=== PATIENT | male | born 1945 | race Caucasian/White ===

== ENCOUNTER → 2017-04-03 | Outpatient (CLI) | payer MEDICARE, BC ==
--- NOTE | 2017-04-03 08:49 | US ---
EXAMINATION TYPE: US duplex aorta DATE OF EXAM: 04/03/2017 COMPARISON: NONE CLINICAL HISTORY: 71-year-old male Z13.9 Encounter for screening unspecified. TECHNIQUE: Multiple sonographic images of the abdominal aorta are obtained. FINDINGS: SONOGRAPHY NOTES: Technical limitations due to large amount of overlying bowel content. Incidental finding: Complex cystic structure noted mid abdomen = 9.0 x 8.9 x 5.6cm EXAM MEASUREMENTS: Abdominal Aorta: Proximal: 2.5 x 2.9cm Mid: 2.7 x 2.6cm Distal: 1.8 x 1.9cm Bifurcation: RT: 1.1 x 1.1cm LT: 1.1 x 1.1cm IMPRESSION: 1. 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 2. Ectatic mid abdominal aorta (2.6 cm). 3. Apparent complex cystic structure measuring 9.0 cm in the mid abdomen. Etiology unclear based on t hese images. Contrast-enhanced CT can further evaluate.
== END | disposition home or self-care (01) ==
LOC: RADUSWWP 07:58
PROVIDERS: ATTEND Family Medicine
DX: I77.811 Abdominal aortic ectasia (principal)
CPT/HCPCS: 93979

== ENCOUNTER → 2017-04-18 | Outpatient (CLI) | payer MEDICARE, BC ==
[2017-04-18 07:55] LABS: Blood Urea Nitrogen 17 mg/dL (9-20)
--- NOTE | 2017-04-18 10:10 | CT ---
EXAMINATION TYPE: CT abdomen w con DATE OF EXAM: 04/18/2017 COMPARISON: NONE HISTORY: Intraabdominal swelling, mass and lump CT DLP: 1277.10 mGycm Automated exposure control for dose reduction was used. TECHNIQUE: Helical acquisition of images was performed from the lung bases through the top of iliac crest to include entire abdomen. CONTRAST: Performed with Oral Contrast and with IV Contrast, patient injected with 100 ml mL of Omnipaque 300. FINDINGS: LUNG BASES: Dependent atelectatic changes or groundglass opacities are present, no pleural or pericar dial effusion LIVER/GB: Liver shows some heterogeneous attenuation, gallbladder is normal PANCREAS: Punctate calcification present in the head of the pancreas. Multiple cystic foci associated with the body and tail of the pancreas with internal septations, lesion measures approximately 10 to 11 cm in greatest dimension by 9.4 cm x 7 cm. SPLEEN: Low dense focus towards the inferior aspect of the spleen measures approximately 13 mm and is indeterminate, focus towards the dome of the diaphragm posteriorly measures 10 to 11 mm and is also poorly defined. Some minimal fluid present along the inferior aspect of the spleen ADRENALS: No significant abnormality is seen. KIDNEYS: No significant abnormality is seen. BOWEL: No significant abnormality is seen. LYMPH NODES: No significant abnormality is appreciated. OSSEOUS STRUCTURES: No significant abnormality is seen. FREE AIR: No Free Air visible ASCITES: None visible. RETROPERITONEAL ADENOPATHY: No Retroperitoneal Adenopathy visible. OTHER: Bones remarkable for degenerative disc changes in the lumbar spine. Mild anterior wedging at L 1. 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 SCHULTZ.
== END | disposition home or self-care (01) ==
LOC: RADCTMAIN 07:03
PROVIDERS: ATTEND Family Medicine
DX: D13.6 Benign neoplasm of pancreas (principal)
CPT/HCPCS: 82565; 84520; 74160; 36415; Q9967

== ENCOUNTER → 2017-05-13 | Outpatient (CLI) | payer MEDICARE, BC ==
--- NOTE | 2017-05-14 09:19 | MR ---
EXAMINATION TYPE: MR MRCP DATE OF EXAM: 05/13/2017 COMPARISON: 04/03/2017 and 04/18/2017 HISTORY: Cystic pancreatic neoplasm seen on CT abdomen dated 04/18/2017. Standard multiplanar, multisequence MRI departmental protocol. Multiplanar, multisequence images of the abdomen were acquired per the MRCP protocol. [id number] images were utilized. FINDINGS: The common bile duct is nondilated measuring 6 mm proximally and distally. There is smooth tapering of the common bile duct distally without focal stricturing or proximal dilatation. The gallb ladder is unremarkable without evidence of cholelithiasis on this examination. Within the pancreatic head there is a rounded 1.2 x 1.0 x 1.0 cm T2 hyperintense and T1 hypointense c ystic mass. There is no direct communication visualized with the nondilated pancreatic duct. Within t he uncinate process just inferior to this there is a similar appearing 7 mm cystic mass. Overall the main pancreatic duct is nondilated measuring 3 mm at the pancreatic head and 2 mm within the pancreat ic. Beginning at the distal end of the pancreatic body and involving the pancreatic tail there is a l arge multiloculated macrocystic pancreatic mass measuring up to 9.4 x 7.8 x 10.8 cm in craniocaudal b y transverse by anterior posterior dimension. This places mass effect upon the inferior aspect of the stomach. Within this lesion there is suspicion for a solid component that is T2 hypointense and T1 h ypointense such as on T2 nonfat sat axial image 24 measuring 1.7 x 1.3 cm. Additionally there are magaly e thicker septa such as on image 23 posteriorly measuring 2 mm and many thin septa that are 1 mm and barely imperceptible. Additional thick septa measuring 3 mm is seen on image 25 anterior medially. No surrounding inflammatory changes seen. The liver is homogeneous. There is very mild signal dropout on out of phase imaging in comparison to these imaging of the hepatic parenchyma indicating mild hepatic steatosis. Adrenal glands are unremar kable. A T2 hyperintense and T1 hypointense 6 mm splenic lesion has no enhancement and may represent a benign primary cyst, secondary cysts, or lymphangioma. Tiny subcentimeter T2 hyperintense cortical and renal sinus lesions are seen bilaterally favored to represent cysts but are too small to accurate ly characterize. Mild perinephric fat stranding is seen bilaterally. No hydronephrosis. Abdominal aor ta is of normal caliber. Bowel is nondilated. No gross evidence of adenopathy within the abdomen. Mil d degenerative changes are seen of the visualized thoracolumbar spine as well as a probable vertebral body hemangioma. IMPRESSION: 1. 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 Location of this neoplasm and macro cystic components favor mucinous cystic neoplasm (cystadenoma or cystadenocarcinoma), however these a re typically unilocular and therefore this is not entirely diagnostic for mucinous cystic neoplasm. O ther considerations are for multiloculated pseudocyst in the history of pancreatitis or trauma, cysti c degeneration of a neuroendocrine tumor for which correlation with serum laboratory values could be performed, or much less likely cystic degeneration of an adenocarcinoma (correlate with serum CA-19-9 ). MR abdomen with and without intravenous contrast is recommended to evaluate for solid component an d septal enhancement, which favors malignant entities. 2. Smaller pancreatic head and uncinate process cystic lesions that could represent small pseudocysts or side branch IPMNs although no distinct communication with the pancreatic duct is seen. 3. Mild hepatic steatosis. 4. No evidence of adenopathy within the abdomen.
== END | disposition home or self-care (01) ==
LOC: RADMRIMAIN 19:31
PROVIDERS: ATTEND Internal Medicine Hematology & Oncology
DX: D49.0 Neoplasm of unspecified behavior of digestive system (principal); K76.0 Fatty (change of) liver, not elsewhere classified; D75.89 Other specified diseases of blood and blood-forming organs
CPT/HCPCS: 74181

== ENCOUNTER 2017-08-14 08:37 | Inpatient (IN) | payer MEDICARE, BC ==
[2017-08-14] MEDS ORDERED: SODIUM CHLORIDE 0.9% 1,000 ML IV ONE (08:51)
--- NOTE | 2017-08-14 08:53 | ED ---
Altered Mental Status HPI - General Chief Complaint: Altered Mental Status Stated Complaint: altered mental status Source: patient Mode of arrival: EMS Limitations: altered mental status - History of Present Illness Initial Comments: Patient presents after a syncopal episode this morning. He states that he passed out. Patient denies any fever, chills, chest pain. He had recent abdominal surgery for pancreatic cancer. He denies any blood in the stool or black or tarry stool. He has no belly pains this time. He has no headache. He has no change in vision or hearing. He has no neck pain or stiffness. He denies any focal weakness. He has been tolerating orotate. - Related Data Home Medications Medication Instructions Recorded Confirmed Aspirin EC [Ecotrin Low Dose] 81 mg PO DAILY 08/14/17 08/14/17 Diltiazem Cd [Cardizem Cd] 180 mg PO DAILY 08/14/17 08/14/17 Pravastatin Sodium [Pravachol] 20 mg PO HS 08/14/17 08/14/17 Allergies Allergy/AdvReac Type Severity Reaction Status Date / Time niacin Allergy Unknown Verified 08/14/17 09:05 Review of Systems ROS Statement: Those systems with pertinent positive or pertinent negative responses have been documented in the HPI. ROS Other: All systems not noted in ROS Statement are negative. Past Medical History Past Medical History: Hypertension Additional Past Medical History / Comment(s): pancreatic CA History of Any Multi-Drug Resistant Organisms: None Reported Past Surgical History: Prostate Surgery Additional Past Surgical History / Comment(s): abdominal surgery Past Psychological History: No Psychological Hx Reported Smoking Status: Former smoker Past Alcohol Use History: None Reported Past Drug Use History: None Reported General Exam Limitations: altered mental status General appearance: alert, in no apparent distress Head exam: Present: atraumatic, normocephalic, normal inspection Eye exam: Present: normal appearance, PERRL, EOMI. Absent: scleral icterus, conjunctival injection, periorbital swelling ENT exam: Present: normal exam, mucous membranes moist Neck exam: Present: normal inspection. Absent: tenderness, meningismus, lymphadenopathy Respiratory exam: Present: normal lung sounds bilaterally. Absent: respiratory distress, wheezes, rales, rhonchi, stridor Cardiovascular Exam: Present: regular rate, normal rhythm, normal heart sounds. Absent: systolic murmur, diastolic murmur, rubs, gallop, clicks GI/Abdominal exam: Present: soft, normal bowel sounds, other (There is a well- healing scar, with a drain in place). Absent: distended, tenderness, guarding, rebound, rigid Extremities exam: Present: normal inspection, full ROM, normal capillary refill. Absent: tenderness, pedal edema, joint swelling, calf tenderness Back exam: Present: normal inspection Neurological exam: Present: alert, oriented X3, CN II-XII intact Psychiatric exam: Present: normal affect, normal mood Skin exam: Present: warm, dry, intact, normal color. Absent: rash Course Vital Signs 08/14/17 08/14/17 08:38 10:53 Temperature 100.0 F H 97.8 F Pulse Rate 82 77 Respiratory 18 17 Rate Blood Pressure 153/78 145/89 O2 Sat by Pulse 98 96 Oximetry Medical Decision Making - Medical Decision Making Patient presents after sick a be. He has a high white count. I'm concerned for an infectious processes. I have started antibiotics. Patient will be admitted to the hospital. - Lab Data Result diagrams: 08/14/17 09:10 08/14/17 09:10 Lab Results 08/14/17 08/14/17 08/14/17 Range/Units 09:08 09:10 09:10 WBC 20.2 H (3.8-10.6) k/uL RBC 4.20 L (4.30-5.90) m/uL Hgb 11.7 L (13.0-17.5) gm/dL Hct 35.0 L (39.0-53.0) % MCV 83.4 (80.0-100.0) fL MCH 27.8 (25.0-35.0) pg MCHC 33.3 (31.0-37.0) g/dL RDW 14.2 (11.5-15.5) % Plt Count 352 (150-450) k/uL Neutrophils % 86 % Lymphocytes % 4 % Monocytes % 9 % Eosinophils % 1 % Basophils % 0 % Neutrophils # 17.3 H (1.3-7.7) k/uL Lymphocytes # 0.7 L (1.0-4.8) k/uL Monocytes # 1.8 H (0-1.0) k/uL Eosinophils # 0.2 (0-0.7) k/uL Basophils # 0.0 (0-0.2) k/uL PT (9.0-12.0) sec INR (<1.2) APTT (22.0-30.0) sec Sodium (137-145) mmol/L Potassium (3.5-5.1) mmol/L Chloride (98-107) mmol/L Carbon Dioxide (22-30) mmol/L Anion Gap mmol/L BUN (9-20) mg/dL Creatinine (0.66-1.25) mg/dL Est GFR (CKD-EPI)AfAm (>60 ml/min/1.73 sqM) Est GFR (CKD-EPI)NonAf (>60 ml/min/1.73 sqM) Glucose (74-99) mg/dL POC Glucose (mg/dL) 132 H (75-99) mg/dL POC Glu Front End Driver ID Aileen Castrejon Calcium (8.4-10.2) mg/dL Total Bilirubin (0.2-1.3) mg/dL AST (17-59) U/L ALT (21-72) U/L Alkaline Phosphatase (38-126) U/L Ammonia 11 (<30) umol/L Troponin I (0.000-0.034) ng/mL Total Protein (6.3-8.2) g/dL Albumin (3.5-5.0) g/dL 08/14/17 08/14/17 08/14/17 Range/Units 09:10 09:10 09:10 WBC (3.8-10.6) k/uL RBC (4.30-5.90) m/uL Hgb (13.0-17.5) gm/dL Hct (39.0-53.0) % MCV (80.0-100.0) fL MCH (25.0-35.0) pg MCHC (31.0-37.0) g/dL RDW (11.5-15.5) % Plt Count (150-450) k/uL Neutrophils % % Lymphocytes % % Monocytes % % Eosinophils % % Basophils % % Neutrophils # (1.3-7.7) k/uL Lymphocytes # (1.0-4.8) k/uL Monocytes # (0-1.0) k/uL Eosinophils # (0-0.7) k/uL Basophils # (0-0.2) k/uL PT 11.2 (9.0-12.0) sec INR 1.2 H (<1.2) APTT 23.9 (22.0-30.0) sec Sodium 136 L (137-145) mmol/L Potassium 5.5 H (3.5-5.1) mmol/L Chloride 101 (98-107) mmol/L Carbon Dioxide 22 (22-30) mmol/L Anion Gap 13 mmol/L BUN 13 (9-20) mg/dL Creatinine 0.72 (0.66-1.25) mg/dL Est GFR (CKD-EPI)AfAm >90 (>60 ml/min/1.73 sqM) Est GFR (CKD-EPI)NonAf >90 (>60 ml/min/1.73 sqM) Glucose 120 H (74-99) mg/dL POC Glucose (mg/dL) (75-99) mg/dL POC Glu Front End Driver ID Calcium 8.9 (8.4-10.2) mg/dL Total Bilirubin 1.5 H (0.2-1.3) mg/dL AST 34 (17-59) U/L ALT 27 (21-72) U/L Alkaline Phosphatase 59 (38-126) U/L Ammonia (<30) umol/L Troponin I <0.012 (0.000-0.034) ng/mL Total Protein 6.0 L (6.3-8.2) g/dL Albumin 3.6 (3.5-5.0) g/dL 08/14/17 08:53 Twelve-lead EKG shows ventricular rate 81 bpm, normal [place] interval and QRS complexes, no ST elevation or depression, interpreted by me as normal sinus rhythm. Disposition Clinical Impression: Syncope, Bacteremia Disposition: ADMITTED IP TO THIS HOSP Condition: Fair Is patient prescribed a controlled substance at d/c from ED?: No Referrals: Rodolfo Rivera MD [Primary Care Provider] - 1-2 days
[2017-08-14] MEDS ORDERED: ACETAMINOPHEN IV (For NPO) 1,000 MG in EMPTY BAG 1 BAG IVPB STA (08:54)
[2017-08-14 09:15] LABS: Glucose,Whole Blood 132 mg/dL (75-99)
[2017-08-14 09:28] LABS: Basophils % (A) 0 %; Eosinophils # (A) 0.2 k/uL (0-0.7); Eosinophils % (A) 1 %; HGB 11.7 gm/dL (13.0-17.5); Lymphocytes # (A) 0.7 k/uL (1.0-4.8); Lymphocytes % (A) 4 %; MCH 27.8 pg (25.0-35.0); MCHC 33.3 g/dL (31.0-37.0); MCV 83.4 fL (80.0-100.0); Mean Platelet Volume 8.3; Monocytes # (A) 1.8 k/uL (0-1.0); Monocytes % (A) 9 %; Neutrophils # (A) 17.3 k/uL (1.3-7.7); Neutrophils % (A) 86 %; Platelet Count 352 k/uL (150-450); RDW 14.2 % (11.5-15.5); WBC 20.2 k/uL (3.8-10.6)
[2017-08-14 09:33] LABS: INR 1.2 (<1.2); Partial Thromboplastin Time 23.9 sec (22.0-30.0); Prothrombin Time 11.2 sec (9.0-12.0)
[2017-08-14 09:37] LABS: Anion Gap 13 mmol/L; Calcium 8.9 mg/dL (8.4-10.2); Carbon Dioxide 22 mmol/L (22-30); Chloride 101 mmol/L (98-107); Glucose 120 mg/dL (74-99); Sodium 136 mmol/L (137-145); Total Bilirubin 1.5 mg/dL (0.2-1.3)
--- NOTE | 2017-08-14 09:44 | CT ---
EXAMINATION TYPE: CT brain wo con DATE OF EXAM: 08/14/2017 COMPARISON: NONE INDICATION: Syncopal episode, AMS DLP: 1121 mGycm, Automated exposure control for dose reduction was used. CONTRAST: None CT of the brain is performed utilizing 3 mm thick sections through the posterior fossa and 3 mm thick sections through the remaining calvarium. Study is performed within 24 hours of arrival to the hosp ital. No abnormal hyperdensity is present to suggest an acute intracranial hemorrhage. No mass lesion is evident. No acute infarcts are evident. Periventricular white matter hypodensity is present likely on the basi s of chronic white matter ischemic changes. Subcortical hypodensity is present in the posterior-later al white matter. Some watershed ischemia may be present.No mass effect is evident suggesting this is likely old. Ventricles and sulci are slightly prominent for the patient age. Paranasal sinuses and mastoid air cells within the [id number] are clear. IMPRESSIONS: 1. Age-related atrophy is some periventricular white matter ischemic changes. 2. Subcortical white matter changes in the parietal-occipital regions bilaterally slightly greater on the right may be chronic as well.
[2017-08-14 09:47] LABS: ALT 27 U/L (21-72); AST 34 U/L (17-59); Alkaline Phosphatase 59 U/L (38-126); Blood Urea Nitrogen 13 mg/dL (9-20); Potassium 5.5 mmol/L (3.5-5.1)
[2017-08-14 09:48] LABS: Albumin 3.6 g/dL (3.5-5.0)
--- NOTE | 2017-08-14 09:54 | XR ---
EXAMINATION TYPE: XR chest 2V DATE OF EXAM: 08/14/2017 COMPARISON: 07/04/2009 INDICATION: Altered mental status TECHNIQUE: Frontal and lateral views of the chest are obtained. FINDINGS: The heart size is normal. The pulmonary vasculature is normal. The lungs are clear. IMPRESSION: 1. No acute pulmonary process.
[2017-08-14] MEDS ORDERED: SODIUM CHLORIDE 0.9% 1,000 ML IV STA (10:09)
[2017-08-14] MEDS ORDERED: VANCOMYCIN 1,500 MG in SODIUM CHLORIDE 0.9% 250 ML IVPB STA (11:11)
[2017-08-14] MEDS ORDERED: PIPERACILLIN-TAZOBACTAM 3.375 GM in DEXTROSE/WATER 1 50ML.BAG IVPB STA (11:11)
[2017-08-14] MEDS ORDERED: ACETAMINOPHEN TAB 325 MG TAB PO PRN (11:24)
[2017-08-14] MEDS ORDERED: NALOXONE 0.4 MG/ML 1 ML VIAL IV PRN (11:24)
[2017-08-14] MEDS ORDERED: ONDANSETRON 4 MG/2 ML VIAL IVP PRN (11:24)
[2017-08-14 12:53] LABS: Appearance,BF Cloudy; Nucleated Cells, Body Fluid 2510 /uL; RBC, Body Fluid 250 /uL
[2017-08-14 12:58] LABS: Mononuclear WBC,Body Fluid 3 %; Polynuclear WBC,Body Fluid 97 %; Total Cells Counted,Body Fluid 100
[2017-08-14] MEDS ORDERED: VANCOMYCIN 1,500 MG in SODIUM CHLORIDE 0.9% 250 ML IVPB ONE (16:00)
[2017-08-14] MEDS ORDERED: SODIUM POLYSTYRENE SULFONATE 15 GM/60 ML BOTTLE PO STA (16:37)
[2017-08-14] MEDS ORDERED: PIPERACILLIN-TAZOBACTAM 3.375 GM in DEXTROSE/WATER 1 50ML.BAG IVPB SCH (16:45)
[2017-08-14] MEDS: LACTATED RINGERS 1,000 ML IV SCH (17:38)
[2017-08-14] MEDS: ENOXAPARIN 40 MG/0.4 ML SYRINGE SQ SCH (17:39)
[2017-08-14] MEDS: LIPASE 5,000/PROTEASE 17,000/AMYLASE 27,0000 PO SCH ×3 (17:40→23:06)
[2017-08-14 17:58] VITALS: BMI 27.1
--- NOTE | 2017-08-14 18:01 | HP ---
HISTORY AND PHYSICAL DATE OF ADMISSION: 08/14/2017 PRESENTING COMPLAINT: Episode of confusion. HISTORY OF PRESENTING COMPLAINT: This is a very pleasant 72-year-old patient who follows with Dr. Rivera. The patient about a month ago underwent surgery for pancreatic cancer. Partial pancreatectomy and splenomegaly was carried out. The patient has a drain in the abdomen. The patient has a neighbor that he will call their phone to tell him he is okay. This morning he got up and he thinks he remembers calling them an the next thing is that he was found, he was down on the sofa and all he remembers was EMS coming there. The patient has been eating okay. Denies any fever or chills. The patient was found to have a low- grade fever of 100 in the ER and an elevated white count. Normally, patient's drain is slightly pink, is more turbid. The patient denies any abdominal pain, nausea, vomiting. Because of concern for infection, the patient was started on vancomycin in the ER and also I had ordered abdominal drain fluid to be sent off for Gram stain and culture. The patient also was started on Creon supplements for his pancreas and normally has 1 bowel movement today. Denies any chest pain, palpitations. REVIEW OF SYSTEMS: CONSTITUTIONAL: None. HEENT: None. RESPIRATORY: None. CARDIOVASCULAR: None. GASTROINTESTINAL: As above. GENITOURINARY: None. MUSCULOSKELETAL: None. DERMATOLOGICAL: None. HEMATOLOGIC: None. LYMPHATIC: None. PSYCHIATRY: None. NEUROLOGICAL: No tongue biting. No incontinence. PAST MEDICAL HISTORY: Hyperlipidemia, hypertension, prostate cancer surgery, some tremors. PAST SURGICAL HISTORY: Prostate surgery, bilateral cataracts. Part of the pancreas and part of spleen was removed. Hemorrhoidectomy. 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 The patient has smoked about 1/3 pack a day. Rare use of alcohol and the patient smoked for close to 50 years. FAMILY HISTORY: Stroke and hypertension. HOME MEDICATIONS: 1. Pravachol 20 mg at bedtime. 2. Cardizem CD 180 mg p.o. daily. 3. Aspirin 81 mg p.o. daily. ALLERGIES: NIACIN. EXAMINATION: Temperature 100, pulse 62, respirations 18, blood pressure 153/78, pulse ox 98% on room air. GENERAL APPEARANCE: Average built, sitting up, comfortable. EYES: Pupils equal. Conjunctivae normal. HEENT: External appearance of nose and ears normal. Oral cavity normal. NECK: JVD not raised. Mass not palpable. RESPIRATORY: Effort normal. Lungs are clear. CARDIOVASCULAR: First and second sounds normal. No edema. ABDOMEN: Soft, nontender. JANAE drain in place with a turbid-looking output. Liver and spleen not palpable. LYMPHATIC: No lymph node palpable in neck or axillae. PSYCHIATRY: Alert and oriented x3. Mood and affect were normal. NEUROLOGICAL: Pupils equal. Cranial nerve grossly intact. Power and sensation grossly intact. INVESTIGATIONS: White count 20.2, hemoglobin 11.7. Potassium 5.5. BUN and creatinine are normal. Total bilirubin is 1.5. ASSESSMENT: 1. This is a patient who presents with a short lapse of memory episode with low-grade fever, elevated white count. The patient could have been delirious. Infection needs to be ruled out of the surgical site, given that the fluid is a bit more turbid. The patient has a white count and low-grade fever. 2. Rule out metastatic disease, given the presentation. 3. Hyperkalemia. 4. Normocytic anemia, possibly blood loss from surgery. 5. Gastroesophageal reflux disease. 6. Essential hypertension. PLAN: At this point, patient is started on vancomycin and Zosyn. Abdominal fluid will be sent off for Gram stain and culture. Infectious Disease to be consulted. Patient given IV fluids. Will do an MRI of the brain with and without contrast to look for any metastatic disease. Care was discussed with the patient. Questions were answered. Consultation report to ID and Oncology is being done. MMODL / IJN: [id number] /
[2017-08-14 18:28] LABS: Appearance,Urine Clear (Clear); Bilirubin,Urine Negative (Negative); Blood,Urine Negative (Negative); Color,Urine Yellow; Glucose,Urine (UA) Negative (Negative); Ketones,Urine Trace (Negative); Leukocyte Esterase,Urine Negative (Negative); Nitrite,Urine Negative (Negative); PH, Urine 6.5 (5.0-8.0); Protein,Urine Trace (Negative); Urobilinogen,Urine <2.0 mg/dL (<2.0)
[2017-08-14 18:46] LABS: Amphetamine Screen,Urine Not Detected (NotDetected); Barbiturate Screen,Urine Not Detected (NotDetected); Benzodiazepines Screen,Urine Not Detected (NotDetected); Cocaine Screen,Urine Not Detected (NotDetected); Methadone Screen, Urine Not Detected (NotDetected); Opiate Screen,Urine Not Detected (NotDetected); Oxycodone Screen, Urine Not Detected (NotDetected); Phencyclidine Screen,Urine Not Detected (NotDetected); Tricyclic Antidepressant,Urine Not Detected (NotDetected); Urn Cannabinoid Scrn Not Detected (NotDetected)
[2017-08-14] MEDS: FAMOTIDINE 20 MG TAB PO SCH (19:57)
[2017-08-14] MEDS: PRAVASTATIN SODIUM 20 MG TAB PO SCH (19:57)
[2017-08-14] MEDS: MEROPENEM 1 GM in SODIUM CHLORIDE 0.9% 100 ML IVPB SCH (23:06)
--- NOTE | 2017-08-14 23:06 | P.CONS ---
History of Present Illness - Reason for Consult Consult date: 08/14/17 - Chief Complaint Infusion - History of Present Illness Pleasant 9-year-old male who in May of this year was having difficulties in the abdomen. An MRI was performed evidence of the extensive pancreatic mass. The patient was evaluated at [facility] and underwent the surgical resection of the pancreatic mass, his stomach, as well as splenectomy. The patient has had a drain in place and was doing relatively well. However the patient became confused and apparently EMS was called and was brought to Hospital with evidence of fever and confusion. With concern for sepsis related to his recent extensive surgery and infectious diseases consultation was requested. It is noted that the drainage from his JANAE drain has become a bit more purulent when he was a thin bloody material in the past. 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 This evening the patient is feeling better after his hydration and antibiotic therapy. He remembers me from bringing his sister to the office for the care of her infections. Review of Systems Patient recalls having chills and rigors yesterday prior to the onset of confusion HEENT:Denies headache or acute visual change. Denies sinus or mouth discomforts. Denies neck stiffness or pain. Denies significant oral cavity pain. Denies difficulty on swallowing. Lungs: Denies significant shortness of breath, cough, sputum production, or hemoptysis. Cardiovascular: Denies significant shortness of breath, chest pain, chest wall pain, orthopnea, dyspnea on exertion, syncope Gastrointestinal: Denies much abdominal pain, Denies nausea, vomiting, diarrhea , constipation, hematemesis, melena, hematochezia. No no significant change of bowel habit noticed. Musculoskeletal: denies significant myalgias or arthralgias. No new joint swelling. Denies new back pain. Skin: Denies new rash or lesions. No new ulcers or wounds are related.. Neuro: Denies headache or visual change. Denies any new onset weakness or difficulty with ambulation. Denies falls or seizures. Psychiatric: Relates she's been doing quite well despite his cancer diagnosis is not having depression Endocrine: Does have fatigue and has had significant weight loss despite trying to eat well Past Medical History Past Medical History: Cancer, Hyperlipidemia, Hypertension Additional Past Medical History / Comment(s): past prostate can (sx only), pancreatic CA so far sx only but stated is sceduled for tx, sinus problems, tremors History of Any Multi-Drug Resistant Organisms: None Reported Past Surgical History: Prostate Surgery Additional Past Surgical History / Comment(s): abdominal surgery"pt poor historian as to in total what was done but stated part of stomach and pancreas was removed", prostatectomy 2009, sigrid cataracts, colonoscopy 1999, hemorrhoidectomy Past Anesthesia/Blood Transfusion Reactions: Motion Sickness Additional Past Anesthesia/Blood Transfusion Reaction / Comm: clausterphobia. to pt's knowledge never recieved any blood Past Psychological History: No Psychological Hx Reported Additional Psychological History / Comment(s): pt is indepndant. drives, lives alone in 2 story home but stays mostly on main level. no pets. no home care services, no medical equipment. 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 No international travel sisters are primary contact. No children. Stop smoking at the time of his cancer diagnosis with no severe and alcohol use related Smoking Status: Former smoker Past Alcohol Use History: Rare Additional Past Alcohol Use History / Comment(s): started smoking at age 23(1969 ) and quit july 2017. a pack would last 3 days. rare use of alcohol. Past Drug Use History: None Reported - Past Family History Mother Family Medical History: CVA/TIA, Hypertension Father Family Medical History: Congestive Heart Failure (CHF), Coronary Artery Disease (CAD), Myocardial Infarction ([place]) Medications and Allergies Home Medications and Allergies Comment(s): Current Medications Acetaminophen (Tylenol Tab) 650 mg PO Q6HR PRN PRN Reason: Mild Pain or Fever > 100.5 Lipase/Protease/Amylase (Zenpep Dr 5,000 Units Capsule) 2 each PO 5XD [facility] Last Admin: 08/14/17 19:54 Dose: 2 each Aspirin (Aspirin) 81 mg PO DAILY [facility] Diltiazem HCl (Cardizem Cd) 180 mg PO DAILY [facility] Enoxaparin Sodium (Lovenox) 40 mg SQ DAILY [facility] Last Admin: 08/14/17 17:39 Dose: 40 mg Famotidine (Pepcid) 20 mg PO BID [facility] Last Admin: 08/14/17 19:57 Dose: 20 mg Lactated Ringer's (Lactated Ringers) 1,000 mls @ 125 mls/hr IV .Q8H [facility] Last Admin: 08/14/17 17:38 Dose: 125 mls/hr Vancomycin HCl 1,500 mg/ (Sodium Chloride) 250 mls @ 125 mls/hr IVPB Q12H [facility] Meropenem 1 gm/ Sodium (Chloride) 100 mls @ 100 mls/hr IVPB Q8HR [facility] Naloxone HCl (Narcan) 0.2 mg IV Q2M PRN PRN Reason: Opioid Reversal Ondansetron HCl (Zofran) 4 mg IVP Q8HR PRN PRN Reason: Nausea And Vomiting Pravastatin Sodium (Pravachol) 20 mg PO [facility] Last Admin: 08/14/17 19:57 Dose: 20 mg Home Medications Medication Instructions Recorded Confirmed Type Aspirin EC [Ecotrin Low Dose] 81 mg PO DAILY 08/14/17 08/14/17 History Diltiazem Cd [Cardizem Cd] 180 mg PO DAILY 08/14/17 08/14/17 History Lipase/Protease/Amylase [Creon Dr 2 cap PO 5XD 08/14/17 08/14/17 History 36,000 Units Capsule] Pravastatin Sodium [Pravachol] 20 mg PO HS 08/14/17 08/14/17 History Allergies Allergy/AdvReac Type Severity Reaction Status Date / Time niacin Allergy Unknown Verified 08/14/17 09:05 Physical Exam Vitals: Vital Signs Temp Pulse Pulse Resp BP BP Pulse Ox 08/14/17 21:32 98.7 F 95 16 130/73 92 L 08/14/17 15:24 97.8 F 80 20 169/83 98 08/14/17 14:45 99.2 F 80 16 141/87 97 08/14/17 10:53 97.8 F 77 17 145/89 96 08/14/17 08:38 100.0 F H 82 18 153/78 98 Intake and Output 08/14/17 08/14/17 08/14/17 06:59 14:59 22:59 Output Total 30 Balance -30 Output: Drainage 30 Left Abdomen 30 Other: # Voids 1 Weight 88.45 kg Pleasant 72-year-old male who is modestly comfortable and much less confused than upon presentation HEENT: Anicteric conjunctiva are pink and moist nasal mucosa grossly intact without significant lesions, there is no thrush. Neck: The neck is supple without significant lymphadenopathy or thyromegaly. Lungs: Good bilateral air entry without significant crackles or wheezing. There is no significant bronchial sounds. There is no egophony or dullness. Heart: Regular rate and rhythm with an audible S1-S2, no S3 no S4. There is no significant murmur click or rub, PMI was nondisplaced. Abdomen: Positive bowel sounds soft the surgical wound is well-healed without drainage. The abdomen has very little tenderness. No palpable hepatomegaly spleen is surgically absent Extremities: The upper extremities have excellent pulses they are symmetric, no significant petechiae or telangiectasia. No splinter hemorrhages were noted. The lower extremities are free from significant edema. The peripheral pulses were 2+ and symmetric. Neuro: Awake alert oriented to person place and time. There are no acute new gross focal sensory motor deficits. Results CBC & Chem 7: 08/14/17 09:10 08/14/17 09:10 Labs: Abnormal Lab Results - Last 24 Hours (Table) 08/14/17 08/14/17 08/14/17 Range/Units 09:08 09:10 09:10 WBC 20.2 H (3.8-10.6) k/uL RBC 4.20 L (4.30-5.90) m/uL Hgb 11.7 L (13.0-17.5) gm/dL Hct 35.0 L (39.0-53.0) % Neutrophils # 17.3 H (1.3-7.7) k/uL Lymphocytes # 0.7 L (1.0-4.8) k/uL Monocytes # 1.8 H (0-1.0) k/uL INR (<1.2) Sodium 136 L (137-145) mmol/L Potassium 5.5 H (3.5-5.1) mmol/L Glucose 120 H (74-99) mg/dL POC Glucose (mg/dL) 132 H (75-99) mg/dL Total Bilirubin 1.5 H (0.2-1.3) mg/dL Total Protein 6.0 L (6.3-8.2) g/dL Urine Protein (Negative) Urine Ketones (Negative) 08/14/17 08/14/17 Range/Units 09:10 18:15 WBC (3.8-10.6) k/uL RBC (4.30-5.90) m/uL Hgb (13.0-17.5) gm/dL Hct (39.0-53.0) % Neutrophils # (1.3-7.7) k/uL Lymphocytes # (1.0-4.8) k/uL Monocytes # (0-1.0) k/uL INR 1.2 H (<1.2) Sodium (137-145) mmol/L Potassium (3.5-5.1) mmol/L Glucose (74-99) mg/dL POC Glucose (mg/dL) (75-99) mg/dL Total Bilirubin (0.2-1.3) mg/dL Total Protein (6.3-8.2) g/dL Urine Protein Trace H (Negative) Urine Ketones Trace H (Negative) Microbiology - Last 24 Hours (Table) 08/14/17 11:30 Gram Stain - Preliminary [facility] Body Fluid Culture - Preliminary Laboratory Results WBC 20.2 k/uL (3.8-10.6) H 08/14/17 09:10 RBC 4.20 m/uL (4.30-5.90) L 08/14/17 09:10 Hgb 11.7 gm/dL (13.0-17.5) L 08/14/17 09:10 Hct 35.0 % (39.0-53.0) L 08/14/17 09:10 MCV 83.4 fL (80.0-100.0) 08/14/17 09:10 MCH 27.8 pg (25.0-35.0) 08/14/17 09:10 MCHC 33.3 g/dL (31.0-37.0) 08/14/17 09:10 RDW 14.2 % (11.5-15.5) 08/14/17 09:10 Plt Count 352 k/uL (150-450) 08/14/17 09:10 Neutrophils % 86 % 08/14/17 09:10 Lymphocytes % 4 % 08/14/17 09:10 Monocytes % 9 % 08/14/17 09:10 Eosinophils % 1 % 08/14/17 09:10 Basophils % 0 % 08/14/17 09:10 Neutrophils # 17.3 k/uL (1.3-7.7) H 08/14/17 09:10 Lymphocytes # 0.7 k/uL (1.0-4.8) L 08/14/17 09:10 Monocytes # 1.8 k/uL (0-1.0) H 08/14/17 09:10 Eosinophils # 0.2 k/uL (0-0.7) 08/14/17 09:10 Basophils # 0.0 k/uL (0-0.2) 08/14/17 09:10 PT 11.2 sec (9.0-12.0) 08/14/17 09:10 INR 1.2 (<1.2) H 08/14/17 09:10 APTT 23.9 sec (22.0-30.0) 08/14/17 09:10 Sodium 136 mmol/L (137-145) L 08/14/17 09:10 Potassium 5.5 mmol/L (3.5-5.1) H 08/14/17 09:10 Chloride 101 mmol/L (98-107) 08/14/17 09:10 Carbon Dioxide 22 mmol/L (22-30) 08/14/17 09:10 Anion Gap 13 mmol/L 08/14/17 09:10 BUN 13 mg/dL (9-20) 08/14/17 09:10 Creatinine 0.72 mg/dL (0.66-1.25) 08/14/17 09:10 Est GFR (CKD-EPI)AfAm >90 (>60 ml/min/1.73 sqM) 08/14/17 09:10 Est GFR (CKD-EPI)NonAf >90 (>60 ml/min/1.73 sqM) 08/14/17 09:10 Glucose 120 mg/dL (74-99) H 08/14/17 09:10 POC Glucose (mg/dL) 132 mg/dL (75-99) H 08/14/17 09:08 POC [employer] Serviceperson ID Aileen Castrejon 08/14/17 09:08 Calcium 8.9 mg/dL (8.4-10.2) 08/14/17 09:10 Total Bilirubin 1.5 mg/dL (0.2-1.3) H 08/14/17 09:10 AST 34 U/L (17-59) 08/14/17 09:10 ALT 27 U/L (21-72) 08/14/17 09:10 Alkaline Phosphatase 59 U/L (38-126) 08/14/17 09:10 Ammonia 11 umol/L (<30) 08/14/17 09:10 Troponin I <0.012 ng/mL (0.000-0.034) 08/14/17 21:04 Total Protein 6.0 g/dL (6.3-8.2) L 08/14/17 09:10 Albumin 3.6 g/dL (3.5-5.0) 08/14/17 09:10 Urine Color Yellow 08/14/17 18:15 Urine Appearance Clear (Clear) 08/14/17 18:15 Urine pH 6.5 (5.0-8.0) 08/14/17 18:15 Ur Specific [place] 1.010 (1.001-1.035) 08/14/17 18:15 Urine Protein Trace (Negative) H 08/14/17 18:15 Urine Glucose (UA) Negative (Negative) 08/14/17 18:15 Urine Ketones Trace (Negative) H 08/14/17 18:15 Urine Blood Negative (Negative) 08/14/17 18:15 Urine Nitrite Negative (Negative) 08/14/17 18:15 Urine Bilirubin Negative (Negative) 08/14/17 18:15 Urine Urobilinogen <2.0 mg/dL (<2.0) 08/14/17 18:15 Ur Leukocyte Esterase Negative (Negative) 08/14/17 18:15 Fluid Source Abdominal 08/14/17 11:30 Fluid Appearance Cloudy 08/14/17 11:30 Fluid RBC 250 /uL 08/14/17 11:30 Fluid Nucleated Cells 2510 /uL 08/14/17 11:30 Fluid Polynuclear WBCs 97 % 08/14/17 11:30 Fluid Mononuclear WBCs 3 % 08/14/17 11:30 Fluid Comment 08/14/17 11:30 Urine Opiates Screen Not Detected (NotDetected) 08/14/17 18:15 Ur Oxycodone Screen Not Detected (NotDetected) 08/14/17 18:15 Urine Methadone Screen Not Detected (NotDetected) 08/14/17 18:15 Ur Propoxyphene Screen Not Detected (NotDetected) 08/14/17 18:15 Ur Barbiturates Screen Not Detected (NotDetected) 08/14/17 18:15 U Tricyclic Antidepress Not Detected (NotDetected) 08/14/17 18:15 Ur Phencyclidine Scrn Not Detected (NotDetected) 08/14/17 18:15 Ur Amphetamines Screen Not Detected (NotDetected) 08/14/17 18:15 U Methamphetamines Scrn Not Detected (NotDetected) 08/14/17 18:15 U Benzodiazepines Scrn Not Detected (NotDetected) 08/14/17 18:15 Urine Cocaine Screen Not Detected (NotDetected) 08/14/17 18:15 U Marijuana (THC) Screen Not Detected (NotDetected) 08/14/17 18:15 Microbiology 08/14/17 11:30 Talon Gram Stain - Preliminary 08/14/17 11:30 [facility] - Preliminary Assessment and Plan (1) Sepsis Narrative/Plan: 72-year-old male presents to the emergency center with significant confusion that was preceded by onset of fever with chills and rigors. He was brought to the emergency center on evidence of underlying sepsis and was admitted. There is concern that the recent surgical intervention is the source of the current sepsis specifically at the pancreatic bed. Because of this antibiotic therapy with meropenem as well as vancomycin been utilized pending culture data. Culture from the JANAE drain has been requested might be helpful blood cultures are going to be most prudent. Given the mental status changes and MRI of the brain and then requested as part of the screening for his pancreatic cancer He has had significant weight loss related to his illness and hopefully with the addition of pancreatic enzyme supplement therapy he will have better nutritional absorption and will stop his weight loss. Fortunately he is not having much pain. There is significant leukocytosis, but not significant thrombocytosis, it is unknown what his new equilibrium is regarding his blood counts after the splenectomy. Fortunately there is no renal failure, bilirubin is minimally elevated with no evidence of any transaminase elevation Workup will determine which antibiotic therapy is required at discharge. Fortunately with hydration and antibiotics is ready showing some improvement. Current Visit: Yes Status: Acute Code(s): A41.9 - SEPSIS, UNSPECIFIED ORGANISM SNOMED Code(s): 05396421 (2) Pancreatic cancer Current Visit: Yes Status: Acute Code(s): C25.9 - MALIGNANT NEOPLASM OF PANCREAS, UNSPECIFIED SNOMED Code(s): 765383715 (3) Fever Current Visit: Yes Status: Acute Code(s): R50.9 - FEVER, UNSPECIFIED SNOMED Code(s): 695008526 (4) Leukocytosis Current Visit: Yes Status: Acute Code(s): D72.829 - ELEVATED WHITE BLOOD CELL COUNT, UNSPECIFIED SNOMED Code(s): 264666983
[2017-08-15] MEDS: LACTATED RINGERS 1,000 ML IV SCH ×3 (03:32→17:58)
[2017-08-15] MEDS: LIPASE 5,000/PROTEASE 17,000/AMYLASE 27,0000 PO SCH ×5 (04:54→23:31)
[2017-08-15] MEDS: VANCOMYCIN 1,500 MG in SODIUM CHLORIDE 0.9% 250 ML IVPB SCH ×2 (04:54→19:07)
[2017-08-15] MEDS: MEROPENEM 1 GM in SODIUM CHLORIDE 0.9% 100 ML IVPB SCH ×3 (08:18→23:29)
[2017-08-15] MEDS: FAMOTIDINE 20 MG TAB PO SCH ×2 (08:24→20:33)
[2017-08-15] MEDS: ENOXAPARIN 40 MG/0.4 ML SYRINGE SQ SCH (08:24)
[2017-08-15] MEDS: DILTIAZEM CD 180 MG CAP.ER.24H PO SCH (08:25)
[2017-08-15] MEDS: ASPIRIN 81 MG PO SCH (08:25)
[2017-08-15 08:59] LABS: Basophils # (A) 0.1 k/uL (0-0.2); Basophils % (A) 0 %; Eosinophils # (A) 0.4 k/uL (0-0.7); Eosinophils % (A) 2 %; HCT 31.8 % (39.0-53.0); HGB 10.6 gm/dL (13.0-17.5); Lymphocytes # (A) 0.9 k/uL (1.0-4.8); Lymphocytes % (A) 5 %; MCH 28.1 pg (25.0-35.0); MCHC 33.3 g/dL (31.0-37.0); MCV 84.3 fL (80.0-100.0); Mean Platelet Volume 8.3; Monocytes # (A) 1.7 k/uL (0-1.0); Monocytes % (A) 9 %; Neutrophils # (A) 16.1 k/uL (1.3-7.7); Neutrophils % (A) 83 %; Platelet Count 295 k/uL (150-450); RBC 3.78 m/uL (4.30-5.90); RDW 14.6 % (11.5-15.5); WBC 19.4 k/uL (3.8-10.6)
[2017-08-15 09:26] LABS: Anion Gap 13 mmol/L; Blood Urea Nitrogen 10 mg/dL (9-20); Calcium 8.7 mg/dL (8.4-10.2); Carbon Dioxide 23 mmol/L (22-30); Chloride 101 mmol/L (98-107); Glucose 118 mg/dL (74-99); Potassium 3.9 mmol/L (3.5-5.1); Sodium 137 mmol/L (137-145)
[2017-08-15] MEDS: PRAVASTATIN SODIUM 20 MG TAB PO SCH (20:33)
--- NOTE | 2017-08-15 20:33 | P.CONS ---
History of Present Illness - Reason for Consult Consult date: 08/15/17 Pancreatic Carcinoma Requesting physician: Victor Manuel Andujar - Chief Complaint Syncopal episode, post surgical infection - History of Present Illness Rodney was originally refered by Dr Rivera after CT Scan of abdomen/Pelvis ( ordered after U/s of abdomen revealed a Pancreatic abnormality), revealed multiple cystic focci in body/tail of Pancreas noted, the lesion measured 11X9.4 cm. The patient was totally asymptomatic, U/S was ordered for follow up on AAA. He denies anorexia or weight loss, remains fully active. He smokes 8 cigarettes daily, denies ETOH use. He is retired. The patient's sister with Pancreatic cancer. 05/21/17: MRCP revealed Cystic lesion previously identified on CT Scan , no definate malignancy > ? Cystadenoma (10X7X9 cm). 07/31/17: Was seen by Dr Rajan ([facility]) > Taken to OR on 07/16/17 at [facility] > attempted resection, but was unresectable due to invasion of stomach & L kidney , Bx revealed Low grade Adenocarcinoma. LN Negative, had Splenectomy 2nd to operative bleeding during attempted dissection. He recovered well. Plan was to have JANAE drain removed 08/20. He then was to follow-up with us for discussion related to adjuvant therapy with chemo/radiation. On 08/14/17 - He presented to the emergency after having a syncopal episode that same morning. He states that he passed out. Patient denies any fever, chills, chest pain. He denies ever experiencing similiar episodes, denies any SOB, fevers, chills, night sweats. He denies headaches or history of seizures. He was seen in office day prior with no complaints. Review of Systems A 14 point review of systems assessed and completed and all negative except HPI Past Medical History Past Medical History: Cancer, Hyperlipidemia, Hypertension Additional Past Medical History / Comment(s): past prostate can (sx only), pancreatic CA so far sx only but stated is sceduled for tx, sinus problems, tremors History of Any Multi-Drug Resistant Organisms: None Reported Past Surgical History: Prostate Surgery Additional Past Surgical History / Comment(s): abdominal surgery"pt poor historian as to in total what was done but stated part of stomach and pancreas was removed", prostatectomy 2009, sigrid cataracts, colonoscopy 1999, hemorrhoidectomy Past Anesthesia/Blood Transfusion Reactions: Motion Sickness Additional Past Anesthesia/Blood Transfusion Reaction / Comm: clausterphobia. to pt's knowledge never recieved any blood Past Psychological History: No Psychological Hx Reported Additional Psychological History / Comment(s): pt is indepndant. drives, lives alone in 2 story home but stays mostly on main level. no pets. no home care services, no medical equipment. 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 No international travel sisters are primary contact. No children. Stop smoking at the time of his cancer diagnosis with no severe and alcohol use related Smoking Status: Former smoker Past Alcohol Use History: Rare Additional Past Alcohol Use History / Comment(s): started smoking at age 23(1968 ) and quit july 2017. a pack would last 3 days. rare use of alcohol. Past Drug Use History: None Reported - Past Family History Mother Family Medical History: CVA/TIA, Hypertension Father Family Medical History: Congestive Heart Failure (CHF), Coronary Artery Disease (CAD), Myocardial Infarction ([place]) Medications and Allergies Home Medications Medication Instructions Recorded Confirmed Type Aspirin EC [Ecotrin Low Dose] 81 mg PO DAILY 08/14/17 08/14/17 History Diltiazem Cd [Cardizem Cd] 180 mg PO DAILY 08/14/17 08/14/17 History Lipase/Protease/Amylase [Creon Dr 2 cap PO 5XD 08/14/17 08/14/17 History 36,000 Units Capsule] Pravastatin Sodium [Pravachol] 20 mg PO HS 08/14/17 08/14/17 History Allergies Allergy/AdvReac Type Severity Reaction Status Date / Time niacin Allergy Unknown Verified 08/14/17 09:05 Physical Exam Vitals: Vital Signs Temp Pulse Resp BP Pulse Ox 08/15/17 15:06 98.6 F 87 16 134/72 95 08/15/17 08:00 16 08/15/17 05:27 98.4 F 96 16 142/83 93 L 08/14/17 21:32 98.7 F 95 16 130/73 92 L Intake and Output 08/15/17 08/15/17 08/15/17 06:59 14:59 22:59 Intake Total 100 Balance 100 Intake: Intake, IV Titration 100 Amount Meropenem 1 gm In Sodium 100 Chloride 0.9% 100 ml @ 100 mls/hr IVPB Q8HR [facility] Rx#:[id number] Other: # Voids 1 Weight 88.45 kg - Constitutional General appearance: average body habitus, cooperative, no acute distress - EENT Eyes: EOMI, PERRLA, dentition normal ENT: NA/AT, normal oropharynx - Neck Supple, Trachea Midline Neck: normal ROM - Respiratory Respiratory: bilateral: CTA (No increased respiratory effort ) - Cardiovascular Rhythm: regular Heart sounds: normal: S1, S2 - Gastrointestinal Evidence of output scant in JANAE tube, insertion of JANAE with purulent drainage and mild erythema surrounding, evidence of scabbed healing large leo shaped incision lateral across entire abdomen. General gastrointestinal: normal bowel sounds, soft, tenderness - Integumentary Integumentary: pale - Neurologic No focal Defects Neurologic: CNII-XII intact - Musculoskeletal Musculoskeletal: generalized weakness, strength equal bilaterally - Psychiatric Psychiatric: A&O x's 3, appropriate affect, intact judgment & insight Results CBC & Chem 7: 08/15/17 07:59 08/15/17 07:59 Labs: Abnormal Lab Results - Last 24 Hours (Table) 08/15/17 08/15/17 Range/Units 07:59 07:59 WBC 19.4 H (3.8-10.6) k/uL RBC 3.78 L (4.30-5.90) m/uL Hgb 10.6 L (13.0-17.5) gm/dL Hct 31.8 L (39.0-53.0) % Neutrophils # 16.1 H (1.3-7.7) k/uL Lymphocytes # 0.9 L (1.0-4.8) k/uL Monocytes # 1.7 H (0-1.0) k/uL Glucose 118 H (74-99) mg/dL Microbiology - Last 24 Hours (Table) 08/14/17 09:10 Blood Culture - Preliminary Blood No Growth after 24 hours 08/14/17 11:30 Gram Stain - Preliminary [facility] Body Fluid Culture - Preliminary Gram Positive Bacilli Isolated Assessment and Plan Plan: Assessment and Recommendations: 1. Low [place] Pancreatic Cancer - Status Post surgical intervention with splenectomy - Plan to follow-up with Dr. Thayer after stabilized and discharged - Plan for concurrent xeloda and radiation followed by gemzar and abraxane chemotherapy 2. Syncopal episode - Possibly related to decreased nutritients, weight loss, sepsis - Resolved 3. Gram Positive Bacteria JANAE Drain Culture - Low Grade Fever on Admission - Infectious Disease Following - IV abx 4. Leukocytosis - Infection, Recent surgery, recent splenectomy (Although absence of thrombocytosis) - Neutrophil comprised - Lymphocytes mildly decreased Physician Attestation: I have completed the full history and physical of this patient and agree with above dictation by Annette Manzanares NP. Dictated as a scribe.
[2017-08-16] MEDS: VANCOMYCIN 1,500 MG in SODIUM CHLORIDE 0.9% 250 ML IVPB SCH ×3 (05:14→21:27)
[2017-08-16] MEDS: LACTATED RINGERS 1,000 ML IV SCH ×3 (05:15→18:08)
[2017-08-16] MEDS: LIPASE 5,000/PROTEASE 17,000/AMYLASE 27,0000 PO SCH (05:17)
--- NOTE | 2017-08-16 06:48 | PN ---
PROGRESS NOTE DATE OF SERVICE: 08/15/17. PRESENTING COMPLAINT: Abdominal infection. INTERVAL HISTORY: Patient is status post abdominal surgery. Presents with infection of the operative site bed. Patient has a JANAE drain. Tolerating his diet. No fever, no chills. REVIEW OF SYSTEMS: Done for constitutional, cardiovascular, GI, pulmonary; relevant findings as above. CURRENT MEDICATIONS: Reviewed that include IV meropenem and IV vancomycin. PHYSICAL EXAMINATION: On examination, afebrile. Pulse 57, respirations 16, blood pressure 130/72, pulse ox 95% room air. GENERAL APPEARANCE: Lying in bed, comfortable, awake. EYES: Pupils equal. Conjunctivae normal. HEENT: External appearance of nose and ears normal. Oral cavity normal. NECK: JVD not raised. Mass not palpable. RESPIRATORY: Effort normal. Lungs are clear. CARDIOVASCULAR: First and second sounds normal. No edema. ABDOMEN: Soft, nontender. JANAE drain in place with a bit slightly turbid looking output. PSYCHIATRY: Alert and oriented x3. Mood and affect normal. INVESTIGATIONS: White count 19.4, hemoglobin 10.6, potassium 3.9. All the fluid cultures growing gram positive bacilli. ASSESSMENT: 1. Hyperkalemia, improved. 2. Normocytic anemia, probably from blood loss surgery recently. 3. Gastroesophageal reflux disease. 4. Essential hypertension. 5. Intraabdominal operative site infection growing gram-positive bacilli. PLAN: Continue current medication and treatment including antibiotics. Care was discussed with the patient. Repeat labs in the morning. Per Oncology notes it looks like patient had attempted resection, but because of invasion of the stomach and the left kidney, this was not done. Low-grade adenocarcinoma is there. The patient did have a splenectomy and patient plans to have adjuvant chemo and radiation treatment. MMODL / IJN: [id number] /
[2017-08-16 07:22] LABS: Basophils % (A) 0 %; Eosinophils # (A) 0.9 k/uL (0-0.7); Eosinophils % (A) 6 %; HCT 29.8 % (39.0-53.0); HGB 9.7 gm/dL (13.0-17.5); Lymphocytes # (A) 1.1 k/uL (1.0-4.8); Lymphocytes % (A) 7 %; MCH 27.4 pg (25.0-35.0); MCHC 32.7 g/dL (31.0-37.0); MCV 83.7 fL (80.0-100.0); Mean Platelet Volume 8.1; Monocytes # (A) 1.4 k/uL (0-1.0); Monocytes % (A) 9 %; Neutrophils # (A) 11.5 k/uL (1.3-7.7); Neutrophils % (A) 76 %; Platelet Count 300 k/uL (150-450); RBC 3.56 m/uL (4.30-5.90); WBC 15.1 k/uL (3.8-10.6)
[2017-08-16 08:17] LABS: Anion Gap 10 mmol/L; Blood Urea Nitrogen 11 mg/dL (9-20); Calcium 8.6 mg/dL (8.4-10.2); Carbon Dioxide 25 mmol/L (22-30); Chloride 101 mmol/L (98-107); Glucose 100 mg/dL (74-99); Potassium 3.8 mmol/L (3.5-5.1); Sodium 136 mmol/L (137-145)
[2017-08-16] MEDS: MEROPENEM 1 GM in SODIUM CHLORIDE 0.9% 100 ML IVPB SCH ×2 (09:24→18:07)
[2017-08-16] MEDS: FAMOTIDINE 20 MG TAB PO SCH ×2 (09:25→21:27)
[2017-08-16] MEDS: ENOXAPARIN 40 MG/0.4 ML SYRINGE SQ SCH (09:25)
[2017-08-16] MEDS: DILTIAZEM CD 180 MG CAP.ER.24H PO SCH (09:25)
[2017-08-16] MEDS: ASPIRIN 81 MG PO SCH (09:25)
[2017-08-16] MEDS: IOPAMIDOL-300 CONTRAST 30 ML VIAL (ORAL USE) PO PRN ×2 (11:57→12:48)
--- NOTE | 2017-08-16 14:22 | CT ---
EXAMINATION TYPE: CT abdomen pelvis w con DATE OF EXAM: 08/16/2017 COMPARISON: Prior CT abdomen 04/18/2017 HISTORY: Abdominal pain and fever CT DLP: 1703 mGycm Automated exposure control for dose reduction was used. TECHNIQUE: Helical acquisition of images from the lung bases through the pelvis have been completed. CONTRAST: Performed with Oral Contrast and with IV Contrast, patient injected with 100 mL of Isovue 300. FINDINGS: LUNG BASES: Some linear bands are present in the lung bases likely representing atelectasis or scarri ng, no pleural or pericardial effusion AORTA: No significant abnormality is appreciated. LIVER/GB: No significant abnormality is appreciated. PANCREAS: Pancreatic head shows a punctate calcification measuring approximately 4 to 5 mm in greates t dimension, inflammatory changes are present in the peripancreatic region, there is a drain present along the anterior aspect of the pancreatic tail, mesenteric fat inflammatory change. Tail the pancre as shows a cystic focus measuring 17 mm which may represent a pseudocyst. Grayscale shows diffuse josé luis ma change, thickening and loss of normal architecture. SPLEEN: Postsplenectomy change. Some local inflammatory changes are present. ADRENALS: No significant abnormality is seen. KIDNEYS: No significant abnormality is seen. REPRODUCTIVE ORGANS: Postop changes are noted in the pelvis, patient is post prostatectomy. BOWEL: Inflammatory changes present about the transverse colon shows some thickening of the area suni in is in courses to the skin surface.. FREE AIR: No Free Air visible. ASCITES: None visible. PELVIC ADENOPATHY: Postop changes are noted status post inguinal node sampling bilaterally.. RETROPERITONEAL ADENOPATHY: No Retroperitoneal Adenopathy visible. URINARY BLADDER: Wall thickening could be due to chronic outlet obstruction, correlate to exclude cy stitis. OSSEOUS STRUCTURES: No significant abnormality is seen. IMPRESSION: FINDINGS COMPATIBLE WITH PANCREATITIS, POSSIBLE PSEUDOCYST FORMATION, FOLLOW-UP IS SUGGESTED. CALCIFI CATION WITHIN THE HEAD OF PANCREAS THOUGHT LIKELY TO BE PARENCHYMAL RATHER THAN DUCTAL.
[2017-08-16] MEDS: PRAVASTATIN SODIUM 20 MG TAB PO SCH (21:27)
--- NOTE | 2017-08-16 21:43 | PN ---
PROGRESS NOTE DATE OF SERVICE: 08/16/2017 PRESENTING COMPLAINT: Leukocytosis. INTERVAL HISTORY: Patient is status post abdominal surgery 4 weeks ago, felt to have infection of the operative site bed. JANAE drain remains in place. I spoke to patient's surgeon, Dr. Rajan, telephone number and office number . I spoke on the former number, gave an update of what is going on. He did want a CT scan to get done, though he agreed that based on clinical picture the current plan was good. Patient continues to have no nausea or vomiting. Tolerating his diet. No abdominal pain. Still some discoloration of the output. REVIEW OF SYSTEMS: Done for constitutional, cardiovascular, GI, pulmonary; relevant findings as above. CURRENT MEDICATIONS: Current medications include IV meropenem and vancomycin. PHYSICAL EXAMINATION: Temperature 98.1, pulse 77, respiration 16, blood pressure 144/81, pulse ox 94% on room air. GENERAL APPEARANCE: Sitting up, comfortable. EYES: Pupils equal. Conjunctivae normal. HEENT: External appearance of nose and ears normal. Oral cavity normal. NECK: JVD not raised. Mass not palpable. RESPIRATORY: Effort normal. Lungs are clear. CARDIOVASCULAR: First and second sounds normal. No edema. ABDOMEN: Soft, non-tender. JANAE drain in place with fluid looking slightly turbid. PSYCHIATRY: Alert and oriented x3. Mood and affect normal. INVESTIGATIONS: White count 15.1, hemoglobin 9.7, potassium 3.8. ASSESSMENT: 1. Intraabdominal operative site infection growing Gram-positive bacilli. 2. Essential hypertension. 3. Gastroesophageal reflux disease. 4. Normocytic anemia, probably from blood loss in surgery recently and could be secondary to malignancy. 5. Hyperkalemia, improved. 6. 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 PLAN: Clinically the patient is doing fine. White count is slowly coming down. Care was discussed with the patient. MMODL / IJN: [id number] /
[2017-08-17] MEDS: MEROPENEM 1 GM in SODIUM CHLORIDE 0.9% 100 ML IVPB SCH ×3 (00:43→19:16)
[2017-08-17] MEDS: VANCOMYCIN 1,500 MG in SODIUM CHLORIDE 0.9% 250 ML IVPB SCH ×3 (05:38→22:35)
[2017-08-17] MEDS: LACTATED RINGERS 1,000 ML IV SCH ×3 (05:42→22:33)
[2017-08-17 07:44] LABS: Basophils % (A) 0 %; Eosinophils # (A) 0.8 k/uL (0-0.7); Eosinophils % (A) 7 %; HGB 9.8 gm/dL (13.0-17.5); Lymphocytes # (A) 1.2 k/uL (1.0-4.8); Lymphocytes % (A) 10 %; MCH 27.5 pg (25.0-35.0); MCHC 32.6 g/dL (31.0-37.0); MCV 84.4 fL (80.0-100.0); Mean Platelet Volume 7.9; Monocytes # (A) 1.2 k/uL (0-1.0); Monocytes % (A) 10 %; Neutrophils # (A) 8.1 k/uL (1.3-7.7); Neutrophils % (A) 70 %; Platelet Count 317 k/uL (150-450); RBC 3.56 m/uL (4.30-5.90); RDW 14.2 % (11.5-15.5); WBC 11.7 k/uL (3.8-10.6)
[2017-08-17 07:59] LABS: Anion Gap 11 mmol/L; Blood Urea Nitrogen 10 mg/dL (9-20); Calcium 8.7 mg/dL (8.4-10.2); Carbon Dioxide 26 mmol/L (22-30); Chloride 100 mmol/L (98-107); Glucose 97 mg/dL (74-99); Sodium 137 mmol/L (137-145)
[2017-08-17] MEDS: ENOXAPARIN 40 MG/0.4 ML SYRINGE SQ SCH (08:44)
[2017-08-17] MEDS: FAMOTIDINE 20 MG TAB PO SCH ×2 (08:44→21:03)
[2017-08-17] MEDS: DILTIAZEM CD 180 MG CAP.ER.24H PO SCH (08:44)
[2017-08-17] MEDS: ASPIRIN 81 MG PO SCH (10:15)
[2017-08-17] MEDS ORDERED: VANCOMYCIN TROUGH DUE 1 EACH MISC MISCELLANE ONE (13:00)
[2017-08-17] MEDS: AMYLASE PO SCH ×3 (15:03→19:19)
[2017-08-17] MEDS: LIPASE PO SCH ×3 (15:03→19:19)
[2017-08-17] MEDS: PROTEASE PO SCH ×3 (15:03→19:19)
--- NOTE | 2017-08-17 18:29 | PN ---
PROGRESS NOTE DATE OF SERVICE: 08/17/17. PRESENTING COMPLAINT: Abdominal infection. INTERVAL HISTORY: Patient is status post abdominal surgery 4 weeks ago with operative site infection. The patient is tolerating a diet. Had 2 bowel movements up and about. Drain is still putting out slightly cloudy output. No abdominal pain. REVIEW OF SYSTEMS: Done for constitutional, cardiovascular, GI, pulmonary; relevant findings as above. CURRENT MEDICATIONS: Reviewed that include meropenem and vancomycin. PHYSICAL EXAMINATION: Temperature 98.1, pulse 56, respiratory 18, blood pressure 135/78, pulse ox 95% on room air. GENERAL APPEARANCE: Comfortable. EYES: Pupils equal. Conjunctivae normal. HEENT: External appearance of nose and ears normal. Oral cavity normal. NECK: JVD not raised. Mass not palpable. RESPIRATORY: Effort normal. Lungs are clear. CARDIOVASCULAR: First and second sounds, no edema. ABDOMEN: Soft, nontender. JANAE drain in place with fluids looking slightly turbid. PSYCHIATRY: Alert and oriented x3. Mood and affect normal. INVESTIGATIONS: White count 11.7. ASSESSMENT: 1. Intraabdominal operative site infection growing gram-positive bacilli and Staph aureus. 2. Essential hypertension. 3. Gastroesophageal reflux disease. 4. Normocytic anemia probably from blood loss and surgery recently and could be secondary to malignancy. 5. Hyperkalemia, improved. 6. Pancreatic low-grade adenocarcinoma, status post splenectomy. PLAN: The patient clinically continues to improve. White count continues to improve. Await culture results. Patient is ambulatory. MMODL / IJN: [id number] /
--- NOTE | 2017-08-17 18:37 | P.PN ---
Subjective Progress Note Date: 08/17/17 Pleasant 72-year-old male who in May of this year was having difficulties in the abdomen. An MRI was performed evidence of the extensive pancreatic mass. The patient was evaluated at [facility] and underwent the surgical resection of the pancreatic mass, his stomach, as well as splenectomy. The patient has had a drain in place and was doing relatively well. However the patient became confused and apparently EMS was called and was brought to Hospital with evidence of fever and confusion. With concern for sepsis related to his recent extensive surgery and infectious diseases consultation was requested. It is noted that the drainage from his JANAE drain has become a bit more purulent when he was a thin bloody material in the past. 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 This evening the patient is feeling better after his hydration and antibiotic therapy. He remembers me from bringing his sister to the office for the care of her infections. extremities 2018 reveals patient is feeling better. His pain and fever have improved. Confusion and weakness has also improved. He's been able to eat since be having little difficulty as long as the pancreatic enzyme supplements are being given with his meals. He is denying further fevers or chills. Cultures are in process to further help direct therapy. Objective - Vital Signs Vital signs: Vital Signs Temp 98.1 F 08/17/17 14:26 Pulse 66 08/17/17 15:43 Resp 18 08/17/17 15:43 BP 135/78 08/17/17 14:26 Pulse Ox 95 08/17/17 14:26 Intake & Output 08/16/17 08/17/17 08/17/17 18:59 06:59 18:59 Intake Total 850 2850 100 Output Total 25 65 Balance 825 2850 35 Intake: Intake, IV Titration 850 1900 100 Amount Lactated Ringers 1,000 ml 500 1200 @ 125 mls/hr IV .Q8H DIANELYS Rx#:[id number] Meropenem 1 gm In Sodium 100 200 100 Chloride 0.9% 100 ml @ 100 mls/hr IVPB Q8HR DIANELYS Rx#:[id number] Vancomycin 1,500 mg In 250 Sodium Chloride 0.9% 250 ml @ 125 mls/hr IVPB Q12H DIAN[facility] Rx#:[id number] Vancomycin 1,500 mg In 500 Sodium Chloride 0.9% 250 ml @ 125 mls/hr IVPB Q8H DIANELYS Rx#:[id number] Oral 950 Output: Drainage 25 65 Left Abdomen 25 65 Other: # Voids 2 2 # Bowel Movements 1 - Exam Pleasant 72-year-old male who is modestly comfortable and much less confused than upon presentation HEENT: Anicteric conjunctiva are pink and moist nasal mucosa grossly intact without significant lesions, there is no thrush. Neck: The neck is supple without significant lymphadenopathy or thyromegaly. Lungs: Good bilateral air entry without significant crackles or wheezing. There is no significant bronchial sounds. There is no egophony or dullness. Heart: Regular rate and rhythm with an audible S1-S2, no S3 no S4. There is no significant murmur click or rub, PMI was nondisplaced. Abdomen: Positive bowel sounds soft the surgical wound is well-healed without drainage. The abdomen has very little tenderness. No palpable hepatomegaly spleen is surgically absent the JANAE drain has a much thinner and more clear material today than the prior purulent material Extremities: The upper extremities have excellent pulses they are symmetric, no significant petechiae or telangiectasia. No splinter hemorrhages were noted. The lower extremities are free from significant edema. The peripheral pulses were 2+ and symmetric. Neuro: Awake alert oriented to person place and time. There are no acute new gross focal sensory motor deficits. - Labs CBC & Chem 7: 18 06:56 18 06:56 Labs: Abnormal Lab Results - Last 24 Hours (Table) 08/17/1718 Range/Units 06:56 06:56 WBC 11.7 H (3.8-10.6) k/uL RBC 3.56 L (4.30-5.90) m/uL Hgb 9.8 L (13.0-17.5) gm/dL Hct 30.0 L (39.0-53.0) % Neutrophils # 8.1 H (1.3-7.7) k/uL Monocytes # 1.2 H (0-1.0) k/uL Eosinophils # 0.8 H (0-0.7) k/uL Creatinine 0.63 L (0.66-1.25) mg/dL Microbiology - Last 24 Hours (Table) 08/14/17 09:10 Blood Culture - Preliminary Blood No Growth after 72 hours 08/14/17 11:30 [facility] - [facility] - [facility] Gram Positive Bacilli Isolated Presumptive Staph aureus Laboratory Results WBC 11.7 k/uL (3.8-10.6) H 08/17/17 06:56 RBC 3.56 m/uL (4.30-5.90) L 08/17/17 06:56 Hgb 9.8 gm/dL (13.0-17.5) L 08/17/17 06:56 Hct 30.0 % (39.0-53.0) L 08/17/17 06:56 MCV 84.4 fL (80.0-100.0) 08/17/17 06:56 MCH 27.5 pg (25.0-35.0) 08/17/17 06:56 MCHC 32.6 g/dL (31.0-37.0) 08/17/17 06:56 RDW 14.2 % (11.5-15.5) 08/17/17 06:56 Plt Count 317 k/uL (150-450) 08/17/17 06:56 Neutrophils % 70 % 08/17/17 06:56 Lymphocytes % 10 % 08/17/17 06:56 Monocytes % 10 % 08/17/17 06:56 Eosinophils % 7 % 08/17/17 06:56 Basophils % 0 % 08/17/17 06:56 Neutrophils # 8.1 k/uL (1.3-7.7) H 08/17/17 06:56 Lymphocytes # 1.2 k/uL (1.0-4.8) 08/17/17 06:56 Monocytes # 1.2 k/uL (0-1.0) H 08/17/17 06:56 Eosinophils # 0.8 k/uL (0-0.7) H 08/17/17 06:56 Basophils # 0.0 k/uL (0-0.2) 08/17/17 06:56 PT 11.2 sec (9.0-12.0) 08/14/17 09:10 INR 1.2 (<1.2) H 08/14/17 09:10 APTT 23.9 sec (22.0-30.0) 08/14/17 09:10 Sodium 137 mmol/L (137-145) 08/17/17 06:56 Potassium 4.0 mmol/L (3.5-5.1) 08/17/17 06:56 Chloride 100 mmol/L (98-107) 08/17/17 06:56 Carbon Dioxide 26 mmol/L (22-30) 08/17/17 06:56 Anion Gap 11 mmol/L 08/17/17 06:56 BUN 10 mg/dL (9-20) 08/17/17 06:56 Creatinine 0.63 mg/dL (0.66-1.25) L 08/17/17 06:56 Est GFR (CKD-EPI)AfAm >90 (>60 ml/min/1.73 sqM) 08/17/17 06:56 Est GFR (CKD-EPI)NonAf >90 (>60 ml/min/1.73 sqM) 08/17/17 06:56 Glucose 97 mg/dL (74-99) 08/17/17 06:56 POC Glucose (mg/dL) 132 mg/dL (75-99) H 08/14/17 09:08 POC Glu Flat Screen Worker ID Aileen Castrejon 08/14/17 09:08 Calcium 8.7 mg/dL (8.4-10.2) 08/17/17 06:56 Total Bilirubin 1.5 mg/dL (0.2-1.3) H 08/14/17 09:10 AST 34 U/L (17-59) 08/14/17 09:10 ALT 27 U/L (21-72) 08/14/17 09:10 Alkaline Phosphatase 59 U/L (38-126) 08/14/17 09:10 Ammonia 11 umol/L (<30) 08/14/17 09:10 Troponin I <0.012 ng/mL (0.000-0.034) 08/14/17 21:04 Total Protein 6.0 g/dL (6.3-8.2) L 08/14/17 09:10 Albumin 3.6 g/dL (3.5-5.0) 08/14/17 09:10 Urine Color Yellow 08/14/17 18:15 Urine Appearance Clear (Clear) 08/14/17 18:15 Urine pH 6.5 (5.0-8.0) 08/14/17 18:15 Ur Specific [place] 1.010 (1.001-1.035) 08/14/17 18:15 Urine Protein Trace (Negative) H 08/14/17 18:15 Urine Glucose (UA) Negative (Negative) 08/14/17 18:15 Urine Ketones Trace (Negative) H 08/14/17 18:15 Urine Blood Negative (Negative) 08/14/17 18:15 Urine Nitrite Negative (Negative) 08/14/17 18:15 Urine Bilirubin Negative (Negative) 08/14/17 18:15 Urine Urobilinogen <2.0 mg/dL (<2.0) 08/14/17 18:15 Ur Leukocyte Esterase Negative (Negative) 08/14/17 18:15 Fluid Source Abdominal 08/14/17 11:30 Fluid Appearance Cloudy 08/14/17 11:30 Fluid RBC 250 /uL 08/14/17 11:30 Fluid Nucleated Cells 2510 /uL 08/14/17 11:30 Fluid Polynuclear WBCs 97 % 08/14/17 11:30 Fluid Mononuclear WBCs 3 % 08/14/17 11:30 Fluid Comment 08/14/17 11:30 Vancomycin Trough 14.4 ug/mL 08/17/17 13:04 Urine Opiates Screen Not Detected (NotDetected) 08/14/17 18:15 Ur Oxycodone Screen Not Detected (NotDetected) 08/14/17 18:15 Urine Methadone Screen Not Detected (NotDetected) 08/14/17 18:15 Ur Propoxyphene Screen Not Detected (NotDetected) 08/14/17 18:15 Ur Barbiturates Screen Not Detected (NotDetected) 08/14/17 18:15 U Tricyclic Antidepress Not Detected (NotDetected) 08/14/17 18:15 Ur Phencyclidine Scrn Not Detected (NotDetected) 08/14/17 18:15 Ur Amphetamines Screen Not Detected (NotDetected) 08/14/17 18:15 U Methamphetamines Scrn Not Detected (NotDetected) 08/14/17 18:15 U Benzodiazepines Scrn Not Detected (NotDetected) 08/14/17 18:15 Urine Cocaine Screen Not Detected (NotDetected) 08/14/17 18:15 U Marijuana (THC) Screen Not Detected (NotDetected) 08/14/17 18:15 Microbiology 08/14/17 09:10 Blood Blood Culture - Preliminary No Growth after 72 hours 08/14/17 11:30 [facility] Gram Stain - Preliminary 08/14/17 11:30 [place] Body Fluid Culture - Preliminary Gram Positive Bacilli Isolated Presumptive Staph aureus Assessment and Plan (1) Sepsis Narrative/Plan: 72-year-old male presents to the emergency center with significant confusion that was preceded by onset of fever with chills and rigors. He was brought to the emergency center on evidence of underlying sepsis and was admitted. There is concern that the recent surgical intervention is the source of the current sepsis specifically at the pancreatic bed. Because of this antibiotic therapy with meropenem as well as vancomycin been utilized pending culture data. Culture from the JANAE drain has been requested might be helpful blood cultures are going to be most prudent. Given the mental status changes and MRI of the brain and then requested as part of the screening for his pancreatic cancer He has had significant weight loss related to his illness and hopefully with the addition of pancreatic enzyme supplement therapy he will have better nutritional absorption and will stop his weight loss. Fortunately he is not having much pain. There is significant leukocytosis, but not significant thrombocytosis, it is unknown what his new equilibrium is regarding his blood counts after the splenectomy. Fortunately there is no renal failure, bilirubin is minimally elevated with no evidence of any transaminase elevation Workup will determine which antibiotic therapy is required at discharge. Fortunately with hydration and antibiotics is ready showing some improvement. 08/17/2017 finds the patient to have further improvement. His fever and leukocytosis are improving. He is feeling considerably better overall. Tolerating his diet well. Imaging studies of his pancreas to show evidence of the potential for the pseudocyst is being treated with meropenem and vancomycin at this time pending culture results. Hopefully we'll be able to transition to an oral course of antibiotic therapy the time of his discharge since he showing such marked improvement. And of course need to follow-up with his surgeon in the near future. Current Visit: Yes Status: Acute Code(s): A41.9 - SEPSIS, UNSPECIFIED ORGANISM SNOMED Code(s): 37440820 (2) Pancreatic cancer Current Visit: Yes Status: Acute Code(s): C25.9 - MALIGNANT NEOPLASM OF PANCREAS, UNSPECIFIED SNOMED Code(s): 155332251 (3) Fever Current Visit: Yes Status: Acute Code(s): R50.9 - FEVER, UNSPECIFIED SNOMED Code(s): 099039957 (4) Leukocytosis Current Visit: Yes Status: Acute Code(s): D72.829 - ELEVATED WHITE BLOOD CELL COUNT, UNSPECIFIED SNOMED Code(s): 745244212
[2017-08-17] MEDS: PRAVASTATIN SODIUM 20 MG TAB PO SCH (21:03)
[2017-08-18] MEDS: AMYLASE PO SCH ×3 (01:39→12:36)
[2017-08-18] MEDS: LIPASE PO SCH ×3 (01:39→12:36)
[2017-08-18] MEDS: PROTEASE PO SCH ×3 (01:39→12:36)
[2017-08-18] MEDS: LACTATED RINGERS 1,000 ML IV SCH ×2 (01:40→10:04)
[2017-08-18] MEDS: MEROPENEM 1 GM in SODIUM CHLORIDE 0.9% 100 ML IVPB SCH ×2 (01:40→08:18)
[2017-08-18] MEDS: VANCOMYCIN 1,500 MG in SODIUM CHLORIDE 0.9% 250 ML IVPB SCH (05:48)
[2017-08-18 07:12] LABS: Basophils # (A) 0.1 k/uL (0-0.2); Basophils % (A) 1 %; Eosinophils # (A) 0.7 k/uL (0-0.7); Eosinophils % (A) 7 %; HCT 29.6 % (39.0-53.0); HGB 9.9 gm/dL (13.0-17.5); Lymphocytes # (A) 1.2 k/uL (1.0-4.8); Lymphocytes % (A) 12 %; MCH 27.8 pg (25.0-35.0); MCHC 33.5 g/dL (31.0-37.0); MCV 82.9 fL (80.0-100.0); Mean Platelet Volume 8.4; Monocytes # (A) 1.2 k/uL (0-1.0); Monocytes % (A) 11 %; Neutrophils # (A) 6.8 k/uL (1.3-7.7); Neutrophils % (A) 67 %; Platelet Count 318 k/uL (150-450); RBC 3.57 m/uL (4.30-5.90); WBC 10.2 k/uL (3.8-10.6)
[2017-08-18 07:23] LABS: Anion Gap 10 mmol/L; Blood Urea Nitrogen 11 mg/dL (9-20); Calcium 8.9 mg/dL (8.4-10.2); Carbon Dioxide 25 mmol/L (22-30); Chloride 101 mmol/L (98-107); Glucose 93 mg/dL (74-99); Potassium 4.2 mmol/L (3.5-5.1); Sodium 136 mmol/L (137-145)
[2017-08-18] MEDS: FAMOTIDINE 20 MG TAB PO SCH (08:17)
[2017-08-18] MEDS: DILTIAZEM CD 180 MG CAP.ER.24H PO SCH (08:17)
[2017-08-18] MEDS: ENOXAPARIN 40 MG/0.4 ML SYRINGE SQ SCH (08:18)
[2017-08-18] MEDS: ASPIRIN 81 MG PO SCH (08:18)
[2017-08-18 15:38] VITALS: BP 141/80; PULSE 64; RESP 18; TEMP 97.8
--- NOTE | 2017-08-19 12:37 | DS ---
DISCHARGE SUMMARY DATE OF ADMISSION: 08/14/2017 DATE OF DISCHARGE: 08/18/2017 FINAL DIAGNOSES: 1. Acute intraabdominal operative site infection with site growing gram-positive bacilli and Staph aureus. Final cultures were not available. 2. Essential hypertension. 3. Gastroesophageal reflux disease. 4. Normocytic anemia probably from blood loss and surgery recently could be secondary to malignancy. 5. Hyperkalemia, improved. 6. Pancreatic low-grade adenocarcinoma, status post splenectomy. HOSPITAL COURSE: This is a very pleasant 72-year-old gentleman of Dr. Rivera who underwent surgery in the pancreatic bed for pancreatic cancer. Splenomegaly was done and it is unsure how much more was done in the pancreatic bed. The patient went home with the drain was doing well. The patient presented with some acute confusion, found to have elevated white count and patient drain was more turbid. Cultures came back positive. The patient was put on IV antibiotics including vancomycin and meropenem. The patient doing well. By the time of discharge, he was afebrile and white count did come down from 20,000 down to 10.2. ON EXAMINATION: No abdominal tenderness. Psych A and O x3. Patient up and about in the hallway. Noted that patient's fluid in the drain has also cleared up. The patient due to follow up with his surgeon, Dr. Rajan who ordered a CT scan that was done. Findings were nonspecific. The patient had clinically improved. Today, patient is doing rather well. Care was discussed with the patient. He will follow up with his surgeon tomorrow. Discharge planning more than 35 minutes. DISCHARGE MEDICATIONS: 1. Aspirin 81 mg a day. 2. Cardizem CD 180 mg daily. 3. Creon 36,000 two capsules 5 times a day. 4. Pravachol 20 mg at bedtime. 5. Bactrim DS 1 tablet q.12, twenty tablets. Follow up with Dr. Rajan tomorrow that is on 08/19/2017. Follow up with Dr. Rivera in 3 days and patient is to follow up with his oncologist as scheduled. MMODL / IJN: [id number] /
== END 2017-08-18 16:08 | disposition home or self-care (01) | DRG 862 ==
LOC: EC 08:37 → 5MS5E 11:24
PROVIDERS: ADMIT Hospitalist; ATTEND Hospitalist
DX: T81.4XXA Infection following a procedure, initial encounter (principal); A41.50 Gram-negative sepsis, unspecified; A41.01 Sepsis due to Methicillin susceptible Staphylococcus aureus; C25.1 Malignant neoplasm of body of pancreas; C25.2 Malignant neoplasm of tail of pancreas; D50.0 Iron deficiency anemia secondary to blood loss (chronic); D63.0 Anemia in neoplastic disease; E78.5 Hyperlipidemia, unspecified; E87.5 Hyperkalemia; F17.210 Nicotine dependence, cigarettes, uncomplicated; I10 Essential (primary) hypertension; I71.4 Abdominal aortic aneurysm, without rupture; K21.9 Gastro-esophageal reflux disease without esophagitis; Z79.82 Long term (current) use of aspirin; Z79.899 Other long term (current) drug therapy; Z80.0 Family history of malignant neoplasm of digestive organs; Z82.3 Family history of stroke; Z82.49 Family history of ischemic heart disease and other diseases of the circulatory system; Z85.46 Personal history of malignant neoplasm of prostate; Z90.81 Acquired absence of spleen; Z90.411 Acquired partial absence of pancreas; F40.240 Claustrophobia; Z98.42 Cataract extraction status, left eye; Z98.41 Cataract extraction status, right eye; R63.4 Abnormal weight loss; Z68.27 Body mass index [BMI] 27.0-27.9, adult; Z60.2 Problems related to living alone
CPT/HCPCS: 36415; 70450; 71046; 74177; 80048; 80053; 80202; 80306; 81003; 82140; 84484; 85025; 85610; 85730; 87040; 87070; 87077; 87186; 87205; 89050; 93005; 94760; 96361; 96365; 96366; 96367; 99285

== ENCOUNTER 2017-09-05 07:01 | Emergency (ER) | payer MEDICARE, BC ==
[2017-09-05] MEDS ORDERED: ORPHENADRINE 30 MG/ML 2 ML VIAL IM STA (08:18)
[2017-09-05] MEDS ORDERED: HYDROcodone/APAP 5-325MG 1 EACH TAB PO STA (08:18)
[2017-09-05] MEDS ORDERED: KETOROLAC 60 MG/2 ML VIAL IM STA (08:18)
--- NOTE | 2017-09-05 09:09 | XR ---
Lumbar spine HISTORY: Back pain 3 views of the lumbar spine, comparison CT abdomen 08/16/2017, 04/18/2017 There is loss of disc height greatest at L3-4 with associated vacuum phenomenon. Anterior wedge compr ession deformity present at the superior endplate of L1 loss of height of approximately 25%. No defin ite retropulsion. Sclerosis present in the posterior elements of the lower lumbar spine. Vascular selina cifications are noted. Lumbar vertebral bodies are preserved alignment. IMPRESSION: Compression deformity L1 is chronic, degenerative disc disease and facet arthropathy.
--- NOTE | 2017-09-05 09:11 | XR ---
Thoracic spine HISTORY: Back pain 2 views of the thoracic spine on 4 images Thoracic vertebral bodies show preserved height and alignment. There is multilevel spondylosis. Bone mineralization slightly reduced. Disc spaces mildly reduced at the mid thoracic level. No evident par aspinal mass. IMPRESSION: Degenerative disc disease. Suspect osteopenia.
--- NOTE | 2017-09-05 09:16 | ED ---
Back Pain HPI <Danny Guzman - Last Filed: 09/05/17 10:40> - General Source: patient, RN notes reviewed, old records reviewed Limitations: no limitations, language barrier <Dina Jiménez - Last Filed: 09/05/17 11:06> - General Chief Complaint: Back Pain/Injury Stated Complaint: Back Spasms Time Seen by Provider: 09/05/17 08:07 - History of Present Illness Initial Comments: Patient is a 72-year-old male presents emergency Department after doing heavy yard work yesterday morning. He reports he is doing a lot of bending over. He states that today he started to have severe right-sided mid back pain. Following muscle spasms. Worse with movement. Denies any saddle anesthesias or numbness or tingling down the legs. He reports that he has not taken any Motrin Tylenol for pain. He did arrive via EMS. Patient has a history of pancreatic cancer and is undergoing chemoradiation treatment in the next week.. He reports that he had a Whipple procedure approximately one month ago and has been doing well otherwise. (Dina Jiménez) - Related Data Home Medications Medication Instructions Recorded Confirmed Aspirin EC [Ecotrin Low Dose] 81 mg PO DAILY 08/14/17 09/05/17 Diltiazem Cd [Cardizem CD] 180 mg PO DAILY 08/14/17 09/05/17 Lipase/Protease/Amylase [Creon Dr 2 cap PO 5XD 08/14/17 09/05/17 36,000 Units Capsule] Previous Rx's Medication Instructions Recorded Cyclobenzaprine [Flexeril] 10 mg PO TID #12 tab 09/05/17 Dexamethasone 0.75 mg PO DAILY #12 tab 09/05/17 HYDROcodone/APAP 5-325MG [Henderson 1 tab PO Q6HR PRN #12 tab 09/05/17 5-325] Allergies Allergy/AdvReac Type Severity Reaction Status Date / Time niacin Allergy Unknown Verified 09/05/17 09:14 Review of Systems ROS Other: All systems not noted in ROS Statement are negative. <Danny Guzman - Last Filed: 09/05/17 10:40> ROS Other: All systems not noted in ROS Statement are negative. <Dina Jiménez - Last Filed: 09/05/17 11:06> ROS Statement: Those systems with pertinent positive or pertinent negative responses have been documented in the HPI. Past Medical History Past Medical History: Cancer, Hyperlipidemia, Hypertension Additional Past Medical History / Comment(s): past prostate can (sx only), pancreatic CA so far sx only but stated is sceduled for tx, sinus problems, tremors History of Any Multi-Drug Resistant Organisms: None Reported Past Surgical History: Prostate Surgery Additional Past Surgical History / Comment(s): abdominal surgery"pt poor historian as to in total what was done but stated part of stomach and pancreas was removed", prostatectomy 2009, sigrid cataracts, colonoscopy 1999, hemorrhoidectomy Past Anesthesia/Blood Transfusion Reactions: Motion Sickness Additional Past Anesthesia/Blood Transfusion Reaction / Comment(s): clausterphobia. to pt's knowledge never recieved any blood Past Psychological History: No Psychological Hx Reported Smoking Status: Former smoker Past Alcohol Use History: Rare Past Drug Use History: None Reported - Past Family History Mother Family Medical History: CVA/TIA, Hypertension Father Family Medical History: Congestive Heart Failure (CHF), Coronary Artery Disease (CAD), Myocardial Infarction (IA) <Dina Jiménez - Last Filed: 09/05/17 11:06> General Exam <Danny Guzman - Last Filed: 09/05/17 10:40> Limitations: no limitations, language barrier General appearance: alert, in no apparent distress Head exam: Present: atraumatic, normocephalic, normal inspection Eye exam: Present: normal appearance, PERRL, EOMI. Absent: scleral icterus, conjunctival injection, periorbital swelling ENT exam: Present: normal exam, mucous membranes moist Neck exam: Present: normal inspection. Absent: tenderness, meningismus, lymphadenopathy Respiratory exam: Present: normal lung sounds bilaterally. Absent: respiratory distress, wheezes, rales, rhonchi, stridor Cardiovascular Exam: Present: regular rate GI/Abdominal exam: Present: soft, normal bowel sounds. Absent: distended, tenderness, guarding, rebound, rigid Extremities exam: Present: normal inspection, full ROM, normal capillary refill. Absent: tenderness, pedal edema, joint swelling, calf tenderness Back exam: Present: normal inspection, muscle spasm (Patient has some tenderness all Patient over the right lumbar paraspinal muscles. Spasm is noted.) Neurological exam: Present: alert, oriented X3, CN II-XII intact Psychiatric exam: Present: normal affect, normal mood Skin exam: Present: warm, dry, intact, normal color. Absent: rash <Dina Jiménez - Last Filed: 09/05/17 11:06> - General Exam Comments Initial Comments: 72-year-old male. Alert and oriented. No acute distress. (Dina Jiménez) Course <Danny Guzman - Last Filed: 09/05/17 10:40> <Dina Jiménez - Last Filed: 09/05/17 11:06> Vital Signs 09/05/17 07:03 Temperature 97.8 F Pulse Rate 66 Respiratory 16 Rate Blood Pressure 191/89 O2 Sat by Pulse 95 Oximetry - Reevaluation(s) Reevaluation #1: 09/05/17 10:40 PA supervision: I did personally do a [id number] evaluation the patient and do agree with the assessment including the history and physical exam and plan. Imaging showed no acute findings. (Danny Guzman) Medical Decision Making <Danny Guzman - Last Filed: 09/05/17 10:40> - Radiology Data Radiology results: report reviewed <Dina Jiménez - Last Filed: 09/05/17 11:06> - Medical Decision Making 9-year-old male presents emergency room the Patient with a right-sided back spasm. This occurred after using a lot of heavy lifting and yard work yesterday. No falls. No saddle anesthesias. Normal range of motion and neurovascularly intact in bilateral lower extremities. Is a history of pancreatic cancer, and recently underwent Whipple procedure. Patient does have some tenderness on Patient with a right paraspinal muscles. She was given IM Toradol and Norflex. He reports minimal improvement at this time however he states that he is feeling somewhat better than prior to arrival. I did discuss the x-ray findings with chronic GI disease disease. No evidence of pathologic fractures. He does have L1 compression deformity with this is been chronic and improved from his injury 2009. Gregorio patiently discharged with prescription for pain medication muscle relaxers and steroids. I discussed appropriate follow-up with his primary care physician as well as seeing his oncologist as scheduled on Saturday. Patient resume plan will comply. Return parameters were discussed. (Dina Jiménez) - Radiology Data Compression deformity at L1 is chronic degenerative disc disease and facet arthropathy. Evidence of degenerative disease in the thoracic spine. Suspecting osteopenia. (Dina Jiménez) Disposition <Danny Guzman - Last Filed: 09/05/17 10:40> Is patient prescribed a controlled substance at d/c from ED?: Yes When asked, does pt state using other controlled substances?: No If prescribed controlled substance>3 days was MAPS reviewed?: Prescribed <3 Days If opioid is for acute pain is fill amount 7 days or less?: Yes If Rx opioid, was Start Talking consent form obtained?: Yes Time of Disposition: 10:01 <Dina Jiménez - Last Filed: 09/05/17 11:06> Clinical Impression: DDD (degenerative disc disease), Spasm of muscle, back Disposition: HOME SELF-CARE Condition: Good Instructions: Acute Low Back Pain (ED) Additional Instructions: Patient advised to follow-up with primary care physician. Return to the emergency department if any alarming signs or symptoms occur. Prescriptions: Cyclobenzaprine [Flexeril] 10 mg PO TID #12 tab Dexamethasone 0.75 mg PO DAILY #12 tab HYDROcodone/APAP 5-325MG [Henderson 5-325] 1 tab PO Q6HR PRN #12 tab PRN Reason: Pain Referrals: Rodolfo Rivera MD [Primary Care Provider] - 1-2 days
[2017-09-05] MEDS ORDERED: ACET/COD 300 MG/30 MG STARTER PACK 6 TAB BTL PO STA (10:04)
[2017-09-05] MEDS ORDERED: CYCLOBENZAPRINE 10MG STARTER 3 TAB BTL PO STA (10:04)
[2017-09-05 11:08] VITALS: BP 177/98; PULSE 67; RESP 18; TEMP 98.2
== END 2017-09-05 11:08 | disposition home or self-care (01) ==
LOC: EC 07:01
DX: M51.36 Other intervertebral disc degeneration, lumbar region (principal); M62.830 Muscle spasm of back; E78.5 Hyperlipidemia, unspecified; I10 Essential (primary) hypertension; Z85.46 Personal history of malignant neoplasm of prostate; Z87.891 Personal history of nicotine dependence; Z79.82 Long term (current) use of aspirin; Z79.899 Other long term (current) drug therapy; Z88.8 Allergy status to other drugs, medicaments and biological substances
CPT/HCPCS: 72070; 72100; 99284; 96372 ×2; J2360; J1885

== ENCOUNTER → 2017-11-18 | Outpatient (CLI) | payer MEDICARE, BC ==
[2017-11-18 17:33] LABS: Blood Urea Nitrogen 21 mg/dL (9-20)
--- NOTE | 2017-11-19 00:08 | CT ---
EXAMINATION TYPE: CT abdomen pelvis w con DATE OF EXAM: 11/18/2017 COMPARISON: 08/16/2017 HISTORY: 72-year-old male follow up pancreatic cancer TECHNIQUE: Contiguous axial scanning of the abdomen and pelvis following administration of 100 ml Iso luis antonio 370 IV contrast. Delayed images through the kidneys and coronal/sagittal reconstructions perform ed. CT DLP: 1529.7 mGycm Automated exposure control for dose reduction was used. FINDINGS: Heart normal size without pericardial effusion. Patchy groundglass in the posterior lower lungs could represent generalized areas of atelectasis. No pleural effusion. Hypervascular 1.6 cm lesion peripheral right liver lobe, axial image 52 not well seen on the delayed images. This seems to have been subtly present on the sixth 2017 exam on axial image 25. Possible vascular shunting or flash filling hemangioma. This should be reassessed at follow-up. Portal venous system is patent. No biliary ductal dilatation. Adrenal glands, kidneys appear within normal limits. Subtotal splenic resection with small residual s plenic tissue remaining in the left upper quadrant. Adjacent surgical material. Much of the pancreas is atrophic. Significantly, there has been recurrence of the patient's complex c ystic mass involving the pancreatic tail. This currently measures 7.4 x 6.[address] of 04/04 show this to measure approximately 10.7 x 6.9 cm. Thick enhancing soft tissue components are p resent within. Surgical scar along the epigastric region with residual mesenteric fat stranding secondary to represe nt continued low-grade inflammation or scar tissue. No mesenteric or retroperitoneal lymphadenopathy. No dilated small bowel, free fluid, or free air. Normal appendix. Mild to moderate stool burden. No pericolonic inflammatory change. Bladder urine distended. Multiple surgical clips in the pelvis status post prostatectomy. Prominent b ut not enlarged inguinal lymph nodes measuring up to 1.6 cm. No abnormal fluid collection in the pelv is or pelvic lymphadenopathy seen. Bones: Multilevel degenerative changes throughout the lumbar spine. IMPRESSION: 1. POSTSURGICAL CHANGES WITH SUBTOTAL SPLENECTOMY AND RESECTION OF THE PATIENT'S COMPLEX CYSTIC PANCR EATIC TAIL MASS. HOWEVER, THERE HAS BEEN INTERVAL RECURRENCE ALONG THE PANCREATIC TAIL WITH THE CYSTI C MASS CURRENTLY MEASURING 7.4 X 6.0 CM VERSUS 10.7 X 6.9 CM ON THE PATIENT'S INITIAL 04/18/2017 CT. 2. RESIDUAL MILD FAT STRANDING THROUGHOUT THE FAT WITHIN THE UPPER ABDOMEN COULD REPRESENT RESIDUAL M ILD INFLAMMATION OR SCAR TISSUE FORMATION. 3. 1.6 CM HYPERVASCULAR LESION PERIPHERAL RIGHT LIVER LOBE SEEMS TO HAVE BEEN SUBTLY PRESENT ON THE P ATIENT'S PRIOR EXAMS. HYPERVASCULAR METASTASES FROM A CYSTIC PANCREATIC NEOPLASM WOULD BE UNUSUAL. TH IS MAY REPRESENT A BENIGN ENTITY. ATTENTION ON FOLLOW-UP.
== END ==
LOC: RADCTMAIN 16:26
PROVIDERS: ATTEND Internal Medicine Hematology & Oncology
DX: C25.1 Malignant neoplasm of body of pancreas (principal); K76.9 Liver disease, unspecified
CPT/HCPCS: 82565; 84520; 74177; 36415; Q9967

== ENCOUNTER → 2018-05-14 | Outpatient (CLI) | payer MEDICARE, BC ==
[2018-05-14 16:39] LABS: Blood Urea Nitrogen 23 mg/dL (9-20)
--- NOTE | 2018-05-15 04:07 | CT ---
EXAMINATION TYPE: CT ChestAbdPelvis w con DATE OF EXAM: 05/14/2018 COMPARISON: 11/18/2017 and 08/16/2017 HISTORY: 72-year-old male f/u mets, pancreatic ca TECHNIQUE: Contiguous axial scanning of the chest, abdomen, and pelvis performed with IV Contrast, pa tient injected with 100 mL of Isovue 300. Delayed images through the kidneys were obtained. Coronal/s agittal reconstructions performed. CT DLP: 1877.1 mGycm Automated exposure control for dose reduction was used. FINDINGS: CHEST: Heart normal size without pericardial effusion. Ectatic ascending aorta 3.8 cm. Conventional arch vessel branching anatomy. Mildly aneurysmal descend ing thoracic aorta measuring up to 3.1 cm. Trace bilateral gynecomastia. No thoracic lymphadenopathy. Borderline enlarged caliber to the main ri ght and left pulmonary arteries and 2.5 cm area Some mild subpleural dependent atelectasis. No consolidation or pleural effusion. ABDOMEN: A subtle 1.6 cm enhancing lesion suggested peripheral right liver lobe, axial image 61, unchanged fro m 11/18/2017. Portal venous system is patent. No biliary ductal dilatation seen. Tiny hiatal hernia. There is some circumferential wall thickening of the gastric antrum, axial image 59 which improves on delayed kidney images suggesting peristaltic contraction. Gallbladder, adrenal glands, and kidneys appear within normal limits. Some residual splenic tissue is redemonstrated in the subphrenic region with some adjacent surgical m aterial. Hypovascular/cystic lesion of the pancreatic tail currently measures 5.3 x 4.0 cm versus 7.4 x 6.0 cm on 11/18/2017, decreased in size now. Cystic lesion with associated punctate calcification in the pancreatic head is stable at 1.4 cm. Gene ralized atrophy of the pancreas is demonstrated. Postsurgical changes along the anterior epigastrium. No mesenteric or retroperitoneal lymphadenopathy seen. Mild fat stranding is present along the second portion of the duodenum with mild wall thickening. No dilated small bowel, free fluid, or free air. Moderate stool burden. Normal appendix. No pericolonic inflammatory change. Pelvis: Bladder is urine distended. Prostate gland appears surgically absent with surgical clips in the pelvi s. Some prominent but nonenlarged inguinal lymph nodes are unchanged from 08/16/2017. Small fatty left indirect inguinal hernia. No abnormal fluid collection in the pelvis all new lymphad enopathy. Bones: Degenerative disc disease and facet arthropathy mid to lower lumbar spine. Degenerative changes left SI joint. No osseous destructive process. Chronic mild anterior wedging of L1 vertebral body. IMPRESSION: 1. REDEMONSTRATED HYPOVASCULAR/CYSTIC MASS OF THE PANCREATIC TAIL. THIS IS DECREASED IN SIZE NOW SADI URING 5.3 X 4.0 CM VERSUS 7.4 X 6.0 CM ON 11/18/2017. 2. THE SUBTLE ENHANCING 1.6 CM LESION IN THE PERIPHERAL RIGHT LIVER LOBE IS NOT APPARENT COMPAR ED TO THE 11/18/2017 STUDY AND REMAINS STABLE IN SIZE. NO EVIDENT METASTATIC DISEASE. 3. PRIOR SUBTOTAL SPLENECTOMY AND SURGICAL SCAR ALONG THE ANTERIOR EPIGASTRIUM FROM PRIOR PANCREATIC TAIL RESECTION. 4. SOME CIRCUMFERENTIAL WALL THICKENING OF THE DISTAL STOMACH AND PROXIMAL DUODENUM WITH SOME ADJACEN T MILD FAT STRANDING. CORRELATE FOR POSSIBLE DISTAL GASTRITIS/DUODENITIS.
== END | disposition home or self-care (01) ==
LOC: RADCTMAIN 15:51
PROVIDERS: ATTEND Internal Medicine Hematology & Oncology
DX: C25.1 Malignant neoplasm of body of pancreas (principal); K31.89 Other diseases of stomach and duodenum; Z90.81 Acquired absence of spleen; Z88.8 Allergy status to other drugs, medicaments and biological substances
CPT/HCPCS: 82565; 84520; 71260; 74177; 36415; Q9967

== ENCOUNTER → 2018-08-25 | Outpatient (CLI) | payer MEDICARE, BC ==
--- NOTE | 2018-08-25 10:57 | CT ---
EXAMINATION TYPE: CT ChestAbdPelvis w con DATE OF EXAM: 08/25/2018 COMPARISON: 05/14/2018 and 11/18/2017 HISTORY: 73-year-old male Pancreatic CA. Last chemotherapy 05/07/2018. TECHNIQUE: Contiguous axial scanning of the chest, abdomen, and pelvis performed with IV Contrast, pa tient injected with 100 mL of Isovue 300. Delayed images through the kidneys were obtained. Coronal/s agittal reconstructions performed. CT DLP: 1675.9 mGycm Automated exposure control for dose reduction was used. FINDINGS: CHEST: Are normal size without pericardial effusion. Aorta is aneurysmal at 4.0 cm with conventional branching anatomy. Mild aneurysm of descending thorac ic aorta as well as a 3.6 cm. No thoracic lymphadenopathy. Trace bilateral gynecomastia. Strandy and hazy areas of atelectasis dependent region of the lung bases. There may be minimal centri lobular emphysema in the upper lungs. No consolidation or pleural effusion. ABDOMEN: Tiny hiatal hernia. Stable 1.6 cm hypervascular focus peripheral right liver lobe, axial image 57. Portal venous system a ppears patent. No biliary ductal dilatation seen. Gallbladder, adrenal glands, kidneys appear within normal limits. Residual splenule in the left subphrenic region with adjacent staple line. Additional surgical scar a long the epigastric region. Prior partial pancreatectomy involving the pancreatic tail region. Hypovascular and partially cystic mass of the pancreatic resection margin/tail is redemonstrated now measuring 5.2 x 3.1 cm versus 5.3 x 4.0 cm on 05/14/2018 and 7.4 x 6.0 cm on 11/18/2017. The cystic locule measures 1.8 cm and is unchang ed. A chronic pseudocyst is a possibility and is included in the measurement of the pancreatic mass. Punctate calcification in the pancreatic head region is unchanged. No dilated small bowel, free fluid, or free air. No mesenteric or retroperitoneal lymphadenopathy. Sc attered moderate stool with oral contrast regressed to the distal third transverse colon. No pericolo lilian inflammatory change seen. Redundant sigmoid colon. Moderate atherosclerotic calcifications infrarenal abdominal aorta and iliac arteries. Pelvis: Bladder urine distended. Patulous left humeral canal. Surgical clips along the bilateral external yevgeniy ac chains. No abnormal fluid collection in the pelvis. No pelvic lymphadenopathy. Patient status post prostatectomy. Bones: Mild degenerative changes at the hips. Degenerative changes at the left SI joint. Degenerative disc d isease mid to lower lumbar spine. Complete spondylosis lower thoracic spine. Mild anterior wedging of L1 is chronic. IMPRESSION: 1. STATUS POST SPLENECTOMY AND DISTAL PANCREATIC TAIL RESECTION. THE PATIENT'S KNOWN RECURRENCE ALONG THE PANCREATECTOMY MARGIN CONTINUES TO DECREASE IN SIZE CURRENTLY MEASURING 5.2 X 3.1 CM (VERSUS 5.3 X 4.0 CM AND 7.4 X 6.0 CM ON 05/14/2018 AND 11/18/2017, RESPECTIVELY). THERE IS A STABLE 1.8 CM CYSTIC LOCULE WHICH IS INCLUDED IN THE MEASUREMENT BUT MAY REPRESENT A SMALL PSEUDOCYST. 2. STABLE 1.6 CM HYPERVASCULAR FOCUS PERIPHERAL RIGHT LOWER LOBE PROBABLY REPRESENTS A FLASH FILLING HEMANGIOMA OR AREA OF VASCULAR SHUNTING.
== END | disposition home or self-care (01) ==
LOC: RADCTMAIN 07:17
PROVIDERS: ATTEND Internal Medicine Hematology & Oncology
DX: C25.1 Malignant neoplasm of body of pancreas (principal); Z90.81 Acquired absence of spleen; Z90.411 Acquired partial absence of pancreas; Z88.8 Allergy status to other drugs, medicaments and biological substances
CPT/HCPCS: 82565; 84520; 71260; 74177; 36415; Q9967

== ENCOUNTER → 2018-11-26 | Outpatient (CLI) | payer MEDICARE, BC ==
--- NOTE | 2018-11-26 11:25 | CT ---
EXAMINATION TYPE: CT abdomen pelvis w con DATE OF EXAM: 11/26/2018 COMPARISON: August 25, 2018 and older CTs HISTORY: Prostate CA CT DLP: 1367.70 mGycm, Automated Exposure Control for Dose Reduction was Utilized. CONTRAST: CT scan of the abdomen and pelvis is performed with oral and with IV Contrast, patient injected with 100 mL of Isovue 300. FINDINGS: LUNG BASES: No significant abnormality is appreciated. LIVER/GB: Not as well seen hyperdense lesion right hepatic lobe on current study. No new masses are e vident. PANCREAS: Distal pancreatic body and tail show low dense lesion with ductal dilatation that is lobula carlos alberto measuring roughly 2.9 x 1.7 cm axial image 16 showing continued improvement in size from prior st udies. There is improving surrounding fluid and fat stranding. No new lesions or ductal dilatation in the proximal pancreas. Mild generalized atrophy redemonstrated. Stable focal calcification in the in ferior pancreatic head axial image 29. SPLEEN: Surgical sutures with tiny remnant spleen axial image 7 is unchanged from November 18, 2017 CT. ADRENALS: No significant abnormality is seen. KIDNEYS: No significant abnormality is seen. BOWEL: Oral contrast reaches level terminal ileum. No suspicious small or large bowel dilatation. Sli ghtly redundant sigmoid colon. Normal-appearing appendix medially from cecum. PROSTATE/SEMINAL VESICLES: Lateral Structural clips from total prostatectomy redemonstrated. LYMPH NODES: No greater than 1cm abdominal or pelvic lymph nodes are appreciated. OSSEOUS STRUCTURES: No significant abnormality is seen. OTHER: Small fat-containing left inguinal hernia redemonstrated. Moderate calcified plaque of the aor ta extends into branch vessels IMPRESSION: Continued decrease in size of recurrent distal pancreatic lobulated low dense mass versus prior studies causing distal ductal dilatation. No suspicious new mass or adenopathy.
== END | disposition home or self-care (01) ==
LOC: RADCTMAIN 07:49
PROVIDERS: ATTEND Internal Medicine Hematology & Oncology
DX: C25.1 Malignant neoplasm of body of pancreas (principal); Z88.8 Allergy status to other drugs, medicaments and biological substances
CPT/HCPCS: 82565; 84520; 74177; 36415; Q9967 ×2

== ENCOUNTER 2019-03-13 12:05 | Inpatient (IN) | payer MEDICARE, BC ==
[2019-03-13 12:20] LABS: Glucose,Whole Blood 122 mg/dL (75-99)
[2019-03-13] MEDS ORDERED: SODIUM CHLORIDE 0.9% 1,000 ML IV STA (12:41)
--- NOTE | 2019-03-13 12:46 | ED ---
General Adult HPI - General Chief complaint: Syncope Stated complaint: Syncope Time Seen by Provider: 03/13/19 12:18 Source: patient, EMS, RN notes reviewed Mode of arrival: EMS Limitations: no limitations - History of Present Illness Initial comments: Patient is a pleasant 73-year-old male presenting to the emergency department following syncopal episode. Patient woke up this morning and was walking to the living room to eat his legs. Patient then passed out. Patient is unclear how long she passed out for but believes it was several minutes up to a half an hour. Patient denies any significant injury. No headache or confusion. No weakness. No chest pain or dyspnea. No abdominal or back pain. Patient does have a history of similar episode around a year ago or more, however is unclear why. Patient is symptom-free at this time. - Related Data Home Medications Medication Instructions Recorded Confirmed Aspirin EC [Ecotrin Low Dose] 81 mg PO DAILY 08/14/17 03/13/19 Diltiazem Cd [Cardizem CD] 180 mg PO DAILY 08/14/17 03/13/19 Lipase/Protease/Amylase [Vladimir Dr 2 cap PO 5XD 08/14/17 03/13/19 36,000 Units Capsule] Allergies Allergy/AdvReac Type Severity Reaction Status Date / Time niacin Allergy Unknown Verified 09/05/17 09:14 Review of Systems ROS Statement: Those systems with pertinent positive or pertinent negative responses have been documented in the HPI. ROS Other: All systems not noted in ROS Statement are negative. Constitutional: Denies: fever Eyes: Denies: eye pain ENT: Denies: ear pain Respiratory: Denies: cough Cardiovascular: Denies: chest pain Endocrine: Denies: fatigue Gastrointestinal: Denies: abdominal pain, nausea, vomiting Genitourinary: Denies: dysuria Musculoskeletal: Denies: back pain Skin: Denies: rash Neurological: Denies: headache, weakness, confusion Past Medical History Past Medical History: Cancer, Hyperlipidemia, Hypertension Additional Past Medical History / Comment(s): past prostate can (sx only),panc reatic CA so far sx only but stated is sceduled for tx, sinus problems, tremors History of Any Multi-Drug Resistant Organisms: None Reported Past Surgical History: Prostate Surgery Additional Past Surgical History / Comment(s): abdominal surgery"pt poor historian as to in total what was done but stated part of stomach and pancreas was removed", prostatectomy 2009, sigrid cataracts, colonoscopy 1999, hemorrhoidectomy Past Anesthesia/Blood Transfusion Reactions: Motion Sickness Additional Past Anesthesia/Blood Transfusion Reaction / Comment(s): clausterphobia. to pt's knowledge never recieved any blood Past Psychological History: No Psychological Hx Reported Smoking Status: Former smoker Past Alcohol Use History: Rare Past Drug Use History: None Reported - Past Family History Mother Family Medical History: CVA/TIA, Hypertension Father Family Medical History: Congestive Heart Failure (CHF), Coronary Artery Disease (CAD), Myocardial Infarction ([place]) General Exam Limitations: no limitations General appearance: alert, in no apparent distress Head exam: Present: atraumatic, normocephalic Eye exam: Present: normal appearance, PERRL, EOMI. Absent: nystagmus ENT exam: Present: normal oropharynx Neck exam: Present: normal inspection. Absent: tenderness Respiratory exam: Present: normal lung sounds bilaterally Cardiovascular Exam: Present: regular rate, normal rhythm Expanded Peripheral pulses: 2+: Radial (R), Radial (L), Dorsalis Pedis (R), Dorsalis Pedis (L) GI/Abdominal exam: Present: soft. Absent: distended, tenderness, pulsatile mass Extremities exam: Present: normal inspection. Absent: pedal edema, calf tenderness Back exam: Present: normal inspection. Absent: tenderness Neurological exam: Present: alert, oriented X3, CN II-XII intact. Absent: motor sensory deficit Expanded Neurological exam: Present: protecting the airway Speech: Present: fluid speech Cranial nerves: EOM's Intact: Normal Motor strength exam: RUE: 5, LUE: 5, RLE: 5, LLE: 5 Eye Response: (4) open spontaneously Motor Response: (6) obeys commands Verbal Response: (5) oriented Psychiatric exam: Present: normal affect, normal mood Skin exam: Present: normal color Course Vital Signs 03/13/19 03/13/19 03/13/19 12:18 13:21 14:00 Temperature 97.9 F Pulse Rate 83 73 73 Respiratory 16 20 20 Rate Blood Pressure 196/124 174/104 162/100 O2 Sat by Pulse 97 95 95 Oximetry EKG Findings - EKG Comments: EKG Findings:: Normal sinus rhythm 74. AK 148. QRS 96. QT 412. QTC 47. Left axis. Normal QRS. No acute ST change. Medical Decision Making - Medical Decision Making Patient reevaluated and resting comfortably in bed. Patient updated on results and plan. Case discussed in detail with Dr. Andujar, who will admit covering for Dr. Rivera. - Lab Data Result diagrams: 03/13/19 12:19 03/13/19 12:19 Lab Results 03/13/19 03/13/19 03/13/19 Range/Units 12:17 12:19 12:19 WBC 12.6 H (3.8-10.6) k/uL RBC 4.92 (4.30-5.90) m/uL Hgb 14.2 (13.0-17.5) gm/dL Hct 43.0 (39.0-53.0) % MCV 87.5 (80.0-100.0) fL MCH 28.9 (25.0-35.0) pg MCHC 33.1 (31.0-37.0) g/dL RDW 13.9 (11.5-15.5) % Plt Count 289 (150-450) k/uL Neutrophils % 84 % Lymphocytes % 7 % Monocytes % 6 % Eosinophils % 0 % Basophils % 1 % Neutrophils # 10.6 H (1.3-7.7) k/uL Lymphocytes # 0.8 L (1.0-4.8) k/uL Monocytes # 0.7 (0-1.0) k/uL Eosinophils # 0.1 (0-0.7) k/uL Basophils # 0.1 (0-0.2) k/uL PT (9.0-12.0) sec INR (<1.2) APTT (22.0-30.0) sec Sodium 138 (137-145) mmol/L Potassium 5.1 (3.5-5.1) mmol/L Chloride 102 (98-107) mmol/L Carbon Dioxide 25 (22-30) mmol/L Anion Gap 11 mmol/L BUN 25 H (9-20) mg/dL Creatinine 1.20 (0.66-1.25) mg/dL Est GFR (CKD-EPI)AfAm 70 (>60 ml/min/1.73 sqM) Est GFR (CKD-EPI)NonAf 61 (>60 ml/min/1.73 sqM) Glucose 113 H (74-99) mg/dL POC Glucose (mg/dL) 122 H (75-99) mg/dL POC Glu Monotyper ID Sherin Valdez Calcium 10.0 (8.4-10.2) mg/dL Magnesium 2.0 (1.6-2.3) mg/dL Total Bilirubin 0.6 (0.2-1.3) mg/dL AST 27 (17-59) U/L ALT 22 (4-49) U/L Alkaline Phosphatase 93 (38-126) U/L Creatine Kinase 103 (55-170) U/L Troponin I (0.000-0.034) ng/mL Total Protein 7.1 (6.3-8.2) g/dL Albumin 4.5 (3.5-5.0) g/dL Urine Color Urine Appearance (Clear) Urine pH (5.0-8.0) Ur Specific [place] (1.001-1.035) Urine Protein (Negative) Urine Glucose (UA) (Negative) Urine Ketones (Negative) Urine Blood (Negative) Urine Nitrite (Negative) Urine Bilirubin (Negative) Urine Urobilinogen (<2.0) mg/dL Ur Leukocyte Esterase (Negative) Urine RBC (0-5) /hpf Urine WBC (0-5) /hpf Hyaline Casts (0-2) /lpf Urine Mucus (None) /hpf 03/13/19 03/13/19 03/13/19 Range/Units 12:19 12:19 13:50 WBC (3.8-10.6) k/uL RBC (4.30-5.90) m/uL Hgb (13.0-17.5) gm/dL Hct (39.0-53.0) % MCV (80.0-100.0) fL MCH (25.0-35.0) pg MCHC (31.0-37.0) g/dL RDW (11.5-15.5) % Plt Count (150-450) k/uL Neutrophils % % Lymphocytes % % Monocytes % % Eosinophils % % Basophils % % Neutrophils # (1.3-7.7) k/uL Lymphocytes # (1.0-4.8) k/uL Monocytes # (0-1.0) k/uL Eosinophils # (0-0.7) k/uL Basophils # (0-0.2) k/uL PT 10.0 (9.0-12.0) sec INR 0.9 (<1.2) APTT 23.3 (22.0-30.0) sec Sodium (137-145) mmol/L Potassium (3.5-5.1) mmol/L Chloride (98-107) mmol/L Carbon Dioxide (22-30) mmol/L Anion Gap mmol/L BUN (9-20) mg/dL Creatinine (0.66-1.25) mg/dL Est GFR (CKD-EPI)AfAm (>60 ml/min/1.73 sqM) Est GFR (CKD-EPI)NonAf (>60 ml/min/1.73 sqM) Glucose (74-99) mg/dL POC Glucose (mg/dL) (75-99) mg/dL POC Glu Monotyper ID Calcium (8.4-10.2) mg/dL Magnesium (1.6-2.3) mg/dL Total Bilirubin (0.2-1.3) mg/dL AST (17-59) U/L ALT (4-49) U/L Alkaline Phosphatase (38-126) U/L Creatine Kinase (55-170) U/L Troponin I <0.012 (0.000-0.034) ng/mL Total Protein (6.3-8.2) g/dL Albumin (3.5-5.0) g/dL Urine Color Yellow Urine Appearance Clear (Clear) Urine pH 6.5 (5.0-8.0) Ur Specific [place] 1.026 (1.001-1.035) Urine Protein 1+ H (Negative) Urine Glucose (UA) Negative (Negative) Urine Ketones Negative (Negative) Urine Blood Negative (Negative) Urine Nitrite Negative (Negative) Urine Bilirubin Negative (Negative) Urine Urobilinogen 2.0 (<2.0) mg/dL Ur Leukocyte Esterase Negative (Negative) Urine RBC 1 (0-5) /hpf Urine WBC <1 (0-5) /hpf Hyaline Casts 1 (0-2) /lpf Urine Mucus Rare H (None) /hpf 03/13/19 Range/Units 14:16 WBC (3.8-10.6) k/uL RBC (4.30-5.90) m/uL Hgb (13.0-17.5) gm/dL Hct (39.0-53.0) % MCV (80.0-100.0) fL MCH (25.0-35.0) pg MCHC (31.0-37.0) g/dL RDW (11.5-15.5) % Plt Count (150-450) k/uL Neutrophils % % Lymphocytes % % Monocytes % % Eosinophils % % Basophils % % Neutrophils # (1.3-7.7) k/uL Lymphocytes # (1.0-4.8) k/uL Monocytes # (0-1.0) k/uL Eosinophils # (0-0.7) k/uL Basophils # (0-0.2) k/uL PT (9.0-12.0) sec INR (<1.2) APTT (22.0-30.0) sec Sodium (137-145) mmol/L Potassium (3.5-5.1) mmol/L Chloride (98-107) mmol/L Carbon Dioxide (22-30) mmol/L Anion Gap mmol/L BUN (9-20) mg/dL Creatinine (0.66-1.25) mg/dL Est GFR (CKD-EPI)AfAm (>60 ml/min/1.73 sqM) Est GFR (CKD-EPI)NonAf (>60 ml/min/1.73 sqM) Glucose (74-99) mg/dL POC Glucose (mg/dL) 110 H (75-99) mg/dL POC Glu Monotyper ID Anamaria Sorenson Calcium (8.4-10.2) mg/dL Magnesium (1.6-2.3) mg/dL Total Bilirubin (0.2-1.3) mg/dL AST (17-59) U/L ALT (4-49) U/L Alkaline Phosphatase (38-126) U/L Creatine Kinase (55-170) U/L Troponin I (0.000-0.034) ng/mL Total Protein (6.3-8.2) g/dL Albumin (3.5-5.0) g/dL Urine Color Urine Appearance (Clear) Urine pH (5.0-8.0) Ur Specific [place] (1.001-1.035) Urine Protein (Negative) Urine Glucose (UA) (Negative) Urine Ketones (Negative) Urine Blood (Negative) Urine Nitrite (Negative) Urine Bilirubin (Negative) Urine Urobilinogen (<2.0) mg/dL Ur Leukocyte Esterase (Negative) Urine RBC (0-5) /hpf Urine WBC (0-5) /hpf Hyaline Casts (0-2) /lpf Urine Mucus (None) /hpf - Radiology Data Radiology results: report reviewed (Computed tomography scan of the brain shows no evidence of metastasis. Nonvisualization of the distal left internal carotid artery, consider obstruction. No suspicion for metastatic disease. Age-related changes.), image reviewed (Chest x-ray shows no acute process.) Disposition Clinical Impression: Syncope Disposition: ADMITTED IP TO THIS HOSP Is patient prescribed a controlled substance at d/c from ED?: No Referrals: Rodolfo Rivera MD [Primary Care Provider] - 1-2 days Decision Time: 15:45
[2019-03-13] MEDS ORDERED: ENALAPRILAT 1.25 MG/ML 1 ML VIAL IVP STA ×2 (12:48→16:29)
[2019-03-13 13:11] LABS: Basophils # (A) 0.1 k/uL (0-0.2); Basophils % (A) 1 %; Eosinophils # (A) 0.1 k/uL (0-0.7); Eosinophils % (A) 0 %; HGB 14.2 gm/dL (13.0-17.5); Lymphocytes # (A) 0.8 k/uL (1.0-4.8); Lymphocytes % (A) 7 %; MCH 28.9 pg (25.0-35.0); MCHC 33.1 g/dL (31.0-37.0); MCV 87.5 fL (80.0-100.0); Monocytes # (A) 0.7 k/uL (0-1.0); Monocytes % (A) 6 %; Neutrophils # (A) 10.6 k/uL (1.3-7.7); Neutrophils % (A) 84 %; Platelet Count 289 k/uL (150-450); RBC 4.92 m/uL (4.30-5.90); RDW 13.9 % (11.5-15.5); WBC 12.6 k/uL (3.8-10.6)
[2019-03-13 13:15] LABS: INR 0.9 (<1.2); Partial Thromboplastin Time 23.3 sec (22.0-30.0)
[2019-03-13 13:19] LABS: Albumin 4.5 g/dL (3.5-5.0); Potassium 5.1 mmol/L (3.5-5.1); Total Bilirubin 0.6 mg/dL (0.2-1.3); Total Protein 7.1 g/dL (6.3-8.2)
--- NOTE | 2019-03-13 13:36 | XR ---
EXAMINATION TYPE: XR chest 2V DATE OF EXAM: 03/13/2019 COMPARISON: 08/14/2017 TECHNIQUE: PA and lateral views submitted. HISTORY: Syncope FINDINGS: The lungs are clear and there is no pneumothorax, pleural effusion, or focal pneumonia. Hypertrophi c and degenerative change of the spine. Heart is mildly prominent. No overt failure. IMPRESSION: 1. No acute process.
[2019-03-13 14:15] LABS: Appearance,Urine Clear (Clear); Bilirubin,Urine Negative (Negative); Blood,Urine Negative (Negative); Color,Urine Yellow; Glucose,Urine (UA) Negative (Negative); Hyaline Casts,Urine 1 /lpf (0-2); Ketones,Urine Negative (Negative); Leukocyte Esterase,Urine Negative (Negative); Mucus,Urine Rare /hpf; Nitrite,Urine Negative (Negative); PH, Urine 6.5 (5.0-8.0); Protein,Urine 1+ (Negative); RBC,Urine 1 /hpf (0-5); Specific Gravity,Urine 1.026 (1.001-1.035); WBC,Urine <1 /hpf (0-5)
[2019-03-13 14:18] LABS: Glucose,Whole Blood 110 mg/dL (75-99)
--- NOTE | 2019-03-13 15:09 | CT ---
EXAMINATION TYPE: CT brain wo/w con DATE OF EXAM: 03/13/2019 COMPARISON: 08/14/2017 INDICATION: Dizziness and syncopeal episode DLP: 2182.4 mGycm, Automated exposure control for dose reduction was used. CONTRAST: 100 mL Isovue-300 CT of the brain is performed utilizing 3 mm thick sections through the posterior fossa and 3 mm thick sections through the remaining calvarium. Study is performed within 24 hours of arrival to the hosp ital. No abnormal hyperdensity is present to suggest an acute intracranial hemorrhage. No mass lesion is evident. No acute infarcts are evident. Periventricular white matter hypodensity is present, likely on the bas is of chronic white matter ischemic changes. Ventricles and sulci are appropriate for the patient age. No abnormal enhancement is evident. The left A1 segment may a be aplastic. Distal left internal carot id artery is not identified The anterior communicating artery is patent. Paranasal sinuses and mastoid air cells within the [id number] are clear. IMPRESSIONS: 1. Periventricular white matter ischemic type changes with age-related atrophy. 2. Nonvisualization of the distal left internal carotid artery. Consider obstruction. 3. No suspicious abnormality to suggest metastatic disease based on this contrast CT exam. If closer evaluation is required, MRI could be performed.
[2019-03-13] MEDS ORDERED: NALOXONE 0.4 MG/ML 1 ML VIAL IV PRN (15:50)
--- NOTE | 2019-03-13 16:52 | US ---
EXAMINATION TYPE: US carotid duplex BILAT DATE OF EXAM: 03/13/2019 COMPARISON: NONE CLINICAL HISTORY: stenosis. Patient passed out EXAM MEASUREMENTS: RIGHT: Peak Systolic Velocity (PSV) cm/sec ----- Right CCA: 63.8 ----- Right ICA: 93.0 ----- Right ECA: 91.9 ICA/CCA ratio: 1.5 RIGHT: End Diastole cm/sec ----- Right CCA: 16.8 ----- Right ICA: 30.0 ----- Right ECA: 14.4 LEFT: Peak Systolic Velocity (PSV) cm/sec ----- Left CCA: 67.0 ----- Left ICA: 69.2 ----- Left ECA: 69.2 ICA/CCA ratio: 1.0 LEFT: End Diastole cm/sec ----- Left CCA: 14.2 ----- Left ICA: 26.3 ----- Left ECA: 14.2 VERTEBRALS (direction of flow): Right Vertebral: Antegrade Left Vertebral: Antegrade Rhythm: Normal Mild amount of plaque visualized in bilateral bulbs. No elevated velocities, no significant stenosis IMPRESSION: Bilateral plaque formation in the internal carotid arteries and estimated less than 25% stenosis. There is antegrade flow in the vertebral arteries. Criteria for Assigning % of Stenosis / Diameter reduction (Estimation based on the indirect measurements of the internal carotid artery velocities (ICA PSV). 1. Normal (no stenosis)=ICA PSV < 125 cm/s: ratio < 2.0: ICA EDV<40 cm/s. 2. Less than 50% stenosis=ICA PSV < 125 cm/s: ratio < 2.0: ICA EDV<40 cm/s. 3. 50 to 69% stenosis=ICA PSV of 125 to 230 cm/s: ration 2.0 ? 4.0: ICA EDV 40-100 cm/s. 4. Greater than 70% stenosis to near occlusion= ICA PSV > 230 cm/s: ratio > 4.0: ICA EDV > 100 cm/s. 5. Near occlusion= ICA PSV velocities may be low or undetectable: variable ratio and ICA EDV. 6. Total occlusion=unable to detect flow.
--- NOTE | 2019-03-13 17:48 | P.CONS ---
History of Present Illness - Reason for Consult Consult date: 03/13/19 syncopal episode, h/o pancreatic ca - History of Present Illness Mr. Kingsley is a 73-year-old white male well known to our service. He was originally refered by Dr Rivera after CT Scan of abdomen/Pelvis (ordered after U/s of abdomen revealed a Pancreatic abnormality), revealed multiple cystic focci in body/tail of Pancreas noted, the lesion measured 11X9.4 cm. The patient was totally asymptomatic, U/S was ordered for follow up on AAA. He denies anorexia or weight loss, remains fully active. He smokes 8 cigarettes daily, denies ETOH use. He is retired. The patient's sister with Pancreatic cancer. 05/21/17: MRCP revealed Cystic lesion previously identified on CT Scan , no definate malignancy > ? Cystadenoma (10X7X9 cm). 07/31/17: Was seen by Dr Rajan ([facility]) > Taken to OR on 07/16/17 at [facility] > attempted resection, but was unresectable due to invasion of stomach & L kidney, Bx revealed Low grade Adenocarcinoma. LN Negative, had Splenectomy 2nd to operative bleeding during attempted dissection. He recovered well. Plan was to have JANAE drain removed 08/20. He then was to follow-up with us for discussion related to adjuvant therapy with chemo/radiation. On 08/14/17 - He presented to the emergency after having a syncopal episode that same morning. Workup was overall negative and clinically this was felt to be neurocardiogenic. The patient in follow with Dr. Thayer in the office and started adjuvant chemotherapy with gemcitabine. He completed that in 05/20. He was then placed on observation. He does have a residual masslike area at the site of the original tumor, with gradual reduction on serial CT scans, felt to represent posttreatment changes. Most recent computed tomography scan in 11/20 showed further decrease in size of this area. Patient is continuing on observation with repeat scans scheduled for later this month. The patient was again admitted this time with a syncopal episode. He states that he was having breakfast, and also took his blood pressure pill. He then passed out and thinks that he may have been unconscious for possibly up to 30 minutes. He did not sustain any significant trauma. He cannot remember if he stood up and then passed out or passed out while sitting down. He denied any headaches, visual complaints, nausea vomiting, diaphoresis, or chest pain. consult was placed for further evaluation and recommendations CT brain noncontrast did not show any evidence of metastatic disease. The Dopplers showed mild plaque formation with no significant stenosis Review of Systems Constitutional: Denies chills, Denies fever Eyes: denies blurred vision, denies pain Ears: deny: decreased hearing, ear discharge, earache, tinnitus Ears, nose, mouth and throat: Denies headache, Denies sore throat Cardiovascular: Reports as per HPI, Reports syncope Respiratory: Denies cough Gastrointestinal: Reports as per HPI, Reports constipation (Intermittent. On pancreatic enzyme supplements) Genitourinary: Reports as per HPI Musculoskeletal: Denies myalgias Integumentary: Denies pruritus, Denies rash Neurological: Reports syncope Psychiatric: Denies anxiety, Denies depression Endocrine: Denies fatigue, Denies weight change Hematologic/Lymphatic: Reports as per HPI Past Medical History Past Medical History: Cancer, Hyperlipidemia, Hypertension Additional Past Medical History / Comment(s): past prostate can (sx only),pancreatic CA so far sx only but stated is sceduled for tx, sinus problems, tremors History of Any Multi-Drug Resistant Organisms: None Reported Past Surgical History: Prostate Surgery Additional Past Surgical History / Comment(s): abdominal surgery"pt poor historian as to in total what was done but stated part of stomach and pancreas was removed", prostatectomy 2009, sigrid cataracts, colonoscopy 1999, hemorrhoidectomy, wipple Past Anesthesia/Blood Transfusion Reactions: Motion Sickness Additional Past Anesthesia/Blood Transfusion Reaction / Comm: clausterphobia. to pt's knowledge never recieved any blood Past Psychological History: No Psychological Hx Reported Additional Psychological History / Comment(s): pt is indepndant. drives, lives alone in 2 story home but stays mostly on main level. no pets. no home care services, no medical equipment. 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 No international travel sisters are primary contact. No children. Stop smoking at the time of his cancer diagnosis with no severe and alcohol use related Smoking Status: Former smoker Past Alcohol Use History: Rare Additional Past Alcohol Use History / Comment(s): started smoking at age 23(1968) and quit july 2017. a pack would last 3 days. rare use of alcohol. Past Drug Use History: None Reported - Past Family History Mother Family Medical History: CVA/TIA, Hypertension Father Family Medical History: Congestive Heart Failure (CHF), Coronary Artery Disease (CAD), Myocardial Infarction ([place]) Medications and Allergies Home Medications Medication Instructions Recorded Confirmed Type Aspirin EC [Ecotrin Low Dose] 81 mg PO DAILY 08/14/17 03/13/19 History Diltiazem Cd [Cardizem CD] 180 mg PO DAILY 08/14/17 03/13/19 History Lipase/Protease/Amylase [Creon Dr 2 cap PO 5XD 08/14/17 03/13/19 History 36,000 Units Capsule] Allergies Allergy/AdvReac Type Severity Reaction Status Date / Time niacin Allergy Unknown Verified 09/05/17 09:14 Physical Exam Vitals: Vital Signs Temp Pulse Pulse Resp BP BP Pulse Ox 03/13/19 16:45 98.5 F 74 16 215/108 99 03/13/19 16:34 20 03/13/19 16:00 78 20 187/112 95 03/13/19 15:00 73 20 159/85 95 03/13/19 14:00 73 20 162/100 95 03/13/19 13:21 73 20 174/104 95 03/13/19 12:18 97.9 F 83 16 196/124 97 Intake and Output 03/13/19 03/13/19 03/13/19 06:59 14:59 22:59 Other: Weight 93.894 kg 93.894 kg - Constitutional General appearance: no acute distress - EENT Eyes: EOMI, PERRLA ENT: hearing grossly normal, normal oropharynx - Neck Neck: no lymphadenopathy Thyroid: bilateral: normal size - Respiratory Respiratory: bilateral: CTA - Cardiovascular Rhythm: regular Heart sounds: normal: S1, S2 - Gastrointestinal General gastrointestinal: normal bowel sounds, soft - Integumentary Integumentary: normal - Neurologic Neurologic: CNII-XII intact - Musculoskeletal Musculoskeletal: strength equal bilaterally - Psychiatric Psychiatric: A&O x's 3, appropriate affect Results Results: Carotid Doppler report reviewed CBC & Chem 7: 03/13/19 12:19 03/13/19 12:19 Labs: Abnormal Lab Results - Last 24 Hours (Table) 03/13/19 03/13/19 03/13/19 Range/Units 12:17 12:19 12:19 WBC 12.6 H (3.8-10.6) k/uL Neutrophils # 10.6 H (1.3-7.7) k/uL Lymphocytes # 0.8 L (1.0-4.8) k/uL BUN 25 H (9-20) mg/dL Glucose 113 H (74-99) mg/dL POC Glucose (mg/dL) 122 H (75-99) mg/dL Urine Protein (Negative) Urine Mucus (None) /hpf 03/13/19 03/13/19 Range/Units 13:50 14:16 WBC (3.8-10.6) k/uL Neutrophils # (1.3-7.7) k/uL Lymphocytes # (1.0-4.8) k/uL BUN (9-20) mg/dL Glucose (74-99) mg/dL POC Glucose (mg/dL) 110 H (75-99) mg/dL Urine Protein 1+ H (Negative) Urine Mucus Rare H (None) /hpf CT scan - abdomen: report reviewed CT scan - chest: report reviewed CT Scan - head: report reviewed CT scan - pelvis: report reviewed Assessment and Plan (1) Syncope Narrative/Plan: The patient was asymptomatic by the time he reached the emergency room. He has had no recurrence of symptoms and feels well overall. He has had an admission for similar complaint in 2018. Computed tomography scan, noncontrast, was negative for any evidence of malignancy. The clinical presentation is also very unlikely to represent malignancy. Cardiogenic etiology is more likely. At this time we will defer to the admitting service and other consultants for further workup. The patient has any progressive symptoms, then MRI will be considered. Current Visit: Yes Status: Acute Code(s): R55 - SYNCOPE AND COLLAPSE SNOMED Code(s): 327258370 (2) Pancreatic cancer Narrative/Plan: Diagnostic and therapeutic circumstances as described. The patient is currently on observation posttreatment, with no evidence of recurrence. He does have a masslike area in the pancreas, which has shown gradual diminution on serial scans and at this time is felt to represent posttreatment changes. Continue observation with repeat scans later this month Continue pancreatic enzyme supplements Current Visit: No Status: Acute Code(s): C25.9 - MALIGNANT NEOPLASM OF PANCREAS, UNSPECIFIED SNOMED Code(s): 785636521 Plan: Defer to the admitting service and other consultants for management of his other medical problems
[2019-03-13] MEDS: 0.9% NACL WITH KCL 20 MEQ/L 1,000 ML IV SCH (21:21)
[2019-03-13] MEDS: LIPASE PO SCH (21:22)
[2019-03-13] MEDS: AMYLASE PO SCH (21:22)
[2019-03-13] MEDS: PROTEASE PO SCH (21:22)
[2019-03-13] MEDS: METOPROLOL TARTRATE 50 MG TAB PO SCH (22:41)
[2019-03-14] MEDS: AMYLASE PO SCH ×5 (01:11→23:45)
[2019-03-14] MEDS: PROTEASE PO SCH ×5 (01:11→23:45)
[2019-03-14] MEDS: LIPASE PO SCH ×5 (01:11→23:45)
[2019-03-14] MEDS ORDERED: DILTIAZEM CD 180 MG CAP.ER.24H PO SCH (09:00)
[2019-03-14] MEDS: METOPROLOL TARTRATE 50 MG TAB PO SCH ×2 (09:49→20:08)
[2019-03-14] MEDS: ASPIRIN 81 MG PO SCH (09:49)
--- NOTE | 2019-03-14 12:30 | P.CRDCN ---
History of Present Illness Consult date: 03/14/19 Reason for Consult (text): Syncope Consult reason: sycope Chief complaint: Syncope History of present illness: HISTORY OF PRESENT ILLNESS AND PLAN: This is a 73-year-old male with history of smoking, AAA without rupture, hypertension and recent diagnosis of pancreatic cancer/adenocarcinoma. Patient presents to emergency room on 03/13/2019 for a syncopal episode at home. Pt was walking into his living room to eat his eggs and passed out. Patient does not remember the episode but believes he was unconscious for several minutes. Patient then called his neighbors who check on him daily and they called EMS. Patient here with no current complaints of chest pain, chest pressure, shortness of breath or palpitations. Patient states his last chemo treatment was in the May [address] Ramires. Remains SR on monitors. Current BP elevated 172/86, heart rate 82. Afebrile. 97% on room air. Patient has never followed with cardiology in the past. Labs, WNL. UA, WNL. No ETOH. NO DM. Pt states he takes Cardizem for, "blood pressure control." Pt states this is the second time he has had a syncopal episode approximately 1 year ago. SIGNIFICANT PAST MEDICAL HISTORY: Syncope x2, smoking currently 6 cigarettes daily, AAA without rupture, hypertension and recent diagnosis of pancreatic cancer/adenocarcinoma. PAST SURGICAL HISTORY: See list. EKG = SR, 74 Troponins negative x 3 SIGNIFICANT LABORATORY VALUES: BUN 25, CR 1.2. Chest x-ray = WNL CT of head 03/13/18 = white matter changes. No metastasis. Nonvisualized left internal carotid artery possibly occluded. Most recent carotid ultrasound 03/13/18 = Less than 25% stenosis to ICA bilaterally. Antegrade vertebral flow bilaterally. REVIEW OF SYSTEMS: CONSTITUTIONAL: Denies fever. Denies chills. EYES: Denies blurred vision. Denies blurred vision or vision changes. Denies eye pain. EARS, NOSE, MOUTH & THROAT: Denies headache. Denies sore throat. Denies ear pain Denies hemoptysis. CARDIOVASCULAR: Denies chest pain. Denies shortness of breath. Denies orthopnea. Denies PND. Denies palpitations. Complains of syncope. RESPIRATORY: Denies cough. Denies shortness of breath. GASTROINTESTINAL: Denies abdominal pain or distention. Denies diarrhea. Denies constipation. Denies nausea. Denies vomiting. MUSCULOSKELETAL: Denies myalgias. INTEGUMENTARY: Denies pruitis. Denies rash. ENDOCRINE: Denies fatigue. Denies weight change. Denies polydipsia. Denies polyurina Denies heat/cold intolerance. GENITOURINARY: Denies burning, hematuria or urgency with micturation. HEMATOLOGIC: Denies history of anemia. Denies bleeding. NEUROLOGIC: Denies numbness. Denies tingling. Denies weakness. Complains of syncope. PSYCHIATRIC: Denies anxiety. Denies depression. PHYSICAL EXAM: VITAL SIGNS: 172/86, heart rate 82. Afebrile. 97% on room air. GENERAL: Well developed, in no acute distress. HEENT: Head is atraumatic, normocephalic. Pupils are equal, round. Extra ocular movements intact. Mucous membranes moist. Neck supple. No JVD. No carotid bruit. No thyromegaly. LUNGS: Clear to auscultation. No wheezes, rales or rhonchi. No chest wall tenderness on palpation or with deep breathing. HEART: Regular rate and rhythm, no rubs or gallops. S1 and S2 heard. No murmur. ABDOMEN: Abdominal exam, WNL. Bowel sounds x4 quads. Soft, non-tender, without masses, organomegaly, or abdominal aorta enlargement. EXTREMITIES/VASCULAR: Extremities have easily palpable radial, femoral, dorsalis pedis and posterior tibial pulses. No cyanosis, calf tenderness. No BLE edema. NEUROLOGIC: Patient is awake, alert and oriented x3. No focal neurologic abnormalities. FINAL IMPRESSION: 1. Syncope of unknown cause 2. Hypertension 3. AAA without rupture 4. Pancreatic CA/adenocarcinoma 5. Smoking history PLAN: STOP Cardizem. START amlodipine 5 milligrams twice daily, first dose now. Stat d-dimer. Echocardiogram ordered. Continue telemetry. Continue same all other medical/medication regime. Will continue to follow pt through this admission. Advise fall precautions. Neuro consult advised. Heart healthy diet. Nurse Practitioner note has been reviewed by the Physician. Signing provider agrees with the documented findings, assessment and plan of care. Past Medical History Past Medical History: Cancer, Hyperlipidemia, Hypertension Additional Past Medical History / Comment(s): past prostate can (sx only),pancreatic CA so far sx only but stated is sceduled for tx, sinus problems, tremors History of Any Multi-Drug Resistant Organisms: None Reported Past Surgical History: Prostate Surgery Additional Past Surgical History / Comment(s): abdominal surgery"pt poor historian as to in total what was done but stated part of stomach and pancreas was removed", prostatectomy 2009, sigrid cataracts, colonoscopy 1999, hemorrhoidectomy, wipple Past Anesthesia/Blood Transfusion Reactions: Motion Sickness Additional Past Anesthesia/Blood Transfusion Reaction / Comment(s): clausterphobia. to pt's knowledge never recieved any blood Past Psychological History: No Psychological Hx Reported Additional Psychological History / Comment(s): pt is indepndant. drives, lives alone in 2 story home but stays mostly on main level. no pets. no home care services, no medical equipment. served in the [employer]. 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 No international travel sisters are primary contact. No children. Stop smoking at the time of his cancer diagnosis with no severe and alcohol use related Smoking Status: Former smoker Past Alcohol Use History: Rare Additional Past Alcohol Use History / Comment(s): started smoking at age 23(1969) and quit july 2017. a pack would last 3 days. rare use of alcohol. Past Drug Use History: None Reported - Past Family History Mother Family Medical History: CVA/TIA, Hypertension Father Family Medical History: Congestive Heart Failure (CHF), Coronary Artery Disease (CAD), Myocardial Infarction ([place]) Medications and Allergies Home Medications Medication Instructions Recorded Confirmed Type Aspirin EC [Ecotrin Low Dose] 81 mg PO DAILY 08/14/17 03/13/19 History Diltiazem Cd [Cardizem CD] 180 mg PO DAILY 08/14/17 03/13/19 History Lipase/Protease/Amylase [Ariel[place] Dr 2 cap PO 5XD 08/14/17 03/13/19 History 36,000 Units Capsule] Allergies Allergy/AdvReac Type Severity Reaction Status Date / Time niacin Allergy Unknown Verified 09/05/17 09:14 Physical Exam Vitals: Vital Signs Temp Pulse Pulse Resp BP BP Pulse Ox 03/14/19 03:45 72 18 03/14/19 00:00 72 18 172/84 03/13/19 19:56 98 F 82 18 176/86 97 03/13/19 19:01 171/79 03/13/19 17:43 98.4 F 74 16 215/108 99 03/13/19 16:45 98.5 F 74 16 215/108 99 03/13/19 16:34 20 03/13/19 16:00 78 20 187/112 95 03/13/19 15:00 73 20 159/85 95 03/13/19 14:00 73 20 162/100 95 03/13/19 13:21 73 20 174/104 95 03/13/19 12:18 97.9 F 83 16 196/124 97 Intake and Output 03/13/19 03/14/19 03/14/19 22:59 06:59 14:59 Intake Total 800 240 Balance 800 240 Intake: Intake, IV Titration 800 Amount Sodium Chloride 0.9% 1, 800 000 ml @ 100 mls/hr IV . Q10H STA Rx#:[id number] Oral 240 Other: # Voids 1 1 Weight 93.894 kg 93 kg Results 03/13/19 12:19 03/13/19 12:19 Cardiac Enzymes 03/13/19 03/13/19 03/13/19 Range/Units 12:19 12:19 18:44 AST 27 (17-59) U/L Troponin I <0.012 <0.012 (0.000-0.034) ng/mL 03/14/19 Range/Units 00:49 AST (17-59) U/L Troponin I <0.012 (0.000-0.034) ng/mL Coagulation 03/13/19 Range/Units 12:19 PT 10.0 (9.0-12.0) sec APTT 23.3 (22.0-30.0) sec CBC 03/13/19 Range/Units 12:19 WBC 12.6 H (3.8-10.6) k/uL RBC 4.92 (4.30-5.90) m/uL Hgb 14.2 (13.0-17.5) gm/dL Hct 43.0 (39.0-53.0) % Plt Count 289 (150-450) k/uL Comprehensive Metabolic Panel 03/13/19 Range/Units 12:19 Sodium 138 (137-145) mmol/L Potassium 5.1 (3.5-5.1) mmol/L Chloride 102 (98-107) mmol/L Carbon Dioxide 25 (22-30) mmol/L BUN 25 H (9-20) mg/dL Creatinine 1.20 (0.66-1.25) mg/dL Glucose 113 H (74-99) mg/dL Calcium 10.0 (8.4-10.2) mg/dL AST 27 (17-59) U/L ALT 22 (4-49) U/L Alkaline Phosphatase 93 (38-126) U/L Total Protein 7.1 (6.3-8.2) g/dL Albumin 4.5 (3.5-5.0) g/dL Current Medications Generic Name Dose Route Start Last Admin Trade Name Freq PRN Reason Stop Dose Admin Amlodipine Besylate 5 mg 03/14/19 10:45 Norvasc PO BID DIANELYS Aspirin 81 mg 03/14/19 09:00 03/14/19 09:49 Aspirin PO 81 mg DAILY DIANELYS Administration Potassium Chloride/Sodium Chloride 1,000 mls @ 50 mls/hr 03/13/19 16:30 03/13/19 21:21 Ns-Kcl 20 Meq/L Iv Solution IV Not Given .Q20H DIANELYS Metoprolol Tartrate 50 mg 03/13/19 22:00 03/14/19 09:49 Lopressor PO 50 mg BID DIANELYS Administration Naloxone HCl 0.2 mg 03/13/19 15:50 Narcan IV Q2M PRN Opioid Reversal Lipase/Protease/ 2 cap 03/13/19 20:00 03/14/19 09:51 Amylase [Creon Dr 36 PO Not Given ,000 Units Capsule] 5XD DIANELYS 2 Cap Intake and Output 03/13/19 03/14/19 03/14/19 22:59 06:59 14:59 Intake Total 800 240 Balance 800 240 Intake: Intake, IV Titration 800 Amount Sodium Chloride 0.9% 1, 800 000 ml @ 100 mls/hr IV . Q10H STA Rx#:[id number] Oral 240 Other: # Voids 1 1 Weight 93.894 kg 93 kg 03/13/19 12:19 03/13/19 12:19 - EKG Interpretation EKG: sinus rhythm
[2019-03-14] MEDS: amLODIPine 5 MG TAB PO SCH ×2 (12:41→20:09)
[2019-03-14] MEDS: 0.9% NACL WITH KCL 20 MEQ/L 1,000 ML IV SCH (12:41)
--- NOTE | 2019-03-14 15:37 | P.HPIM ---
History of Present Illness H&P Date: 03/14/19 Chief Complaint: Past out History of presenting complaint: This is a pleasant 73-year-old patient of Dr. Rivera. Chronic stable medical conditions include hypertension, GERD, hyperlipidemia, tremors. 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 Patient was home making his breakfast and eating. He thinks he was sitting on the couch and he passed out. Oftentimes enabled complaint check him. Apparently became and he was passed out. He is unclear about the same. With the EMS a variety was bit confused. Does not remember passing out. The total number burly chest pain or palpitations. Does note vitamin incontinence. Patient's blood pressure was running on the high 200s. Arrived. Patient does feel unsteady sometimes. Patient has no focal weakness. Has been up in the hallway. Cardiology was consulted. Review of systems: GEN.: None EYES: None HEENT: None NECK: None RESPIRATORY: None CARDIOVASCULAR: None GASTROINTESTINAL: None GENITOURINARY: None MUSCULOSKELETAL: None LYMPHATICS: None HEMATOLOGICAL: None PSYCHIATRY: None NEUROLOGICAL: As above Past medical history to include: Hypertension, GERD, hyperlipidemia, tremors, pancreatic low-grade adenocarcinoma with surgery and splenectomy, prostate cancer Social history: Alcohol rarely. Smoked a pack a day for over 3 days for about 49 years. Stopped in 2018. Lives alone Physical examination: VITAL SIGNS: 97.9, 83, 16, 196/124, 97% on room air GENERAL: [BMI 28.6, laying in bed slightly anxious. EYES: Pupils equal. Conjunctiva normal. HEENT: External appearance of nose and ears normal, oral cavity grossly normal. NECK: JVD not raised; masses not palpable. HEART: First and second heart sounds are normal; no edema. LUNGS: Respiratory rate normal; clear to auscultation. ABDOMEN: Soft, nontender, liver spleen not palpable, no masses palpable. PSYCH: Alert and oriented x3; mood and affect normal. NEUROLOGICAL: Cranial nerves grossly intact; no facial asymmetry, power and sensation grossly intact. LYMPHATICS: No lymph nodes palpable in the axilla and neck INVESTIGATIONS, reviewed in the clinical context: White count 12.6 hemoglobin 14.2 potassium 5.1 creatinine 1.2 Troponin I 3 negative Carotid Doppler negative EKG tracing personally reviewed by me-negative, sensitive Chest x-ray film personally reviewed by me-cardiomegaly, lungs is clear Assessment: -This is a patient who passed out at home unclear for how long. No obvious clinical evidence of seizure activity was little bit confused about the event. Patient does feel at times unsteady. We'll do an EEG to rule out any seizure activity. Also given that he feels unsteady at times need to rule out any underlying arrhythmia. Patient will need a Holter monitor as an outpatient. -Essential hypertension accelerated -GERD -Hyperlipidemia -History of pancreatic low-grade adenocarcinoma was splenectomy Plan: Patient is put on telemetry and. Watch for any arrhythmia. Cardiology is being consulted. No neurology services are available hospital. We'll do a 2-D echocardiogram. Also order EEG. MRI of the brain will be done with and without contrast. Also will do an MRA of the brain. Lovenox for DVT prophylaxis. Otherwise patient being already up in the hallway. Feels steady otherwise. Past Medical History Past Medical History: Cancer, Hyperlipidemia, Hypertension Additional Past Medical History / Comment(s): past prostate can (sx only),pancreatic CA so far sx only but stated is sceduled for tx, sinus problems, tremors History of Any Multi-Drug Resistant Organisms: None Reported Past Surgical History: Prostate Surgery Additional Past Surgical History / Comment(s): abdominal surgery"pt poor historian as to in total what was done but stated part of stomach and pancreas was removed", prostatectomy 2009, sigrid cataracts, colonoscopy 1999, hemorrhoidectomy, wipple Past Anesthesia/Blood Transfusion Reactions: Motion Sickness Additional Past Anesthesia/Blood Transfusion Reaction / Comment(s): clausterphobia. to pt's knowledge never recieved any blood Past Psychological History: No Psychological Hx Reported Additional Psychological History / Comment(s): pt is indepndant. drives, lives alone in 2 story home but stays mostly on main level. no pets. no home care services, no medical equipment. served in the [employer]. 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 No international travel sisters are primary contact. No children. Stop smoking at the time of his cancer diagnosis with no severe and alcohol use related Smoking Status: Former smoker Past Alcohol Use History: Rare Additional Past Alcohol Use History / Comment(s): started smoking at age 23(1968) and quit july 2017. a pack would last 3 days. rare use of alcohol. Past Drug Use History: None Reported - Past Family History Mother Family Medical History: CVA/TIA, Hypertension Father Family Medical History: Congestive Heart Failure (CHF), Coronary Artery Disease (CAD), Myocardial Infarction ([place]) Medications and Allergies Home Medications Medication Instructions Recorded Confirmed Type Aspirin EC [Ecotrin Low Dose] 81 mg PO DAILY 08/14/17 03/13/19 History Diltiazem Cd [Cardizem CD] 180 mg PO DAILY 08/14/17 03/13/19 History Lipase/Protease/Amylase [Vlad[place] Dr 2 cap PO 5XD 08/14/17 03/13/19 History 36,000 Units Capsule] Allergies Allergy/AdvReac Type Severity Reaction Status Date / Time niacin Allergy Unknown Verified 09/05/17 09:14 Physical Exam Vitals: Vital Signs Temp Pulse Pulse Resp BP BP Pulse Ox 03/14/19 03:45 72 18 03/14/19 00:00 72 18 172/84 03/13/19 19:56 98 F 82 18 176/86 97 03/13/19 19:01 171/79 03/13/19 17:43 98.4 F 74 16 215/108 99 03/13/19 16:45 98.5 F 74 16 215/108 99 03/13/19 16:34 20 03/13/19 16:00 78 20 187/112 95 03/13/19 15:00 73 20 159/85 95 03/13/19 14:00 73 20 162/100 95 03/13/19 13:21 73 20 174/104 95 03/13/19 12:18 97.9 F 83 16 196/124 97 Intake and Output 03/13/19 03/14/19 03/14/19 22:59 06:59 14:59 Intake Total 800 240 Balance 800 240 Intake: Intake, IV Titration 800 Amount Sodium Chloride 0.9% 1, 800 000 ml @ 100 mls/hr IV . Q10H STA Rx#:[id number] Oral 240 Other: # Voids 1 1 Weight 93.894 kg 93 kg Results CBC & Chem 7: 03/13/19 12:19 03/13/19 12:19 Labs: Abnormal Lab Results - Last 24 Hours (Table) 03/13/19 03/13/19 03/13/19 Range/Units 12:17 12:19 12:19 WBC 12.6 H (3.8-10.6) k/uL Neutrophils # 10.6 H (1.3-7.7) k/uL Lymphocytes # 0.8 L (1.0-4.8) k/uL BUN 25 H (9-20) mg/dL Glucose 113 H (74-99) mg/dL POC Glucose (mg/dL) 122 H (75-99) mg/dL Urine Protein (Negative) Urine Mucus (None) /hpf 03/13/19 03/13/19 Range/Units 13:50 14:16 WBC (3.8-10.6) k/uL Neutrophils # (1.3-7.7) k/uL Lymphocytes # (1.0-4.8) k/uL BUN (9-20) mg/dL Glucose (74-99) mg/dL POC Glucose (mg/dL) 110 H (75-99) mg/dL Urine Protein 1+ H (Negative) Urine Mucus Rare H (None) /hpf Thrombosis Risk Factor Assmnt - Choose All That Apply Each Risk Factor Represents 2 Points: Age 61-74 years Thrombosis Risk Factor Assessment Total Risk Factor Score: 2 Thrombosis Risk Factor Assessment Level: Low Risk
--- NOTE | 2019-03-14 16:44 | ECHOF ---
Referral Reason:syncope MEASUREMENTS -------- HEIGHT: 180.3 cm WEIGHT: 93.9 kg BP: RVIDd: 3.4 cm (< 3.3) IVSd: 1.5 cm (0.6 - 1.1) LVIDd: 5.7 cm (3.9 - 5.3) LVPWd: 1.5 cm (0.6 - 1.1) IVSs: 2.0 cm LVIDs: 4.5 cm LVPWs: 2.1 cm LA Diam: 3.9 cm (2.7 - 3.8) LAESV Index (A-L): 34.93 ml/m Ao Diam: 4.0 cm (2.0 - 3.7) AV Cusp: 2.3 cm (1.5 - 2.6) MV EXCURSION: 11.800 mm (> 18.000) MV EF SLOPE: 31 mm/s (70 - 150) EPSS: 1.1 cm MV E Jones: 0.55 m/s MV DecT: 315 ms MV A Jones: 0.88 m/s MV E/A Ratio: 0.63 RAP: 5.00 mmHg RVSP: 17.86 mmHg TAPSE: 14.75 mm FINDINGS -------- Sinus rhythm. This was a technically adequate study. The left ventricular size is normal. There is moderate concentric left ventricular hypertrophy. O verall left ventricular systolic function is low-normal with, an EF between 50 - 55 %. The right ventricle is mildly enlarged. LA is moderately dilated 34-39 ml/m2 The right atrium is normal in size. Interatrial and interventricular septum intact. There is mild aortic valve sclerosis. Trace to mild aortic regurgitation. Mild mitral regurgitation is present. Mild tricuspid regurgitation present. Right ventricular systolic pressure is normal at < 35 mmHg. Trace/mild (physiologic) pulmonic regurgitation. The aortic root is dilated measuring 4.0cm. Normal inferior vena cava with normal inspiratory collapse consistent with estimated right atrial pre ssure of 5 mmHg. There is no pericardial effusion. CONCLUSIONS -------- 1. Sinus rhythm. 2. This was a technically adequate study. 3. The left ventricular size is normal. 4. There is moderate concentric left ventricular hypertrophy. 5. Overall left ventricular systolic function is low-normal with, an EF between 50 - 55 %. 6. The right ventricle is mildly enlarged. 7. LA is moderately dilated 34-39 ml/m2 8. The right atrium is normal in size. 9. Interatrial and interventricular septum intact. 10. There is mild aortic valve sclerosis. 11. Trace to mild aortic regurgitation. 12. Mild mitral regurgitation is present. 13. Mild tricuspid regurgitation present. 14. Right ventricular systolic pressure is normal at < 35 mmHg. 15. Trace/mild (physiologic) pulmonic regurgitation. 16. The aortic root is dilated measuring 4.0cm. 17. Normal inferior vena cava with normal inspiratory collapse consistent with estimated right atrial pressure of 5 mmHg. 18. There is no pericardial effusion. TYPING SECTION CHIEF: Meg Brown RDCS
[2019-03-14] MEDS: ENOXAPARIN 40 MG/0.4 ML SYRINGE SQ SCH (17:43)
[2019-03-14] MEDS: CHLORTHALIDONE 25 MG TAB PO SCH (17:43)
[2019-03-15] MEDS: PROTEASE PO SCH ×6 (03:31→23:44)
[2019-03-15] MEDS: AMYLASE PO SCH ×6 (03:31→23:44)
[2019-03-15] MEDS: LIPASE PO SCH ×6 (03:31→23:44)
[2019-03-15] MEDS: ENOXAPARIN 40 MG/0.4 ML SYRINGE SQ SCH (08:56)
[2019-03-15] MEDS: CHLORTHALIDONE 25 MG TAB PO SCH (08:57)
[2019-03-15] MEDS: METOPROLOL TARTRATE 50 MG TAB PO SCH ×2 (08:57→20:05)
[2019-03-15] MEDS: amLODIPine 5 MG TAB PO SCH ×3 (08:57→20:05)
[2019-03-15] MEDS: ASPIRIN 81 MG PO SCH ×2 (08:57→09:01)
[2019-03-15] MEDS ORDERED: amLODIPine 5 MG TAB PO SCH (09:00)
[2019-03-15 11:01] LABS: African American GFR (CKD) >90 (>60 ml/min/1.73 sqM); Blood Urea Nitrogen 17 mg/dL (9-20); Non-African American GFR(CKD) 79 (>60 ml/min/1.73 sqM)
--- NOTE | 2019-03-15 12:18 | P.PN ---
Subjective This is a pleasant 73-year-old male past medical history significant of abdominal aortic aneurysm without rupture, hypertension, pancreatic adenocarcinoma and chronic nicotine dependence. He does not follow with a mail superintendent regularly. His last round of chemotherapy was May [address] Britton. We're following secondary to syncopal episode. He is seen and examined resting comfortably in no acute distress. He has had no further symptoms of syncope and dizziness. He denies chest pain, shortness of breath or palpitations. Telemetry tracings have been unremarkable. Echocardiogram reveals preserved LV systolic function with ejection fraction 50-55%, moderately dilated left atrium, mild MR and mild TR. Laboratory data reviewed, cardiac enzymes negative 3, d-dimer 0.92. Blood pressure 161/83 heart rate 57 afebrile maintaining oxygen saturation on room air. Currently maintained on amlodipine 5 mg twice a day, aspirin 81 mg daily, [place] 25 mg daily, losartan 25 mg daily metoprolol 50 mg twice a day. GENERAL: Well-appearing, well-nourished and in no acute distress. NECK: Supple without JVD or thyromegaly. LUNGS: Breath sounds clear to auscultation bilaterally. Respiration equal and unlabored. No wheezes, rales or rhonchi. HEART: Regular rate and rhythm without murmurs, rubs or gallops. S1 and S2 heard. EXTREMITIES: Normal range of motion, no edema. No clubbing or cyanosis. Peripheral pulses intact. ASSESSMENT Syncope Hypertension Abdominal aortic aneurysm without rupture Pancreatic cancer Chronic nicotine dependence PLAN Initiate losartan 25 mg daily for blood pressure control. Repeat BUN/creatinine and proceed with CT angio of the chest to rule out pulmonary embolism. If PE is ruled out he can be discharge from a cardiac perspective. Follow up with Dr. Curtis in the office in 2 weeks. Nurse Practitioner note has been reviewed, I agree with a documented findings and plan of care. Patient was seen and examined. Objective - Vital Signs Vital signs: Vital Signs Temp 97.4 F L 03/15/19 04:00 Pulse 57 L 03/15/19 04:00 Resp 18 03/15/19 04:00 BP 161/83 03/15/19 04:00 Pulse Ox 95 03/15/19 04:00 Intake & Output 03/14/19 03/15/19 03/15/19 18:59 06:59 18:59 Intake Total 480 240 Balance 480 240 Weight 91.7 kg Intake: Oral 480 240 Other: Voiding Method Toilet # Voids 1 1 0 - Labs CBC & Chem 7: 03/13/19 12:19 03/15/19 10:22 Labs: Abnormal Lab Results - Last 24 Hours (Table) 03/14/19 Range/Units 11:03 D-Dimer 0.92 H (<0.60) mg/L FEU
[2019-03-15] MEDS: LOSARTAN 25 MG TAB PO SCH (12:34)
--- NOTE | 2019-03-15 12:44 | CT ---
EXAMINATION TYPE: CT angio chest DATE OF EXAM: 03/15/2019 11:55 AM COMPARISON: Previous CT scan of the chest and abdomen dated 08/25/2018 HISTORY: Elevated d dimer, syncope CT DLP: 429.5 mGycm Automated exposure control for dose reduction was used. CONTRAST: CTA scan of the thorax is performed with IV Contrast, patient injected with 100 mL of Isovue 370, pul monary embolism protocol. . FINDINGS: There is some dependent atelectasis in the dependent portions of the lungs. The lungs are o therwise clear. There is no significant axillary, internal mammary or hilar adenopathy. There is some shotty aortopul monary adenopathy. There is no evidence of pulmonary embolus. The aortic root is mildly dilated measuring 3.9 cm. The proximal arch is aneurysmal measuring 3.8 cm in the proximal descending thoracic aorta is also aneurysmal at 3.68 cm. At the level of the aortic h iatus, the aorta is ectatic measuring 3 cm. There is no pleural or pericardial fluid. The heart is upper limits of normal in size. Within the upper abdomen the spleen is not identified in keeping with previous splenectomy. Small lob ulated density in the region of the resected pancreatic tail is mildly more prominent than previous m easuring 3.4 x 2.6 cm. There is hypertrophic spondylosis within the spine. IMPRESSION: #1 THIS EXAMINATION IS NEGATIVE FOR PULMONARY EMBOLUS. 2. 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 3. ENLARGING SOFT TISSUE MASS IN THE REGION OF THE TAIL OF THE PANCREAS, SLIGHTLY LARGER FROM PREVIOU S. 4. DEGENERATIVE CHANGES WITHIN THE SPINE.
--- NOTE | 2019-03-15 21:13 | P.PN ---
Progress Note - Text Progress Note Date: 03/15/19 Chief Complaint: Past out History of presenting complaint: This is a pleasant 73-year-old patient of Dr. Rivera. Chronic stable medical conditions include hypertension, GERD, hyperlipidemia, tremors. 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 Patient was home making his breakfast and eating. He thinks he was sitting on the couch and he passed out. Oftentimes enabled complaint check him. Apparently became and he was passed out. He is unclear about the same. With the EMS a variety was bit confused. Does not remember passing out. The total number burly chest pain or palpitations. Does note vitamin incontinence. Patient's blood pressure was running on the high 200s. Arrived. Patient does feel unsteady sometimes. Patient has no focal weakness. Has been up in the hallway. Cardiology was consulted. Today-sitting up. Has been up and about in the hallway. No arrhythmias noted. Other neurological workup in place. Review of systems: Was done for constitutional, cardiovascular, GI, pulmonary. relevant finding as above Active Medications Amlodipine Besylate (Norvasc) 5 mg PO BID [facility] Last Admin: 03/15/19 20:05 Dose: 5 mg Documented by: Aspirin (Aspirin) 81 mg PO DAILY [facility] Last Admin: 03/15/19 09:01 Dose: 81 mg Documented by: Chlorthalidone (Hygroton) 25 mg PO DAILY [facility] Last Admin: 03/15/19 08:57 Dose: 25 mg Documented by: Enoxaparin Sodium (Lovenox) 40 mg SQ DAILY [facility] Last Admin: 03/15/19 08:56 Dose: 40 mg Documented by: Losartan Potassium (Cozaar) 25 mg PO DAILY [facility] Last Admin: 03/15/19 12:34 Dose: 25 mg Documented by: Metoprolol Tartrate (Lopressor) 50 mg PO BID [facility] Last Admin: 03/15/19 20:05 Dose: 50 mg Documented by: Naloxone HCl (Narcan) 0.2 mg IV Q2M PRN PRN Reason: Opioid Reversal Lipase/Protease/Amylase [Vladimir Mark 36 ,000 Units Capsule] 2 Cap 2 cap PO 5XD [facility] Last Admin: 03/15/19 20:06 Dose: 2 cap Documented by: Physical examination: VITAL SIGNS: 98.9, 59, 158./98, 97% room air GENERAL: Sitting over but anxious. EYES: Pupils equal. Conjunctiva normal. HEENT: External appearance of nose and ears normal, oral cavity grossly normal. NECK: JVD not raised; masses not palpable. HEART: First and second heart sounds are normal; no edema. LUNGS: Respiratory rate normal; clear to auscultation. ABDOMEN: Soft, nontender, liver spleen not palpable, no masses palpable. PSYCH: Alert and oriented x3; mood and affect but anxious. 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 No obvious clinical evidence of seizure activity was little bit confused about the event. Patient does feel at times unsteady. We'll do an EEG to rule out any seizure activity. Also given that he feels unsteady at times need to rule out any underlying arrhythmia. Patient will need a Holter monitor as an outpatient. -Essential hypertension accelerated -GERD -Hyperlipidemia -History of pancreatic low-grade adenocarcinoma 3.4 x 2.6 cm -History of splenectomy Plan: This is pending an MRI and MRA of the brain. EEG is pending. If this is negative patient will need outpatient event monitor. Patient may also require a tilt table test. Care was discussed with the patient.
[2019-03-16] MEDS: LIPASE PO SCH ×5 (06:29→22:46)
[2019-03-16] MEDS: PROTEASE PO SCH ×5 (06:29→22:46)
[2019-03-16] MEDS: AMYLASE PO SCH ×5 (06:29→22:46)
[2019-03-16] MEDS: METOPROLOL TARTRATE 50 MG TAB PO SCH ×2 (09:03→20:11)
[2019-03-16] MEDS: CHLORTHALIDONE 25 MG TAB PO SCH (09:03)
[2019-03-16] MEDS: LOSARTAN 25 MG TAB PO SCH (09:03)
[2019-03-16] MEDS: ASPIRIN 81 MG PO SCH (09:03)
[2019-03-16] MEDS: ENOXAPARIN 40 MG/0.4 ML SYRINGE SQ SCH (09:03)
[2019-03-16] MEDS: amLODIPine 5 MG TAB PO SCH ×2 (12:11→20:11)
--- NOTE | 2019-03-16 12:55 | CDI ---
Documentation Clarification Form Date: 03/16/2019 12:46:37 PM From: Cassidy Mac CCS, CCDS Admit Date: 03/13/2019 03:52:00 PM Patient Name: Rodney Kingsley Visit Number: [id number] Discharge Date: ATTENTION: The Clinical Documentation Specialists (CDI) and [facility] Coding Staff appreciate your assistance in clarifying documentation. Please respond to the clarification below the line at the bottom and electronically sign. The CDI & [facility] Coding staff will review the response and follow-up if needed. Please note: Queries are made part of the Legal Health Record. If you have any questions, please contact the author of this message via ITS. Dr. Victor Manuel Andujar: The patient presented after a syncopal episode at home, unwitnessed, patient lives alone. Blood pressure was noted to be in the 200s per EMS. History/Risk Factors: Hypertension, GERD, Hyperlipidemia, AAA, History of pancreatic & prostate cancer and splenectomy. Clinical Indicators: Presented as above. VS: T 97.9, P 83, R 16, BP 196/124, PO 97 RA - 95 2L nc Blood pressure: Left arm sittin/108^, 215/108^, 171/79^, 25751^, 172/84, 224/104^, 234/112^, 215/108^ through 03/14. Currently 147/88 Lab findings: WBC 12.6^, Neut 10.6^, BUN 25^, Glucose 113^. RAD: CXR: negative. CT brain: age related atrophy, possible left ICA obstruction, no abnormality to suggest metastatic disease. CT chest: Thoracic aortic aneursm, enlarging soft tissue in tail of the pancreas. MRI/MRA of brain: pending. Treatment: IV fluid 100, IV Vasotec, po Cardizem, po ASA, po Norvasc. In your professional opinion, can you please clarify if you are treating the patient for one of the following: Hypertensive Emergency Hypertensive Urgency Other Hypertension, please specify: Other, please specify: Unable to determine (Last Revision: June 2017) Hypertensive urgency MTDD
--- NOTE | 2019-03-16 13:45 | MR ---
EXAMINATION TYPE: MR brain wo/w con DATE OF EXAM: 03/16/2019 COMPARISON: CT brain 03/13/2019 HISTORY: Passed out, syncope, altered mental status TECHNIQUE: Multiplanar, multisequence images of the brain and brainstem is performed without and with IV contras t, utilizing 9 mL intravenous Gadavist . FINDINGS: Diffusion weighted images show small focus of restricted diffusion along the occipital kameron ex on the right, axial image #14. There is no extra-axial fluid collection. Extensive periventricul ar confluent and scattered hyperintensities are present on inversion recovery T2-weighted sequences c orresponding to abnormality seen on CT with involvement of the juxtacortical, subcortical white matte r the supraventricular location. There is a 1 cm focus of encephalomalacia present within the right m iddle cerebellar peduncle, some encephalomalacia suspected along the right parietal lobe posteriorly towards the convexity with associated calyceal ptosis, axial image #23 precontrast T1 and inversion r ecovery, axial image 21 postcontrast images, and also in the periventricular locations small lacunar infarcts suspected. The ventricular system and cisternal spaces are normal in size and appearance. T he brain volume is age appropriate. Midline structures demonstrate normal morphology. The craniocervical junction appears within normal limits. Post contrast images demonstrate no abnormal enhancement. The dural venous sinuses appear pa tent. The visualized sinuses are remarkable for some minimal inflammatory change along the ethmoid ai r cells, possible mucus retention cyst or polyp in the right maxillary sinus, and the globes are inta ct. IMPRESSION: Small subacute infarct suspected along the right occipital lobe as described, there is ev idence of chronic small vessel ischemic changes, additional findings above.
--- NOTE | 2019-03-16 14:02 | MR ---
EXAMINATION TYPE: MR angio head wo con DATE OF EXAM: 03/16/2019 COMPARISON: CT brain 03/13/2019, MR brain 03/16/2019 HISTORY: Passed out, syncope, altered mental status TECHNIQUE: Time of flight images focusing on the [place] of [place] were performed without contrast. Th ree-dimensional reconstructions on an alternate workstation FINDINGS: Some narrowing of the internal carotid artery on the left may be due to atheromatous change at the level of the siphon. Right vertebral artery is present, left vertebral artery is atrophic, po sterior communicating arteries are also appear diminutive. No evident dissection or aneurysm. No evid ent embolus. A1 segment on the left kidney is atrophic. IMPRESSION: Cerebral vascular disease. No evident aneurysm, dissection, or embolus.
--- NOTE | 2019-03-16 18:25 | EEG ---
ELECTROENCEPHALOGRAM REPORT DATE OF SERVICE: 03/16/2019. PREAMBLE: This is a 73-year-old male who has history of a syncopal spell while sitting on the couch. When the EMS came, patient was slightly confused. Blood pressure was high in the ER. The patient currently takes metoprolol, Cozaar, lipase, Lovenox, aspirin and amlodipine. EEG FINDINGS: A routine 21-channel awake digital EEG recording was accomplished utilizing the 10/20 international system with bipolar and referential montages. The background consists of well developed, moderately well regulated, mixed frequencies of 6 to 7 Hz theta with some 2 to 3 Hz delta activity. Background seems to be reactive to eye opening and closing. Photic driving response was not seen. Different stages of sleep were not seen. No focal or generalized epileptiform activity was seen. EKG rhythm lead revealed no obvious arrhythmia. IMPRESSION: This is an abnormal EEG due to background disorganization and slowing of mild to moderate degree. This is suggestive of generalized cerebral dysfunction, as can be seen with toxic metabolic encephalopathy or due to diffuse structural brain abnormality. No epileptiform activity was seen. MMODL / IJN: [id number] / [facility]ENTERBeverley
--- NOTE | 2019-03-16 18:33 | CT ---
EXAMINATION TYPE: CT brain wo con DATE OF EXAM: 03/16/2019 COMPARISON: 03/13/2019 HISTORY: Patient poor historian.. CT DLP: 1172.4 mGycm Automated exposure control for dose reduction was used. Multiple axial sections were obtained of the brain without contrast. There is some hypodensity in the adams-white matter of the right posterior parietal lobe consistent wi th old infarct. There is no midline shift. There is also some white matter hypodensity left posterior parietal lobe. There is no evidence of intracranial hemorrhage. Calvarium is intact. There is mild e thmoid sinus mucosal thickening. 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 Chronic white matter ischemia left post erior parietal lobe. No hemorrhage.
--- NOTE | 2019-03-16 20:01 | PN ---
PROGRESS NOTE Mr. Kingsley had a near-syncopal spell. He has not had any ectopy here in the hospital. He is resting comfortably at the time of my evaluation. His CT angiography was negative for pulmonary embolism, even though D-dimer was elevated. Vitals are stable. No JVD. S1, S2 heard normally. Lungs are clear. Abdomen and lower extremity exam unchanged. Patient is ambulating without symptoms. I am recommending a 2-week event monitor. He can be discharged and I will see him in the office after his event monitor. I discussed my thoughts in detail with the patient. MMODL / IJN: [id number] /
[2019-03-16] MEDS ORDERED: CLOPIDOGREL 75 MG TAB PO STA (20:30)
--- NOTE | 2019-03-16 22:39 | P.PN ---
Progress Note - Text Progress Note Date: 03/16/19 Chief Complaint: Past out History of presenting complaint: This is a pleasant 73-year-old patient of Dr. Rivera. Chronic stable medical conditions include hypertension, GERD, hyperlipidemia, tremors. 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 Patient was home making his breakfast and eating. He thinks he was sitting on the couch and he passed out. Oftentimes enabled complaint check him. Apparently became and he was passed out. He is unclear about the same. With the EMS a variety was bit confused. Does not remember passing out. The total number burly chest pain or palpitations. Does note vitamin incontinence. Patient's blood pressure was running on the high 200s. Arrived. Patient does feel unsteady sometimes. Patient has no focal weakness. Has been up in the hallway. Cardiology was consulted. Today-patient otherwise feels well. MRI done earlier today did show acute infarct in the right occipital lobe. EEG was negative for any seizure activity. No arrhythmia on telemetry. Review of systems: Was done for constitutional, cardiovascular, GI, pulmonary. Neurological, relevant finding as above Active Medications Amlodipine Besylate (Norvasc) 5 mg PO BID [facility] Last Admin: 03/16/19 20:11 Dose: 5 mg Documented by: Aspirin (Aspirin) 81 mg PO DAILY [facility] Last Admin: 03/16/19 09:03 Dose: 81 mg Documented by: Chlorthalidone (Hygroton) 25 mg PO DAILY [facility] Last Admin: 03/16/19 09:03 Dose: 25 mg Documented by: Clopidogrel Bisulfate (Plavix) 75 mg PO [facility] Enoxaparin Sodium (Lovenox) 40 mg SQ DAILY [facility] Last Admin: 03/16/19 09:03 Dose: 40 mg Documented by: Losartan Potassium (Cozaar) 25 mg PO DAILY [facility] Last Admin: 03/16/19 09:03 Dose: 25 mg Documented by: Metoprolol Tartrate (Lopressor) 50 mg PO BID [facility] Last Admin: 03/16/19 20:11 Dose: 50 mg Documented by: Naloxone HCl (Narcan) 0.2 mg IV Q2M PRN PRN Reason: Opioid Reversal Lipase/Protease/Amylase [Vladimir Mark 36 ,000 Units Capsule] 2 Cap 2 cap PO 5XD [facility] Last Admin: 03/16/19 21:28 Dose: Not Given Documented by: Physical examination: VITAL SIGNS: 98.3, 61, 16, 149/85, 92% room air GENERAL: Sitting over but anxious. EYES: Pupils equal. Conjunctiva normal. HEENT: External appearance of nose and ears normal, oral cavity grossly normal. NECK: JVD not raised; masses not palpable. HEART: First and second heart sounds are normal; no edema. LUNGS: Respiratory rate normal; clear to auscultation. ABDOMEN: Soft, nontender, liver spleen not palpable, no masses palpable. PSYCH: Alert and oriented x3; mood and affect but anxious. 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 thoracic aorta 3.68 cm, pancreatic tumor 3.4 x 2.6 cm MRI of the brain-evidence of old ischemia and switching the white matter, and evidence of acute infarct in the right occipital lobe MRA of the brain-unremarkable EEG-no seizure activity Previous testing White count 12.6 hemoglobin 14.2 potassium 5.1 creatinine 1.2 Troponin I 3 negative Carotid Doppler negative EKG tracing personally reviewed by me-negative, sensitive Chest x-ray film personally reviewed by me-cardiomegaly, lungs is clear D-dimer is 0.9 to 2-D echo-year 50-55% Assessment: -This is a patient who passed out at home unclear for how long. No obvious clinical evidence of seizure activity was little bit confused about the event. Patient does feel at times unsteady. We'll do an EEG to rule out any seizure activity. Also given that he feels unsteady at times need to rule out any underlying arrhythmia. Patient will need a Holter monitor as an outpatient. MRI showed occipital lobe infarct. Later in the nurse called me that the patient was having some difficulty finding words. I did order a stat computed tomography scan of the brain. -Give the right occipital lobe and acute infarct normal speech 80 is a different part of the brain. Patient will need a DANIEL to rule out embolic cause of the same. -Essential hypertension accelerated -GERD -Hyperlipidemia -History of pancreatic low-grade adenocarcinoma 3.4 x 2.6 cm -History of splenectomy Plan: Continue patient on aspirin. Also on Plavix. Add Lipitor. Keep the patient nothing by mouth after midnight for possible DANIEL tomorrow. Consult cardiology. Neurology consulted. Neuro checks ordered.
[2019-03-17 05:27] VITALS: RESP 18
[2019-03-17] MEDS: PROTEASE PO SCH ×4 (06:14→20:46)
[2019-03-17] MEDS: LIPASE PO SCH ×4 (06:14→20:46)
[2019-03-17] MEDS: AMYLASE PO SCH ×4 (06:14→20:46)
[2019-03-17] MEDS: amLODIPine 5 MG TAB PO SCH ×2 (08:10→20:40)
[2019-03-17] MEDS: LOSARTAN 25 MG TAB PO SCH (08:10)
[2019-03-17] MEDS: CHLORTHALIDONE 25 MG TAB PO SCH (08:10)
[2019-03-17] MEDS: ASPIRIN 81 MG PO SCH (08:53)
[2019-03-17] MEDS: ENOXAPARIN 40 MG/0.4 ML SYRINGE SQ SCH (08:53)
[2019-03-17 10:59] LABS: Cholesterol 197 mg/dL (<200); HDL Cholesterol 32 mg/dL (40-60); LDL Cholesterol,Calculated 132 mg/dL (0-99); Triglycerides 163 mg/dL (<150)
[2019-03-17] MEDS: METOPROLOL TARTRATE 50 MG TAB PO SCH ×2 (11:17→20:40)
--- NOTE | 2019-03-17 11:33 | P.CNNES ---
History of Present Illness Consult date: 03/17/19 Requesting physician: Victor Manuel Andujar Reason for Consult: New onset slurred speech History of Present Illness: Patient is a 73-year-old male, who was brought to the hospital on 03/13/2019 at 12:05 PM after he had a syncopal spell. Patient states that he woke up in the morning as usual. He went into the kitchen, made his ankles. He brought the eggs to the living room, and remembers sitting down on the couch and 8 to eggs. Then he does not remember what exactly happens. He does remember vaguely that he walked to the neighbor's door and asked them to come over. After that he just remembers being in his house and his neighbors inside his house. They called the ambulance and patient was brought to the hospital. When he arrived, his blood pressure was 196/124, respiration 16, pulse rate 83 and temperature 97.9. Patient had a computed tomography scan of head which revealed periventricular white matter ischemic type change with age-related atrophy. Nonvisualization of the distal left ICA. Consider obstruction. Patient had a carotid Doppler which revealed bilateral plaque formation in the internal carotid arteries and estimated less than 25% stenosis. Antegrade flow in both vertebral arteries. Patient had a 2-D echo, which revealed normal sinus rhythm, EF 50-55%. Right ventricle is mildly enlarged, left atrium is moderately dilated. Interatrial and interventricular septum intact. Mild aortic valve sclerosis and regurgitation. CTA of the chest was negative for pulmonary embolus. Thoracic aortic aneurysm with maximal transverse diameter 3.9 cm. Enlarging soft tissue mass in the region of the tail of the pancreas, slightly larger than from previous. Patient had an MRI of the brain performed yesterday, which revealed small subacute infarct suspected along the right occipital lobe, and there is evidence of chronic small vessel ischemic changes. MRA of the brain showed some narrowing of the internal carotid artery on the left may be due to atheromatous changes at the level of 7. Right vertebral artery is present. Left vertebral artery is atrophic, posterior communicating arteries also appear diminutive. No dissection. No embolus. No aneurysm. Patient also underwent EEG yesterday, which was abnormal EEG due to intermittent background slowing and disorganization of egrb-nd-sisbsvyi degree, suggestive of encephalopathy of toxic metabolic, vascular or degenerative nature. No epileptiform activity was seen. Patient has history of hypertension, denies diabetes. He does smoke a quarter pack per day for 50 years. Denies any alcohol. Patient does take low-dose aspirin every day. Patient states that he had 1 blackout spell in August 2017. Patient has history of low-grade pancreatic tail adenocarcinoma diagnosed after a biopsy on 07/31/2017. Review of Systems As above in detail. Patient denies any problems with vision, hoarseness both or dysphagia. Denies any focal numbness tingling weakness. Denies any neck pain, chest pain shortness of breath. Past Medical History Past Medical History: Cancer, Hyperlipidemia, Hypertension Additional Past Medical History / Comment(s): past prostate can (sx only),pancreatic CA so far sx only but stated is sceduled for tx, sinus problems, tremors History of Any Multi-Drug Resistant Organisms: None Reported Past Surgical History: Prostate Surgery Additional Past Surgical History / Comment(s): abdominal surgery"pt poor historian as to in total what was done but stated part of stomach and pancreas was removed", prostatectomy 2009, sigrid cataracts, colonoscopy 1999, hemorrhoidectomy, wipple Past Anesthesia/Blood Transfusion Reactions: Motion Sickness Additional Past Anesthesia/Blood Transfusion Reaction / Comment(s): clausterphobia. to pt's knowledge never recieved any blood Past Psychological History: No Psychological Hx Reported Additional Psychological History / Comment(s): pt is indepndant. drives, lives alone in 2 story home but stays mostly on main level. no pets. no home care services, no medical equipment. 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 No international travel sisters are primary contact. No children. Stop smoking at the time of his cancer diagnosis with no severe and alcohol use related Smoking Status: Former smoker Past Alcohol Use History: Rare Additional Past Alcohol Use History / Comment(s): started smoking at age 23(1968) and quit july 2017. a pack would last 3 days. rare use of alcohol. Past Drug Use History: None Reported - Past Family History Mother Family Medical History: CVA/TIA, Hypertension Father Family Medical History: Congestive Heart Failure (CHF), Coronary Artery Disease (CAD), Myocardial Infarction (CO) Medications and Allergies Home Medications Medication Instructions Recorded Confirmed Type Aspirin EC [Ecotrin Low Dose] 81 mg PO DAILY 08/14/17 03/13/19 History Diltiazem Cd [Cardizem CD] 180 mg PO DAILY 08/14/17 03/13/19 History Lipase/Protease/Amylase [Vladimir Dr 2 cap PO 5XD 08/14/17 03/13/19 History 36,000 Units Capsule] Allergies Allergy/AdvReac Type Severity Reaction Status Date / Time niacin Allergy Unknown Verified 09/05/17 09:14 Physical Examination - Vital Signs Vital Signs: Vital Signs Temp Pulse Pulse Resp BP BP Pulse Ox 03/17/19 08:00 97.9 F 68 18 134/81 97 03/17/19 04:00 98.0 F 67 18 143/85 96 03/17/19 00:00 64 16 03/16/19 23:00 98.0 F 64 16 138/86 97 03/16/19 18:00 97.7 F 61 16 158/86 96 03/16/19 15:19 61 16 03/16/19 15:00 98.3 F 61 16 149/85 92 L 03/16/19 11:27 98.7 F 58 L 16 147/88 96 Intake and Output 03/16/19 03/17/19 03/17/19 22:59 06:59 14:59 Intake Total 220 Balance 220 Intake: IV 20 Invasive Line 2 20 Oral 200 Other: Voiding Method Toilet Toilet Toilet # Voids 1 1 Weight 90.2 kg On examination patient is an elderly male, in no distress. Patient is alert and awake oriented to time present person. Speech and language functions are normal. Attention and concentration fund of knowledge adequate. On cranial nerve examination pupils are round and reacting to light, visual zhang are full, extraocular muscles are intact. Face is symmetric and tongue protrudes th e midline. Palatal elevation and sensation normal. Muscle strength testing there is no pronator drift and the strength is normal in arms and legs distally and proximally. Reflexes are 2+ and plantars downgoing. Sensory touch is equal. No ataxia for [id number]-[id number] testing. Tone and bulk of muscles normal. No carotid bruit or murmur S1 and S2 audible. No peripheral edema. Results Liver panel is normal. TSH normal. Patient's lipid panel showed cholesterol 197, LDL 132, HDL 32, triglycerides 163 - Laboratory Findings CBC and BMP: 03/13/19 12:19 03/15/19 10:22 Abnormal Lab Findings: Abnormal Labs 03/13/19 03/13/19 03/13/19 12:17 12:19 12:19 WBC 12.6 H Neutrophils # 10.6 H Lymphocytes # 0.8 L D-Dimer BUN 25 H Glucose 113 H POC Glucose (mg/dL) 122 H Triglycerides LDL Cholesterol, Calc HDL Cholesterol Urine Protein Urine Mucus 03/13/19 03/13/19 03/14/19 13:50 14:16 11:03 WBC Neutrophils # Lymphocytes # D-Dimer 0.92 H BUN Glucose POC Glucose (mg/dL) 110 H Triglycerides LDL Cholesterol, Calc HDL Cholesterol Urine Protein 1+ H Urine Mucus Rare H 03/17/19 10:22 WBC Neutrophils # Lymphocytes # D-Dimer BUN Glucose POC Glucose (mg/dL) Triglycerides 163 H LDL Cholesterol, Calc 132 H HDL Cholesterol 32 L Urine Protein Urine Mucus Assessment and Plan Assessment: * 73-year-old male admitted with syncopal spell, followed by some encephalopathy. Patient's blood pressure was significantly elevated in the ER, 196/124, suggestive of possible hypertensive encephalopathy. * Acute stroke, small size, noted in the right occipital region on MRI, likely from small vessel disease. MRA of head revealed atherosclerotic cerebrovascular disease. * Hypertension * Hyperlipidemia * Tobacco use 1/4 pack per day for 50 years. * History of pancreatic cancer, low-grade adenocarcinoma. Plan: * Patient will be placed on dual antiplatelet medication with aspirin, and Plavix 75 mg. * Patient's LDL is elevated 132. I would suggest starting on statins, if no medical contraindication. Would leave it up to the discretion of PCP, given his history of pancreatic cancer. * We will check hemoglobin A1c. * Aggressive control of blood pressure. * Strongly recommended tobacco cessation. Patient appears motivated for tobacco cessation.
--- NOTE | 2019-03-17 12:28 | PN ---
PROGRESS NOTE Mr. Kingsley had an episode of slurred speech yesterday, altered mentation and workup revealed possibility of an acute small infarct. He remained in sinus rhythm. There was no evidence of atrial fibrillation. I had initially suggested that he could be discharged on event monitor, but given this episode, I am recommending a transesophageal echo to be performed. I have requested Dr. Ramez Brannon to do the procedure. The patient will still need to be discharged on event monitor. He does not have any established diagnosis of atrial fibrillation, but so far we have not seen any arrhythmia. Vitals are stable. No JVD, S1-S2 heard normally, short systolic murmur noted. Lungs revealed decent air entry. Abdomen and lower extremity exam unchanged. The patient appears to be neurologically more stable now. We are awaiting input from Neurology as well. MMODL / IJN: [id number] /
[2019-03-17] MEDS ORDERED: fentaNYL (PF) 50 MCG/ML 2 ML AMP ONE (12:36)
[2019-03-17] MEDS ORDERED: BENZOCAINE SPRAY 1 CAN MUCOUS MEM ONE ×2 (12:50→12:58)
[2019-03-17] MEDS ORDERED: MIDAZOLAM 2 MG/2 ML VIAL IVP ONE (13:00)
[2019-03-17] MEDS ORDERED: fentaNYL (PF) 50 MCG/ML 2 ML AMP IVP ONE (13:00)
[2019-03-17] MEDS ORDERED: IV FLUID CONTINUATION 1,000 ML IV ONE (13:25)
--- NOTE | 2019-03-17 13:57 | EST ---
EXERCISE STRESS TRANSESOPHAGEAL ECHOCARDIOGRAM: This transesophageal echocardiogram was performed to rule out any cardiac source of emboli. Patient was given intravenous sedation with Versed and fentanyl and transesophageal echocardiogram was performed without any complications. The left ventricular chamber is normal in size with mild degree of left ventricular hypertrophy and normal left ventricular systolic functions, mitral, aortic, and tricuspid valve morphology is normal. There is mild mitral regurgitation noted. There is no evidence of thrombus in left atrium or atrial appendage. There is no evidence of any smoke in the left atrium. The left atrial appendage velocities are normal. There is a mild mitral regurgitation noted. Interatrial septum is intact. There is no evidence of any PFO. Ascending aorta is normal. FINAL IMPRESSION: 1. There is no evidence of thrombus in left atrial appendage. The inflow velocity of the left atrial appendage is normal and there is no evidence of smoke. 2. Interatrial septum is intact. There is no evidence of any patent foramen oval by saline contrast study. 3. Mitral aortic and mitral valve morphology is normal. 4. Left ventricular systolic function is normal. MMODL / IJN: [id number] /
[2019-03-17] MEDS: SODIUM CHLORIDE 0.9% 1,000 ML IV SCH (18:25)
[2019-03-17] MEDS ORDERED: CLOPIDOGREL 75 MG TAB PO SCH (21:00)
--- NOTE | 2019-03-17 23:06 | P.PN ---
Progress Note - Text Progress Note Date: 03/17/19 Chief Complaint: Past out Hospital course: This is a pleasant 73-year-old patient of Dr. Rivera. Chronic stable medical conditions include hypertension, GERD, hyperlipidemia, tremors. 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 Patient was home making his breakfast and eating. He thinks he was sitting on the couch and he passed out. Oftentimes enabled complaint check him. Apparently became and he was passed out. He is unclear about the same. With the EMS a variety was bit confused. Does not remember passing out. The total number burly chest pain or palpitations. Does note vitamin incontinence. Patient's blood pressure was running on the high 200s. Arrived. Patient does feel unsteady sometimes. Patient has no focal weakness. Has been up in the hallway. Cardiology was consulted. MRI - acute infarct in the right occipital lobe. EEG negative for seizure activity. Today-DANIEL was negative for any thrombus. Patient doing well otherwise. No new issues. Speech normal. Review of systems: Was done for constitutional, cardiovascular, GI, pulmonary. Neurological, relevant finding as above Active Medications Amlodipine Besylate (Norvasc) 5 mg PO BID [facility] Last Admin: 03/17/19 20:40 Dose: Not Given Documented by: Aspirin (Aspirin) 81 mg PO DAILY [facility] Last Admin: 03/17/19 08:53 Dose: 81 mg Documented by: Chlorthalidone (Hygroton) 25 mg PO DAILY [facility] Last Admin: 03/17/19 08:10 Dose: Not Given Documented by: Clopidogrel Bisulfate (Plavix) 75 mg PO HS [facility] Last Admin: 03/17/19 20:48 Dose: 75 mg Documented by: Enoxaparin Sodium (Lovenox) 40 mg SQ DAILY [facility] Last Admin: 03/17/19 08:53 Dose: 40 mg Documented by: Sodium Chloride (Saline 0.9%) 1,000 mls @ 20 mls/hr IV .Q24H [facility] Last Admin: 03/17/19 18:25 Dose: Not Given Documented by: Losartan Potassium (Cozaar) 25 mg PO DAILY [facility] Last Admin: 03/17/19 08:10 Dose: Not Given Documented by: Metoprolol Tartrate (Lopressor) 50 mg PO BID [facility] Last Admin: 03/17/19 20:40 Dose: Not Given Documented by: Naloxone HCl (Narcan) 0.2 mg IV Q2M PRN PRN Reason: Opioid Reversal Lipase/Protease/Amylase [Vladimir Mark 36 ,000 Units Capsule] 2 Cap 2 cap PO 5XD [facility] Last Admin: 03/17/19 20:46 Dose: Not Given Documented by: Physical examination: VITAL SIGNS: 97.6, 95, 20, 101/56, 97% on 3 L GENERAL: sitting up, comfortable EYES: Pupils equal. Conjunctiva normal. HEENT: External appearance of nose and ears normal, oral cavity grossly normal. NECK: JVD not raised; masses not palpable. HEART: First and second heart sounds are normal; no edema. LUNGS: Respiratory rate normal; clear to auscultation. ABDOMEN: Soft, nontender, liver spleen not palpable, no masses palpable. PSYCH: Alert and oriented x3; mood and affect but anxious. 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, pancreatic tumor 3.4 x 2.6 cm MRI of the brain-evidence of old ischemia and switching the white matter, and evidence of acute infarct in the right occipital lobe MRA of the brain-unremarkable EEG-no seizure activity Previous testing White count 12.6 hemoglobin 14.2 potassium 5.1 creatinine 1.2 Troponin I 3 negative Carotid Doppler negative EKG tracing personally reviewed by me-negative, sensitive Chest x-ray film personally reviewed by me-cardiomegaly, lungs is clear D-dimer is 0.9 to 2-D echo-year 50-55% Assessment: -right occipital lobe acute infarct -Give the right occipital lobe and acute infarct normal speech area is a different part of the brain. Patient will need a DANIEL to rule out embolic cause of the same. -Essential hypertension accelerated -GERD -Hyperlipidemia -History of pancreatic low-grade adenocarcinoma 3.4 x 2.6 cm -History of splenectomy Plan: discussed with Dr. Ramírez from neurology. Patient wasto be discharged on aspirin and Plavix and Lipitor.outpatient event monitor or Holter monitor to be set up. Late in the evening and discovered the discharge has been held. unclear to the circumstances. Nobody called me about the same. Will follow-up
[2019-03-18] MEDS: LIPASE PO SCH ×3 (01:04→13:42)
[2019-03-18] MEDS: PROTEASE PO SCH ×3 (01:04→13:42)
[2019-03-18] MEDS: AMYLASE PO SCH ×3 (01:04→13:42)
[2019-03-18] MEDS: LOSARTAN 25 MG TAB PO SCH (08:29)
[2019-03-18] MEDS: METOPROLOL TARTRATE 50 MG TAB PO SCH (08:29)
[2019-03-18] MEDS: ASPIRIN 81 MG PO SCH (08:29)
[2019-03-18] MEDS: amLODIPine 5 MG TAB PO SCH (08:29)
[2019-03-18] MEDS: ENOXAPARIN 40 MG/0.4 ML SYRINGE SQ SCH (08:29)
[2019-03-18] MEDS: CHLORTHALIDONE 25 MG TAB PO SCH (08:29)
[2019-03-18 09:36] VITALS: TEMP 98.3
[2019-03-18 12:02] VITALS: BP 152/83; PULSE 62
[2019-03-18] MEDS: SODIUM CHLORIDE 0.9% 1,000 ML IV SCH (13:42)
--- NOTE | 2019-03-18 15:25 | PN ---
PROGRESS NOTE Mr. Kingsley is doing much better today. His transesophageal echo did not reveal any evidence of intracardiac thrombus. He is maintaining sinus rhythm. Denies chest pain. Vitals are stable. S1-S2 heard normally, lungs are clear. Abdomen and lower extremity exam unchanged. Plan is to discharge home on event monitor and I will see him in the office at 3 weeks after 2 week event monitor, same medical regimen. MMODL / IJN: [id number] /
--- NOTE | 2019-03-24 23:35 | P.DS ---
Providers Date of admission: 03/13/19 15:52 Expected date of discharge: 03/18/19 Attending physician: Victor Manuel Andujar Consults: 03/13/19 15:51 Consult Physician Urgent Consulting Provider: Binta Blackburn Consult Reason/Comments: syncope Do you want consulting provider notified?: Yes Consult Physician Urgent Consulting Provider: Leroy Ramires Consult Reason/Comments: oncological care Do you want consulting provider notified?: Yes 03/16/19 18:02 Consult Physician Stat Consulting Provider: Angelica Greenwood Consult Reason/Comments: possible stroke; new onset slurred speeh Do you want consulting provider notified?: Yes 03/16/19 22:40 Consult Physician Routine Consulting Provider: Ignacio Curtis Consult Reason/Comments: DANIEL Do you want consulting provider notified?: Yes Primary care physician: Hernan Rivera [facility] Course: Chief Complaint: Past out Hospital course: This is a pleasant 73-year-old patient of Dr. Rivera. Chronic stable medical conditions include hypertension, GERD, hyperlipidemia, tremors. 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 Patient was home making his breakfast and eating. He thinks he was sitting on the couch and he passed out. oftentimes the neighbor's check on him. he was passed out. He is unclear about the same. With the EMS arrived, he was bit confused. Does not remember passing out. Denied any chest pain or palpitations. There was no uterine incontinence. Patient's blood pressure was running on the high 200s. Arrived. Patient does feel unsteady sometimes. Patient has no focal weakness. Has been up in the hallway. Cardiology was consulted. MRI - acute infarct in the right occipital lobe. EEG negative for seizure activity. He also had an episode of slurring of speech. DANIEL was negative for any thrombus. Patient felt back to his baseline. Outpatient Holter monitor/event monitor will be arranged by cardiology. Care was discussed with the patient. Discussion and discharge planning more than 35 minutes Consultation: Dr. LUIS ENRIQUE Curtis from cardiology Dr. Neptali Ramírez from neurology Physical examination: VITAL SIGNS: 98.3, 68, 18, 137/75, 96% room air GENERAL: sitting up, comfortable EYES: Pupils equal. Conjunctiva normal. HEENT: External appearance of nose and ears normal, oral cavity grossly normal. NECK: JVD not raised; masses not palpable. HEART: First and second heart sounds are normal; no edema. LUNGS: Respiratory rate normal; clear to auscultation. ABDOMEN: Soft, nontender, liver spleen not palpable, no masses palpable. PSYCH: Alert and oriented x3; mood and affect but anxious. 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, pancreatic tumor 3.4 x 2.6 cm MRI of the brain-evidence of old ischemia and switching the white matter, and evidence of acute infarct in the right occipital lobe MRA of the brain-unremarkable EEG-no seizure activity Previous testing White count 12.6 hemoglobin 14.2 potassium 5.1 creatinine 1.2 Troponin I 3 negative Carotid Doppler negative EKG tracing personally reviewed by me-negative, sensitive Chest x-ray film personally reviewed by me-cardiomegaly, lungs is clear D-dimer is 0.9 to 2-D echo-year 50-55% Assessment: -right occipital lobe acute infarct -Essential hypertension accelerated -GERD -Hyperlipidemia -History of pancreatic low-grade adenocarcinoma 3.4 x 2.6 cm -History of splenectomy Disposition: Home Plan - Discharge Summary Discharge Rx Participant: No New Discharge Prescriptions: New Losartan-Hctz 50-12.5 mg [Hyzaar 50-12.5] 1 tab PO DAILY #30 tablet Atorvastatin [Lipitor] 40 mg PO HS #30 tablet Metoprolol Tartrate [Lopressor] 50 mg PO BID #60 tab amLODIPine [Norvasc] 10 mg PO HS #30 tablet Clopidogrel [Plavix] 75 mg PO HS #30 tab Continue Diltiazem Cd [Cardizem CD] 180 mg PO DAILY Aspirin EC [Ecotrin Low Dose] 81 mg PO DAILY Lipase/Protease/Amylase [Creon Dr 36,000 Units Capsule] 2 cap PO 5XD Discharge Medication List Aspirin EC [Ecotrin Low Dose] 81 mg PO DAILY 08/14/17 [History] Diltiazem Cd [Cardizem CD] 180 mg PO DAILY 08/14/17 [History] Lipase/Protease/Amylase [Creon Dr 36,000 Units Capsule] 2 cap PO 5XD 08/14/17 [History] Atorvastatin [Lipitor] 40 mg PO HS #30 tablet 03/17/19 [Rx] Clopidogrel [Plavix] 75 mg PO HS #30 tab 03/17/19 [Rx] Losartan-Hctz 50-12.5 mg [Hyzaar 50-12.5] 1 tab PO DAILY #30 tablet 03/17/19 [Rx] Metoprolol Tartrate [Lopressor] 50 mg PO BID #60 tab 03/17/19 [Rx] amLODIPine [Norvasc] 10 mg PO HS #30 tablet 03/17/19 [Rx] Follow up Appointment(s)/Referral(s): Ignacio Curtis MD [STAFF PHYSICIAN] - 03/30/19 3:00 pm Rodolfo Rivera MD [Primary Care Provider] - 03/26/19 11:40 am (need referral for Dr. Sweeney) Jose C Sweeney MD [STAFF PHYSICIAN] - 1 Week (primary care to send referral to make appointment) Patient Instructions/Handouts: How to Stop Smoking (DC), Syncope (DC), Chronic Hypertension (DC) Activity/Diet/Wound Care/Special Instructions: dc if okay with cardiology. Arrange for an event/ Holter monitor as per cardiology Discharge Disposition: HOME SELF-CARE
== END 2019-03-18 14:02 | disposition home or self-care (01) | DRG 65 ==
LOC: EC 12:05 → 3SCARD 15:52
PROVIDERS: ADMIT Hospitalist; ATTEND Hospitalist
PROC: B24BZZ4 Ultrasonography of Heart with Aorta, Transesophageal (ICD-10-PCS; principal; 2019-03-17 11:25)
DX: I63.9 Cerebral infarction, unspecified (principal); I67.4 Hypertensive encephalopathy; E78.5 Hyperlipidemia, unspecified; F17.210 Nicotine dependence, cigarettes, uncomplicated; I10 Essential (primary) hypertension; K21.9 Gastro-esophageal reflux disease without esophagitis; I73.9 Peripheral vascular disease, unspecified; R40.2363 Coma scale, best motor response, obeys commands, at hospital admission; R40.2143 Coma scale, eyes open, spontaneous, at hospital admission; R40.2253 Coma scale, best verbal response, oriented, at hospital admission; Z60.2 Problems related to living alone; I16.0 Hypertensive urgency; I71.4 Abdominal aortic aneurysm, without rupture; R47.81 Slurred speech; I35.8 Other nonrheumatic aortic valve disorders; I65.29 Occlusion and stenosis of unspecified carotid artery; I67.2 Cerebral atherosclerosis; I71.2 Thoracic aortic aneurysm, without rupture; Z79.82 Long term (current) use of aspirin; Z79.899 Other long term (current) drug therapy; Z88.8 Allergy status to other drugs, medicaments and biological substances; Z98.890 Other specified postprocedural states; Z80.0 Family history of malignant neoplasm of digestive organs; Z82.49 Family history of ischemic heart disease and other diseases of the circulatory system; Z90.79 Acquired absence of other genital organ(s); Z90.81 Acquired absence of spleen; Z85.07 Personal history of malignant neoplasm of pancreas
CPT/HCPCS: 36415; 70450; 70470; 70544; 70553; 71046; 71275; 80053; 80061; 81001; 82550; 82565; 83036; 83735; 84484; 84520; 85025; 85379; 85610; 85730; 93005; 93270; 93306; 93312; 93320; 93325; 93880; 95816; 96361; 96374; 96376; 99285

== ENCOUNTER → 2019-04-07 | Outpatient (CLI) | payer MEDICARE, BC ==
--- NOTE | 2019-04-07 10:09 | CT ---
EXAMINATION TYPE: CT abdomen pelvis w con DATE OF EXAM: 04/07/2019 COMPARISON: CT abdomen and pelvis November 26, [address] HISTORY: Pancreatic cancer CT DLP: 1210.70 mGycm, Automated Exposure Control for Dose Reduction was Utilized. CONTRAST: CT scan of the abdomen and pelvis is performed with oral water and with IV Contrast, patient injected with 100 ml mL of Isovue 300. FINDINGS: LUNG BASES: No significant abnormality is appreciated. LIVER/GB: Liver remains heterogeneous with areas of hypodensity and hyperdensity, suspect fatty infil tration with transient hepatic attenuation difference is the hyperdense areas become more isodense on delayed images and are geographic in appearance. No significant change from prior. PANCREAS: There is stable low dense or cystic lesion in the distal pancreatic body measuring approxim ately 2.9 x 1.4 cm image 39 a significant change from most recent CT was some distal ductal dilatatio n redemonstrated. Mild adjacent fluid is redemonstrated. Remainder of the pancreatic head and body sh ow stable mild generalized atrophy. Incidental benign calcific focus in the uncinate process affects image 57 redemonstrated. SPLEEN: Surgical clips left upper quadrant with residual splenule axial image 43. No significant ledezma ge from prior studies. ADRENALS: No significant abnormality is seen. KIDNEYS: Some perinephric fluid and cortical thinning upper pole level left kidney is redemonstrated. No hydronephrosis or concerning renal masses bilaterally. BOWEL: Mild to moderate wall thickening in distal esophagus. Areas of mild to moderate mucosal thicke laura throughout the stomach extending into the antrum. No suspicious small or large bowel dilatation. Normal-appearing appendix from cecum in the right lower quadrant. Terminal ileum thought within norm al limits. PROSTATE/SEMINAL VESICLES: Prostate gland is surgically absent. Numerous surgical clips in the pelvis are redemonstrated attending laterally towards the bilateral groin region. LYMPH NODES: No new greater than 1cm abdominal or pelvic lymph nodes are appreciated. OSSEOUS STRUCTURES: Moderate disc space narrowing and vacuum disc phenomenon level L3-L4 level. Mild disc space narrowing and vacuum disc phenomenon with spurring right L5-S1 level. Prominent Schmorl no de superior L1 endplate. OTHER: Stable small fat-containing left inguinal hernia. Moderate calcified plaque of the abdominal a franky extending into branch vessels. IMPRESSION: Since most recent CT, stable distal pancreatic body cystic lesion or neoplasm without new suspicious mass or adenopathy.
== END | disposition home or self-care (01) ==
LOC: RADCTMAIN 07:50
PROVIDERS: ATTEND Internal Medicine Hematology & Oncology
DX: C25.1 Malignant neoplasm of body of pancreas (principal)
CPT/HCPCS: 82565; 84520; 74177; 36415; Q9967

== ENCOUNTER → 2019-08-06 | Outpatient (CLI) | payer MEDICARE, BC ==
--- NOTE | 2019-08-06 13:24 | CT ---
EXAMINATION TYPE: CT abdomen pelvis w con DATE OF EXAM: 08/06/2019 COMPARISON: 04/07/2019 INDICATION: pancreatic CA DLP: 2008.2 mGycm, Automated exposure control for dose reduction was used. CONTRAST: 100 mL of Isovue 300. Study performed without Oral Contrast. Water was used as oral contrast. TECHNIQUE: Axial images were obtained from above the diaphragm to the pubic rami in the axial plane a t 5 mm thick sections. Reconstructed images are reviewed on the computer in the coronal plane. FINDINGS: Limited CT sections are obtained the lung bases. The lung bases are clear. CT ABDOMEN: Liver: Normal Spleen: Splenule may remain present. Prior splenic surgery appears to be present. This area is stable from comparison. Pancreas: Pancreatic tail mass measures 3.7 x 3.4 cm this is larger than the 2.9 x 1.4 cm. No pancrea tic duct dilatation is evident. Adrenal glands: The adrenal glands are normal. Gallbladder: Normal Kidneys: No masses are evident. No hydronephrosis is present. No cysts are present. Delayed images were obtained through the kidneys, which remain unremarkable. Aorta: Vascular calcification is within the aorta. Inferior vena cava: Normal. CT PELVIS: Left inguinal fat-containing hernia is present. Small right inguinal fat-containing hernia may be present. Loops of bowel within the abdomen and pelvis are normal. A few diverticular changes are present sigm oid colon. The studies performed without oral contrast limiting bowel evaluation. Appendix: Normal as visualized. Urinary bladder: Normal. Genitourinary structures: Prostate may be surgically absent. Clinical correlation recommended Osseous structures: No suspicious lytic or sclerotic lesions. IMPRESSIONS: 1. Enlarging lobular tail of the pancreas mass. This can be compatible with the patient's reported p ancreatic cancer. 2. Suspicious metastatic changes are not identified
== END | disposition home or self-care (01) ==
LOC: RADCTMAIN 08:55
PROVIDERS: ATTEND Internal Medicine Hematology & Oncology
DX: C25.1 Malignant neoplasm of body of pancreas (principal); Z88.8 Allergy status to other drugs, medicaments and biological substances
CPT/HCPCS: 82565; 84520; 74177; 36415; Q9967

== ENCOUNTER → 2019-11-17 | Outpatient (CLI) | payer MEDICARE, BC ==
--- NOTE | 2019-11-18 20:54 | CT ---
EXAMINATION TYPE: CT ChestAbdPelvis w con DATE OF EXAM: 11/17/2019 COMPARISON: CT abdomen pelvis 08/06/2019 HISTORY: Follow up pancreatic cancer CT DLP: 1965 mGycm Automated exposure control for dose reduction was used. CONTRAST: CT scan of the chest, abdomen and pelvis is performed with Oral Contrast and with IV Contrast, patien t injected with 100 mL of Isovue 300. FINDINGS: LUNGS: Lungs are grossly clear. No concerning parenchymal mass or nodule identified. No pleural effus ion. No pneumothorax. The tracheobronchial tree is patent. MEDIASTINUM/SOFT TISSUES: No axillary, hilar, or mediastinal lymphadenopathy greater than 1 cm. Cardi ac size is normal. Mild calcified coronary artery disease. No pericardial effusion. No thoracic aorti c aneurysm. LIVER: There are 2 enhancing lesions of the liver in segment 7 (3:49) measuring up to 1.4 cm and with in segment 5 measuring up to 1.1 cm (3:59), unchanged in size versus 04/18/2017 CT comparison and most likely benign hemangiomas. Fatty liver. BILIARY SYSTEM: Normal. PANCREAS: Interval decrease in size of pancreatic tail mass measuring 4.6 x 2.7 cm (3:57), previously measuring up to 5.0 x 3.4 cm on 08/06/2019 comparison. There is similar appearing soft tissue strandin g along the celiac axis, proximal splenic artery, and common hepatic artery. The pancreatic head and body are again mildly atrophic. Redemonstrated benign appearing calcification of the uncinate process . SPLEEN: Status post splenectomy. ADRENALS: Normal. KIDNEYS: No hydronephrosis or hydroureter bilaterally. Left renal atrophy redemonstrated. BOWEL: No evidence of obstruction or thickening. PERITONEUM: No pneumoperitoneum. No ascites. No peritoneal thickening. Fat-containing left inguinal hernia. Tiny fat-containing umbilical hernia. Fat-containing midline ventral upper abdominal wall her noe. LYMPH NODES: No lymphadenopathy. PELVIS: Urinary bladder normal. Prostatectomy. VASCULATURE: No abdominal aortic aneurysm. Redemonstrated soft tissue stranding along the celiac axi s, proximal splenic artery, and common hepatic artery. MUSCULOSKELETAL: No aggressive osseous destructive lesions. Redemonstrated moderate compression defo rmity of the superior endplate of L1, not significantly changed from 04/18/2017 CT comparison. IMPRESSION: 1. Decreased size of pancreatic tail mass measuring 4.6 x 2.7 cm, previously measuring up to 5.0 x 3 .4 cm on 08/06/2019 CT comparison. Unchanged adjacent soft tissue stranding along the celiac axis, prox imal splenic artery, and common hepatic artery. 2. No new metastatic disease of the chest, abdomen, or pelvis.
== END | disposition home or self-care (01) ==
LOC: RADCTMAIN 09:40
PROVIDERS: ATTEND Internal Medicine Hematology & Oncology
DX: C25.1 Malignant neoplasm of body of pancreas (principal); Z88.8 Allergy status to other drugs, medicaments and biological substances
CPT/HCPCS: 82565; 84520; 71260; 74177; 36415; Q9967

== ENCOUNTER → 2020-03-14 | Outpatient (CLI) | payer MEDICARE, BC ==
--- NOTE | 2020-03-14 14:50 | CT ---
EXAMINATION TYPE: CT ChestAbdPelvis w con DATE OF EXAM: 03/14/2020 COMPARISON: Most recent CT November 17, 2019 and older CTs HISTORY: Pancreatic cancer CT DLP: 2066.1 mGycm. Automated Exposure Control for Dose Reduction was Utilized. CONTRAST: CT scan of the thorax, abdomen and pelvis is performed with oral and with IV Contrast, patient inject ed with 80 mL of Isovue 300. FINDINGS: LUNGS: The lungs are grossly clear, there is no concerning new parenchymal mass or nodule identified. There is no pleural effusion or pneumothorax seen. The tracheobronchial tree is patent. MEDIASTINUM: There are no greater than 1 cm hilar or mediastinal lymph nodes. No cardiomegaly or pe ricardial effusion is seen. Mild coronary artery calcification in the LAD distribution is redemonstr ated. OTHER: Stable small degree of bilateral subareolar gynecomastia. LIVER/GB: Liver is overall heterogeneously hypodense on current study consistent with diffuse fatty i nfiltration. No new focal solid or cystic masses. PANCREAS: Irregular low dense lesion in the distal pancreatic body and tail measuring approximately 4 .2 x 1.5 cm image 59 is not significantly changed from most recent CT. Stable small area of suspected ductal dilatation axial image 58 distal to this. There is moderate generalized fat replaced atrophy of the remainder of the pancreas redemonstrated. Minimal adjacent fluid left lateral aspect is redemo nstrated. Incidental benign calcific focus in the uncinate process axial image 73 redemonstrated. Mil d soft tissue prominence and stranding along the celiac artery, proximal splenic artery, and common h epatic arteries axial images 66 through 61 redemonstrated. Thrombosed splenic arterial remnant is sta ble. No significant change from most recent CT. SPLEEN: Surgical clips left upper quadrant with residual splenule axial image 50. No significant ledezma ge from prior studies. ADRENALS: No significant abnormality is seen. KIDNEYS: Mild to moderate bilateral perinephric fluid and cortical thinning upper pole level left kid juan is redemonstrated. No hydronephrosis or concerning renal masses bilaterally. No significant schrader e from prior studies.4 BOWEL: Oral contrast does not reach colonic level making evaluation distally slightly suboptimal. Sto mach and duodenal sweep appears unremarkable currently. No suspicious small or large bowel dilatation . Normal-appearing appendix from cecum in the right lower quadrant is redemonstrated. Terminal ileum thought within normal limits. PROSTATE/SEMINAL VESICLES: Prostate gland is redemonstrated surgically absent. Numerous surgical clip s in the pelvis are redemonstrated extending laterally towards the bilateral groin region. LYMPH NODES: No new greater than 1cm abdominal or pelvic lymph nodes are appreciated. OSSEOUS STRUCTURES: Moderate disc space narrowing and vacuum disc phenomenon level L3-L4 level it is redemonstrated. Prominent Schmorl node superior L1 endplate redemonstrated. OTHER: Stable moderate-sized fat-containing left inguinal hernia. Moderate calcified plaque of the ab dominal aorta extending into branch vessels. IMPRESSION: Since most recent CT, stable distal pancreatic body cystic lesion or neoplasm without new suspicious mass or adenopathy.
== END | disposition home or self-care (01) ==
LOC: RADCTMAIN 12:01
PROVIDERS: ATTEND Internal Medicine Hematology & Oncology
DX: C25.1 Malignant neoplasm of body of pancreas (principal); Z88.8 Allergy status to other drugs, medicaments and biological substances
CPT/HCPCS: 82565; 84520; 71260; 74177; 36415; Q9967

== ENCOUNTER → 2020-08-18 | Outpatient (CLI) | payer MEDICARE, BC ==
--- NOTE | 2020-08-18 16:22 | CT ---
EXAMINATION TYPE: CT abdomen pelvis wo con DATE OF EXAM: 08/18/2020 COMPARISON: CT 03/14/2020 HISTORY: Malignant neoplasm of body of pancreas CT DLP: 2389.3 mGycm Automated exposure control for dose reduction was used. TECHNIQUE: Helical acquisition of images from the lung bases through the pelvis. Patient received or al contrast only. FINDINGS: Patient did not receive intravenous contrast due to marginal renal function. Left inguinal hernia contains fat. LUNG BASES: No significant abnormality is appreciated. AORTA: No significant abnormality is appreciataed. LIVER/GB: No significant interval change is appreciated. PANCREAS: Distal pancreas shows a soft tissue mass similar to prior exam, the lesion measures approxi mately 2.4 x 5 cm which is thought to be similar, there are different planes of section in the measur ement somewhat challenging due to soft tissue mass position. Pancreatic atrophy is noted as on prior. Celiac axis again show some Anamika increased density adjacent to it as on prior, redemonstrated, punc thomas calcification in the head of the pancreas is again noted SPLEEN: Not seen. ADRENALS: No significant abnormality is seen. KIDNEYS: No significant abnormality is seen. REPRODUCTIVE ORGANS: Postop changes redemonstrated, surgical clips along the vas deferens, seminal v essels, prostate gland is no longer seen. URINARY BLADDER: No significant abnormality is seen. BOWEL: No significant abnormality is seen. The appendix is normal. FREE AIR: No Free Air is visible. ASCITES: None visible. PELVIC ADENOPATHY: None visualized. RETROPERITONEAL ADENOPATHY: No Retroperitoneal Adenopathy visible. OSSEOUS STRUCTURES: No significant abnormality is seen. IMPRESSION: FINDINGS ARE STABLE.
== END | disposition home or self-care (01) ==
LOC: RADCTMAIN 10:35
PROVIDERS: ATTEND Internal Medicine Hematology & Oncology
DX: C25.1 Malignant neoplasm of body of pancreas (principal)
CPT/HCPCS: 36415; 74176; 82565; 84520

== ENCOUNTER 2021-05-18 11:22 | Observation (INO) | payer BC, MEDICARE ==
[2021-05-18] MEDS ORDERED: PROPOFOL 10 MG/ML 20 ML VIAL IV ONE ×3 (12:12→16:14)
[2021-05-18] MEDS ORDERED: MORPHINE SULFATE 4 MG/ML SYRINGE IM STA (12:12)
--- NOTE | 2021-05-18 12:28 | ED ---
General Adult HPI - General Chief complaint: Extremity Injury, Upper Stated complaint: Fall/Lt arm injury Time Seen by Provider: 05/18/21 11:46 Source: patient Mode of arrival: wheelchair Limitations: no limitations - History of Present Illness Initial comments: Dictation was produced using [employer] dictation software. please excuse any grammatical, word or spelling errors. Chief Complaint: 75-year-old male presents emergency department for dislocated left shoulder History of Present Illness: Patient is a 75-year-old male who was sent over from orthopedic surgery office. Patient was allegedly sent here for dislocated left shoulder. Patient reports she tripped over some trash lead on his left shoulder causing him to get dislocated. He has history of chronic right shoulder issues. He went to the orthopedic surgery office where he was evaluated. They did an x-ray and said to come to the emergency department for shoulder reduction with sedation. Patient denies any numbness to his lateral deltoid. He does complain of some pain and tingling to his left shoulder. Denies any numbness distally to his left hand. He did state that he hit his head during the fall. Patient does not take any anticoagulation medications. The ROS documented in this emergency department record has been reviewed and confirmed by me. Those systems with pertinent positive or negative responses have been documented in the HPI. All other systems are other negative and/or noncontributory. PHYSICAL EXAM: General Impression: Alert and oriented x3, not in acute distress HEENT: Normocephalic atraumatic, extra-ocular movements intact, pupils equal and reactive to light bilaterally, mucous membranes moist. Cardiovascular: Heart regular rate and rhythm Chest: Able to complete full sentences, no retractions, no tachypnea Left shoulder: Sulcus sign to the left anterior shoulder Abdomen: abdomen soft, non-tender, non-distended, no organomegaly Musculoskeletal: Pulses present and equal in all extremities, no peripheral edema Motor: no focal deficits noted Neurological: CN II-XII grossly intact, no focal motor or sensory deficits noted Skin: Intact with no visualized rashes Psych: Normal affect and mood ED course: 75-year-old male presents to the emergency department for left shoulder dislocation. Vital signs upon arrival are within acceptable limits. Shoulder x-ray shows acute anterior glenohumeral joint dislocation with associated Hill-Sachs deformity and procedural sedation was performed in bedside reduction was attempted however unsuccessful after multiple attempts. Spoke with emelyn borges, midlevel provider of advanced orthopedics who requests that CT of the shoulder be ordered and patient be admitted to observation under or orthopedic surgery service, Dr. Potter. Plan according to emelyn borges is to take patient to the operating room for shoulder reduction sometime today. - Related Data Home Medications Medication Instructions Recorded Confirmed Aspirin EC [Ecotrin Low Dose] 81 mg PO DAILY 08/14/17 05/18/21 Lipase/Protease/Amylase [Vladimir Mark 2 cap PO 5XD 08/14/17 05/18/21 36,000 Unit Capsule] Atorvastatin [Lipitor] 20 mg PO HS 05/18/21 05/18/21 Cholecalciferol [Vitamin D3 (125 125 mcg PO DAILY 05/18/21 05/18/21 Mcg = 5000 Iu)] Losartan Potassium 50 mg PO DAILY 05/18/21 05/18/21 hydroCHLOROthiazide [Hydrodiuril] 12.5 mg PO DAILY 05/18/21 05/18/21 Previous Rx's Medication Instructions Recorded Metoprolol Tartrate [Lopressor] 50 mg PO BID #60 tab 03/17/19 amLODIPine [Norvasc] 10 mg PO HS #30 tablet 03/17/19 Allergies Allergy/AdvReac Type Severity Reaction Status Date / Time niacin Allergy Unknown Verified 05/18/21 12:00 Review of Systems ROS Statement: Those systems with pertinent positive or pertinent negative responses have been documented in the HPI. ROS Other: All systems not noted in ROS Statement are negative. Past Medical History Past Medical History: Cancer, Hyperlipidemia, Hypertension Additional Past Medical History / Comment(s): past prostate can (sx only),pancreatic CA so far sx only but stated is sceduled for tx, sinus problems, tremors History of Any Multi-Drug Resistant Organisms: None Reported Past Surgical History: Prostate Surgery Additional Past Surgical History / Comment(s): abdominal surgery"pt poor historian as to in total what was done but stated part of stomach and pancreas was removed", prostatectomy 2009, sigrid cataracts, colonoscopy 1999, hemorrhoidectomy, wipple Past Anesthesia/Blood Transfusion Reactions: Motion Sickness Additional Past Anesthesia/Blood Transfusion Reaction / Comment(s): clausterphobia. to pt's knowledge never recieved any blood Past Psychological History: No Psychological Hx Reported Smoking Status: Former smoker Past Alcohol Use History: Rare Past Drug Use History: None Reported - Past Family History Mother Family Medical History: CVA/TIA, Hypertension Father Family Medical History: Congestive Heart Failure (CHF), Coronary Artery Disease (CAD), Myocardial Infarction (CO) General Exam Limitations: no limitations Course Vital Signs 05/18/21 05/18/21 05/18/21 11:25 12:45 12:50 Temperature 98 F Pulse Rate 86 94 94 Respiratory 16 18 18 Rate Blood Pressure 140/86 143/74 135/83 O2 Sat by Pulse 97 96 93 L Oximetry 05/18/21 05/18/21 05/18/21 12:55 13:00 13:05 Temperature Pulse Rate 100 98 98 Respiratory 18 18 18 Rate Blood Pressure 126/87 124/77 117/67 O2 Sat by Pulse 93 L 93 L 93 L Oximetry 05/18/21 13:20 Temperature Pulse Rate 92 Respiratory 18 Rate Blood Pressure 117/78 O2 Sat by Pulse 95 Oximetry Procedures - Orthopedic Joint Reduction Joint #1 Consent Obtained: verbal consent, written consent Side: left Joint Reduction Location: shoulder Analgesia: procedural sedation Technique Used: direct manipulation Post Reduction X-Ray Results: not reduced Additional Comments: unsuccessful attempt at shoulder reduction with procedural sedation. - Procedural Sedation Procedural Sedation Start Time: 12:47 Procedural Sedation Stop Time: 13:00 Indications: fracture/dislocation reduction ASA Class: II Mallampati Airway Score: 2 Preparation: laboratory monitor applied, pulse oximeter, capnometry used, supplemental O2 applied IV Propofol Dose (mgs): 200 Complications: none Patient Tolerated Procedure: well Disposition Clinical Impression: Shoulder dislocation Disposition: ADMITTED IP TO THIS [facility] Condition: Fair Referrals: Rodolfo iRvera MD [Primary Care Provider] - 1-2 days
--- NOTE | 2021-05-18 12:38 | XR ---
EXAMINATION TYPE: XR shoulder limited LT DATE OF EXAM: 05/18/2021 CLINICAL HISTORY: Fall injury with pain and deformity TECHNIQUE: 2 views of the left shoulder are attempted. COMPARISON: None. FINDINGS: The humeral head left shoulder is inferior medially displaced relative to the glenoid. In a ddition there is 3.2 x 1.8 cm displaced ossific fragment along the superior lateral aspect of the hum eral head. Acromioclavicular joint shows narrowing but is maintained. Visualized ribs are intact. Lef t basilar horizontal opacity favors atelectatic change. IMPRESSION: There is suspected acute anterior glenohumeral joint dislocation with associated Hill-Sa chs type fracture involving the humeral head.
[2021-05-18] MEDS ORDERED: MORPHINE SULFATE 4 MG/ML SYRINGE IVP STA (13:16)
[2021-05-18] MEDS ORDERED: ONDANSETRON 4 MG/2 ML VIAL IVP PRN (13:44)
[2021-05-18] MEDS ORDERED: MORPHINE SULFATE 4 MG/ML SYRINGE IV PRN (13:44)
[2021-05-18] MEDS ORDERED: NALOXONE 0.4 MG/ML 1 ML VIAL IV PRN (13:44)
--- NOTE | 2021-05-18 14:24 | CT ---
EXAMINATION TYPE: CT shoulder LT wo con DATE OF EXAM: 05/18/2021 COMPARISON: Left shoulder x-ray earlier today. HISTORY: left shoulder pain, failed reduction. CT DLP: 806.1 mGycm Automated exposure control for dose reduction was used. FINDINGS: There is confirmation of anterior humeral head dislocation relative to the osseous glenoid which is a butting the anterior aspect of the outer aspect of the scapula. There is confirmation of acute commin uted fracture through the posterior superior aspect of the humeral head with several fracture fragmen ts including fracture fragments involving the greater and lesser tuberosities. Linear lucency suspicious for small associated bony Bankart lesion anterior inferior osseous glenoid axial image 29 is present. Acromioclavicular joint is maintained. Muscle bulk in the left shoulder is preserved. Visualized ribs are intact. Visualized left lung confirms basilar atelectatic change. IMPRESSION: As above.
[2021-05-18] MEDS ORDERED: METOCLOPRAMIDE 5 MG/ML 2 ML VIAL ONE (14:52)
[2021-05-18] MEDS ORDERED: FAMOTIDINE 20 MG/2 ML VIAL IVP ONE (15:00)
[2021-05-18] MEDS ORDERED: METOCLOPRAMIDE 5 MG/ML 2 ML VIAL IVP ONE (15:00)
[2021-05-18] MEDS ORDERED: MIDAZOLAM 2 MG/2 ML VIAL IVP ONE (15:13)
[2021-05-18] MEDS ORDERED: LACTATED RINGERS 1,000 ML IV ONE (15:35)
[2021-05-18] MEDS ORDERED: ROPIVACAINE 5 MG/ML 30 ML VIAL ONE (16:14)
[2021-05-18] MEDS ORDERED: KETAMINE 10 MG/ML 20 ML VIAL ONE (16:14)
[2021-05-18] MEDS ORDERED: PHENYLEPHRINE-0.9% NACL SYG 1,000 MCG/10 ML SYRINGE ONE (16:14)
[2021-05-18] MEDS ORDERED: DEXAMETHASONE SOD PHOSPHATE 4 MG/ML 1 ML VIAL ONE (16:14)
[2021-05-18] MEDS ORDERED: fentaNYL (PF) 50 MCG/ML 2 ML AMP ONE (16:14)
[2021-05-18] MEDS ORDERED: ROCURONIUM 10 MG/ML (5 ML VIAL) IV ONE (16:14)
[2021-05-18] MEDS ORDERED: SUCCINYLCHOLINE CHLORIDE 100 MG/5 ML SYR IV ONE (16:14)
[2021-05-18] MEDS ORDERED: GLYCOPYRROLATE 0.2 MG/ML 2 ML VIAL ONE (16:14)
[2021-05-18] MEDS ORDERED: NEOSTIGMINE 1 MG/ML 10 ML VIAL ONE (16:14)
[2021-05-18] MEDS ORDERED: LIDOCAINE 1% INJ 10MG/ML (20 ML MDV) ONE (16:14)
[2021-05-18] MEDS ORDERED: SODIUM CHLORIDE 0.9% 100 ML with ceFAZolin 2,000 MG IV ONE ×2 (16:17)
--- NOTE | 2021-05-18 16:17 | P.HPOR ---
History of Present Illness H&P Date: 05/18/21 Chief Complaint: Left shoulder dislocation, left greater tuberosity fracture Patient is a 75-year-old male who presented to [facility] for evaluation of the left upper extremity injury. Apparently the patient was walking outside earlier this morning when he fell and landed directly on the left shoulder. Patient had immediate deformity of the shoulder and was unable to move the shoulder. He presented to one of the orthopedic offices in [facility], they recommended he go right to the emergency room. After arrival to the emergency room, imaging and lab tests were done. Images demonstrated a anterior shoulder dislocation with associated greater tuberosity fracture. Attempt was made to relocate the shoulder, this was unsuccessful, we were then contacted by the emergency room staff. I was able to review the images with my attending Dr. Potter. Patient was admitted under orthopedic care. Patient was made nothing by mouth at that time. Plan was to take the patient to the operating room on 05/18/2021 for a open reduction of the left shoulder joint with possible open vs closed treatment of his greater tuberosity fracture. Patient was evaluated in the preoperative area today, he is resting comfortably. He did receive a block for the left shoulder, which he states is working very well. He states that earlier this morning after the dislocation and he was starting to get some numbness in the fingers. He states that the hand is always felt warm and he had good sensation throughout the extremity. Patient denies any previous surgical left shoulder. Patient denies any other acute orthopedic complaints at this time. Review of Systems Constitutional: Reports as per HPI Past Medical History Past Medical History: Cancer, Hyperlipidemia, Hypertension Additional Past Medical History / Comment(s): past prostate can (sx only),pancreatic CA so far sx only but stated is sceduled for tx, sinus problems, tremors History of Any Multi-Drug Resistant Organisms: None Reported Past Surgical History: Prostate Surgery Additional Past Surgical History / Comment(s): abdominal surgery"pt poor historian as to in total what was done but stated part of stomach and pancreas was removed", prostatectomy 2009, sigrid cataracts, colonoscopy 1999, hemorrhoidectomy, wipple Past Anesthesia/Blood Transfusion Reactions: Motion Sickness Additional Past Anesthesia/Blood Transfusion Reaction / Comment(s): clausterphobia. to pt's knowledge never recieved any blood Past Psychological History: No Psychological Hx Reported Smoking Status: Former smoker Past Alcohol Use History: Rare Past Drug Use History: None Reported - Past Family History Mother Family Medical History: CVA/TIA, Hypertension Father Family Medical History: Congestive Heart Failure (CHF), Coronary Artery Disease (CAD), Myocardial Infarction (CO) Medications and Allergies Home Medications Medication Instructions Recorded Confirmed Type Aspirin EC [Ecotrin Low Dose] 81 mg PO DAILY 08/14/17 05/18/21 History Lipase/Protease/Amylase [Creon Dr 2 cap PO 5XD 08/14/17 05/18/21 History 36,000 Unit Capsule] Metoprolol Tartrate [Lopressor] 50 mg PO BID #60 tab 03/17/19 05/18/21 Rx amLODIPine [Norvasc] 10 mg PO HS #30 tablet 03/17/19 05/18/21 Rx Atorvastatin [Lipitor] 20 mg PO HS 05/18/21 05/18/21 History Cholecalciferol [Vitamin D3 (125 125 mcg PO DAILY 05/18/21 05/18/21 History Mcg = 5000 Iu)] Losartan Potassium 50 mg PO DAILY 05/18/21 05/18/21 History hydroCHLOROthiazide [Hydrodiuril] 12.5 mg PO DAILY 05/18/21 05/18/21 History Allergies Allergy/AdvReac Type Severity Reaction Status Date / Time niacin Allergy Unknown Verified 05/18/21 12:00 Physical Examination Osteopathic Statement: *. No significant issues noted on an osteopathic structural exam other than those noted in the History and Physical/Consult. Left upper extremity: No obvious open lesions or sores are present throughout the shoulder Mild soft tissue swelling present over the anterior glenohumeral joint line Difficult to assess obvious point tenderness in the extremity due to the shoulder block pain initiated Patient is able to appreciate blunt touch throughout the extremity. Patient is wiggling all the fingers no difficulty, he is able to extend and flex the wrist, he is able to extend and flex the elbow, this is slightly limited. Shoulder range of motion was not assessed. Skin is warm to touch Radial and ulnar pulses are 2+ Results - Diagnostic results Shoulder x-ray: report reviewed, image reviewed Shoulder CT: report reviewed, image reviewed Assessment and Plan Assessment: Left shoulder anterior dislocation, greater tuberosity fracture History of fall, unsuccessful relocation attempt Other medical comorbidity Plan: Imaging: X-rays and computed tomography scan were reviewed along with reports of the left shoulder. They demonstrate the anterior shoulder dislocation with greater tuberosity fracture. Plan: Dr. Potter was able to assess the patient preoperative area. Risks and benefits of the procedure were discussed with the patient, this including but not exclusive to infection, blood loss, neurovascular injury, and adequate healing of bone, need for further surgery. Patient is a good understanding would like to proceed. Consent will be obtained prior to the procedure. Patient will likely be an arm sling after surgery, we will continue this for an extended period of time Medical consult for management DVT prophylaxis, will likely begin subcu medication for surgery Further recommendations. Agree with above findings. Patient was seen and examine by myself in the pre- op area after receiving a regional block therefore full physical exam was not able to be performed by myself prior to the patient being blocked but the patient states he did have some pins and needles sensation in the arm but he states he did have good motor control of the hand wrist and elbow. Complexity of his injury was discussed and he is willing to proceed with emergent surgical intervention for closed vs possible open reduction of his irreducible left shoulder fracture dislocation due to failed closed reduction attempt. -Dillon Potter DO Orthopedic Surgeon Time with Patient: Less than 30
[2021-05-18] MEDS ORDERED: HYDROcodone/APAP 7.5-325MG 1 EACH TAB PO PRN (18:14)
[2021-05-18] MEDS ORDERED: ACETAMINOPHEN TAB 325 MG TAB PO PRN (18:14)
[2021-05-18] MEDS ORDERED: HYDROcodone/APAP 5-325MG 1 EACH TAB PO PRN (18:14)
[2021-05-18] MEDS ORDERED: DOCUSATE 100 MG CAP PO PRN (18:14)
[2021-05-18] MEDS ORDERED: SODIUM CHLORIDE 0.9% 1,000 ML IV ONE (19:04)
--- NOTE | 2021-05-18 19:21 | P.ANPRN ---
Procedure Note - Anesthesia - Nerve Block Performed Left Interscalene Single Time Out Performed: Yes Date of Procedure: 05/18/21 Procedure Start Time: 15:12 Procedure Stop Time: 15:24 Location of Patient: PreOp Indication: Acute Post-Operative Pain, Requested by Surgeon Sedation Type: Sedate with meaningful contact maintained Preparation: Sterile Prep Position: Supine Needle Types: Pajunk Needle Gauge: 21 Ultrasound used to visualize needle placement: Yes Ultrasound used to observe medication spread: Yes Blood Aspirated: No Pain Paresthesia on Injection Noted: No Resistance on Injection: Normal Image Stored and Saved: Yes Events: Uneventful and Well Tolerated (ropi .5% 25cc plus dexamethasone 4mg)
[2021-05-18] MEDS: SODIUM CHLORIDE 0.9% 1,000 ML IV SCH ×2 (19:22→22:37)
[2021-05-18] MEDS: traMADol 50 MG TAB PO SCH (22:36)
[2021-05-18 23:01] LABS: Basophils # (A) 0.04 X 10*3/uL (0.00-0.10); Basophils % (A) 0.2 %; Eosinophils # (A) 0 X 10*3/uL (0.04-0.35); Eosinophils % (A) 0 %; HCT 42.6 % (39.6-50.0); HGB 13.3 g/dL (13.0-17.0); Immature Grans, Automated 0.6 %; Lymphocytes # (A) 0.91 X 10*3/uL (0.90-5.00); Lymphocytes % (A) 5.6 %; MCHC 31.2 g/dL (32.0-37.0); MCV 89.7 fL (80.0-97.0); Mean Platelet Volume 11.4 fL (9.5-12.2); Monocytes # (A) 0.58 X 10*3/uL (0.20-1.00); Monocytes % (A) 3.6 %; NRBC Per 100 WBC 0 /100 WBCS (0.0-0.0); Neutrophils # (A) 14.65 X 10*3/uL (1.80-7.70); Platelet Count 290 X 10*3/uL (140-440); RBC 4.75 X 10*6/uL (4.40-5.60); RDW 14.2 % (11.5-14.5); WBC 16.27 X 10*3/uL (4.50-10.00)
[2021-05-19 00:07] LABS: African American GFR (CKD) 47.7 (60.0-200.0); Albumin 4.1 g/dL (3.8-4.9); Albumin/Globulin Ratio 1.74 (1.60-3.17); Anion Gap 15.1 mmol/L (10.00-18.00); BUN/Creat Ratio 19.82 Ratio (12.00-20.00); Blood Urea Nitrogen 32.3 mg/dL (9.0-27.0); Calcium 9.2 mg/dL (8.7-10.3); Carbon Dioxide 19.8 mmol/L (20.0-27.5); Globulin 2.4 g/dL (1.6-3.3); Non-African American GFR(CKD) 41.2 (60.0-200.0); Potassium 5.5 mmol/L (3.5-5.5); Total Bilirubin 0.4 mg/dL (0.30-1.20); Total Protein 6.5 g/dL (6.2-8.2)
[2021-05-19] MEDS: traMADol 50 MG TAB PO SCH (07:01)
--- NOTE | 2021-05-19 07:20 | P.OP ---
Date of Procedure: 05/18/21 Preoperative Diagnosis: 1.) Left shoulder sub-coracoid fracture dislocation 2.) Left proximal humerus greater tuberosity fracture Postoperative Diagnosis: 1.) Left shoulder sub-coracoid fracture dislocation 2.) Left proximal humerus greater tuberosity fracture Procedure(s) Performed: 1.) Open reduction of irreducible left shoulder fracture/dislocation. 2.) Closed treatment of left proximal humerus greater tuberosity fracture. Anesthesia: ioana IGLESIAS Surgeon: Dillon Potter Education Sales Consultant #1: Humberto Mao Estimated Blood Loss (ml): 30 Pathology: none sent Condition: stable Disposition: PACU Description of Procedure: This is a 75 year old male with a past medical history of pancreatic and prostate cancer previously on chemotherapy who sustained a left shoulder fracture dislocation after a fall from standing early today while walking. He presented to the ED where the ED physician attempted closed reduction but successful reduction was unable to be achieved. He was taken emergently to the operating room for closed vs possible open reduction of his left shoulder fracture dislocation. Risks and benefits of surgery were discussed with the patient including bleeding, damage to surrounding tissue, infection, need for further surgery as well as risks of anesthesia including pulmonary embolism and even and the patient wished to proceed with surgical intervention. The patient was seen in the pre-operative area by myself. Consent and H&P were completed and updated. The correct extremity was marked in the pre-operative area by myself and all other questions were answered. Operative Narrative: The patient was brought to the operating room by the department of anesthesia and transferred to radiolucent table in supine position with all bone prominences well padded. The patient was then drifted off to sleep by the department of anesthesia. He received a preoperative regional block. Timeout was performed confirming the correct patient, procedure and laterality, all in the room were in agreement. 2g of ancef were given. Prior to prepping and draping, closed reduction was attempted but was unsuccessful. Therefore decision to proceed with open reduction was made. The patient was then prepped and draped in normal sterile fashion. 10 blade scalpel was used to make a oblique incision from the tip of the coracoid with extension distal and lateral for a standard deltopectoral approach. Bovie cautery was used for meticulous hemostasis. Deltopectoral fascia was encountered and the cephalic vein was identified and carefully dissected out with Boswell scissors. The cephalic vein was then mobilized laterally and deep retractors were placed in the deltopectoral interval. Hematoma was present upon further dissection in deeper tissues which was irrigated and evacuated. Small fragments of the comminuted greater tuberosity fracture were identified and palpated that were far lateral to the location of the humeral head prior to reduction, there was extensive comminution of the cortical shell of fragments but the tendinous portion of the supraspinatus was still intact to the group of fragments as a whole. The humeral head was found to be completely entrapped deep and medial to the conjoined tendon preventing reduction. A blunt tipped freer elevator was carefully inserted around the humeral head taking care to avoid vital medial neurovascular structures and inline traction was applied. The humeral head was then reduced to it's anatomic position with a palpable clunk. The subscapularis tendon and long head of the biceps tendon was found to be intact. X-rays were taken with large C-Arm and the greater tuberosity fracture had self reduced to near anatomic alignment. The shoulder was the ranged and was found to be unstable with any type of abduction/external rotation. The wound and glenohumeral joint was then irrigated and cleared of all visible debris. Final x-rays were taken confirming concentric reduction of the glenohumeral joint and greater tuberosity fracture. The deltopectoral fascia was then closed with running 0 Vicryl suture. Subcutaneous closure was performed with 2-0 vicryl suture, a running Stratfix suture followed by Prineo tape. The patient was placed in a shoulder immobilizer held in adduction and internal rotation. The patient was then woken by the department of anesthesia and transferred to PACU in stable condition. Humberto LEVI was present during the case in it's entirety for skilled assistance in reduction and protection of vital neurovascular structures. Post operative plan: The patient is to remain in sling at all times and to be non-weightbearing of his left upper extremity. He is to avoid any shoulder external rotation/abduction beyond neutral until further follow up due to instability. He may follow up in office in 2 weeks. Dillon Potter DO Orthopedic Surgeon
[2021-05-19] MEDS: SODIUM CHLORIDE 0.9% 1,000 ML IV SCH ×2 (08:07→11:54)
--- NOTE | 2021-05-19 08:43 | FL ---
EXAMINATION TYPE: FL guidance operating room DATE OF EXAM: 05/18/2021 HISTORY: Fluoroscopy time 37 seconds of fluoroscopy provided. IMPRESSION: 1. Fluoroscopy time.
[2021-05-19] MEDS ORDERED: HEPARIN SODIUM,PORCINE/PF 5,000 UNIT/0.5 ML SYRINGE SQ SCH (09:00)
[2021-05-19 09:34] VITALS: BP 112/72; PULSE 104; RESP 18; TEMP 98.1
--- NOTE | 2021-05-19 11:19 | P.DS ---
Providers Date of admission: 05/18/21 13:45 Expected date of discharge: 05/19/21 Attending physician: Dillon Potter DO Consults: 05/18/21 16:17 Consult Physician Routine Consulting Provider: Leticia Oliva Consult Reason/Comments: Medical Management Do you want consulting provider notified?: Yes Primary care physician: [facility] Course: Date of admission: 05/18/2021 Date of discharge: 05/19/2021 Admission diagnosis: 1.) Left shoulder sub-coracoid fracture dislocation 2.) Left proximal humerus greater tuberosity fracture Discharge diagnosis: Same Attending physician: Dr. Potter Surgical procedures: 1.) Open reduction of irreducible left shoulder fracture/dislocation. 2.) Closed treatment of left proximal humerus greater tuberosity fractur Brief history: Patient is a 75-year-old male with a history of left shoulder subcoracoid fracture and dislocation; left proximal humerus greater tuberosity fracture. At this point patient has failed conservative treatment measures and has opted to proceed with a elective open reduction of irreducible left shoulder fracture/dislocation and closed treatment of left proximal humerus greater tuberosity fracture. Hospital course: Details of patient's surgery can be found in operative report. Patient tolerated the procedure well and was subsequently transported to orthopedic floor. Patient's orthopeidc and medical care was provided daily. Patient had daily laboratory tests performed for evaluation of overall blood counts. Patient had daily physical therapy to include strengthening range of motion as well as education with walker ambulation. Patient was treated with heparin for their postoperative DVT prophylaxis during their inpatient stay. Patient was noted to have a relatively uneventful postoperative course. Patient reported satisfactory pain control with oral pain medications by postoperative day 1. Patient showed satisfactory progress with physical therapy. Patient moved steadily through the program and had no difficulty meeting the goals by postoperative day 1. Given patient's otherwise satisfactory course and having met physical therapy goals, plan is to discharge patient home on postoperative day 1. Discharge condition/disposition: Patient will be discharged home in stable condition. Discharge medications: Instructions are given on resumption of patient's normal daily medications per primary care team. Discharge instructions: 1. Wound care and infection precautions, keep incision dry and covered while showering, no lotions, creams, moisturizers. No soaking, tubs, pools, hottubs. Do not scrub over the incision. 2. Nonweightbearing left upper extremity. Keep arm in sling at all times. Do not externally rotates/abduct left arm. May remove sling to shower. 3. Ice when necessary. Do not exceed 20 minutes per hour with ice pack. 4. Pain meds and anticoagulants per prescription. 5. Pain medication has potential to cause constipation. Increase oral fluid and fiber intake. Contact primary care provider if you have not had a bowel movement within 48 hours after discharge 6. No anti-inflammatory medication until discussed at first post operative visit, this including Motrin, Aleve, Mobic, Diclofenac. 7. Follow up in office at [address] Dillon Potter. 8. Follow up with your primary care doctor 7-10 days after discharge. 9. Contact [facility] with any questions, . Assessment: 1.) Left shoulder sub-coracoid fracture dislocation 2.) Left proximal humerus greater tuberosity fracture Procedures: 1.) Open reduction of irreducible left shoulder fracture/dislocation. 2.) Closed treatment of left proximal humerus greater tuberosity fractur Patient Condition at Discharge: Fair Plan - Discharge Summary Discharge Rx Participant: No New Discharge Prescriptions: No Action Aspirin EC [Ecotrin Low Dose] 81 mg PO DAILY Lipase/Protease/Amylase [Vladimir Mark 36,000 Unit Capsule] 2 cap PO 5XD Metoprolol Tartrate [Lopressor] 50 mg PO BID #60 tab amLODIPine [Norvasc] 10 mg PO HS #30 tablet Atorvastatin [Lipitor] 20 mg PO HS Losartan Potassium 50 mg PO DAILY Cholecalciferol [Vitamin D3 (125 Mcg = 5000 Iu)] 125 mcg PO DAILY hydroCHLOROthiazide [Hydrodiuril] 12.5 mg PO DAILY Discharge Medication List Aspirin EC [Ecotrin Low Dose] 81 mg PO DAILY 08/14/17 [History] Lipase/Protease/Amylase [Vladimir Mark 36,000 Unit Capsule] 2 cap PO 5XD 08/14/17 [History] Metoprolol Tartrate [Lopressor] 50 mg PO BID #60 tab 03/17/19 [Rx] amLODIPine [Norvasc] 10 mg PO HS #30 tablet 03/17/19 [Rx] Atorvastatin [Lipitor] 20 mg PO HS 05/18/21 [History] Cholecalciferol [Vitamin D3 (125 Mcg = 5000 Iu)] 125 mcg PO DAILY 05/18/21 [History] Losartan Potassium 50 mg PO DAILY 05/18/21 [History] hydroCHLOROthiazide [Hydrodiuril] 12.5 mg PO DAILY 05/18/21 [History] Follow up Appointment(s)/Referral(s): Rodolfo Rivera MD [Primary Care Provider] - 1-2 days iDllon Potter DO [Doctor of Osteopathic Medicine] - 2 Weeks Activity/Diet/Wound Care/Special Instructions: Discharge instructions: 1. Wound care and infection precautions, keep incision dry and covered while showering, no lotions, creams, moisturizers. No soaking, tubs, pools, hottubs. Do not scrub over the incision. 2. Nonweightbearing left upper extremity. Keep arm in sling at all times. Do not externally rotates/abduct left arm. May remove sling to shower. 3. Ice when necessary. Do not exceed 20 minutes per hour with ice pack. 4. Pain meds and anticoagulants per prescription. 5. Pain medication has potential to cause constipation. Increase oral fluid and fiber intake. Contact primary care provider if you have not had a bowel movement within 48 hours after discharge 6. No anti-inflammatory medication until discussed at first post operative visit, this including Motrin, Aleve, Mobic, Diclofenac. 7. Follow up in office at [address] Dillon Potter. 8. Follow up with your primary care doctor 7-10 days after discharge. 9. Contact [facility] with any questions, . Discharge Disposition: HOME SELF-CARE
--- NOTE | 2021-05-19 11:20 | P.PN ---
Subjective Progress Note Date: 05/19/21 Principal diagnosis: 1.) Left shoulder sub-coracoid fracture dislocation 2.) Left proximal humerus greater tuberosity fracture Patient was seen at bedside this morning resting comfortably lying in the semirecumbent position with sling on left upper extremity. Patient states he h as been up and about since surgery yesterday. Patient states he is having minimal pain in his left shoulder at this time. Patient states he is ready and wanting to go home. Patient says he does live at home alone, however, patient says his neighbors will be able to help him out. Patient says he also has family members that can help him out too. Patient denies chest pain, fever, shortness of breath, nausea, vomiting, change in vision, loss of bowel/bladder control Objective - Vital Signs Vital signs: Vital Signs Temp 98.1 F 05/19/21 07:22 Pulse 104 H 05/19/21 07:22 Resp 18 05/19/21 07:22 BP 112/72 05/19/21 07:22 Pulse Ox 92 L 05/19/21 07:22 Intake & Output 05/18/21 05/19/21 05/19/21 18:59 06:59 18:59 Intake Total 900 Output Total 30 Balance 870 Weight 104.326 kg Intake: IV 900 Output: Estimated Blood Loss 30 Other: Voiding Method Toilet Toilet # Voids 1 # Bowel Movements 3 - Exam Left shoulder: Incision is clean, dry, and intact. There is minimal soft tissue swelling and ecchymosis surrounding the incision. Calf is soft, no tenderness with palpation. Patient has good range of motion in left elbow in flexion/extension. patient is able to fully flex/extend his left wrist. Radial pulses 2+ bilaterally. Capillary refill under 3 seconds bilaterally and digits of upper extremities. Plantar flexion, dorsiflexion, EHL, FHL are intact. Sensory exam to light touch throughout the extremity is intact, dorsal pedis pulses 2+. - Labs CBC & Chem 7: 05/18/21 18:39 05/18/21 18:39 Labs: Abnormal Lab Results - Last 24 Hours (Table) 05/18/21 05/18/21 Range/Units 18:39 18:39 WBC 16.27 H (4.50-10.00) X 10*3/uL MCHC 31.2 L (32.0-37.0) g/dL Immature Gran # 0.09 H (0.00-0.04) X 10*3/uL Neutrophils # 14.65 H (1.80-7.70) X 10*3/uL Eosinophils # 0 L (0.04-0.35) X 10*3/uL Carbon Dioxide 19.8 L (20.0-27.5) mmol/L BUN 32.3 H (9.0-27.0) mg/dL Creatinine 1.6 H (0.6-1.5) mg/dL Est GFR (CKD-EPI)AfAm 47.7 L (60.0-200.0) Est GFR (CKD-EPI)NonAf 41.2 L (60.0-200.0) Glucose 148 H (70-110) mg/dL AST 37 H (14-35) U/L Assessment and Plan Assessment: 1.) Left shoulder sub-coracoid fracture dislocation 2.) Left proximal humerus greater tuberosity fracture Postoperative day #1 status post -Open reduction of irreducible left shoulder fracture/dislocation. -Closed treatment of left proximal humerus greater tuberosity fractur Plan: 1. Left shoulder sub-coracoid fracture dislocation; Left proximal humerus greater tuberosity fracture - surgery performed yesterday, 05/18/2021 - Open reduction of irreducible left shoulder fracture/dislocation; Closed treatment of left proximal humerus greater tuberosity fractur. Patient stable at bedside this morning. Plan discharge home today. 2. Appreciate medical management 3. Pain management - [place]; Tylenol 4. DVT prophylaxis - heparin 5. GI prophylaxis - Colace 6. PT/OT - nonweightbearing left upper extremity. Patient to remain in sling on left upper extremity at all times. 7. Discharge planning - plan discharge home today Time with Patient: Less than 30
== END 2021-05-19 12:09 | disposition home or self-care (01) ==
LOC: EC 11:22 → 6NMEDSUR 13:45 → 4SSUR 15:32
PROVIDERS: ADMIT Orthopaedic Surgery Hand Surgery; ATTEND Orthopaedic Surgery Hand Surgery
DX: S42.252A Displaced fracture of greater tuberosity of left humerus, initial encounter for closed fracture (principal); S43.015A Anterior dislocation of left humerus, initial encounter; I10 Essential (primary) hypertension; E78.5 Hyperlipidemia, unspecified; Y93.01 Activity, walking, marching and hiking; Z85.46 Personal history of malignant neoplasm of prostate; Y92.89 Other specified places as the place of occurrence of the external cause; Z87.891 Personal history of nicotine dependence; Z92.21 Personal history of antineoplastic chemotherapy; Z85.07 Personal history of malignant neoplasm of pancreas; W01.0XXA Fall on same level from slipping, tripping and stumbling without subsequent striking against object, initial encounter; Z79.899 Other long term (current) drug therapy; Z79.82 Long term (current) use of aspirin; Z88.8 Allergy status to other drugs, medicaments and biological substances; Z90.79 Acquired absence of other genital organ(s); Z71.9 Counseling, unspecified; Z82.49 Family history of ischemic heart disease and other diseases of the circulatory system; Z82.3 Family history of stroke
CPT/HCPCS: 23680; 23655; 96376; 96374; 96375; 99285; 64415; 76942; 80053; 85025; 73020; 73200; G0378 ×3; J2250; J2270; J1100; J2710; J2765; J0690; J2001; J3010; J2795; J2370; J0330; J2704; J1644

== ENCOUNTER → 2022-01-24 | Outpatient (CLI) | payer MEDICARE, BC ==
--- NOTE | 2022-01-24 11:20 | CT ---
EXAMINATION TYPE: CT abdomen pelvis w con CT DLP: 2045.4 mGycm, Automated exposure control for dose reduction was used. 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 Sagittal and coronal reformats were created on a Results [employer] workstation. Contrast used:100 ml mL of Isovue 300 with IV Contrast, Oral contrast used: without Oral Contrast FINDINGS: LOWER CHEST: Unremarkable ABDOMEN LIVER: There is a heterogenous enhancement pattern with similar geographic areas of increased enhance ment. 11 mm hyperenhancing lesion in the right hepatic lobe segment 8 is unchanged which becomes cons picuous on delayed imaging. GALLBLADDER AND BILE DUCTS: Unremarkable. PANCREAS: Heterogenous appearing pancreatic tail mass measuring 6.5 x 2.9 x 3.6 cm, previously 5.2 x 2.8 x 3.4 cm when measuring similarly which is increased in size from 10/24/2021 and 03/30/2021. There remains loss of fat plane with the gastric wall mass appreciated on coronal imaging series 7 image 88 . The remainder of the pancreatic parenchyma is atrophic. SPLEEN: The spleen is surgically absent. ADRENAL GLANDS: Unremarkable. KIDNEYS AND URETERS: No evidence of hydronephrosis or renal calculus. Atrophic appearance of the left kidney is unchanged. PELVIS BLADDER: Unremarkable REPRODUCTIVE: The prostate gland is surgically absent. ABDOMEN & PELVIS STOMACH AND BOWEL: No evidence of bowel obstruction. Appendix is normal. Small hiatal hernia is prese nt. PERITONEUM: No evidence of pneumoperitoneum or free fluid. VASCULATURE: No evidence of aortic aneurysm. MUSCULOSKELETAL: No acute osseous abnormalities LYMPH NODES: No gross evidence for lymphadenopathy. SOFT TISSUE/ABDOMINAL WALL: Fat filled left inguinal hernia. IMPRESSION: 1. Increased size of pancreatic tail mass most pronounced when viewing in the coronal plane. No evid ence of intra-abdominal lymphadenopathy. The loss of fat plane with the gastric wall has increased in size and remains concerning for invasion. 2. Hepatic steatosis with suspected areas of fatty sparing. Stable 1.2 cm focus of arterial enhancem ent which may represent a vascular shunt or flash filling hemangioma. No new concerning lesions. 3. 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 4. Status post prostatectomy and bilateral lymph node dissection.
== END | disposition home or self-care (01) ==
LOC: RADCTMAIN 08:46
PROVIDERS: ATTEND Internal Medicine Hematology & Oncology
DX: C25.1 Malignant neoplasm of body of pancreas (principal); K76.0 Fatty (change of) liver, not elsewhere classified; Z90.79 Acquired absence of other genital organ(s); Z90.81 Acquired absence of spleen
CPT/HCPCS: 82565; 84520; 74177; 36415; Q9967

== ENCOUNTER → 2022-08-07 | Outpatient (CLI) | payer MEDICARE, BC ==
[2022-08-07 08:49] LABS: African American GFR (CKD) 67 (>60 ml/min/1.73 sqM); Blood Urea Nitrogen 24 mg/dL (9-20); Non-African American GFR(CKD) 58 (>60 ml/min/1.73 sqM)
--- NOTE | 2022-08-07 10:35 | CT ---
EXAMINATION TYPE: CT abdomen pelvis w con DATE OF EXAM: 08/07/2022 COMPARISON: 01/21/2022 HISTORY: Hx Pancreatic ca, observe for mets. CT DLP: 2047.30 mGycm CONTRAST: CT scan of the abdomen and pelvis is performed with Oral Contrast and with IV Contrast, patient injec carlos alberto with 80 mL of Isovue 300. FINDINGS: LUNG BASES-: No visible nodule. No infiltrate. LIVER/GB: Persistent geographic enhancement pattern throughout the liver which improves following del ayed imaging. Hyperdense nodule seen previously is not redemonstrated. No new nodules evident. No ca lcified gallstones. No space occupying hepatic lesion. Biliary tree is of normal caliber. PANCREAS: Exophytic pancreatic tail mass is redemonstrated measures 7.4 x 5.1 x 4.1 cm versus prior m easurement of 6.5 x 4.2 x 3.6 cm. There is invasion into the greater gastric curvature which appears to have progressed since prior study. The remainder of the pancreas is atrophic. SPLEEN: Splenectomy change. ADRENALS: No nodule. No thickening. KIDNEYS/BLADDER: Renal parenchymal thinning noted bilaterally. No hydronephrosis. No nephrolithiasi s. No distinct renal mass. Urinary bladder grossly unremarkable. BOWEL: Normal appendix. Normal bowel caliber. No inflammation. GENITAL ORGANS: Prostatectomy changes. LYMPH NODES: No greater than 1cm abdominal or pelvic lymph nodes are appreciated. AORTA: No significant abnormality. OSSEOUS STRUCTURES: No significant abnormality is seen. OTHER: No significant additional abnormality is seen. IMPRESSION: 1. Continued increase in size in exophytic pancreatic tail mass with infiltration into the greater ga stric curvature. 2. Hepatic steatosis with areas of focal fatty sparing. No definite nodule is seen at this time. 3. Splenectomy changes.
== END | disposition home or self-care (01) ==
LOC: RADCTMAIN 08:12
PROVIDERS: ATTEND Internal Medicine Hematology & Oncology
DX: C25.1 Malignant neoplasm of body of pancreas (principal); K76.0 Fatty (change of) liver, not elsewhere classified; Z90.81 Acquired absence of spleen
CPT/HCPCS: 82565; 84520; 74177; 36415; Q9967

== ENCOUNTER 2022-12-26 11:25 | Inpatient (IN) | payer OTHER, MEDICARE, BC ==
[2022-12-26 13:33] LABS: Anisocytosis Slight; Basophils # (A) 0.1 k/uL (0-0.2); Basophils % (A) 0 %; Eosinophils # (A) 0.3 k/uL (0-0.7); Eosinophils % (A) 2 %; HCT 23.6 % (39.0-53.0); HGB 7.5 gm/dL (13.0-17.5); Hypochromasia Moderate; Lymphocytes # (A) 1.3 k/uL (1.0-4.8); Lymphocytes % (A) 9 %; MCH 26.4 pg (25.0-35.0); MCHC 31.9 g/dL (31.0-37.0); MCV 82.9 fL (80.0-100.0); Mean Platelet Volume 8.3; Monocytes # (A) 1.1 k/uL (0-1.0); Monocytes % (A) 8 %; Neutrophils # (A) 11.1 k/uL (1.3-7.7); Neutrophils % (A) 79 %; Platelet Count 521 k/uL (150-450); Poikilocytosis Slight; RBC 2.84 m/uL (4.30-5.90); RDW 17.2 % (11.5-15.5)
--- NOTE | 2022-12-26 13:43 | ED ---
Recheck HPI - General Chief Complaint: Recheck/Abnormal Lab/Rx Stated Complaint: abn labs Time Seen by Provider: 12/26/22 13:16 Source: patient, RN notes reviewed Mode of arrival: wheelchair Limitations: no limitations - History of Present Illness Initial Comments: This is a 77-year-old male who presents to the emergency department for abnormal blood work. Patient states that he had routine blood work done yesterday as part of his annual exam. He received a phone call today stating that his hemoglobin was 7.2, and he was instructed to come to the emergency department for evaluation. He has been complaining of fatigue over the last couple of week s. Denies any blood in his stool or dark or tarry stools. Also denies any nausea or vomiting. He is not taking any blood thinners. He has not had a colonoscopy in years, but states that he has regular Cologuard tests that have been normal. He does have pancreatic cancer and has been following with Dr. Thayer. He was previously treated with radiation and chemotherapy, but states that he is not currently receiving any treatment and does not plan to moving forward. MD Complaint: abnormal lab - Related Data Home Medications Medication Instructions Recorded Confirmed Aspirin EC [Ecotrin Low Dose] 81 mg PO HS 08/14/17 12/26/22 Lipase/Protease/Amylase [Vladimir Mark 2 cap PO AC-TID 08/14/17 12/26/22 36,000 Unit Capsule] Cholecalciferol [Vitamin D3 (125 125 mcg PO HS 05/18/21 12/26/22 Mcg = 5000 Iu)] Metoprolol Tartrate [Lopressor] 25 mg PO DAILY 12/26/22 12/26/22 Allergies Allergy/AdvReac Type Severity Reaction Status Date / Time hornet venom Allergy Swelling Verified 12/26/22 14:50 niacin Allergy Unknown Verified 12/26/22 14:50 Review of Systems ROS Statement: Those systems with pertinent positive or pertinent negative responses have been documented in the HPI. ROS Other: All systems not noted in ROS Statement are negative. Past Medical History Past Medical History: Cancer, Hyperlipidemia, Hypertension Additional Past Medical History / Comment(s): past prostate can (sx only),pancreatic CA so far sx only but stated is sceduled for tx, sinus problems, tremors History of Any Multi-Drug Resistant Organisms: None Reported Past Surgical History: Prostate Surgery Additional Past Surgical History / Comment(s): abdominal surgery"pt poor historian as to in total what was done but stated part of stomach and pancreas was removed", prostatectomy 2009, sigrid cataracts, colonoscopy 1999, hemorrhoidectomy, wipple Past Anesthesia/Blood Transfusion Reactions: Motion Sickness Additional Past Anesthesia/Blood Transfusion Reaction / Comment(s): clausterphobia. to pt's knowledge never recieved any blood Past Psychological History: No Psychological Hx Reported Smoking Status: Former smoker Past Alcohol Use History: Rare Past Drug Use History: None Reported - Past Family History Mother Family Medical History: CVA/TIA, Hypertension Father Family Medical History: Congestive Heart Failure (CHF), Coronary Artery Disease (CAD), Myocardial Infarction (ID) General Exam Limitations: no limitations General appearance: alert, in no apparent distress Head exam: Present: atraumatic, normocephalic, normal inspection Respiratory exam: Present: normal lung sounds bilaterally. Absent: respiratory distress, wheezes, rales, rhonchi, stridor Cardiovascular Exam: Present: regular rate, normal rhythm, normal heart sounds. Absent: systolic murmur, diastolic murmur, rubs, gallop, clicks GI/Abdominal exam: Present: soft, normal bowel sounds. Absent: distended, tenderness, guarding, rebound, rigid Rectal exam: Present: normal inspection. Absent: black stool, bloody stool, hemorrhoids, mass, tenderness Neurological exam: Present: alert, oriented X3, CN II-XII intact Psychiatric exam: Present: normal affect, normal mood Skin exam: Present: warm, dry, intact, normal color. Absent: rash Course Vital Signs 12/26/22 12/26/22 12/26/22 11:37 14:49 16:14 Temperature 98.1 F 98.1 F 97.1 F L Pulse Rate 80 78 78 Respiratory 18 16 16 Rate Blood Pressure 111/74 119/76 135/73 O2 Sat by Pulse 98 99 98 Oximetry Medical Decision Making - Medical Decision Making This is a 77-year-old male who presents to the emergency department for anemia and weakness. Was pt. sent in by a medical professional or institution? @ -His PCP Did you speak to anyone other than the patient for history? @ -No Did you review nursing and triage notes? @ -Yes, and I agree, it is accurate with regards to the patient's symptoms. Were old charts reviewed? @ -No Differential Diagnosis? @ -Differential Weakness: Hypoglycemia, shock, sepsis, hyponatremia, anemia, infection, ID, ETOH, adverse medicine reaction, overdose, stroke, this is not meant to be an all-inclusive list. EKG interpreted by me (3pts min.)? @ -EKG interpreted by me demonstrating the following: Sinus rhythm. Ventricular rate 70 beats per minute, VA interval 151 ms, QRS duration 97 ms, QTC 429 ms. X-rays interpreted by me (1pt min.)? @ -Not obtained CT interpreted by me (1pt min.)? @ -Not obtained U/S interpreted by me (1pt. min.)? @ -Not obtained What testing was considered but not performed? (CT, X-rays, U/S, labs)? Why? @ -None What meds were considered but not given? Why? @ -None Did you discuss the management of the patient with other professionals? @ -Yes, Dr. Navarro, who advised that the patient should be monitored overnight and she'll plan to scope him for further evaluation. Dr. Mariee accepts the patient for admission to medicine. Did you reconcile home meds? @ -No Was smoking cessation discussed for >3mins.? @ -No Was critical care preformed (if so, how long)? @ -No Were there social determinants of health that impacted care today? How? (Homelessness, low income, unemployed, alcoholism, drug addiction, transportation, low edu. Level, literacy, decrease access to med. care, care home, rehab)? @ -No Was there de-escalation of care discussed even if they declined? (Discuss DNR or withdrawal of care, Hospice)? @ -No What co-morbidities impacted this encounter? (DM, HTN, Smoking, COPD, CAD, Cancer, CVA, Hep., AIDS, mental health diagnosis, sleep apnea, morbid obesity)? @ -Pancreatic cancer, HLD, HTN Was patient admitted / discharged? @ -Admitted. Lab work obtained revealing a low hemoglobin of 7.5, which is stable and even improved when compared with yesterday, when it was 7.2 according to the patient. He also has leukocytosis with a white blood cell count of 14 and hyponatremia with a sodium of 129. Stool occult is positive, however patient does not have any active bleeding. We do not have a hemoglobin for comparison since May 2021, at which time was 13.3. Prior to this, he has had hemoglobins as low as 9.7 in 2018. Case discussed with Dr. Navarro, general surgery. She advised that the patient should be monitored overnight and she will plan to scope him for further evaluation. Patient admitted to medicine with general surgery listed as consult. Patient kept NPO after midnight for possible scope in the morning. Undiagnosed new problem with uncertain prognosis? @ -None Drug Therapy requiring intensive monitoring for toxicity (Heparin, Nitro, Insulin, Cardizem)? @ -None Were any procedures done? @ -None Diagnosis/symptom? @ -Anemia, positive stool occult, hyponatremia Acute, or Chronic, or Acute on Chronic? @ -Acute Uncomplicated (without systemic symptoms) or Complicated (systemic symptoms)? @ -Uncomplicated Side effects of treatment? @ -None Exacerbation, Progression, or Severe Exacerbation] @ -Not applicable Poses a threat to life or bodily function? @ -Possibly, this will depend on the cause and severity of the anemia This case was discussed in detail with the attending ED physician, Dr. Tripp. Presentation, findings, and treatment plan discussed in detail as well. - Lab Data Result diagrams: 12/26/22 13:19 12/26/22 13:19 Lab Results 12/26/22 12/26/22 12/26/22 Range/Units 13:19 13:19 13:19 WBC 14.0 H (3.8-10.6) k/uL RBC 2.84 L (4.30-5.90) m/uL Hgb 7.5 L (13.0-17.5) gm/dL Hct 23.6 L (39.0-53.0) % MCV 82.9 (80.0-100.0) fL MCH 26.4 (25.0-35.0) pg MCHC 31.9 (31.0-37.0) g/dL RDW 17.2 H (11.5-15.5) % Plt Count 521 H (150-450) k/uL MPV 8.3 Neutrophils % 79 % Lymphocytes % 9 % Monocytes % 8 % Eosinophils % 2 % Basophils % 0 % Neutrophils # 11.1 H (1.3-7.7) k/uL Lymphocytes # 1.3 (1.0-4.8) k/uL Monocytes # 1.1 H (0-1.0) k/uL Eosinophils # 0.3 (0-0.7) k/uL Basophils # 0.1 (0-0.2) k/uL Hypochromasia Moderate Poikilocytosis Slight Anisocytosis Slight PT (10.0-12.5) sec INR (<1.2) APTT (22.0-30.0) sec Sodium 129 L (137-145) mmol/L Potassium 4.5 (3.5-5.1) mmol/L Chloride 95 L (98-107) mmol/L Carbon Dioxide 21 L (22-30) mmol/L Anion Gap 13 mmol/L BUN 21 H (9-20) mg/dL Creatinine 1.02 (0.66-1.25) mg/dL Est GFR (CKD-EPI)AfAm 83 (>60 ml/min/1.73 sqM) Est GFR (CKD-EPI)NonAf 72 (>60 ml/min/1.73 sqM) Glucose 171 H (74-99) mg/dL Calcium 9.4 (8.4-10.2) mg/dL Total Bilirubin 0.8 (0.2-1.3) mg/dL AST 59 (17-59) U/L ALT 44 (4-49) U/L Alkaline Phosphatase 208 H (38-126) U/L Total Protein 6.7 (6.3-8.2) g/dL Albumin 3.4 L (3.5-5.0) g/dL Stool Occult Blood (Negative) Blood Type A Positive Blood Type Recheck A Pos Bld Type Recheck Status No Antibody Screen NEGATIVE Spec Expiration Date 12/29/2022231812/26/22 12/26/22 Range/Units 13:39 13:39 WBC (3.8-10.6) k/uL RBC (4.30-5.90) m/uL Hgb (13.0-17.5) gm/dL Hct (39.0-53.0) % MCV (80.0-100.0) fL MCH (25.0-35.0) pg MCHC (31.0-37.0) g/dL RDW (11.5-15.5) % Plt Count (150-450) k/uL MPV Neutrophils % % Lymphocytes % % Monocytes % % Eosinophils % % Basophils % % Neutrophils # (1.3-7.7) k/uL Lymphocytes # (1.0-4.8) k/uL Monocytes # (0-1.0) k/uL Eosinophils # (0-0.7) k/uL Basophils # (0-0.2) k/uL Hypochromasia Poikilocytosis Anisocytosis PT 11.1 (10.0-12.5) sec INR 1.0 (<1.2) APTT 21.5 L (22.0-30.0) sec Sodium (137-145) mmol/L Potassium (3.5-5.1) mmol/L Chloride (98-107) mmol/L Carbon Dioxide (22-30) mmol/L Anion Gap mmol/L BUN (9-20) mg/dL Creatinine (0.66-1.25) mg/dL Est GFR (CKD-EPI)AfAm (>60 ml/min/1.73 sqM) Est GFR (CKD-EPI)NonAf (>60 ml/min/1.73 sqM) Glucose (74-99) mg/dL Calcium (8.4-10.2) mg/dL Total Bilirubin (0.2-1.3) mg/dL AST (17-59) U/L ALT (4-49) U/L Alkaline Phosphatase (38-126) U/L Total Protein (6.3-8.2) g/dL Albumin (3.5-5.0) g/dL Stool Occult Blood Positive (Negative) Blood Type Blood Type Recheck Bld Type Recheck Status Antibody Screen Spec Expiration Date Disposition Clinical Impression: Anemia, Positive occult stool blood test, Hyponatremia Disposition: ADMITTED IP TO THIS HOSP
[2022-12-26 13:50] LABS: ALT 44 U/L (4-49); AST 59 U/L (17-59); African American GFR (CKD) 83 (>60 ml/min/1.73 sqM); Albumin 3.4 g/dL (3.5-5.0); Alkaline Phosphatase 208 U/L (38-126); Anion Gap 13 mmol/L; Blood Urea Nitrogen 21 mg/dL (9-20); Calcium 9.4 mg/dL (8.4-10.2); Carbon Dioxide 21 mmol/L (22-30); Chloride 95 mmol/L (98-107); Glucose 171 mg/dL (74-99); Non-African American GFR(CKD) 72 (>60 ml/min/1.73 sqM); Potassium 4.5 mmol/L (3.5-5.1); Sodium 129 mmol/L (137-145); Total Bilirubin 0.8 mg/dL (0.2-1.3); Total Protein 6.7 g/dL (6.3-8.2)
[2022-12-26] MEDS ORDERED: HYDROcodone/APAP 5-325MG 1 EACH TAB PO PRN (14:24)
[2022-12-26] MEDS ORDERED: NALOXONE 0.4 MG/ML 1 ML VIAL IV PRN (14:24)
[2022-12-26] MEDS ORDERED: ONDANSETRON 4 MG/2 ML VIAL IVP PRN (14:24)
[2022-12-26] MEDS ORDERED: ACETAMINOPHEN TAB 325 MG TAB PO PRN (14:24)
[2022-12-26 14:25] LABS: Prothrombin Time 11.1 sec (10.0-12.5)
[2022-12-26 14:28] LABS: Partial Thromboplastin Time 21.5 sec (22.0-30.0)
[2022-12-26] MEDS ORDERED: SODIUM CHLORIDE 0.9% 1,000 ML IV STA (14:36)
[2022-12-26 15:43] LABS: Reticulocyte % 7.8 % (0.5-2.0)
--- NOTE | 2022-12-26 16:49 | P.HPIM ---
History of Present Illness H&P Date: 12/26/22 Patient is a 77-year-old male with history of pancreatic cancer status post surgery with new worsening findings, prostate cancer status post prostatectomy, hypertension presenting with fatigue and generalized weakness. He claims that his symptoms has been going on for almost 2 months. He went to his PCP for routine blood work, and was found to be anemic and was subsequently asked to come to emergency for further evaluation. He has exertional shortness of breath, generalized weakness. He denies any chest pain, palpitations, abdominal pain, nausea, vomiting, urinary or bowel complaints. He has not noticed any melena or hematochezia. 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 However, he has not so hopeful and does not want to do further chemotherapy. He has not been eating and drinking very well over the last few months. In the ED, temperature was 98.1, pulse 80, respiratory rate 18, blood pressure 111/74, saturating at 98% on room air. WBC 14, hemoglobin 7.5, platelets 521, sodium 129, chloride 25, bicarb 21, anion gap 13, BUN 21, creatinine 1.02. Last abdominal CT done in August shows increasing pancreatic tail mass up to 7 x 5 x 4 cm. No new imaging completed here. Patient being admitted for symptomatic anemia, surgery also consulted. Pertinent positives and negatives as discussed in HPI, a complete review of systems was performed and all other systems are negative. Patient seen and examined at bedside. Vital signs reviewed General: nontoxic, no distress, appears at stated age Derm: warm, dry Head: atraumatic, normocephalic, symmetric Eyes: EOMI, no lid lag, anicteric sclera, pupils equal round reactive to light ENT: Nose and ears atraumatic Neck: No thyromegaly, supple Mouth: no lip lesion, mucus membranes moist Cardiovascular: S1S2 reg, no murmur, no edema Lungs: clear to auscultation bilateral, no rhonchi, no rales, no wheeze, no accessory muscle use Abdominal: soft, nontender to palpation, no guarding, no appreciable organomegaly Ext: no gross muscle atrophy, muscle strength muscle strength 5 out of 5 in all 4 extremities, no contractures Neuro: CN II-XII grossly intact Psych: Alert, oriented, appropriate affect Assessment/Plan: Active: Symptomatic normocytic anemia Leukocytosis and thrombocytosis History of pancreatic cancer, with worsening mass size Hyponatremia, likely hypovolemic Prerenal azotemia -Iron studies ordered, reticulocyte count, folic acid, B12 levels, LDH, haptoglobin ordered as well -No GI service available, and surgery has been consulted by ER -Hematology/oncology consulted -Hold aspirin for now -Patient given 1 L of normal saline in the ED, can continue 100 mL of normal saline an hour -Repeat CBC BMP tomorrow Chronic: Hypertension The patient is admitted with an anticipated less than 2 midnight stay as observation status for evaluation of symptomatic anemia. Surrogate decision-maker: Niece CODE STATUS: Full code DVT prophylaxis: SCDs Anticipated discharge date: Pending clinical course Anticipated discharge place: Pending clinical course A total of 66 minutes was spent on the care of this complex patient more than 50% of the time was spent in counseling and care coordination. Past Medical History Past Medical History: Cancer, Hyperlipidemia, Hypertension Additional Past Medical History / Comment(s): past prostate can (sx only),pancreatic CA so far sx only but stated is sceduled for tx, sinus problems, tremors History of Any Multi-Drug Resistant Organisms: None Reported Past Surgical History: Prostate Surgery Additional Past Surgical History / Comment(s): abdominal surgery"pt poor historian as to in total what was done but stated part of stomach and pancreas was removed", prostatectomy 2009, sigrid cataracts, colonoscopy 1999, hemorrhoidectomy, wipple Past Anesthesia/Blood Transfusion Reactions: Motion Sickness Additional Past Anesthesia/Blood Transfusion Reaction / Comment(s): clausterphobia. to pt's knowledge never recieved any blood Past Psychological History: No Psychological Hx Reported Smoking Status: Former smoker Past Alcohol Use History: Rare Past Drug Use History: None Reported - Past Family History Mother Family Medical History: CVA/TIA, Hypertension Father Family Medical History: Congestive Heart Failure (CHF), Coronary Artery Disease (CAD), Myocardial Infarction (OK) Medications and Allergies Home Medications Medication Instructions Recorded Confirmed Type Aspirin EC [Ecotrin Low Dose] 81 mg PO HS 08/14/17 12/26/22 History Lipase/Protease/Amylase [Creon Dr 2 cap PO AC-TID 08/14/17 12/26/22 History 36,000 Unit Capsule] Cholecalciferol [Vitamin D3 (125 125 mcg PO HS 05/18/21 12/26/22 History Mcg = 5000 Iu)] Metoprolol Tartrate [Lopressor] 25 mg PO DAILY 12/26/22 12/26/22 History Allergies Allergy/AdvReac Type Severity Reaction Status Date / Time hornet venom Allergy Swelling Verified 12/26/22 14:50 niacin Allergy Unknown Verified 12/26/22 14:50 Physical Exam Vitals: Vital Signs Temp Pulse Resp BP Pulse Ox 12/26/22 14:49 98.1 F 78 16 119/76 99 12/26/22 11:37 98.1 F 80 18 111/74 98 Intake and Output 12/26/22 12/26/22 12/26/22 06:59 14:59 22:59 Other: Weight 97.522 kg Results CBC & Chem 7: 12/26/22 13:19 12/26/22 13:19 Labs: Abnormal Lab Results - Last 24 Hours (Table) 12/26/22 12/26/22 12/26/22 Range/Units 13:19 13:19 13:39 WBC 14.0 H (3.8-10.6) k/uL RBC 2.84 L (4.30-5.90) m/uL Hgb 7.5 L (13.0-17.5) gm/dL Hct 23.6 L (39.0-53.0) % RDW 17.2 H (11.5-15.5) % Plt Count 521 H (150-450) k/uL Neutrophils # 11.1 H (1.3-7.7) k/uL Monocytes # 1.1 H (0-1.0) k/uL APTT 21.5 L (22.0-30.0) sec Sodium 129 L (137-145) mmol/L Chloride 95 L (98-107) mmol/L Carbon Dioxide 21 L (22-30) mmol/L BUN 21 H (9-20) mg/dL Glucose 171 H (74-99) mg/dL Alkaline Phosphatase 208 H (38-126) U/L Albumin 3.4 L (3.5-5.0) g/dL
[2022-12-26] MEDS ORDERED: MAG HYDROX/AL HYDROX/SIMETH 30 ML, HYOSCYAMINE ELIXIR 10 ML PO ONE ×2 (17:07)
[2022-12-26] MEDS ORDERED: FAMOTIDINE 20 MG/2 ML VIAL IV ONE (17:08)
[2022-12-26] MEDS: SODIUM CHLORIDE 0.9% 1,000 ML IV SCH (17:37)
[2022-12-26] MEDS: LIPASE 20,000/PROTEASE 63,000/AMYLASE 84,000 PO SCH (17:37)
[2022-12-26] MEDS: CHOLECALCIFEROL 125 MCG (5000 IU) TABLET PO SCH (20:22)
[2022-12-26 20:35] LABS: % Iron Saturation 6.38 (15.00-50.00); Ferritin 26.1 ng/mL (22.0-322.0)
[2022-12-27] MEDS: SODIUM CHLORIDE 0.9% 1,000 ML IV SCH ×2 (04:04→08:15)
[2022-12-27] MEDS: METOPROLOL TARTRATE 25 MG TAB PO SCH (08:15)
[2022-12-27] MEDS: LIPASE 20,000/PROTEASE 63,000/AMYLASE 84,000 PO SCH ×3 (08:16→17:47)
[2022-12-27] MEDS: PANTOPRAZOLE 40 MG/10 ML VIAL IVP SCH (08:49)
[2022-12-27] MEDS: SODIUM FERRIC GLUCONAT-SUCROSE 125 MG in SODIUM CHLORIDE 0.9% 100 ML IVPB SCH (10:56)
[2022-12-27] MEDS: IOPAMIDOL CONTRAST (ORAL USE) VIAL PO PRN ×2 (10:56→12:04)
[2022-12-27 11:01] LABS: BUN/Creat Ratio 16.91 Ratio (12.00-20.00); Blood Urea Nitrogen 18.6 mg/dL (9.0-27.0); Calcium 8.9 mg/dL (8.7-10.3); Carbon Dioxide 20.5 mmol/L (21.6-31.8); Chloride 97 mmol/L (96-109); Glucose 121 mg/dL (70-110); Potassium 4.6 mmol/L (3.5-5.5); Sodium 132 mmol/L (135-145)
[2022-12-27 11:23] LABS: Basophils # (A) 0.11 X 10*3/uL (0.00-0.10); Basophils % (A) 0.7 %; Eosinophils # (A) 0.27 X 10*3/uL (0.04-0.35); Eosinophils % (A) 1.8 %; HCT 22.2 % (39.6-50.0); HGB 6.7 d/dL (13.0-17.0); Lymphocytes # (A) 2.04 X 10*3/uL (0.90-5.00); Lymphocytes % (A) 13.3 %; MCH 25.3 pg (27.0-32.0); MCHC 30.2 d/dL (32.0-37.0); MCV 83.8 FL (80.0-97.0); Mean Platelet Volume 10.8 FL (9.5-12.2); Monocytes # (A) 1.78 X 10*3/uL (0.20-1.00); Monocytes % (A) 11.6 %; NRBC Per 100 WBC 0.03 X 10*3/uL (0.00-0.01); Neutrophils # (A) 11.06 X 10*3/uL (1.80-7.70); Neutrophils % (A) 71.9 %; Platelet Count 463 X 10*3/uL (140-440); RBC 2.65 X 10*6/uL (4.40-5.60); RDW 17.2 % (11.5-14.5); WBC 15.36 X 10*3/uL (4.50-10.00)
--- NOTE | 2022-12-27 11:50 | P.GSCN ---
History of Present Illness Consult date: 12/27/22 History of present illness: CHIEF COMPLAINT: Low hemoglobin outpatient HISTORY OF PRESENT ILLNESS: This is a 77-year-old male who was at the [place] for his annual physical and had routine blood work completed which showed a hemoglobin of 7.2. He was called and instructed to come to the ER. Patient has been feeling fatigued for the last couple weeks. He denies any abdominal pain. Denies any nausea or vomiting. Denies any blood in his stools. He denies any black stools but does report the stools might of been darker than usual. His last colonoscopy was over 10 years ago he does report a history of colon polyps. He does receive the Cologuard testing over the last 3 years. Last test was in fall and reported as normal. Patient does has a history of pancreatic cancer status post Whipple surgery in 2017 at [facility] and last chemo and radiation treatment was in June 2020. Also history of prostate cancer status post prostatectomy in 2009. Patient's hemoglobin on admission was 7.5 iron levels are low and stool for occult blood is positive. PAST MEDICAL HISTORY: See list. PAST SURGICAL HISTORY: See list. MEDICATIONS: See list. ALLERGIES: See list. SOCIAL HISTORY: No illicit drug use. REVIEW OF SYSTEMS: CONSTITUTIONAL: Denies fever or chills. HEENT: Denies blurred vision, vision changes, or eye pain. Denies hemoptysis ENDOCRINE: Denies heat or cold intolerance. CARDIOVASCULAR: Denies chest pain or pressure. RESPIRATORY: No shortness of breath. GASTROINTESTINAL: Denies abdominal pain. Denies nausea or vomiting. NEURO: Denies history of seizures. PSYCH: No depression or suicidal ideation HEMATOLOGIC: Denies bleeding disorders. LYMPHATIC: The patient denies any lumps and bumps around the neck. GENITOURINARY: Denies any blood in urine or increased urinary frequency. MUSCULOSKELETAL: Denies myalgias. Denies joint swelling. Denies decreased range of motion beyond patients baseline. SKIN: Denies pruitis. Denies rash. PHYSICAL EXAM: VITAL SIGNS: Reviewed GENERAL: no acute distress. Pale HEENT: No sclera icterus. Extraocular movements grossly intact. Moist buccal mucosa. Head is atraumatic, normocephalic. Hears conversational speech. No nasal drainage. NECK: Supple without lymphadenopathy. CHEST: Non-labored respirations and equal bilateral excursions. CARDIOVASCULAR: Palpable 2+ radial pulses. ABDOMEN: Soft. Nondistended. Nontender MUSCULOSKELETAL: No clubbing or cyanosis. NEUROLOGIC: No focal or lateralizing signs. Cranial nerves II through XII grossly intact. PSYCH: Appropriate affect. Alert and oriented to person, place and time. SKIN: Well perfused. Good skin turgor. LABORATORY DATA: WBC 14 up to 15.36 Hgb 7.5 down to 6.7 platelets 463 Sodium 129 up to 132 creatinine 1.1 iron low at 15 Stool for occult blood positive IMAGING: ASSESSMENT: 1. Anemia with stool for occult blood positive 2. History of pancreatic cancer status post Whipple 2018 with chemo and radiation ending in 2020 3. History of prostate cancer with prostatectomy in 2009 4. History of hemorrhoidectomy 5. History of hypertension 6. History of hyperlipidemia 7. Hyponatremia PLAN: -EGD for today canceled due to hyponatremia -Medicine service to manage hyponatremia -Patient will need EGD -Continue IV Protonix -Patient receiving IV iron per oncology recommendation -Patient to receive 1 unit of blood hemoglobin of 6.7 as ordered per medicine service -Continue to monitor hemoglobin -Continue to monitor for any signs or symptoms of bleeding Physician Flower Picker note has been reviewed by physician. Signing provider agrees with the documented findings, assessment, and plan of care. Past Medical History Past Medical History: Cancer, Diabetes Mellitus, Hyperlipidemia, Hypertension Additional Past Medical History / Comment(s): past prostate CA(sx only),pancreatic CA radiation tx 09/2017, last chemo tx last 06/2020, sinus problems, tremors, diet controlled DM History of Any Multi-Drug Resistant Organisms: None Reported Past Surgical History: Prostate Surgery Additional Past Surgical History / Comment(s): prostatectomy 2009, sigrid catarac ts, colonoscopy 1999, hemorrhoidectomy, wipple, L shoulder Past Anesthesia/Blood Transfusion Reactions: Motion Sickness Additional Past Anesthesia/Blood Transfusion Reaction / Comm: clausterphobia. to pt's knowledge never recieved any blood Past Psychological History: No Psychological Hx Reported Additional Psychological History / Comment(s): . Smoking Status: Former smoker Past Alcohol Use History: Rare Additional Past Alcohol Use History / Comment(s): started smoking at age 23(1968) and quit july 2017. a pack would last 3 days. rare use of alcohol. Past Drug Use History: None Reported - Past Family History Mother Family Medical History: CVA/TIA, Hypertension Father Family Medical History: Congestive Heart Failure (CHF), Coronary Artery Disease (CAD), Myocardial Infarction ([place]) Medications and Allergies Home Medications Medication Instructions Recorded Confirmed Type Aspirin EC [Ecotrin Low Dose] 81 mg PO HS 08/14/17 12/26/22 History Lipase/Protease/Amylase [Arielon Dr 2 cap PO AC-TID 08/14/17 12/26/22 History 36,000 Unit Capsule] Cholecalciferol [Vitamin D3 (125 125 mcg PO HS 05/18/21 12/26/22 History Mcg = 5000 Iu)] Metoprolol Tartrate [Lopressor] 25 mg PO DAILY 12/26/22 12/26/22 History Allergies Allergy/AdvReac Type Severity Reaction Status Date / Time hornet venom Allergy Swelling Verified 12/26/22 14:50 niacin Allergy Unknown Verified 12/26/22 14:50 Surgical - Exam Vital Signs Temp Pulse Resp BP Pulse Ox 98.1 F 80 18 111/74 98 12/26/22 11:37 12/26/22 11:37 12/26/22 11:37 12/26/22 11:37 12/26/22 11:37 Results - Labs 12/27/22 06:14 12/27/22 06:14 Abnormal Lab Results - Last 24 Hours (Table) 12/26/22 12/26/22 12/26/22 Range/Units 13:19 13:19 13:39 WBC 14.0 H (3.8-10.6) k/uL RBC 2.84 L (4.30-5.90) m/uL Hgb 7.5 L (13.0-17.5) gm/dL Hct 23.6 L (39.0-53.0) % RDW 17.2 H (11.5-15.5) % Plt Count 521 H (150-450) k/uL Neutrophils # 11.1 H (1.3-7.7) k/uL Monocytes # 1.1 H (0-1.0) k/uL Retic Count (0.5-2.0) % Haptoglobin (31.2-198.0) mg/dL APTT 21.5 L (22.0-30.0) sec Sodium 129 L (137-145) mmol/L Chloride 95 L (98-107) mmol/L Carbon Dioxide 21 L (22-30) mmol/L BUN 21 H (9-20) mg/dL Glucose 171 H (74-99) mg/dL Iron (65-175) UG/DL % Saturation (15.00-50.00) Transferrin (204.0-354.0) mg/dL Alkaline Phosphatase 208 H (38-126) U/L Lactate Dehydrogenase (120-246) U/L Albumin 3.4 L (3.5-5.0) g/dL 12/26/22 12/26/22 12/26/22 Range/Units 15:11 15:11 15:11 WBC (3.8-10.6) k/uL RBC (4.30-5.90) m/uL Hgb (13.0-17.5) gm/dL Hct (39.0-53.0) % RDW (11.5-15.5) % Plt Count (150-450) k/uL Neutrophils # (1.3-7.7) k/uL Monocytes # (0-1.0) k/uL Retic Count 7.8 H (0.5-2.0) % Haptoglobin (31.2-198.0) mg/dL APTT (22.0-30.0) sec Sodium (137-145) mmol/L Chloride (98-107) mmol/L Carbon Dioxide (22-30) mmol/L BUN (9-20) mg/dL Glucose (74-99) mg/dL Iron 15 L (65-175) UG/DL % Saturation 6.38 L (15.00-50.00) Transferrin 168.0 L 167.0 L (204.0-354.0) mg/dL Alkaline Phosphatase (38-126) U/L Lactate Dehydrogenase 278 H (120-246) U/L Albumin (3.5-5.0) g/dL 12/26/22 Range/Units 15:11 WBC (3.8-10.6) k/uL RBC (4.30-5.90) m/uL Hgb (13.0-17.5) gm/dL Hct (39.0-53.0) % RDW (11.5-15.5) % Plt Count (150-450) k/uL Neutrophils # (1.3-7.7) k/uL Monocytes # (0-1.0) k/uL Retic Count (0.5-2.0) % Haptoglobin 325.0 H (31.2-198.0) mg/dL APTT (22.0-30.0) sec Sodium (137-145) mmol/L Chloride (98-107) mmol/L Carbon Dioxide (22-30) mmol/L BUN (9-20) mg/dL Glucose (74-99) mg/dL Iron (65-175) UG/DL % Saturation (15.00-50.00) Transferrin (204.0-354.0) mg/dL Alkaline Phosphatase (38-126) U/L Lactate Dehydrogenase (120-246) U/L Albumin (3.5-5.0) g/dL Diabetes panel 12/26/22 Range/Units 13:19 Sodium 129 L (137-145) mmol/L Potassium 4.5 (3.5-5.1) mmol/L Chloride 95 L (98-107) mmol/L Carbon Dioxide 21 L (22-30) mmol/L BUN 21 H (9-20) mg/dL Creatinine 1.02 (0.66-1.25) mg/dL Glucose 171 H (74-99) mg/dL Calcium 9.4 (8.4-10.2) mg/dL AST 59 (17-59) U/L ALT 44 (4-49) U/L Alkaline Phosphatase 208 H (38-126) U/L Total Protein 6.7 (6.3-8.2) g/dL Albumin 3.4 L (3.5-5.0) g/dL Calcium panel 12/26/22 Range/Units 13:19 Calcium 9.4 (8.4-10.2) mg/dL Albumin 3.4 L (3.5-5.0) g/dL Pituitary panel 12/26/22 Range/Units 13:19 Sodium 129 L (137-145) mmol/L Potassium 4.5 (3.5-5.1) mmol/L Chloride 95 L (98-107) mmol/L Carbon Dioxide 21 L (22-30) mmol/L BUN 21 H (9-20) mg/dL Creatinine 1.02 (0.66-1.25) mg/dL Glucose 171 H (74-99) mg/dL Calcium 9.4 (8.4-10.2) mg/dL Adrenal panel 12/26/22 Range/Units 13:19 Sodium 129 L (137-145) mmol/L Potassium 4.5 (3.5-5.1) mmol/L Chloride 95 L (98-107) mmol/L Carbon Dioxide 21 L (22-30) mmol/L BUN 21 H (9-20) mg/dL Creatinine 1.02 (0.66-1.25) mg/dL Glucose 171 H (74-99) mg/dL Calcium 9.4 (8.4-10.2) mg/dL Total Bilirubin 0.8 (0.2-1.3) mg/dL AST 59 (17-59) U/L ALT 44 (4-49) U/L Alkaline Phosphatase 208 H (38-126) U/L Total Protein 6.7 (6.3-8.2) g/dL Albumin 3.4 L (3.5-5.0) g/dL
--- NOTE | 2022-12-27 13:13 | CT ---
EXAMINATION TYPE: CT abdomen pelvis wo/w con CT DLP: 3323.30 mGycm, Automated exposure control for dose reduction was used. DATE OF EXAM: 12/27/2022 12:51 PM COMPARISON: Multiple CT abdomen pelvis with most recent 08/07/2022 CLINICAL INDICATION:Male, 77 years old with history of Hx pancreatic adeno, new onset anemia; hx of p ancreatic CA, new onset anemia TECHNIQUE: Multiphase CT of the abdomen and pelvis following the administration of 100 cc of Isovue 300 IV contrast material and oral contrast. Coronal and sagittal reformats were performed. FINDINGS: LOWER CHEST: Unremarkable ABDOMEN LIVER: Innumerable hypodense lesions throughout the liver consistent with metastasis. Regions of hypo enhancement in the periportal region. No intrahepatic biliary duct dilatation. GALLBLADDER AND BILE DUCTS: Unremarkable. PANCREAS: Exophytic pancreatic tail mass is redemonstrated measuring grossly 6.6 x 5.3 cm. There is a gain invasion into the greater gastric curvature. There is encasement of the celiac access of greater than 180 degrees. There is abutment of less than 180 degrees of the SMA. SMV is poorly visualized. R emaining portion of the pancreas is atrophic. No pancreatic parenchymal calcifications. The main port al vein is poorly visualized with probable portal vein thrombosis. 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 ADRENAL GLANDS: Unremarkable. KIDNEYS AND URETERS: No evidence of hydronephrosis or renal calculus. Atrophy of the left kidney comp ared to the right. PELVIS BLADDER: Unremarkable REPRODUCTIVE: Prostate is surgically absent. ABDOMEN & PELVIS STOMACH AND BOWEL: Invasion of the greater curvature by exophytic pancreatic tail mass. Mild amount o f stool is present throughout the colon. The appendix is within normal limits. No evidence of bowel o bstruction. PERITONEUM: No evidence of pneumoperitoneum. Small volume ascites throughout abdomen pelvis. VASCULATURE: Moderate atherosclerotic calcifications are present throughout the abdominal aorta and i ts branches. No evidence of aortic aneurysm. MUSCULOSKELETAL: No acute osseous abnormalities. No aggressive osseous lesion. Multilevel degenerativ e disc disease. Stable anterior wedge compression deformity of the L1 vertebral body. LYMPH NODES: No gross evidence for lymphadenopathy. SOFT TISSUE/ABDOMINAL WALL: Left inguinal hernia containing ascites. Fat filled small umbilical herni a. IMPRESSION: Redemonstration of pancreatic tail mass invading into the greater curvature of the stomach. New innum erable hepatic lesions identified consistent with metastasis. Small volume ascites. Probable portal v ein thrombosis. Overall findings are consistent with progression of disease.
--- NOTE | 2022-12-27 16:20 | P.PN ---
Subjective Progress Note Date: 12/27/22 Hospital course: Patient is a very pleasant 77-year-old male with history of pancreatic cancer status post surgery with new worsening findings, prostate cancer status post prostatectomy, and hypertension. He presented to the hospital on 12/26/22 with a chief complaint of exertional dyspnea, fatigue and generalized weakness. He claims that his symptoms has been going on for almost 2 months and progressivley worsening. He went to his PCP for routine blood work, and was found to be anemic and was subsequently asked to come to emergency for further evaluation. Vital signs upon arrival blood pressure 111/74, heart rate 80, respiratory rate 18, temp 98.1F, SpO2 of 90% on room air. Labs completed and reviewed. CBC showing leukocytosis with WBC count of 14.0, normocytic anemia with hemoglobin of 7.5, and thrombocytosis with platelet count of 521. BMP revealing hypernatremia with sodium of 129, hypochloremia with chloride of 95, hypocarbia with bicarb of 21, slightly elevated anion gap 13, and prerenal azotemia with BUN of 21. Liver profile showing elevated alkaline phosphatase of 208. LDH 278. Iron profile showing iron of 15, TIBC 235, and percent saturation 6.38, and transferrin 167.0. Reticulocyte count was 7.8 and haptoglobin 325. EKG was completed showing normal sinus rhythm at 70 bpm with no noted T wave or ST abnormality showing no signs of acute ischemia upon personal review and interpretation. Physical exam: Patient was seen and fully evaluated at bedside this morning. Patient was sitting up on the edge of bed drinking contrast for scheduled CT later today. Vital signs reviewed and stable. General: Nontoxic, no distress and appears stated age. Derm: Skin warm and dry, normal coloration for ethnicity. Head: Atraumatic, normocephalic and symmetric. Eyes: EOMs intact, no lid lag, and anicteric sclera Mouth: no lip lesions, mucus membranes moist Cardiovascular: regular rate and rhythm with normal S1S2, no murmur, positive posterior tibial pulses bilaterally, and cap refill < 2 seconds. Lungs: Respirations even, regular, and unlabored on room air. Lungs CTA bilaterally, no rhonchi, no rales, no wheezing, and no accessory muscle usage. Abdominal: soft, nontender to palpation, no guarding, no appreciable organomegaly Ext: ROM intact. No gross muscle atrophy, no edema, no contractures Neuro: Speech clear, face symmetrical and CN II-XII grossly intact with no noted focal neuro deficits Psych: Alert and oriented to person, place, time, and situation. Appropriate and pleasant affect. Assessment and Plan of Care: Symptomatic normocytic anemia Leukocytosis and thrombocytosis History of pancreatic cancer, with worsening mass size Hyponatremia, likely hypovolemic Prerenal azotemia -Morning labs reviewed. CBC showing leukocytosis with WBC count of 15.36 and acute on chronic anemia with hemoglobin of 6.7 and persistent thrombocytosis with platelet count of 463. -Order placed for transfusion 1 unit PRBCs and we'll continue to monitor with repeat CBC and transfuse as needed for hemoglobin less than 7. -Iron profile showing iron of 15, TIBC 235, and percent saturation 6.38, and transferrin 167.0. Reticulocyte count was 7.8 and haptoglobin 325. -Patient started on IV iron transfusions with Ferrlecit currently on day 1 of 3 -Surgery following and placed order for CT abdomen and pelvis with and without contrast -Hematology/oncology following and discussed plan of care with oncology STREETS AND BUILDINGS DECORATOR -Continue to Hold aspirin for now -Continue with gentle IV fluid hydration with 0.9% normal saline at 100 miles per hour. -Repeat CBC and CMP continue to monitor closely. Hypertension -Vital signs currently stable with current medication regimen. Patient to continue metoprolol 25 mg daily. CODE STATUS: Full code DVT prophylaxis: SCDs Anticipated discharge date: Clinical course to determine Anticipated discharge place: Clinical course to determine Patient was seen independently by Nurse Pracitioner. This document was prepared using [employer]sCloud dictation software. Please allow for errors in calculating machine mechanic, while rare they do occur. Objective - Vital Signs Vital signs: Vital Signs Temp 98.6 F 12/27/22 07:25 Pulse 88 12/27/22 07:25 Resp 20 12/27/22 07:25 BP 104/69 12/27/22 07:25 Pulse Ox 96 12/27/22 07:25 FiO2 Intake & Output 12/26/22 12/27/22 12/27/22 18:59 06:59 18:59 Intake Total 590 Balance 590 Weight 97.522 kg 97.522 kg Intake: Oral 590 Other: # Voids 3 - Labs CBC & Chem 7: 12/27/22 06:14 12/27/22 06:14 Labs: Abnormal Lab Results - Last 24 Hours (Table) 12/26/22 12/26/22 12/26/22 Range/Units 13:19 13:19 13:39 WBC 14.0 H (3.8-10.6) k/uL RBC 2.84 L (4.30-5.90) m/uL Hgb 7.5 L (13.0-17.5) gm/dL Hct 23.6 L (39.0-53.0) % RDW 17.2 H (11.5-15.5) % Plt Count 521 H (150-450) k/uL Neutrophils # 11.1 H (1.3-7.7) k/uL Monocytes # 1.1 H (0-1.0) k/uL Retic Count (0.5-2.0) % Haptoglobin (31.2-198.0) mg/dL APTT 21.5 L (22.0-30.0) sec Sodium 129 L (137-145) mmol/L Chloride 95 L (98-107) mmol/L Carbon Dioxide 21 L (22-30) mmol/L BUN 21 H (9-20) mg/dL Glucose 171 H (74-99) mg/dL Iron (65-175) UG/DL % Saturation (15.00-50.00) Transferrin (204.0-354.0) mg/dL Alkaline Phosphatase 208 H (38-126) U/L Lactate Dehydrogenase (120-246) U/L Albumin 3.4 L (3.5-5.0) g/dL 12/26/22 12/26/22 12/26/22 Range/Units 15:11 15:11 15:11 WBC (3.8-10.6) k/uL RBC (4.30-5.90) m/uL Hgb (13.0-17.5) gm/dL Hct (39.0-53.0) % RDW (11.5-15.5) % Plt Count (150-450) k/uL Neutrophils # (1.3-7.7) k/uL Monocytes # (0-1.0) k/uL Retic Count 7.8 H (0.5-2.0) % Haptoglobin (31.2-198.0) mg/dL APTT (22.0-30.0) sec Sodium (137-145) mmol/L Chloride (98-107) mmol/L Carbon Dioxide (22-30) mmol/L BUN (9-20) mg/dL Glucose (74-99) mg/dL Iron 15 L (65-175) UG/DL % Saturation 6.38 L (15.00-50.00) Transferrin 168.0 L 167.0 L (204.0-354.0) mg/dL Alkaline Phosphatase (38-126) U/L Lactate Dehydrogenase 278 H (120-246) U/L Albumin (3.5-5.0) g/dL 12/26/22 Range/Units 15:11 WBC (3.8-10.6) k/uL RBC (4.30-5.90) m/uL Hgb (13.0-17.5) gm/dL Hct (39.0-53.0) % RDW (11.5-15.5) % Plt Count (150-450) k/uL Neutrophils # (1.3-7.7) k/uL Monocytes # (0-1.0) k/uL Retic Count (0.5-2.0) % Haptoglobin 325.0 H (31.2-198.0) mg/dL APTT (22.0-30.0) sec Sodium (137-145) mmol/L Chloride (98-107) mmol/L Carbon Dioxide (22-30) mmol/L BUN (9-20) mg/dL Glucose (74-99) mg/dL Iron (65-175) UG/DL % Saturation (15.00-50.00) Transferrin (204.0-354.0) mg/dL Alkaline Phosphatase (38-126) U/L Lactate Dehydrogenase (120-246) U/L Albumin (3.5-5.0) g/dL
[2022-12-27 18:41] LABS: Anisocytosis Slight; HCT 25.3 % (39.0-53.0); HGB 8.1 gm/dL (13.0-17.5); Hypochromasia Marked; MCH 26.6 pg (25.0-35.0); MCV 83.4 fL (80.0-100.0); Mean Platelet Volume 8.5; Platelet Count 450 k/uL (150-450); Poikilocytosis Slight; RBC 3.03 m/uL (4.30-5.90); WBC 12.6 k/uL (3.8-10.6)
[2022-12-27] MEDS: CHOLECALCIFEROL 125 MCG (5000 IU) TABLET PO SCH (20:29)
--- NOTE | 2022-12-27 21:18 | P.CONS ---
History of Present Illness - Reason for Consult Consult date: 12/27/22 anemia Requesting physician: Mayur Mariee - Chief Complaint abn lab, anemia - History of Present Illness Mr. Kingsley is a 77-year-old male patient of Dr. Alfie Thayer, PCP Dr. Rivera. He was referred to Oncology for pancreatic abnormality, CTAP showed multiple cystic foci in the body/tail of the pancreas, 11 x 9.4 cm. 05/2017 MRCP revealed the cystic lesion seen on CT, no definite malignancy. 07/16/2017 taken to the OR at [facility] for a low Dr. Rajan for attempted resection but, was unresectable due to invasion of the stomach and left kidney. 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 Patient received adjuvant chemotherapy through 05/20 and was then placed on observation. He has had follow-up scans, with each one showing some slight progression in the original tumor, no mets. Most recent CT scans in August 07, 2022 that was positive for slight progression of primary tumor, near invasion of stomach. Pt long ago opted to not have further chemo treatment. He was due to have f/u scans about 1- 2 weeks ago but, those were not done. He is currently admitted on direction of [facility], who he recently saw for routine physical, on routine labs was found to be severely anemic. Pt reports that he did note that he was felling more tired recently. Appetite is down, has early satiety, lost about 25lbs since Oct. Denies fevers, nausea, vomiting, cou gh, abd pain, bloating, acute changes in bowel or bladder habits, he is ambulatory and fairly active. On adm Hgb was 7.5, then dropped to 6.9, he is s/p 1 unit PRBCs Hgb 8.1. Iron sat 6.3%, ferritin 26.1 Occult is positive. LDH and haptoglobin both elevated, coags WNL. Review of Systems 10 point review of systems is negative except as stated in HPI Past Medical History Past Medical History: Cancer, Diabetes Mellitus, Hyperlipidemia, Hypertension Additional Past Medical History / Comment(s): past prostate CA(sx only),pancreatic CA radiation tx 09/2017, last chemo tx last 06/2020, sinus prob lems, tremors, diet controlled DM History of Any Multi-Drug Resistant Organisms: None Reported Past Surgical History: Prostate Surgery Additional Past Surgical History / Comment(s): prostatectomy 2009, sigrid cataracts, colonoscopy 1999, hemorrhoidectomy, wipple, L shoulder Past Anesthesia/Blood Transfusion Reactions: Motion Sickness Additional Past Anesthesia/Blood Transfusion Reaction / Comm: clausterphobia. to pt's knowledge never recieved any blood Past Psychological History: No Psychological Hx Reported Additional Psychological History / Comment(s): . Smoking Status: Former smoker Past Alcohol Use History: Rare Additional Past Alcohol Use History / Comment(s): started smoking at age 23(1968) and quit july 2017. a pack would last 3 days. rare use of alcohol. Past Drug Use History: None Reported - Past Family History Mother Family Medical History: CVA/TIA, Hypertension Father Family Medical History: Congestive Heart Failure (CHF), Coronary Artery Disease (CAD), Myocardial Infarction ([place]) Medications and Allergies Home Medications Medication Instructions Recorded Confirmed Type Aspirin EC [Ecotrin Low Dose] 81 mg PO HS 08/14/17 12/26/22 History Lipase/Protease/Amylase [Creon Dr 2 cap PO AC-TID 08/14/17 12/26/22 History 36,000 Unit Capsule] Cholecalciferol [Vitamin D3 (125 125 mcg PO HS 05/18/21 12/26/22 History Mcg = 5000 Iu)] Metoprolol Tartrate [Lopressor] 25 mg PO DAILY 12/26/22 12/26/22 History Allergies Allergy/AdvReac Type Severity Reaction Status Date / Time hornet venom Allergy Swelling Verified 12/26/22 14:50 niacin Allergy Unknown Verified 12/26/22 14:50 Physical Exam Vitals: Vital Signs Temp Pulse Pulse Resp BP BP Pulse Ox 12/27/22 07:25 98.6 F 88 20 104/69 96 12/27/22 02:00 99 F 80 16 114/68 96 12/26/22 20:00 98.2 F 86 16 153/77 100 12/26/22 19:00 81 20 124/73 95 12/26/22 18:00 68 18 142/79 98 12/26/22 17:00 80 16 139/80 99 12/26/22 16:14 97.1 F L 78 16 135/73 98 12/26/22 14:49 98.1 F 78 16 119/76 99 12/26/22 11:37 98.1 F 80 18 111/74 98 Intake and Output 12/26/22 12/27/22 12/27/22 22:59 06:59 14:59 Intake Total 590 Balance 590 Intake: Oral 590 Other: # Voids 3 Weight 97.522 kg - Constitutional General appearance: average body habitus, cooperative, no acute distress - EENT Eyes: anicteric sclerae, EOMI ENT: hearing grossly normal - Neck Neck: no lymphadenopathy - Respiratory Respiratory: bilateral: CTA - Cardiovascular Rhythm: regular Heart sounds: normal: S1, S2 Abnormal Heart Sounds: no systolic murmur, no diastolic murmur, no rub, no S3 Gallop, no S4 Gallop, no click, no other leg Peripheral Edema: bilateral: None - Gastrointestinal General gastrointestinal: no absent bowel sounds, no decreased bowel sounds, no distended, no hepatomegaly, no hyperactive bowel sounds, normal bowel sounds, no organomegaly, no rigid, no scaphoid, soft, no splenomegaly, no tenderness, no umbilical hernia, no ventral hernia - Integumentary Integumentary: pale - Neurologic Neurologic: CNII-XII intact - Musculoskeletal Musculoskeletal: strength equal bilaterally - Psychiatric Psychiatric: A&O x's 3, appropriate affect, intact judgment & insight Results CBC & Chem 7: 12/27/22 18:20 12/27/22 06:14 Labs: Abnormal Lab Results - Last 24 Hours (Table) 12/26/22 12/26/22 12/26/22 Range/Units 13:19 13:19 13:39 WBC 14.0 H (3.8-10.6) k/uL RBC 2.84 L (4.30-5.90) m/uL Hgb 7.5 L (13.0-17.5) gm/dL Hct 23.6 L (39.0-53.0) % RDW 17.2 H (11.5-15.5) % Plt Count 521 H (150-450) k/uL Neutrophils # 11.1 H (1.3-7.7) k/uL Monocytes # 1.1 H (0-1.0) k/uL Retic Count (0.5-2.0) % Haptoglobin (31.2-198.0) mg/dL APTT 21.5 L (22.0-30.0) sec Sodium 129 L (137-145) mmol/L Chloride 95 L (98-107) mmol/L Carbon Dioxide 21 L (22-30) mmol/L BUN 21 H (9-20) mg/dL Glucose 171 H (74-99) mg/dL Iron (65-175) UG/DL % Saturation (15.00-50.00) Transferrin (204.0-354.0) mg/dL Alkaline Phosphatase 208 H (38-126) U/L Lactate Dehydrogenase (120-246) U/L Albumin 3.4 L (3.5-5.0) g/dL 12/26/22 12/26/22 12/26/22 Range/Units 15:11 15:11 15:11 WBC (3.8-10.6) k/uL RBC (4.30-5.90) m/uL Hgb (13.0-17.5) gm/dL Hct (39.0-53.0) % RDW (11.5-15.5) % Plt Count (150-450) k/uL Neutrophils # (1.3-7.7) k/uL Monocytes # (0-1.0) k/uL Retic Count 7.8 H (0.5-2.0) % Haptoglobin (31.2-198.0) mg/dL APTT (22.0-30.0) sec Sodium (137-145) mmol/L Chloride (98-107) mmol/L Carbon Dioxide (22-30) mmol/L BUN (9-20) mg/dL Glucose (74-99) mg/dL Iron 15 L (65-175) UG/DL % Saturation 6.38 L (15.00-50.00) Transferrin 168.0 L 167.0 L (204.0-354.0) mg/dL Alkaline Phosphatase (38-126) U/L Lactate Dehydrogenase 278 H (120-246) U/L Albumin (3.5-5.0) g/dL 12/26/22 Range/Units 15:11 WBC (3.8-10.6) k/uL RBC (4.30-5.90) m/uL Hgb (13.0-17.5) gm/dL Hct (39.0-53.0) % RDW (11.5-15.5) % Plt Count (150-450) k/uL Neutrophils # (1.3-7.7) k/uL Monocytes # (0-1.0) k/uL Retic Count (0.5-2.0) % Haptoglobin 325.0 H (31.2-198.0) mg/dL APTT (22.0-30.0) sec Sodium (137-145) mmol/L Chloride (98-107) mmol/L Carbon Dioxide (22-30) mmol/L BUN (9-20) mg/dL Glucose (74-99) mg/dL Iron (65-175) UG/DL % Saturation (15.00-50.00) Transferrin (204.0-354.0) mg/dL Alkaline Phosphatase (38-126) U/L Lactate Dehydrogenase (120-246) U/L Albumin (3.5-5.0) g/dL CT scan - abdomen: report reviewed (08/2022) CT scan - pelvis: report reviewed (08/2022) Assessment and Plan (1) Anemia Current Visit: Yes Status: Acute Priority: High Code(s): D64.9 - ANEMIA, UNSPECIFIED SNOMED Code(s): 883792252 (2) Positive occult stool blood test Current Visit: Yes Status: Acute Priority: High Code(s): R19.5 - OTHER FECAL ABNORMALITIES SNOMED Code(s): 06466034 (3) Pancreatic cancer Current Visit: Yes Status: Chronic Priority: High Code(s): C25.9 - MALIGNANT NEOPLASM OF PANCREAS, UNSPECIFIED SNOMED Code(s): 293778618 Plan: Anemia, likely acute blood loss -S/P 1 unit PRBCs with appropirate increase in Hgb. Transfuse for Hgb <7 -Iron deficiency. Parenteral iron ordered. -Based on pt previous CT scans from August, concern that pancreatic malignancy has possibly eroded into stomach causing bleeding. CT AP ordered -Surgery consulted for EGD Pancreatic adenocarcinoma -Pt had made the decision a long time ago that he was not going to do any further chemo treatments and was going to live his life out to the best of his ability. -Pending results of current work up. Maybe radiation could palliate symptoms. Will let pt will make further decisions about how he would like to proceed with his care once he has some more info attests: I have seen and examined pt, performed H&P, developed impression and plan of care. Discussed with dictator. Agree with documentation, dictated as a scribe
[2022-12-28] MEDS: SODIUM CHLORIDE 0.9% 1,000 ML IV SCH ×3 (00:12→20:15)
[2022-12-28] MEDS: LIPASE 20,000/PROTEASE 63,000/AMYLASE 84,000 PO SCH ×3 (08:43→18:09)
[2022-12-28] MEDS: PANTOPRAZOLE 40 MG/10 ML VIAL IVP SCH ×2 (08:52→20:11)
[2022-12-28] MEDS: SODIUM FERRIC GLUCONAT-SUCROSE 125 MG in SODIUM CHLORIDE 0.9% 100 ML IVPB SCH (08:52)
[2022-12-28] MEDS: METOPROLOL TARTRATE 25 MG TAB PO SCH (08:52)
[2022-12-28 09:00] LABS: HCT 22.9 % (39.6-50.0); HGB 7.1 d/dL (13.0-17.0); MCH 25.5 pg (27.0-32.0); MCV 82.4 FL (80.0-97.0); Mean Platelet Volume 10.4 FL (9.5-12.2); NRBC Per 100 WBC 0.07 X 10*3/uL (0.00-0.01); Platelet Count 431 X 10*3/uL (140-440); RBC 2.78 X 10*6/uL (4.40-5.60); RDW 17.2 % (11.5-14.5); WBC 14.15 X 10*3/uL (4.50-10.00)
[2022-12-28 09:10] LABS: ALT 34 U/L (10-49); AST 49 U/L (14-35); Albumin/Globulin Ratio 1.25 Ratio (1.60-3.17); Alkaline Phosphatase 181 U/L (41-126); Calcium 8.4 mg/dL (8.7-10.3); Carbon Dioxide 26.7 mmol/L (21.6-31.8); Chloride 101 mmol/L (96-109); Globulin 2.4 d/dL (1.6-3.3); Glucose 107 mg/dL (70-110); Potassium 4.4 mmol/L (3.5-5.5); Sodium 134 mmol/L (135-145); Total Bilirubin 1.3 mg/dL (0.3-1.2); Total Protein 5.4 d/dL (6.2-8.2)
[2022-12-28] MEDS ORDERED: IV FLUID CONTINUATION 1,000 ML IV ONE (14:04)
--- NOTE | 2022-12-28 15:06 | P.PN ---
Subjective Progress Note Date: 12/28/22 Principal diagnosis: anemia At today's visit patient is resting comfortably in bed. Patient reports that he is feeling well. Patient denies abdominal pain. Patient was scheduled to undergo EGD yesterday but was held due to hyponatremia. Sodium 134 today. Hemoglobin 7.1. S/P1 unit PRBCs. Continues on IV iron Objective - Vital Signs Vital signs: Vital Signs Temp 97.8 F 12/28/22 12:15 Pulse 71 12/28/22 12:15 Resp 20 12/28/22 12:15 BP 145/88 12/28/22 12:15 Pulse Ox 95 12/28/22 12:15 FiO2 Intake & Output 12/27/22 12/28/22 12/28/22 18:59 06:59 18:59 Intake Total 1520 590 300 Balance 1520 590 300 Intake: IV 300 Intake, IV Titration 900 Amount Sodium Chloride 0.9% 1, 800 000 ml @ 100 mls/hr IV . Q10H DIANELYS Rx#:[id number] Sodium Ferric Gluconat- 100 Sucrose 125 mg In Sodium Chloride 0.9% 100 ml @ 100 mls/hr IVPB DAILY DIANELYS Rx#:[id number] Oral 590 Blood Product 620 Rc As-1 Unit 310 [id number] Other: Voiding Method Toilet Toilet Urinal Urinal # Voids 3 - Constitutional General appearance: Present: average body habitus, no acute distress - EENT Eyes: Present: EOMI ENT: Present: hearing grossly normal - Respiratory Details: breathing even and unlabored - Cardiovascular Details: skin warm and dry - Gastrointestinal General gastrointestinal: Absent: tenderness - Integumentary Integumentary: Absent: cyanotic - Musculoskeletal Musculoskeletal: Present: strength equal bilaterally - Psychiatric Psychiatric: Present: A&O x's 3, appropriate affect, intact judgment & insight - Labs CBC & Chem 7: 12/28/22 06:03 12/28/22 06:03 Labs: Abnormal Lab Results - Last 24 Hours (Table) 12/26/22 12/27/22 12/28/22 Range/Units 13:19 18:20 06:03 WBC 12.6 H 14.15 H (3.8-10.6) k/uL RBC 3.03 L 2.78 L (4.30-5.90) m/uL Hgb 8.1 L 7.1 L (13.0-17.5) gm/dL Hct 25.3 L 22.9 L (39.0-53.0) % MCH 25.5 L (27.0-32.0) pg MCHC 31.0 L (32.0-37.0) d/dL RDW 17.0 H 17.2 H (11.5-15.5) % NRBC/100 WBC Diff 0.07 H (0.00-0.01) X 10*3/uL Sodium (135-145) mmol/L Calcium (8.7-10.3) mg/dL Total Bilirubin (0.3-1.2) mg/dL AST (14-35) U/L Alkaline Phosphatase (41-126) U/L Total Protein (6.2-8.2) d/dL Albumin (3.8-4.9) d/dL Albumin/Globulin Ratio (1.60-3.17) Ratio Crossmatch See Detail 12/28/22 Range/Units 06:03 WBC (3.8-10.6) k/uL RBC (4.30-5.90) m/uL Hgb (13.0-17.5) gm/dL Hct (39.0-53.0) % MCH (27.0-32.0) pg MCHC (32.0-37.0) d/dL RDW (11.5-15.5) % NRBC/100 WBC Diff (0.00-0.01) X 10*3/uL Sodium 134 L (135-145) mmol/L Calcium 8.4 L (8.7-10.3) mg/dL Total Bilirubin 1.3 H (0.3-1.2) mg/dL AST 49 H (14-35) U/L Alkaline Phosphatase 181 H (41-126) U/L Total Protein 5.4 L (6.2-8.2) d/dL Albumin 3.0 L (3.8-4.9) d/dL Albumin/Globulin Ratio 1.25 L (1.60-3.17) Ratio Crossmatch Assessment and Plan (1) Anemia Current Visit: Yes Status: Acute Priority: High Code(s): D64.9 - ANEMIA, UNSPECIFIED SNOMED Code(s): 986876943 (2) Pancreatic cancer Current Visit: Yes Status: Chronic Priority: High Code(s): C25.9 - MALIGNANT NEOPLASM OF PANCREAS, UNSPECIFIED SNOMED Code(s): 463290308 Plan: Anemia, likely acute blood loss -S/P 1 unit PRBCs. Hgb 7.1 today. Transfuse for Hgb <7 -Iron deficiency. Parenteral iron ordered. -Based on pt previous CT scans from August, concern that pancreatic malignancy has possibly eroded into stomach causing bleeding. Repeat CT AP revealed redemonst ration of pancreatic tail mass invading the greater curvature of the stomach. New innumerable hepatic lesions identified. Small volume ascites. Probable portal vein thrombosis. -Surgery consulted for EGD. Was postponed due to hyponatremia, rescheduled for today Pancreatic adenocarcinoma -Pt had made the decision a long time ago that he was not going to do any further chemo treatments and was going to live his life out to the best of his ability. -Pending results of current work up. May consider palliative radiation. Will let pt make further decisions about how he would like to proceed with his care once he has some more info
[2022-12-28 17:58] LABS: HCT 23.9 % (39.6-50.0); HGB 7.5 d/dL (13.0-17.0); MCH 25.6 pg (27.0-32.0); MCHC 31.4 d/dL (32.0-37.0); MCV 81.6 FL (80.0-97.0); Mean Platelet Volume 10.6 FL (9.5-12.2); NRBC Per 100 WBC 0.08 X 10*3/uL (0.00-0.01); Platelet Count 479 X 10*3/uL (140-440); RBC 2.93 X 10*6/uL (4.40-5.60); RDW 17.3 % (11.5-14.5); WBC 14.22 X 10*3/uL (4.50-10.00)
[2022-12-28] MEDS: SUCRALFATE 1 GM TAB PO SCH (18:09)
--- NOTE | 2022-12-28 18:19 | P.PCN ---
Date of Procedure: 12/28/22 Description of Procedure: PREOPERATIVE DIAGNOSIS: Acute gastrointestinal bleeding Positive stool occult blood Status post blood transfusions History of Whipple for malignant neoplasm, pancreatic cancer History of prostate cancer Acute blood loss anemia POSTOPERATIVE DIAGNOSIS: Large gastric bleeding ulcer Jejunal diverticulum Cota's esophagus Diaphragmatic hiatal hernia OPERATION: Esophagogastroduodenoscopy SURGEON: Selena Navarro MD ANESTHESIA: MAC. INDICATIONS: The patient is a 77-year-old male who presents with resisting history pancreatic cancer, acute blood loss anemia and gastrointestinal bleeding. Benefits and risks of the procedure were described. Informed consent was obtained. DESCRIPTION: The patient was brought into the endoscopy suite and laid in the left lateral decubitus position. An Olympus gastroscope was passed along the posterior oropharynx down to the distal esophagus where the squamocolumnar junction was encountered at 34 cm from the incisors to 40 cm from Cota's esophagus. The stomach was entered and no bile reflux was found. Easily friable bleeding ulcer possible fistulous track at gastric cardia identified. Additional findings are listed below. The jejunum from Whipple access with jejunal diverticulum without bleeding. Retroflexion of the scope confirmed Hill grade 4 lower esophageal valve. The squamocolumnar junction demonstrated LA grade D erosive esophagitis. The stomach was desufflated. The patient tolerated the procedure well. FINDINGS: Squamocolumnar junction 34 cm from the incisors. Diaphragmatic hiatus at 40 cm. 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 LA grade D erosive esophagitis. Gastrojejunostomy reconstruction with jejunal diverticulum Actively bleeding gastric ulcer 1 cm , and gastric cardia easily friable tissue with possible fistulous tract RECOMMENDATIONS: 1. Empiric treatment with Protonix 40 mg twice a day for bleeding gastric ulcer 2. Carafate 1 g 3 times daily
[2022-12-28 18:36] LABS: Anisocytosis Slight; HCT 25.2 % (39.0-53.0); HGB 7.9 gm/dL (13.0-17.5); Hypochromasia Marked; MCH 26.4 pg (25.0-35.0); MCHC 31.5 g/dL (31.0-37.0); MCV 83.7 fL (80.0-100.0); Mean Platelet Volume 8.2; Platelet Count 478 k/uL (150-450); Poikilocytosis Slight; RBC 3.01 m/uL (4.30-5.90); RDW 17.3 % (11.5-15.5); WBC 12.4 k/uL (3.8-10.6)
--- NOTE | 2022-12-28 18:43 | P.PN ---
Subjective Progress Note Date: 12/28/22 Hospital course: Patient is a very pleasant 77-year-old male with history of pancreatic cancer status post surgery with new worsening findings, prostate cancer status post prostatectomy, and hypertension. He presented to the hospital on 12/26/22 with a chief complaint of exertional dyspnea, fatigue and generalized weakness. He claims that his symptoms has been going on for almost 2 months and progressivley worsening. He went to his PCP for routine blood work, and was found to be anemic and was subsequently asked to come to emergency for further evaluation. Vital signs upon arrival blood pressure 111/74, heart rate 80, respiratory rate 18, temp 98.1F, SpO2 of 90% on room air. Labs completed and reviewed. CBC showing leukocytosis with WBC count of 14.0, normocytic anemia with hemoglobin of 7.5, and thrombocytosis with platelet count of 521. BMP revealing hypernatremia with sodium of 129, hypochloremia with chloride of 95, hypocarbia with bicarb of 21, slightly elevated anion gap 13, and prerenal azotemia with BUN of 21. Liver profile showing elevated alkaline phosphatase of 208. LDH 278. Iron profile showing iron of 15, TIBC 235, and percent saturation 6.38, and transferrin 167.0. Reticulocyte count was 7.8 and haptoglobin 325. EKG was completed showing normal sinus rhythm at 70 bpm with no noted T wave or ST abnormality showing no signs of acute ischemia upon personal review and interpretation. CT abdomen and pelvis revealing redemonstration of pancreatic tail mass invading into the greater curvature of the stomach with new innumerable hepatic lesions consistent with metastasis, small volume ascites, and probable portal vein thrombosis. Physical exam: Patient was seen and fully evaluated at bedside this morning. Patient was resting in bed awaiting to be taken down for EGD. Currently, patient denies having any complaints or pain at this time. Vital signs reviewed and stable. General: Nontoxic, no distress and appears stated age. Derm: Skin warm and dry, normal coloration for ethnicity. Head: Atraumatic, normocephalic and symmetric. Eyes: EOMs intact, no lid lag, and anicteric sclera Mouth: no lip lesions, mucus membranes moist Cardiovascular: regular rate and rhythm with normal S1S2, no murmur, positive posterior tibial pulses bilaterally, and cap refill < 2 seconds. Lungs: Respirations even, regular, and unlabored on room air. Lungs CTA bilaterally, no rhonchi, no rales, no wheezing, and no accessory muscle usage. Abdominal: soft, nontender to palpation, no guarding, no appreciable organomegaly Ext: ROM intact. No gross muscle atrophy, no edema, no contractures Neuro: Speech clear, face symmetrical and CN II-XII grossly intact with no noted focal neuro deficits Psych: Alert and oriented to person, place, time, and situation. Appropriate and pleasant affect. Assessment and Plan of Care: Symptomatic normocytic anemia Leukocytosis and thrombocytosis History of pancreatic cancer, with worsening mass size Hyponatremia, likely hypovolemic Prerenal azotemia -Morning labs reviewed. CBC showing leukocytosis with WBC count of 15.36 and acute on chronic anemia with hemoglobin of 6.7 and persistent thrombocytosis with platelet count of 463. -Reviewed CT report, CT abdomen and pelvis revealing redemonstration of pancreatic tail mass invading into the greater curvature of the stomach with new innumerable hepatic lesions consistent with metastasis, small volume ascites, and probable portal vein thrombosis. -Portal vein thrombosis, Dr. Ramires is aware and holding off at this time per Hem/Onc [employer] due to concerns of active bleeding. -General surgery following, taking patient for EGD this afternoon. -Morning hemoglobin 7.1, discussed with general surgery stated no need for transfusion prior to EGD. Order placed for repeat CBCs Q 6 hours and we will continue to transfuse as needed for hemoglobin less than 7. -Iron profile showing iron of 15, TIBC 235, and percent saturation 6.38, and transferrin 167.0. Reticulocyte count was 7.8 and haptoglobin 325. -Patient started on IV iron transfusions with Ferrlecit currently on day 2 of 3 -Hematology/oncology following and discussed plan of care with oncology [employer] -Continue to Hold aspirin for now -Continue with gentle IV fluid hydration with 0.9% normal saline at 100 mLs per hour. -Repeat CBC and CMP continue to monitor closely. Hypertension -Vital signs currently stable with current medication regimen. Patient to continue metoprolol 25 mg daily. CODE STATUS: Full code DVT prophylaxis: SCDs Anticipated discharge date: Clinical course to determine Anticipated discharge place: Clinical course to determine Patient was seen independently by Nurse Pracitioner. This document was prepared using [employer] dictation software. Please allow for errors in neon sign erector, while rare they do occur. Frantz Ford NP rendered care for this patient independently, reviewed the findings and plan as documented in the note above. I did not physically speak with or examine the patient on this date. Objective - Vital Signs Vital signs: Vital Signs Temp 99.0 F 12/28/22 06:35 Pulse 85 12/28/22 06:35 Resp 20 12/28/22 06:35 BP 140/82 12/28/22 06:35 Pulse Ox 92 L 12/28/22 06:35 FiO2 Intake & Output 12/27/22 12/28/22 12/28/22 18:59 06:59 18:59 Intake Total 1520 590 Balance 1520 590 Intake: Intake, IV Titration 900 Amount Sodium Chloride 0.9% 1, 800 000 ml @ 100 mls/hr IV . Q10H DIANELYS Rx#:[id number] Sodium Ferric Gluconat- 100 Sucrose 125 mg In Sodium Chloride 0.9% 100 ml @ 100 mls/hr IVPB DAILY DIANELYS Rx#:[id number] Oral 590 Blood Product 620 Rc As-1 Unit 310 [id number] Other: Voiding Method Toilet Urinal # Voids 3 - Labs CBC & Chem 7: 12/29/22 18:31 12/28/22 06:03 Labs: Abnormal Lab Results - Last 24 Hours (Table) 12/26/22 12/26/22 12/27/22 Range/Units 13:19 15:11 06:14 WBC 15.36 H (4.50-10.00) X 10*3/uL RBC 2.65 L (4.40-5.60) X 10*6/uL Hgb 6.7 H* (13.0-17.0) d/dL Hct 22.2 L (39.6-50.0) % MCH 25.3 L (27.0-32.0) pg MCHC 30.2 L (32.0-37.0) d/dL RDW 17.2 H (11.5-14.5) % Plt Count 463 H (140-440) X 10*3/uL Neutrophils # 11.06 H (1.80-7.70) X 10*3/uL Monocytes # 1.78 H (0.20-1.00) X 10*3/uL Basophils # 0.11 H (0.00-0.10) X 10*3/uL NRBC/100 WBC Diff 0.03 H (0.00-0.01) X 10*3/uL Sodium (135-145) mmol/L Carbon Dioxide (21.6-31.8) mmol/L Anion Gap (4.00-12.00) mmol/L Glucose (70-110) mg/dL Calcium (8.7-10.3) mg/dL Total Bilirubin (0.3-1.2) mg/dL AST (14-35) U/L Alkaline Phosphatase (41-126) U/L Total Protein (6.2-8.2) d/dL Albumin (3.8-4.9) d/dL Albumin/Globulin Ratio (1.60-3.17) Ratio RBC Folate 1,250 H (280 - 791) ng/mL Crossmatch See Detail 12/27/22 12/27/22 12/28/22 Range/Units 06:14 18:20 06:03 WBC 12.6 H 14.15 H (4.50-10.00) X 10*3/uL RBC 3.03 L 2.78 L (4.40-5.60) X 10*6/uL Hgb 8.1 L 7.1 L (13.0-17.0) d/dL Hct 25.3 L 22.9 L (39.6-50.0) % MCH 25.5 L (27.0-32.0) pg MCHC 31.0 L (32.0-37.0) d/dL RDW 17.0 H 17.2 H (11.5-14.5) % Plt Count (140-440) X 10*3/uL Neutrophils # (1.80-7.70) X 10*3/uL Monocytes # (0.20-1.00) X 10*3/uL Basophils # (0.00-0.10) X 10*3/uL NRBC/100 WBC Diff 0.07 H (0.00-0.01) X 10*3/uL Sodium 132 L (135-145) mmol/L Carbon Dioxide 20.5 L (21.6-31.8) mmol/L Anion Gap 14.50 H (4.00-12.00) mmol/L Glucose 121 H (70-110) mg/dL Calcium (8.7-10.3) mg/dL Total Bilirubin (0.3-1.2) mg/dL AST (14-35) U/L Alkaline Phosphatase (41-126) U/L Total Protein (6.2-8.2) d/dL Albumin (3.8-4.9) d/dL Albumin/Globulin Ratio (1.60-3.17) Ratio RBC Folate (280 - 791) ng/mL Crossmatch 12/28/22 Range/Units 06:03 WBC (4.50-10.00) X 10*3/uL RBC (4.40-5.60) X 10*6/uL Hgb (13.0-17.0) d/dL Hct (39.6-50.0) % MCH (27.0-32.0) pg MCHC (32.0-37.0) d/dL RDW (11.5-14.5) % Plt Count (140-440) X 10*3/uL Neutrophils # (1.80-7.70) X 10*3/uL Monocytes # (0.20-1.00) X 10*3/uL Basophils # (0.00-0.10) X 10*3/uL NRBC/100 WBC Diff (0.00-0.01) X 10*3/uL Sodium 134 L (135-145) mmol/L Carbon Dioxide (21.6-31.8) mmol/L Anion Gap (4.00-12.00) mmol/L Glucose (70-110) mg/dL Calcium 8.4 L (8.7-10.3) mg/dL Total Bilirubin 1.3 H (0.3-1.2) mg/dL AST 49 H (14-35) U/L Alkaline Phosphatase 181 H (41-126) U/L Total Protein 5.4 L (6.2-8.2) d/dL Albumin 3.0 L (3.8-4.9) d/dL Albumin/Globulin Ratio 1.25 L (1.60-3.17) Ratio RBC Folate (280 - 791) ng/mL Crossmatch
[2022-12-28] MEDS: CHOLECALCIFEROL 125 MCG (5000 IU) TABLET PO SCH (20:11)
[2022-12-29 01:34] LABS: Anisocytosis Slight; HCT 23.6 % (39.0-53.0); HGB 7.2 gm/dL (13.0-17.5); Hypochromasia Marked; MCH 25.8 pg (25.0-35.0); MCHC 30.7 g/dL (31.0-37.0); MCV 83.8 fL (80.0-100.0); Mean Platelet Volume 8.3; Platelet Count 441 k/uL (150-450); Poikilocytosis Slight; RBC 2.81 m/uL (4.30-5.90); RDW 17.3 % (11.5-15.5); WBC 12.3 k/uL (3.8-10.6)
[2022-12-29] MEDS: SODIUM CHLORIDE 0.9% 1,000 ML IV SCH ×3 (02:56→20:23)
[2022-12-29] MEDS: SODIUM FERRIC GLUCONAT-SUCROSE 125 MG in SODIUM CHLORIDE 0.9% 100 ML IVPB SCH (09:09)
[2022-12-29] MEDS: PANTOPRAZOLE 40 MG/10 ML VIAL IVP SCH ×2 (09:10→20:18)
[2022-12-29] MEDS: SUCRALFATE 1 GM TAB PO SCH ×3 (09:10→17:56)
[2022-12-29] MEDS: METOPROLOL TARTRATE 25 MG TAB PO SCH (09:10)
[2022-12-29] MEDS: LIPASE 20,000/PROTEASE 63,000/AMYLASE 84,000 PO SCH ×3 (09:10→17:56)
[2022-12-29 10:05] LABS: HCT 26.2 % (39.6-50.0); MCH 25.4 pg (27.0-32.0); MCHC 30.5 d/dL (32.0-37.0); MCV 83.2 FL (80.0-97.0); Mean Platelet Volume 10.6 FL (9.5-12.2); NRBC Per 100 WBC 0.09 X 10*3/uL (0.00-0.01); Platelet Count 504 X 10*3/uL (140-440); RBC 3.15 X 10*6/uL (4.40-5.60); RDW 17.7 % (11.5-14.5); WBC 13.94 X 10*3/uL (4.50-10.00)
--- NOTE | 2022-12-29 12:54 | P.PN ---
Subjective Progress Note Date: 12/29/22 He denies abdominal pain. 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 Okay with liquid diets. High fiber diet contraindicated due to friability of stomach mucosa with recurrent bleed. Continue with Protonix BID and carafate with further management per oncology for possible radiation reviewed. Objective - Vital Signs Vital signs: Vital Signs Temp 98.8 F 12/29/22 07:46 Pulse 75 12/29/22 07:46 Resp 18 12/29/22 07:46 BP 129/68 12/29/22 07:46 Pulse Ox 95 12/29/22 07:46 FiO2 Intake & Output 12/28/22 12/29/22 12/29/22 18:59 06:59 18:59 Intake Total 300 590 Balance 300 590 Intake: IV 300 Oral 590 Other: Voiding Method Toilet Toilet Urinal Urinal # Voids 4 3 # Bowel Movements 0 1 - Labs CBC & Chem 7: 12/29/22 06:41 12/28/22 06:03 Labs: Abnormal Lab Results - Last 24 Hours (Table) 12/28/22 12/28/22 12/29/22 Range/Units 12:00 18:08 00:30 WBC 14.22 H 12.4 H 12.3 H (4.50-10.00) X 10*3/uL RBC 2.93 L 3.01 L 2.81 L (4.40-5.60) X 10*6/uL Hgb 7.5 L 7.9 L 7.2 L (13.0-17.0) d/dL Hct 23.9 L 25.2 L 23.6 L (39.6-50.0) % MCH 25.6 L (27.0-32.0) pg MCHC 31.4 L 30.7 L (32.0-37.0) d/dL RDW 17.3 H 17.3 H 17.3 H (11.5-14.5) % Plt Count 479 H 478 H (140-440) X 10*3/uL NRBC/100 WBC Diff 0.08 H (0.00-0.01) X 10*3/uL 12/29/22 Range/Units 06:41 WBC 13.94 H (4.50-10.00) X 10*3/uL RBC 3.15 L (4.40-5.60) X 10*6/uL Hgb 8.0 L (13.0-17.0) d/dL Hct 26.2 L (39.6-50.0) % MCH 25.4 L (27.0-32.0) pg MCHC 30.5 L (32.0-37.0) d/dL RDW 17.7 H (11.5-14.5) % Plt Count 504 H (140-440) X 10*3/uL NRBC/100 WBC Diff 0.09 H (0.00-0.01) X 10*3/uL
--- NOTE | 2022-12-29 15:33 | P.PN ---
Subjective Progress Note Date: 12/29/22 Hospital course: Patient is a very pleasant 77-year-old male with history of pancreatic cancer status post surgery with new worsening findings, prostate cancer status post prostatectomy, and hypertension. He presented to the hospital on 12/26/22 with a chief complaint of exertional dyspnea, fatigue and generalized weakness. He claims that his symptoms has been going on for almost 2 months and progressivley worsening. He went to his PCP for routine blood work, and was found to be anemic and was subsequently asked to come to emergency for further evaluation. Vital signs upon arrival blood pressure 111/74, heart rate 80, respiratory rate 18, temp 98.1F, SpO2 of 90% on room air. Labs completed and reviewed. CBC showing leukocytosis with WBC count of 14.0, normocytic anemia with hemoglobin of 7.5, and thrombocytosis with platelet count of 521. BMP revealing hypernatremia with sodium of 129, hypochloremia with chloride of 95, hypocarbia with bicarb of 21, slightly elevated anion gap 13, and prerenal azotemia with BUN of 21. Liver profile showing elevated alkaline phosphatase of 208. LDH 278. Iron profile showing iron of 15, TIBC 235, and percent saturation 6.38, and transferrin 167.0. Reticulocyte count was 7.8 and haptoglobin 325. EKG was completed showing normal sinus rhythm at 70 bpm with no noted T wave or ST abnormality showing no signs of acute ischemia upon personal review and interpretation. CT abdomen and pelvis revealing redemonstration of pancreatic tail mass invading into the greater curvature of the stomach with new innumerable hepatic lesions consistent with metastasis, small volume ascites, and probable portal vein thrombosis. Physical exam: Patient was seen and fully evaluated at bedside this morning. Patient reports having a rough night and unable to get to sleep secondary to being awoken multiple times. Patient currently denies having any pain or complaints. Vital signs reviewed and stable. General: Nontoxic, no distress and appears stated age. Derm: Skin warm and dry, normal coloration for ethnicity. Head: Atraumatic, normocephalic and symmetric. Eyes: EOMs intact, no lid lag, and anicteric sclera Mouth: no lip lesions, mucus membranes moist Cardiovascular: regular rate and rhythm with normal S1S2, no murmur, positive posterior tibial pulses bilaterally, and cap refill < 2 seconds. Lungs: Respirations even, regular, and unlabored on room air. Lungs CTA bilaterally, no rhonchi, no rales, no wheezing, and no accessory muscle usage. Abdominal: soft, nontender to palpation, no guarding, no appreciable o rganomegaly Ext: ROM intact. No gross muscle atrophy, no edema, no contractures Neuro: Speech clear, face symmetrical and CN II-XII grossly intact with no noted focal neuro deficits Psych: Alert and oriented to person, place, time, and situation. Appropriate and pleasant affect. Assessment and Plan of Care: Symptomatic normocytic anemia Leukocytosis and thrombocytosis History of pancreatic cancer, with worsening mass size Hyponatremia, likely hypovolemic Prerenal azotemia -Morning labs reviewed. CBC showing leukocytosis with WBC count of 13.94, hemoglobin of 8.0, platelet count of 504. -Reviewed CT report, CT abdomen and pelvis revealing redemonstration of pancreatic tail mass invading into the greater curvature of the stomach with new innumerable hepatic lesions consistent with metastasis, small volume ascites, and probable portal vein thrombosis. -Portal vein thrombosis, Dr. Ramires is aware and holding off at this time per Hem/Onc [employer] SUPER[employer]OR due to concerns of active bleeding. -General surgery following, the patient for EGD on 12/28/22 finding bleeding ulcer placing patient on Carafate and increasing Protonix to 40 mg IVP twice daily. -Morning hemoglobin 7.1, discussed with general surgery stated no need for transfusion prior to EGD. Order placed for repeat CBCs Q 6 hours and we will continue to transfuse as needed for hemoglobin less than 7. -Iron profile showing iron of 15, TIBC 235, and percent saturation 6.38, and transferrin 167.0. Reticulocyte count was 7.8 and haptoglobin 325. -Patient started on IV iron transfusions with Ferrlecit currently on day 3 of 3 -Hematology/oncology following and discussed plan of care with oncology [employer]OR -Continue to Hold aspirin for now -Continue with gentle IV fluid hydration with 0.9% normal saline at 100 mLs per hour. -Repeat CBC and CMP continue to monitor closely. Hypertension -Vital signs currently stable with current medication regimen. Patient to continue metoprolol 25 mg daily. CODE STATUS: Full code DVT prophylaxis: SCDs Anticipated discharge date: Clinical course to determine Anticipated discharge place: Clinical course to determine Patient was seen independently by Nurse Pracitioner. This document was prepared using [employer] dictation software. Please allow for errors in political science professor, while rare they do occur. Objective - Vital Signs Vital signs: Vital Signs Temp 98.8 F 12/29/22 07:46 Pulse 75 12/29/22 07:46 Resp 18 12/29/22 07:46 BP 129/68 12/29/22 07:46 Pulse Ox 95 12/29/22 07:46 FiO2 Intake & Output 12/28/22 12/29/22 12/29/22 18:59 06:59 18:59 Intake Total 300 590 Balance 300 590 Intake: IV 300 Oral 590 Other: Voiding Method Toilet Toilet Urinal Urinal # Voids 4 3 # Bowel Movements 0 1 - Labs CBC & Chem 7: 12/29/22 18:31 12/28/22 06:03 Labs: Abnormal Lab Results - Last 24 Hours (Table) 12/28/22 12/28/22 12/28/22 Range/Units 06:03 06:03 12:00 WBC 14.15 H 14.22 H (4.50-10.00) X 10*3/uL RBC 2.78 L 2.93 L (4.40-5.60) X 10*6/uL Hgb 7.1 L 7.5 L (13.0-17.0) d/dL Hct 22.9 L 23.9 L (39.6-50.0) % MCH 25.5 L 25.6 L (27.0-32.0) pg MCHC 31.0 L 31.4 L (32.0-37.0) d/dL RDW 17.2 H 17.3 H (11.5-14.5) % Plt Count 479 H (140-440) X 10*3/uL NRBC/100 WBC Diff 0.07 H 0.08 H (0.00-0.01) X 10*3/uL Sodium 134 L (135-145) mmol/L Calcium 8.4 L (8.7-10.3) mg/dL Total Bilirubin 1.3 H (0.3-1.2) mg/dL AST 49 H (14-35) U/L Alkaline Phosphatase 181 H (41-126) U/L Total Protein 5.4 L (6.2-8.2) d/dL Albumin 3.0 L (3.8-4.9) d/dL Albumin/Globulin Ratio 1.25 L (1.60-3.17) Ratio 12/28/22 12/29/22 Range/Units 18:08 00:30 WBC 12.4 H 12.3 H (4.50-10.00) X 10*3/uL RBC 3.01 L 2.81 L (4.40-5.60) X 10*6/uL Hgb 7.9 L 7.2 L (13.0-17.0) d/dL Hct 25.2 L 23.6 L (39.6-50.0) % MCH (27.0-32.0) pg MCHC 30.7 L (32.0-37.0) d/dL RDW 17.3 H 17.3 H (11.5-14.5) % Plt Count 478 H (140-440) X 10*3/uL NRBC/100 WBC Diff (0.00-0.01) X 10*3/uL Sodium (135-145) mmol/L Calcium (8.7-10.3) mg/dL Total Bilirubin (0.3-1.2) mg/dL AST (14-35) U/L Alkaline Phosphatase (41-126) U/L Total Protein (6.2-8.2) d/dL Albumin (3.8-4.9) d/dL Albumin/Globulin Ratio (1.60-3.17) Ratio
[2022-12-29 19:14] LABS: Anisocytosis Slight; HGB 8.3 gm/dL (13.0-17.5); Hypochromasia Marked; MCHC 31.9 g/dL (31.0-37.0); MCV 84.5 fL (80.0-100.0); Mean Platelet Volume 8.4; Platelet Count 487 k/uL (150-450); Poikilocytosis Slight; RBC 3.08 m/uL (4.30-5.90); RDW 17.4 % (11.5-15.5); WBC 12.6 k/uL (3.8-10.6)
[2022-12-29] MEDS: CHOLECALCIFEROL 125 MCG (5000 IU) TABLET PO SCH (20:18)
[2022-12-30] MEDS: PANTOPRAZOLE 40 MG/10 ML VIAL IVP SCH ×2 (08:24→21:20)
[2022-12-30] MEDS: SUCRALFATE 1 GM TAB PO SCH ×3 (08:24→17:44)
[2022-12-30] MEDS: METOPROLOL TARTRATE 25 MG TAB PO SCH (08:24)
[2022-12-30] MEDS: LIPASE 20,000/PROTEASE 63,000/AMYLASE 84,000 PO SCH ×3 (08:24→17:44)
[2022-12-30 08:48] LABS: Anisocytosis Slight; HGB 7.5 gm/dL (13.0-17.5); Hypochromasia Marked; MCH 26.4 pg (25.0-35.0); MCHC 31.3 g/dL (31.0-37.0); MCV 84.2 fL (80.0-100.0); Mean Platelet Volume 9.2; Platelet Count 469 k/uL (150-450); Poikilocytosis Slight; RBC 2.85 m/uL (4.30-5.90); RDW 17.8 % (11.5-15.5); WBC 12.2 k/uL (3.8-10.6)
--- NOTE | 2022-12-30 10:12 | P.PN ---
Subjective Progress Note Date: 12/30/22 Bowel movement inspected personally by me without blood. No abdominal pain. No nausea or vomiting. Continue full liquid diet. 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 Objective - Vital Signs Vital signs: Vital Signs Temp 98.8 F 12/30/22 07:47 Pulse 77 12/30/22 07:47 Resp 18 12/30/22 07:47 BP 132/68 12/30/22 07:47 Pulse Ox 95 12/30/22 07:47 FiO2 Intake & Output 12/29/22 12/30/22 12/30/22 18:59 06:59 18:59 Intake Total 540 Balance 540 Intake: Oral 540 Other: Voiding Method Toilet Urinal # Voids 4 2 # Bowel Movements 3 1 - Labs CBC & Chem 7: 12/30/22 07:14 12/28/22 06:03 Labs: Abnormal Lab Results - Last 24 Hours (Table) 12/29/22 12/30/22 Range/Units 18:31 07:14 WBC 12.6 H 12.2 H (3.8-10.6) k/uL RBC 3.08 L 2.85 L (4.30-5.90) m/uL Hgb 8.3 L 7.5 L (13.0-17.5) gm/dL Hct 26.0 L 24.0 L (39.0-53.0) % RDW 17.4 H 17.8 H (11.5-15.5) % Plt Count 487 H 469 H (150-450) k/uL
[2022-12-30] MEDS: SODIUM CHLORIDE 0.9% 1,000 ML IV SCH (12:25)
--- NOTE | 2022-12-30 17:56 | P.PN ---
Subjective Progress Note Date: 12/30/22 Hospital course: Patient is a very pleasant 77-year-old male with history of pancreatic cancer status post surgery with new worsening findings, prostate cancer status post prostatectomy, and hypertension. He presented to the hospital on 12/26/22 with a chief complaint of exertional dyspnea, fatigue and generalized weakness. He claims that his symptoms has been going on for almost 2 months and progressivley worsening. He went to his PCP for routine blood work, and was found to be anemic and was subsequently asked to come to emergency for further evaluation. Vital signs upon arrival blood pressure 111/74, heart rate 80, respiratory rate 18, temp 98.1F, SpO2 of 90% on room air. Labs completed and reviewed. CBC showing leukocytosis with WBC count of 14.0, normocytic anemia with hemoglobin of 7.5, and thrombocytosis with platelet count of 521. BMP revealing hypernatremia with sodium of 129, hypochloremia with chloride of 95, hypocarbia with bicarb of 21, slightly elevated anion gap 13, and prerenal azotemia with BUN of 21. Liver profile showing elevated alkaline phosphatase of 208. LDH 278. Iron profile showing iron of 15, TIBC 235, and percent saturation 6.38, and transferrin 167.0. Reticulocyte count was 7.8 and haptoglobin 325. EKG was completed showing normal sinus rhythm at 70 bpm with no noted T wave or ST abnormality showing no signs of acute ischemia upon personal review and interpretation. CT abdomen and pelvis revealing redemonstration of pancreatic tail mass invading into the greater curvature of the stomach with new innumerable hepatic lesions consistent with metastasis, small volume ascites, and probable portal vein thrombosis. Portal vein thrombosis, Dr. Ramires is aware and holding off anticoagulation at this time per Hem/Onc [employer] APPRENTICE due to concerns of active bleeding. 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 Order placed for consult to radiation oncology for evaluation for radiation of malignant fistula. Patient completed a three-day course of IV iron transfusions with Ferrlecit on 12/29/22. Physical exam: Patient was seen and fully evaluated at bedside this morning. He was visiting with family at bedside. Patient currently denies having any complaints at this time. He reports bowel movements no longer dark in color. Vital signs reviewed and stable. General: Nontoxic, no distress and appears stated age. Derm: Skin warm and dry, normal coloration for ethnicity. Head: Atraumatic, normocephalic and symmetric. Eyes: EOMs intact, no lid lag, and anicteric sclera Mouth: no lip lesions, mucus membranes moist Cardiovascular: regular rate and rhythm with normal S1S2, no murmur, positive posterior tibial pulses bilaterally, and cap refill < 2 seconds. Lungs: Respirations even, regular, and unlabored on room air. Lungs CTA bilaterally, no rhonchi, no rales, no wheezing, and no accessory muscle usage. Abdominal: soft, nontender to palpation, no guarding, no appreciable organomegaly Ext: ROM intact. No gross muscle atrophy, no edema, no contractures Neuro: Speech clear, face symmetrical and CN II-XII grossly intact with no noted focal neuro deficits Psych: Alert and oriented to person, place, time, and situation. Appropriate and pleasant affect. 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 -Hematology/oncology is following and Dr. Ramires is aware of portal vein thrombosis and holding off anticoagulation at this time per Hem/Onc [employer] AP[employer]ENTICE due to concerns of active bleeding. 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 -Order placed for consult to radiation oncology for evaluation for radiation of malignant fistula -Hemoglobin has been stable we will change CBC checks to every 12 hours and continue to transfuse as needed for hemoglobin less than 7. -Iron profile showing iron of 15, TIBC 235, and percent saturation 6.38, and transferrin 167.0. Reticulocyte count was 7.8 and haptoglobin 325. -Patient completed IV iron transfusions with 3 doses of Ferrlecit 12/29/22. -Continue to Hold aspirin for now -Repeat CBC and CMP continue to monitor closely. Hypertension -Vital signs currently stable with current medication regimen. Patient to continue metoprolol 25 mg daily. Data reviewed: Vital signs reviewed. Blood pressure 132/68, heart rate 77, respiratory rate 18, temp 98.8F, SpO2 is 95% on room air. Morning labs reviewed. Hemoglobin 7.5, WBC count of 12.2, and platelet count of 469. CODE STATUS: Full code DVT prophylaxis: SCDs Anticipated discharge date: Clinical course to determine Anticipated discharge place: Clinical course to determine Patient was seen independently by Nurse Pracitioner. This document was prepared using [employer] dictation software. Please allow for errors in ambulatory care coordinator, while rare they do occur. Objective - Vital Signs Vital signs: Vital Signs Temp 98.8 F 12/30/22 07:47 Pulse 77 12/30/22 07:47 Resp 18 12/30/22 07:47 BP 132/68 12/30/22 07:47 Pulse Ox 95 12/30/22 07:47 FiO2 Intake & Output 12/29/22 12/30/22 12/30/22 18:59 06:59 18:59 Intake Total 540 Balance 540 Intake: Oral 540 Other: Voiding Method Toilet Urinal # Voids 4 2 # Bowel Movements 3 1 - Labs CBC & Chem 7: 12/30/22 07:14 12/28/22 06:03 Labs: Abnormal Lab Results - Last 24 Hours (Table) 12/29/22 12/29/22 12/30/22 Range/Units 06:41 18:31 07:14 WBC 13.94 H 12.6 H 12.2 H (4.50-10.00) X 10*3/uL RBC 3.15 L 3.08 L 2.85 L (4.40-5.60) X 10*6/uL Hgb 8.0 L 8.3 L 7.5 L (13.0-17.0) d/dL Hct 26.2 L 26.0 L 24.0 L (39.6-50.0) % MCH 25.4 L (27.0-32.0) pg MCHC 30.5 L (32.0-37.0) d/dL RDW 17.7 H 17.4 H 17.8 H (11.5-14.5) % Plt Count 504 H 487 H 469 H (140-440) X 10*3/uL NRBC/100 WBC Diff 0.09 H (0.00-0.01) X 10*3/uL
[2022-12-30 19:32] LABS: Anisocytosis Slight; HCT 27.4 % (39.0-53.0); HGB 8.8 gm/dL (13.0-17.5); Hypochromasia Marked; MCH 27.2 pg (25.0-35.0); MCHC 32.3 g/dL (31.0-37.0); MCV 84.3 fL (80.0-100.0); Mean Platelet Volume 8.4; Platelet Count 496 k/uL (150-450); Poikilocytosis Slight; RBC 3.25 m/uL (4.30-5.90); RDW 18.1 % (11.5-15.5); WBC 13.7 k/uL (3.8-10.6)
[2022-12-30] MEDS: CHOLECALCIFEROL 125 MCG (5000 IU) TABLET PO SCH (21:20)
[2022-12-31] MEDS: PANTOPRAZOLE 40 MG/10 ML VIAL IVP SCH ×2 (08:30→20:21)
[2022-12-31] MEDS: LIPASE 20,000/PROTEASE 63,000/AMYLASE 84,000 PO SCH ×3 (08:30→17:30)
[2022-12-31] MEDS: METOPROLOL TARTRATE 25 MG TAB PO SCH (08:30)
[2022-12-31] MEDS: SUCRALFATE 1 GM TAB PO SCH ×3 (08:30→17:30)
[2022-12-31 09:03] LABS: BUN/Creat Ratio 11.43 Ratio (12.00-20.00); Glucose 116 mg/dL (70-110)
[2022-12-31 09:04] LABS: ALT 36 U/L (10-49); AST 57 U/L (14-35); Albumin 2.9 d/dL (3.8-4.9); Albumin/Globulin Ratio 1.21 Ratio (1.60-3.17); Alkaline Phosphatase 180 U/L (41-126); Calcium 8.4 mg/dL (8.7-10.3); Carbon Dioxide 19.2 mmol/L (21.6-31.8); Chloride 102 mmol/L (96-109); Globulin 2.4 d/dL (1.6-3.3); Magnesium 1.8 mg/dL (1.5-2.4); Potassium 3.8 mmol/L (3.5-5.5); Sodium 132 mmol/L (135-145); Total Bilirubin 1.1 mg/dL (0.3-1.2); Total Protein 5.3 d/dL (6.2-8.2)
[2022-12-31 09:20] LABS: HCT 24.1 % (39.6-50.0); HGB 7.5 d/dL (13.0-17.0); MCHC 31.1 d/dL (32.0-37.0); MCV 83.4 FL (80.0-97.0); Mean Platelet Volume 10.6 FL (9.5-12.2); NRBC Per 100 WBC 0.03 X 10*3/uL (0.00-0.01); Platelet Count 415 X 10*3/uL (140-440); RBC 2.89 X 10*6/uL (4.40-5.60); RDW 18.9 % (11.5-14.5); WBC 14.06 X 10*3/uL (4.50-10.00)
--- NOTE | 2022-12-31 13:59 | P.PN ---
Subjective Progress Note Date: 12/31/22 CHIEF COMPLAINT: Anemia HISTORY OF PRESENT ILLNESS: Patient does complain of some abdominal cramping after eating. He did have an episode of vomiting after meds earlier this morning. Patient reports now he feels better. He reports no blood in his stools or black stools. He is status post EGD on 12/28/2022 had shown a large gastric bleeding ulcer, Jejunal diverticulum, Cota's esophagus and diaphr agmatic hiatal hernia. Active bleeding gastric ulcer and gastric cardia easily friable tissue with possible fistulous tract. Hemoglobin did drop from 8.8-7.5 PHYSICAL EXAM: VITAL SIGNS: Reviewed GENERAL: Well-developed in no acute distress. HEENT: No sclera icterus. Extraocular movements grossly intact. Moist buccal mucosa. Head is atraumatic, normocephalic. Hears conversational speech. No nasal drainage. NECK: Supple without lymphadenopathy. CHEST: Non-labored respirations and equal bilateral excursions. CARDIOVASCULAR: Palpable 2+ radial pulses. ABDOMEN: Soft. Nondistended. Nontender. MUSCULOSKELETAL: No clubbing or cyanosis. NEUROLOGIC: No focal or lateralizing signs. Cranial nerves II through XII grossly intact. PSYCH: awake and alert SKIN: Well perfused. Good skin turgor. 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 Signing provider agrees with the documented findings, assessment, and plan of care. Objective - Vital Signs Vital signs: Vital Signs Temp 97.9 F 12/31/22 07:43 Pulse 71 12/31/22 07:43 Resp 18 12/31/22 07:43 BP 116/66 12/31/22 07:43 Pulse Ox 95 12/31/22 07:43 FiO2 Intake & Output 12/30/22 12/31/22 12/31/22 18:59 06:59 18:59 Intake Total 480 Balance 480 Intake: Oral 480 Other: Voiding Method Toilet Urinal # Voids 2 1 1 # Bowel Movements 1 1 - Labs CBC & Chem 7: 12/31/22 06:06 12/31/22 06:06 Labs: Abnormal Lab Results - Last 24 Hours (Table) 12/30/22 12/31/22 12/31/22 Range/Units 19:02 06:06 06:06 WBC 13.7 H 14.06 H (3.8-10.6) k/uL RBC 3.25 L 2.89 L (4.30-5.90) m/uL Hgb 8.8 L 7.5 L (13.0-17.5) gm/dL Hct 27.4 L 24.1 L (39.0-53.0) % MCH 26.0 L (27.0-32.0) pg MCHC 31.1 L (32.0-37.0) d/dL RDW 18.1 H 18.9 H (11.5-15.5) % Plt Count 496 H (150-450) k/uL NRBC/100 WBC Diff 0.03 H (0.00-0.01) X 10*3/uL Sodium 132 L (135-145) mmol/L Carbon Dioxide 19.2 L (21.6-31.8) mmol/L BUN 8.0 L (9.0-27.0) mg/dL BUN/Creatinine Ratio 11.43 L (12.00-20.00) Ratio Glucose 116 H (70-110) mg/dL Calcium 8.4 L (8.7-10.3) mg/dL AST 57 H (14-35) U/L Alkaline Phosphatase 180 H (41-126) U/L Total Protein 5.3 L (6.2-8.2) d/dL Albumin 2.9 L (3.8-4.9) d/dL Albumin/Globulin Ratio 1.21 L (1.60-3.17) Ratio
--- NOTE | 2022-12-31 15:20 | P.PN ---
Subjective Progress Note Date: 12/31/22 Hospital course: Patient is a very pleasant 77-year-old male with history of pancreatic cancer status post surgery with new worsening findings, prostate cancer status post prostatectomy, and hypertension. He presented to the hospital on 12/26/22 with a chief complaint of exertional dyspnea, fatigue and generalized weakness. He claims that his symptoms has been going on for almost 2 months and progressivley worsening. He went to his PCP for routine blood work, and was found to be anemic and was subsequently asked to come to emergency for further evaluation. Vital signs upon arrival blood pressure 111/74, heart rate 80, respiratory rate 18, temp 98.1F, SpO2 of 90% on room air. Labs completed and reviewed. CBC showing leukocytosis with WBC count of 14.0, normocytic anemia with hemoglobin of 7.5, and thrombocytosis with platelet count of 521. BMP revealing hypernatremia with sodium of 129, hypochloremia with chloride of 95, hypocarbia with bicarb of 21, slightly elevated anion gap 13, and prerenal azotemia with BUN of 21. Liver profile showing elevated alkaline phosphatase of 208. LDH 278. Iron profile showing iron of 15, TIBC 235, and percent saturation 6.38, and transferrin 167.0. Reticulocyte count was 7.8 and haptoglobin 325. EKG was completed showing normal sinus rhythm at 70 bpm with no noted T wave or ST abnormality showing no signs of acute ischemia upon personal review and interpretation. CT abdomen and pelvis revealing redemonstration of pancreatic tail mass invading into the greater curvature of the stomach with new innumerable hepatic lesions consistent with metastasis, small volume ascites, and probable portal vein thrombosis. Portal vein thrombosis, Dr. Ramires is aware and holding off anticoagulation at this time per Hem/Onc [employer] due to concerns of active bleeding. 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 Order placed for consult to radiation oncology for evaluation for radiation of malignant fistula. Patient completed a three-day course of IV iron transfusions with Ferrlecit on 12/29/22. Physical exam: Patient was seen and fully evaluated at bedside this morning. Patient tearful this morning. He reports pain to epigastric and left upper quadrant at this time. Vital signs reviewed and stable. General: Nontoxic, no distress and appears stated age. Derm: Skin warm and dry, normal coloration for ethnicity. Head: Atraumatic, normocephalic and symmetric. Eyes: EOMs intact, no lid lag, and anicteric sclera Mouth: no lip lesions, mucus membranes moist Cardiovascular: regular rate and rhythm with normal S1S2, no murmur, positive posterior tibial pulses bilaterally, and cap refill < 2 seconds. Lungs: Respirations even, regular, and unlabored on room air. Lungs CTA bilaterally, no rhonchi, no rales, no wheezing, and no accessory muscle usage. Abdominal: soft, tenderness upon palpation to epigastri region and left upper quadrant this morningc no guarding, no appreciable organomegaly Ext: ROM intact. No gross muscle atrophy, no edema, no contractures Neuro: Speech clear, face symmetrical and CN II-XII grossly intact with no noted focal neuro deficits Psych: Alert and oriented to person, place, time, and situation. Appropriate and pleasant affect. 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 Ramires is aware of portal vein thrombosis and holding off anticoagulation at this time per Hem/Onc [employer] due to concerns of active bleeding. 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 -GI was consulted to evaluate for possible repeat EGD with clipping/interventions -Consult placed to radiation oncology for evaluation for palliative radiation to malignant fistula -Hemoglobin has been stable at 7.5 we will continue CBC checks to every 12 hours and continue to transfuse as needed for hemoglobin less than 7. -Patient completed IV iron transfusions with 3 doses of Ferrlecit 12/29/22. -Repeat CBC and CMP continue to monitor closely. Hypertension -Vital signs currently stable with current medication regimen. Patient to continue metoprolol 25 mg daily. Data reviewed: Vital signs reviewed. Blood pressure 116/66, heart rate 71, respiratory rate 18, temperature 97.9F, SpO2 of 95% on room air. Morning labs reviewed. Hemoglobin 7.5, WBC count of 14.06, and platelet count of 415. BMP showing mild hyponatremia with sodium 132, bicarb of 19.2, and BUN of 8.0. Liver profile showing elevated AST of 57 and alkaline phosphatase of 180. CODE STATUS: Full code DVT prophylaxis: SCDs Anticipated discharge date: Clinical course to determine Anticipated discharge place: Clinical course to determine Patient was seen independently by Nurse Pracitioner. This document was prepared using [email or web address] dictation software. Please allow for errors in manager er, while rare they do occur. Objective - Vital Signs Vital signs: Vital Signs Temp 97.9 F 12/31/22 07:43 Pulse 71 12/31/22 07:43 Resp 18 12/31/22 07:43 BP 116/66 12/31/22 07:43 Pulse Ox 95 12/31/22 07:43 FiO2 Intake & Output 12/30/22 12/31/22 12/31/22 18:59 06:59 18:59 Intake Total 480 Balance 480 Intake: Oral 480 Other: Voiding Method Toilet Urinal # Voids 2 1 1 # Bowel Movements 1 1 - Labs CBC & Chem 7: 12/31/22 06:06 12/31/22 06:06 Labs: Abnormal Lab Results - Last 24 Hours (Table) 12/30/22 12/31/22 Range/Units 19:02 06:06 WBC 13.7 H (3.8-10.6) k/uL RBC 3.25 L (4.30-5.90) m/uL Hgb 8.8 L (13.0-17.5) gm/dL Hct 27.4 L (39.0-53.0) % RDW 18.1 H (11.5-15.5) % Plt Count 496 H (150-450) k/uL Sodium 132 L (135-145) mmol/L Carbon Dioxide 19.2 L (21.6-31.8) mmol/L BUN 8.0 L (9.0-27.0) mg/dL BUN/Creatinine Ratio 11.43 L (12.00-20.00) Ratio Glucose 116 H (70-110) mg/dL Calcium 8.4 L (8.7-10.3) mg/dL AST 57 H (14-35) U/L Alkaline Phosphatase 180 H (41-126) U/L Total Protein 5.3 L (6.2-8.2) d/dL Albumin 2.9 L (3.8-4.9) d/dL Albumin/Globulin Ratio 1.21 L (1.60-3.17) Ratio
--- NOTE | 2022-12-31 15:28 | P.PN ---
Subjective Progress Note Date: 12/31/22 Principal diagnosis: anemia At today's visit patient is resting comfortably in bed. Patient reports that he is feeling well. Reports mild RUQ discomfort. Denies N/V/D. s abdominal pain. S/P EGD Objective - Vital Signs Vital signs: Vital Signs Temp 97.8 F 12/31/22 12:21 Pulse 69 12/31/22 12:21 Resp 18 12/31/22 12:21 BP 128/75 12/31/22 12:21 Pulse Ox 99 12/31/22 12:21 FiO2 Intake & Output 12/30/22 12/31/22 12/31/22 18:59 06:59 18:59 Intake Total 480 Balance 480 Intake: Oral 480 Other: Voiding Method Toilet Urinal # Voids 2 1 1 # Bowel Movements 1 1 - Constitutional General appearance: Present: average body habitus, no acute distress - EENT Eyes: Present: anicteric sclerae, EOMI ENT: Present: hearing grossly normal - Respiratory Details: Breathing is even and unlabored - Cardiovascular Details: skin warm and dry - Gastrointestinal General gastrointestinal: Present: distended. Absent: tenderness - Integumentary Integumentary: Absent: cyanotic - Neurologic Neurologic Comment(s): grossly intact - Musculoskeletal Musculoskeletal: Present: strength equal bilaterally - Psychiatric Psychiatric: Present: A&O x's 3, appropriate affect, intact judgment & insight - Labs CBC & Chem 7: 12/31/22 06:06 12/31/22 06:06 Labs: Abnormal Lab Results - Last 24 Hours (Table) 12/30/22 12/31/22 12/31/22 Range/Units 19:02 06:06 06:06 WBC 13.7 H 14.06 H (3.8-10.6) k/uL RBC 3.25 L 2.89 L (4.30-5.90) m/uL Hgb 8.8 L 7.5 L (13.0-17.5) gm/dL Hct 27.4 L 24.1 L (39.0-53.0) % MCH 26.0 L (27.0-32.0) pg MCHC 31.1 L (32.0-37.0) d/dL RDW 18.1 H 18.9 H (11.5-15.5) % Plt Count 496 H (150-450) k/uL NRBC/100 WBC Diff 0.03 H (0.00-0.01) X 10*3/uL Sodium 132 L (135-145) mmol/L Carbon Dioxide 19.2 L (21.6-31.8) mmol/L BUN 8.0 L (9.0-27.0) mg/dL BUN/Creatinine Ratio 11.43 L (12.00-20.00) Ratio Glucose 116 H (70-110) mg/dL Calcium 8.4 L (8.7-10.3) mg/dL AST 57 H (14-35) U/L Alkaline Phosphatase 180 H (41-126) U/L Total Protein 5.3 L (6.2-8.2) d/dL Albumin 2.9 L (3.8-4.9) d/dL Albumin/Globulin Ratio 1.21 L (1.60-3.17) Ratio Assessment and Plan (1) Anemia Current Visit: Yes Status: Acute Priority: High Code(s): D64.9 - ANEMIA, UNSPECIFIED SNOMED Code(s): 281360075 (2) Pancreatic cancer Current Visit: Yes Status: Chronic Priority: High Code(s): C25.9 - MALIGNANT NEOPLASM OF PANCREAS, UNSPECIFIED SNOMED Code(s): 956462791 Plan: Anemia, likely acute blood loss -Hgb 7.5 today. S/P 1 unit PRBCs. Transfuse for Hgb <7 -Iron deficiency. Parenteral iron ordered. -Based on pt previous CT scans from August, concern that pancreatic malignancy has possibly eroded into stomach causing bleeding. Repeat CT AP revealed redemonstration of pancreatic tail mass invading the greater curvature of the stomach. New innumerable hepatic lesions identified. Small volume ascites. Probable portal vein thrombosis. -S/p EGD Pancreatic adenocarcinoma -Pt had made the decision a long time ago that he was not going to do any further chemo treatments and was going to live his life out to the best of his ability. -S/p EGD with Dr. Navarro. Dr Ramires spoke with surgeon, bleeding gastric cardia ulceration was noted. No biopsy was performed. Asked surgery to further review CT scans to see if this findings are thought to be malignant. Per conversation it's believed that fistula of the was present from erosion from pancreatic mass. Surgery recommended patient remain on clear liquid diet. GI consult was placed Spoke with patient today regarding EGD findings. He again stated that he is not interested in any systemic treatment. But he is amendable to palliative radiation. Consult was placed to radiation oncology and spoke to Dr. Perez regarding case. Will await his recommendations
--- NOTE | 2022-12-31 16:31 | P.CONS ---
History of Present Illness - Reason for Consult Consult date: 12/31/22 Gastric ulcer Requesting physician: Selena Navarro - Chief Complaint Abnormal labs - History of Present Illness This pleasant 77-year-old male with a history of pancreatic cancer status post Whipple approximately 6 years ago, prostate cancer, hyperlipidemia and hyperte nsion who went to the [place] for regular blood work for his upcoming annual and was called and told to come to the emergency department for low blood count. Patient came to the emergency department on 12/26/2022 with the initial hemoglobin is 7.5 with a drop to 6.7. He had reported that he had dark stools for about 2 weeks prior to coming to the hospital. He denies any history of ulcers, no NSAID use or anticoagulation. He does take 81 mg aspirin daily. Last colonoscopy greater than 10 years ago. He was denying any abdominal pain, nausea or vomiting. He had undergone a CT of the abdomen and pelvis which reports free demonstration of pancreatic tail mass invading into the greater curvature of the stomach. New innumerable hepatic lesions identified consistent with metastasis. Small volume ascites. Probable portal vein thrombosis. Overall findings are consistent with progression of disease. He underwent EGD on 12/28/[address] Navarro with finding of a large bleeding gastric ulcer. Patient received 1 unit of blood during this hospitalization. Hemoglobin has been stable. He did have a slight drop from 8.8-7.5 today. He denies any abdominal pain, no nausea or vomiting. Last bowel movement was yesterday he states his last 2 bowel movements have been a light brown. Patient has been following with Dr. Thayer for his pancreatic cancer. Review of Systems REVIEW OF SYSTEMS: CARDIOPULMONARY: No chest pain or shortness of breath. Gastrointestinal: No abdominal pain.. No nausea or vomiting. No hematemesis, coffee-ground emesis. No rectal bleeding, patient reported black stool for 2 weeks prior to admission. GENITOURINARY: No dysuria or hematuria. MUSCULOSKELETAL: Reports normal range of motion. SKIN: No rashes. No jaundice. ENDOCRINE: No chills, fevers. No excessive weight gain or loss. No polydipsia or polyuria. PSYCHIATRIC: Unremarkable. NEUROLOGY: No change in mental status. Denies dizziness, headache. ENT: Vision unremarkable. CONSTITUTIONAL: No recent weight loss. No fever, chills, night sweats. Past Medical History Past Medical History: Cancer, Diabetes Mellitus, Hyperlipidemia, Hypertension Additional Past Medical History / Comment(s): past prostate CA(sx only),pancreatic CA radiation tx 09/2017, last chemo tx last 06/2020, sinus problems, tremors, diet controlled DM History of Any Multi-Drug Resistant Organisms: None Reported Past Surgical History: Prostate Surgery Additional Past Surgical History / Comment(s): prostatectomy 2009, sigrid cataracts, colonoscopy 1999, hemorrhoidectomy, wipple, L shoulder Past Anesthesia/Blood Transfusion Reactions: Motion Sickness Additional Past Anesthesia/Blood Transfusion Reaction / Comm: clausterphobia. to pt's knowledge never recieved any blood Past Psychological History: No Psychological Hx Reported Additional Psychological History / Comment(s): . Smoking Status: Former smoker Past Alcohol Use History: Rare Additional Past Alcohol Use History / Comment(s): started smoking at age 23(1968) and quit july 2017. a pack would last 3 days. rare use of alcohol. Past Drug Use History: None Reported - Past Family History Mother Family Medical History: CVA/TIA, Hypertension Father Family Medical History: Congestive Heart Failure (CHF), Coronary Artery Disease (CAD), Myocardial Infarction (MT) Medications and Allergies Home Medications Medication Instructions Recorded Confirmed Type Aspirin EC [Ecotrin Low Dose] 81 mg PO HS 08/14/17 12/26/22 History Lipase/Protease/Amylase [Creon Dr 2 cap PO AC-TID 08/14/17 12/26/22 History 36,000 Unit Capsule] Cholecalciferol [Vitamin D3 (125 125 mcg PO HS 05/18/21 12/26/22 History Mcg = 5000 Iu)] Metoprolol Tartrate [Lopressor] 25 mg PO DAILY 12/26/22 12/26/22 History Allergies Allergy/AdvReac Type Severity Reaction Status Date / Time hornet venom Allergy Swelling Verified 12/26/22 14:50 niacin Allergy Unknown Verified 12/26/22 14:50 Physical Exam Vitals: Vital Signs Temp Pulse Resp BP Pulse Ox 12/31/22 07:43 97.9 F 71 18 116/66 95 12/31/22 00:33 98.7 F 76 17 122/67 92 L 12/30/22 20:00 18 12/30/22 19:26 98.8 F 88 18 136/67 96 12/30/22 12:25 98 F 72 18 150/85 97 Intake and Output 12/30/22 12/31/22 12/31/22 22:59 06:59 14:59 Intake Total 480 Balance 480 Intake: Oral 480 Other: Voiding Method Toilet Urinal # Voids 1 1 1 # Bowel Movements 1 General appearance: The patient is alert, oriented, appears in no acute distress. HET: Head is normocephalic and atraumatic. Conjunctiva pink. Sclera anicteric. Neck: Supple without lymphadenopathy. Trachea midline. Heart: Regular. Lungs: Equal expansion, normal respiratory effort. Abdomen: Soft, nontender, nondistended with bowel sounds. No guarding or rigidity. Skin: No rashes. No jaundice. Extremities: Normal skin color and turgor. No pedal edema. Neurological: No focal deficits. Alert and oriented x3. Results CBC & Chem 7: 12/31/22 06:06 12/31/22 06:06 Labs: Abnormal Lab Results - Last 24 Hours (Table) 12/30/22 12/31/22 12/31/22 Range/Units 19:02 06:06 06:06 WBC 13.7 H 14.06 H (3.8-10.6) k/uL RBC 3.25 L 2.89 L (4.30-5.90) m/uL Hgb 8.8 L 7.5 L (13.0-17.5) gm/dL Hct 27.4 L 24.1 L (39.0-53.0) % MCH 26.0 L (27.0-32.0) pg MCHC 31.1 L (32.0-37.0) d/dL RDW 18.1 H 18.9 H (11.5-15.5) % Plt Count 496 H (150-450) k/uL NRBC/100 WBC Diff 0.03 H (0.00-0.01) X 10*3/uL Sodium 132 L (135-145) mmol/L Carbon Dioxide 19.2 L (21.6-31.8) mmol/L BUN 8.0 L (9.0-27.0) mg/dL BUN/Creatinine Ratio 11.43 L (12.00-20.00) Ratio Glucose 116 H (70-110) mg/dL Calcium 8.4 L (8.7-10.3) mg/dL AST 57 H (14-35) U/L Alkaline Phosphatase 180 H (41-126) U/L Total Protein 5.3 L (6.2-8.2) d/dL Albumin 2.9 L (3.8-4.9) d/dL Albumin/Globulin Ratio 1.21 L (1.60-3.17) Ratio Comments: CAT scan abdomen and pelvis: CT of the abdomen and pelvis which reports free demonstration of pancreatic tail mass invading into the greater curvature of the stomach. New innumerable hepatic lesions identified consistent with metastasis. Small volume ascites. Probable portal vein thrombosis. Overall findings are consistent with progression of disease. Assessment and Plan (1) Gastric ulcer Narrative/Plan: 77-year-old male with the diagnosis of pancreatic cancer status post Whipple 5-6 years ago who has followed with Dr. Thayer in the past and was told that the cancer had returned however patient did not want any further chemo. Patient came in with reported low hemoglobin from outpatient labs. He is status post 1 unit of blood. He underwent evaluation by general surgery and had an EGD done on 12/28/2022 with reported large bleeding gastric ulcer. No intervention was done or biopsies. Addendum reported by Dr. Navarro that discussion with oncology of review of CT of the abdomen and pelvis consistent with fistula from erosion of pancreatic malignancy along posterior/superior gastric cardia of the stomach. Possible radiation therapy per recommendation of oncologist in addition to medical treatment with Protonix and Carafate. Patient currently on Protonix and Carafate. He has not had any reported further black stool. Last 2 bowel movements have been light brown. He did have a slight drop in his hemoglobin from 8.8-7.5 today. However at this time unless he has further drop in hemoglobin or evidence of active bleeding would not recommend any further endoscopic evaluation as this can cause further bleeding. Of course the patient should have active bleeding noted further drop in hemoglobin then we can discuss possible endoscopic evaluation with clipping. Current Visit: Yes Status: Acute Code(s): K25.9 - GASTRIC ULCER, UNSP ACUTE OR CHRONIC, W/O HEMOR OR PERF SNOMED Code(s): 956934992 (2) Anemia Current Visit: Yes Status: Acute Priority: High Code(s): D64.9 - ANEMIA, UNSPECIFIED SNOMED Code(s): 607667478 (3) Pancreatic cancer Current Visit: Yes Status: Chronic Priority: High Code(s): C25.9 - MALIGNANT NEOPLASM OF PANCREAS, UNSPECIFIED SNOMED Code(s): 452783786 Plan: 1. Continue symptomatic and supportive care 2. Daily CBC, transfuse for hemoglobin less than 7 3. Continue full liquid diet for today 4. Continue Protonix and Carafate as ordered 5. No plans on endoscopic evaluation at this time. If patient continues to have significant drop in hemoglobin or active bleeding noted will consider endos copic evaluation possible clipping Thank you for this consultation, we will continue to follow. Dr. Selin Martinez I agree with the dictator's note, documented as a scribe by Mica Bose.
[2022-12-31 19:02] LABS: Anisocytosis Slight; HCT 27.5 % (39.0-53.0); HGB 8.6 gm/dL (13.0-17.5); Hypochromasia Marked; MCH 26.7 pg (25.0-35.0); MCHC 31.4 g/dL (31.0-37.0); MCV 84.9 fL (80.0-100.0); Mean Platelet Volume 8.3; Platelet Count 473 k/uL (150-450); Poikilocytosis Slight; RBC 3.24 m/uL (4.30-5.90); RDW 18.5 % (11.5-15.5); WBC 12.9 k/uL (3.8-10.6)
[2022-12-31] MEDS: CHOLECALCIFEROL 125 MCG (5000 IU) TABLET PO SCH (20:21)
[2023-01-01] MEDS: PANTOPRAZOLE 40 MG/10 ML VIAL IVP SCH ×2 (08:06→21:33)
[2023-01-01] MEDS: LIPASE 20,000/PROTEASE 63,000/AMYLASE 84,000 PO SCH ×3 (08:06→17:49)
[2023-01-01] MEDS: SUCRALFATE 1 GM TAB PO SCH ×3 (08:06→17:49)
[2023-01-01] MEDS: METOPROLOL TARTRATE 25 MG TAB PO SCH (08:06)
[2023-01-01 11:11] LABS: ALT 42 U/L (10-49); AST 62 U/L (14-35); Albumin 2.8 d/dL (3.8-4.9); Albumin/Globulin Ratio 1.12 Ratio (1.60-3.17); Alkaline Phosphatase 189 U/L (41-126); BUN/Creat Ratio 9.12 Ratio (12.00-20.00); Blood Urea Nitrogen 7.3 mg/dL (9.0-27.0); Calcium 8.6 mg/dL (8.7-10.3); Carbon Dioxide 20.3 mmol/L (21.6-31.8); Chloride 99 mmol/L (96-109); Globulin 2.5 d/dL (1.6-3.3); Glucose 113 mg/dL (70-110); HGB 7.4 d/dL (13.0-17.0); MCH 25.8 pg (27.0-32.0); MCHC 30.8 d/dL (32.0-37.0); MCV 83.6 FL (80.0-97.0); Mean Platelet Volume 10.9 FL (9.5-12.2); NRBC Per 100 WBC 0.03 X 10*3/uL (0.00-0.01); Platelet Count 425 X 10*3/uL (140-440); Potassium 3.7 mmol/L (3.5-5.5); RBC 2.87 X 10*6/uL (4.40-5.60); RDW 19.1 % (11.5-14.5); Sodium 129 mmol/L (135-145); Total Protein 5.3 d/dL (6.2-8.2); WBC 12.42 X 10*3/uL (4.50-10.00)
--- NOTE | 2023-01-01 14:01 | P.PN ---
Subjective Progress Note Date: 01/01/23 Hospital course: Patient is a very pleasant 77-year-old male with history of pancreatic cancer status post surgery with new worsening findings, prostate cancer status post prostatectomy, and hypertension. He presented to the hospital on 12/26/22 with a chief complaint of exertional dyspnea, fatigue and generalized weakness. He claims that his symptoms has been going on for almost 2 months and progressivley worsening. He went to his PCP for routine blood work, and was found to be anemic and was subsequently asked to come to emergency for further evaluation. Vital signs upon arrival blood pressure 111/74, heart rate 80, respiratory rate 18, temp 98.1F, SpO2 of 90% on room air. Labs completed and reviewed. CBC showing leukocytosis with WBC count of 14.0, normocytic anemia with hemoglobin of 7.5, and thrombocytosis with platelet count of 521. BMP revealing hypernatremia with sodium of 129, hypochloremia with chloride of 95, hypocarbia with bicarb of 21, slightly elevated anion gap 13, and prerenal azotemia with BUN of 21. Liver profile showing elevated alkaline phosphatase of 208. LDH 278. Iron profile showing iron of 15, TIBC 235, and percent saturation 6.38, and transferrin 167.0. Reticulocyte count was 7.8 and haptoglobin 325. EKG was completed showing normal sinus rhythm at 70 bpm with no noted T wave or ST abnormality showing no signs of acute ischemia upon personal review and interpretation. CT abdomen and pelvis revealing redemonstration of pancreatic tail mass invading into the greater curvature of the stomach with new innumerable hepatic lesions consistent with metastasis, small volume ascites, and probable portal vein thrombosis. Portal vein thrombosis, Dr. Ramires is aware and holding off anticoagulation at this time per Hem/Onc SUPERMARKET MANAGER due to concerns of active bleeding. 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 Order placed for consult to radiation oncology for evaluation for radiation of malignant fistula. Patient completed a three-day course of IV iron transfusions with Ferrlecit on 12/29/22. 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 Ramires is aware of portal vein thrombosis and holding off anticoagulation at this time per Hem/Onc SUPERMARKET MANAGER due to concerns of active bleeding. -Discussed with them today - patient is cleared for d/c and outpatient f/u -General surgery following, took the patient for EGD on 12/28/22 finding bleeding ulceration of gastric mucosa secondary to malignant fistula placing patient on Carafate and increasing Protonix to 40 mg IVP twice daily. -GI was consulted to evaluate for possible repeat EGD with clipping/interventions -Discussed with them today - patient is cleared for d/c once tolerating dinner/breakfast -Consult placed to radiation oncology for evaluation for palliative radiation to malignant fistula - They will arrange outpatient radiation treatments -Hemoglobin has been stable at 7.5 we will continue CBC checks to every 12 hours and continue to transfuse as needed for hemoglobin less than 7. -Patient completed IV iron transfusions with 3 doses of Ferrlecit 12/29/22. -Repeat CBC and CMP continue to monitor closely. Hypertension -Vital signs currently stable with current medication regimen. Patient to continue metoprolol 25 mg daily. CODE STATUS: Full code DVT prophylaxis: SCDs Anticipated discharge date: Clinical course to determine Anticipated discharge place: Clinical course to determine This document was prepared using [employer] dictation software. Please allow for errors in fabrics and material cutter, while rare they do occur. Objective - Vital Signs Vital signs: Vital Signs Temp 97.5 F L 01/01/23 12:06 Pulse 75 01/01/23 12:06 Resp 18 01/01/23 12:06 BP 148/81 01/01/23 12:06 Pulse Ox 97 01/01/23 12:06 FiO2 Intake & Output 12/31/22 01/01/23 01/01/23 18:59 06:59 18:59 Intake Total 1070 Balance 1070 Intake: Oral 1070 Other: Voiding Method Toilet Urinal # Voids 1 2 1 # Bowel Movements 1 - Labs CBC & Chem 7: 01/01/23 06:23 01/01/23 06:23 Labs: Abnormal Lab Results - Last 24 Hours (Table) 12/31/22 01/01/23 01/01/23 Range/Units 18:46 06:23 06:23 WBC 12.9 H 12.42 H (3.8-10.6) k/uL RBC 3.24 L 2.87 L (4.30-5.90) m/uL Hgb 8.6 L 7.4 L (13.0-17.5) gm/dL Hct 27.5 L 24.0 L (39.0-53.0) % MCH 25.8 L (27.0-32.0) pg MCHC 30.8 L (32.0-37.0) d/dL RDW 18.5 H 19.1 H (11.5-15.5) % Plt Count 473 H (150-450) k/uL NRBC/100 WBC Diff 0.03 H (0.00-0.01) X 10*3/uL Sodium 129 L (135-145) mmol/L Carbon Dioxide 20.3 L (21.6-31.8) mmol/L BUN 7.3 L (9.0-27.0) mg/dL BUN/Creatinine Ratio 9.12 L (12.00-20.00) Ratio Glucose 113 H (70-110) mg/dL Calcium 8.6 L (8.7-10.3) mg/dL AST 62 H (14-35) U/L Alkaline Phosphatase 189 H (41-126) U/L Total Protein 5.3 L (6.2-8.2) d/dL Albumin 2.8 L (3.8-4.9) d/dL Albumin/Globulin Ratio 1.12 L (1.60-3.17) Ratio
--- NOTE | 2023-01-01 14:22 | P.PN ---
Subjective Progress Note Date: 01/01/23 CHIEF COMPLAINT: Anemia HISTORY OF PRESENT ILLNESS: Patient denies any abdominal pain. Denies any nausea or vomiting. He was able to tolerate breakfast this morning. He reports no blood or melena in his stools. Hemoglobin did go up to 8.6 yesterday and is back down to 7.4. Awaiting for rad on current to evaluate patient regarding radiation treatment. He is status post EGD on 12/28/2022 had shown a large gastric bleeding ulcer, Jejunal diverticulum, Cota's esophagus and diaphragmatic hiatal hernia. Active bleeding gastric ulcer and gastric cardia easily friable tissue with possible fistulous tract. Patient seen by GI service they plan for endoscopy only if patient has rebleeding. PHYSICAL EXAM: VITAL SIGNS: Reviewed GENERAL: Well-developed in no acute distress. HEENT: No sclera icterus. Extraocular movements grossly intact. Moist buccal mucosa. Head is atraumatic, normocephalic. Hears conversational speech. No nasal drainage. NECK: Supple without lymphadenopathy. CHEST: Non-labored respirations and equal bilateral excursions. CARDIOVASCULAR: Palpable 2+ radial pulses. ABDOMEN: Soft. Nondistended. Nontender. MUSCULOSKELETAL: No clubbing or cyanosis. NEUROLOGIC: No focal or lateralizing signs. Cranial nerves II through XII grossly intact. PSYCH: awake and alert SKIN: Well perfused. Good skin turgor. 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 Signing provider agrees with the documented findings, assessment, and plan of care. Objective - Vital Signs Vital signs: Vital Signs Temp 97.5 F L 01/01/23 12:06 Pulse 75 01/01/23 12:06 Resp 18 01/01/23 12:06 BP 148/81 01/01/23 12:06 Pulse Ox 97 01/01/23 12:06 FiO2 Intake & Output 12/31/22 01/01/23 01/01/23 18:59 06:59 18:59 Intake Total 1070 Balance 1070 Intake: Oral 1070 Other: Voiding Method Toilet Urinal # Voids 1 2 1 # Bowel Movements 1 - Labs CBC & Chem 7: 01/01/23 06:23 01/01/23 06:23 Labs: Abnormal Lab Results - Last 24 Hours (Table) 12/31/22 01/01/23 01/01/23 Range/Units 18:46 06:23 06:23 WBC 12.9 H 12.42 H (3.8-10.6) k/uL RBC 3.24 L 2.87 L (4.30-5.90) m/uL Hgb 8.6 L 7.4 L (13.0-17.5) gm/dL Hct 27.5 L 24.0 L (39.0-53.0) % MCH 25.8 L (27.0-32.0) pg MCHC 30.8 L (32.0-37.0) d/dL RDW 18.5 H 19.1 H (11.5-15.5) % Plt Count 473 H (150-450) k/uL NRBC/100 WBC Diff 0.03 H (0.00-0.01) X 10*3/uL Sodium 129 L (135-145) mmol/L Carbon Dioxide 20.3 L (21.6-31.8) mmol/L BUN 7.3 L (9.0-27.0) mg/dL BUN/Creatinine Ratio 9.12 L (12.00-20.00) Ratio Glucose 113 H (70-110) mg/dL Calcium 8.6 L (8.7-10.3) mg/dL AST 62 H (14-35) U/L Alkaline Phosphatase 189 H (41-126) U/L Total Protein 5.3 L (6.2-8.2) d/dL Albumin 2.8 L (3.8-4.9) d/dL Albumin/Globulin Ratio 1.12 L (1.60-3.17) Ratio
--- NOTE | 2023-01-01 15:04 | P.PN ---
Subjective Progress Note Date: 01/01/23 Principal diagnosis: Gastric ulcer This pleasant 77-year-old male with a history of pancreatic cancer status post Whipple approximately 6 years ago, prostate cancer, hyperlipidemia and hypertension who went to the CT for regular blood work for his upcoming annual and was called and told to come to the emergency department for low blood count. Patient came to the emergency department on 12/26/2022 with the initial hemoglobin is 7.5 with a drop to 6.7. He had reported that he had dark stools for about 2 weeks prior to coming to the hospital. He denies any history of ulcers, no NSAID use or anticoagulation. He does take 81 mg aspirin daily. Last colonoscopy greater than 10 years ago. He was denying any abdominal pain, nausea or vomiting. He had undergone a CT of the abdomen and pelvis which reports free demonstration of pancreatic tail mass invading into the greater curvature of the stomach. New innumerable hepatic lesions identified consistent with metastasis. Small volume ascites. Probable portal vein thrombosis. Overall findings are consistent with progression of disease. He underwent EGD on 12/28/[address] Navarro with finding of a large bleeding gastric ulcer. Patient received 1 unit of blood during this hospitalization. Hemoglobin has been stable. He did have a slight drop from 8.8-7.5 today. He denies any abdominal pain, no nausea or vomiting. Last bowel movement was yesterday he states his last 2 bowel movements have been a light brown. Patient has been following with Dr. Thayer for his pancreatic cancer. 01/01/2023 Patient was seen and examined today as a follow-up. He is sitting up eating his breakfast. He remains on a full liquid diet. He denies any abdominal pain, nausea or vomiting. He states he had bowel movement this morning which was light brown. Repeat hemoglobin 7.4 down from 8.6 yesterday. Objective - Vital Signs Vital signs: Vital Signs Temp 97.3 F L 01/01/23 07:46 Pulse 89 01/01/23 07:46 Resp 18 01/01/23 07:46 BP 146/78 01/01/23 07:46 Pulse Ox 93 L 01/01/23 07:46 FiO2 Intake & Output 12/31/22 01/01/23 01/01/23 18:59 06:59 18:59 Intake Total 1070 Balance 1070 Intake: Oral 1070 Other: Voiding Method Toilet Urinal # Voids 1 2 1 # Bowel Movements 1 - Exam General appearance: The patient is alert, oriented, appears in no acute distress. HET: Head is normocephalic and atraumatic. Conjunctiva pink. Sclera anicteric. Neck: Supple without lymphadenopathy. Abdomen: Soft, nontender, nondistended with bowel sounds. No guarding or rigidity. Extremities: Normal skin color and turgor. No pedal edema Skin: No rashes, no jaundice Neurological: No focal deficits. Alert and oriented. - Labs CBC & Chem 7: 01/01/23 06:23 01/01/23 06:23 Labs: Abnormal Lab Results - Last 24 Hours (Table) 12/31/22 12/31/22 12/31/22 Range/Units 06:06 06:06 18:46 WBC 14.06 H 12.9 H (4.50-10.00) X 10*3/uL RBC 2.89 L 3.24 L (4.40-5.60) X 10*6/uL Hgb 7.5 L 8.6 L (13.0-17.0) d/dL Hct 24.1 L 27.5 L (39.6-50.0) % MCH 26.0 L (27.0-32.0) pg MCHC 31.1 L (32.0-37.0) d/dL RDW 18.9 H 18.5 H (11.5-14.5) % Plt Count 473 H (150-450) k/uL NRBC/100 WBC Diff 0.03 H (0.00-0.01) X 10*3/uL Sodium 132 L (135-145) mmol/L Carbon Dioxide 19.2 L (21.6-31.8) mmol/L BUN 8.0 L (9.0-27.0) mg/dL BUN/Creatinine Ratio 11.43 L (12.00-20.00) Ratio Glucose 116 H (70-110) mg/dL Calcium 8.4 L (8.7-10.3) mg/dL AST 57 H (14-35) U/L Alkaline Phosphatase 180 H (41-126) U/L Total Protein 5.3 L (6.2-8.2) d/dL Albumin 2.9 L (3.8-4.9) d/dL Albumin/Globulin Ratio 1.21 L (1.60-3.17) Ratio Assessment and Plan (1) Gastric ulcer Narrative/Plan: 77-year-old male with the diagnosis of pancreatic cancer status post Whipple 5-6 years ago who has followed with Dr. Thayer in the past and was told that the cancer had returned however patient did not want any further chemo. Patient came in with reported low hemoglobin from outpatient labs. He is status post 1 unit of blood. He underwent evaluation by general surgery and had an EGD done on 12/28/2022 with reported large bleeding gastric ulcer. No intervention was done or biopsies. Addendum reported by Dr. Navarro that discussion with oncology of review of CT of the abdomen and pelvis consistent with fistula from erosion of pancreatic malignancy along posterior/superior gastric cardia of the stomach. Possible radiation therapy per recommendation of oncologist in addition to medical treatment with Protonix and Carafate. Patient currently on Protonix and Carafate. He has not had any reported further black stool. Last 2 bowel movements have been light brown. He did have a slight drop in his hemoglobin from 8.8-7.5 today. However at this time unless he has further drop in hemoglobin or evidence of active bleeding would not recommend any further endoscopic evaluation as this can cause further bleeding. Of course the patient should have active bleeding noted further drop in hemoglobin then we can discuss possible endoscopic evaluation with clipping. Again discussed with patient he has no active bleeding would recommend no further endoscopy at this time as likely would cause bleeding. Agreed that palliative radiation would be beneficial for patient. Patient verbalized understanding. Will advance diet today and plan for discharge within the next 24 hours. Current Visit: Yes Status: Acute Code(s): K25.9 - GASTRIC ULCER, UNSP ACUTE OR CHRONIC, W/O HEMOR OR PERF SNOMED Code(s): 775091365 (2) Anemia Current Visit: Yes Status: Acute Priority: High Code(s): D64.9 - ANEMIA, UNSPECIFIED SNOMED Code(s): 657311158 (3) Pancreatic cancer Current Visit: Yes Status: Chronic Priority: High Code(s): C25.9 - MALIGNANT NEOPLASM OF PANCREAS, UNSPECIFIED SNOMED Code(s): 214315148 Plan: 1. Continue symptomatic and supportive care 2. Advance to regular diet 3. Continue Protonix and Carafate as ordered 4. No plans an endoscopic evaluation at this time 5. Continue with recommendations from oncology 6. If patient tolerates regular diet for dinner he may be cleared for discharge. Thank you for this consultation, we will continue to follow. Dr. Selin Martinez I agree with the dictator's note, documented as a scribe by Mica Bose.
--- NOTE | 2023-01-01 19:57 | P.PN ---
Subjective Progress Note Date: 01/01/23 Principal diagnosis: anemia At today's visit patient is resting comfortably in bed. Patient reports that he is feeling well. Reports abdominal discomfort has improved. Denies N/V/D. Tolerating oral intake well. Objective - Vital Signs Vital signs: Vital Signs Temp 98.2 F 01/01/23 19:23 Pulse 81 01/01/23 19:23 Resp 16 01/01/23 19:23 BP 128/76 01/01/23 19:23 Pulse Ox 92 L 01/01/23 19:23 FiO2 Intake & Output 01/01/23 01/01/23 01/02/23 06:59 18:59 06:59 Intake Total 1070 Balance 1070 Intake: Oral 1070 Other: Voiding Method Toilet Urinal # Voids 2 1 # Bowel Movements 1 - Constitutional General appearance: Present: no acute distress - EENT Eyes: Present: anicteric sclerae, EOMI ENT: Present: hearing grossly normal - Respiratory Details: breathing is even and unlabored - Cardiovascular Details: skin warm and dry - Gastrointestinal General gastrointestinal: Present: distended. Absent: tenderness - Musculoskeletal Musculoskeletal: Present: strength equal bilaterally - Psychiatric Psychiatric: Present: A&O x's 3, appropriate affect, intact judgment & insight - Labs CBC & Chem 7: 01/01/23 06:23 01/01/23 06:23 Labs: Abnormal Lab Results - Last 24 Hours (Table) 01/01/23 01/01/23 Range/Units 06:23 06:23 WBC 12.42 H (4.50-10.00) X 10*3/uL RBC 2.87 L (4.40-5.60) X 10*6/uL Hgb 7.4 L (13.0-17.0) d/dL Hct 24.0 L (39.6-50.0) % MCH 25.8 L (27.0-32.0) pg MCHC 30.8 L (32.0-37.0) d/dL RDW 19.1 H (11.5-14.5) % NRBC/100 WBC Diff 0.03 H (0.00-0.01) X 10*3/uL Sodium 129 L (135-145) mmol/L Carbon Dioxide 20.3 L (21.6-31.8) mmol/L BUN 7.3 L (9.0-27.0) mg/dL BUN/Creatinine Ratio 9.12 L (12.00-20.00) Ratio Glucose 113 H (70-110) mg/dL Calcium 8.6 L (8.7-10.3) mg/dL AST 62 H (14-35) U/L Alkaline Phosphatase 189 H (41-126) U/L Total Protein 5.3 L (6.2-8.2) d/dL Albumin 2.8 L (3.8-4.9) d/dL Albumin/Globulin Ratio 1.12 L (1.60-3.17) Ratio Assessment and Plan (1) Anemia Current Visit: Yes Status: Acute Priority: High Code(s): D64.9 - ANEMIA, UNSPECIFIED SNOMED Code(s): 677059559 (2) Pancreatic cancer Current Visit: Yes Status: Chronic Priority: High Code(s): C25.9 - MALIGNANT NEOPLASM OF PANCREAS, UNSPECIFIED SNOMED Code(s): 657028531 Plan: Anemia, likely acute blood loss -Hgb 8.6 today. S/P 1 unit PRBCs. Transfuse for Hgb <7 -Iron deficiency. Parenteral iron ordered. -Based on pt previous CT scans from August, concern that pancreatic malignancy has possibly eroded into stomach causing bleeding. Repeat CT AP revealed redemonstration of pancreatic tail mass invading the greater curvature of the stomach. New innumerable hepatic lesions identified. Small volume ascites. Probable portal vein thrombosis. -S/p EGD, bleeding gastric ulcer noted Pancreatic adenocarcinoma -Pt had made the decision a long time ago that he was not going to do any further chemo treatments and was going to live his life out to the best of his ability. -S/p EGD with Dr. Navarro. Dr Ramires spoke with surgeon, bleeding gastric cardia ulceration was noted. No biopsy was performed. Asked surgery to further review CT scans to see if this findings are thought to be malignant. Per conversation it's believed that a fistula of the stomach was present from erosion from pancreatic mass. -GI consult placed. Recommend continue on GI regimen and advance diet. Pt tolerating oral intake well Spoke with patient regarding EGD findings. He again stated that he is not interested in any systemic treatment. But he is amendable to palliative radiation. Consult was placed to radiation oncology and spoke to Dr. Perez regarding case. Plan to f/u outpt for palliative radiation Pt is cleared for discharge from hem/onc standpoint once cleared by IM and other consulted medical specialities
[2023-01-01] MEDS: CHOLECALCIFEROL 125 MCG (5000 IU) TABLET PO SCH (21:33)
[2023-01-02 02:52] VITALS: PULSE 87; RESP 18
[2023-01-02 07:17] LABS: Anisocytosis Slight; Basophils % (A) 0 %; Eosinophils # (A) 0.4 k/uL (0-0.7); Eosinophils % (A) 3 %; HCT 25.9 % (39.0-53.0); HGB 8.1 gm/dL (13.0-17.5); Hypochromasia Marked; Lymphocytes # (A) 1.6 k/uL (1.0-4.8); Lymphocytes % (A) 15 %; MCH 26.5 pg (25.0-35.0); MCHC 31.1 g/dL (31.0-37.0); MCV 85.3 fL (80.0-100.0); Mean Platelet Volume 8.9; Monocytes # (A) 1.2 k/uL (0-1.0); Monocytes % (A) 11 %; Neutrophils # (A) 7.2 k/uL (1.3-7.7); Neutrophils % (A) 68 %; Platelet Count 439 k/uL (150-450); Poikilocytosis Slight; RBC 3.04 m/uL (4.30-5.90); RDW 18.5 % (11.5-15.5); WBC 10.6 k/uL (3.8-10.6)
[2023-01-02 08:22] VITALS: BP 159/85; TEMP 97.9
[2023-01-02] MEDS: PANTOPRAZOLE 40 MG/10 ML VIAL IVP SCH (09:04)
[2023-01-02] MEDS: SUCRALFATE 1 GM TAB PO SCH ×2 (09:04→12:56)
[2023-01-02] MEDS: METOPROLOL TARTRATE 25 MG TAB PO SCH (09:05)
[2023-01-02] MEDS: LIPASE 20,000/PROTEASE 63,000/AMYLASE 84,000 PO SCH ×2 (09:09→12:56)
--- NOTE | 2023-01-02 09:33 | P.CONS ---
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 Attempted resection was not possbile due to the mass being adherent to adjacent organs. The patient subsequently underwent concurrent chemoradiation with Xeloda on 10/17/17. He had progression and has ultimately had a couple additional lines of chemotherapy. He has not had any systemic therapy since 06/2020. He presents to the hospital due to being found to be anemic with an upper-GI bleed. The patient reports that he developed early satiety starting approximately in September. He actually has not had any significant abdominal pain. He did admit that recently he had been feeling fatigued. He states that he had an outpatient follow-up during which she was found to be anemic. He was referred through the emergency room. Upon admission, the patient's hemoglobin was found on December 26 to be 7.2. His fecal occult blood testing was positive. On December 27, his hemoglobin dropped to 6.7. He subsequently received 1 unit of blood transfusion. He underwent a CT abd/pelvis on 12/27/22. This revealed a 6.6 cm mass involving the tail of the pancreas. This seem to invade the gastric curve. A result finding of innumerable liver metastasis as well. The patient underwent an upper endoscopy on December 28. This revealed a 1 cm gastric ulcer with adjacent friable tissue concerning for possible fistula. The patient has since been started on Protonix and Carafate. He is not noticing any overt blood in the stool. However, he states that he did not realize the problem when before when it was maroon colored. He states that he is actually eating fairly well. He is attempting to advance his diet. His energy level is improved. Since his transfusion, the patient's hemoglobin has been fairly stable between 7.5 and 8.8. Review of Systems Constitutional: Denies chills, Denies fever Eyes: denies blurred vision Ears, nose, mouth and throat: Denies headache Respiratory: Denies cough Gastrointestinal: Reports melena, Denies abdominal pain, Denies BRBPR, Denies heartburn Genitourinary: Denies dysuria Integumentary: Denies rash Neurological: Denies aphasia, Denies ataxia Psychiatric: Denies anxiety, Denies confusion Past Medical History Past Medical History: Cancer, Diabetes Mellitus, Hyperlipidemia, Hypertension Additional Past Medical History / Comment(s): past prostate CA(sx only),pancreatic CA radiation tx 09/2017, last chemo tx last 06/2020, sinus problems, tremors, diet controlled DM History of Any Multi-Drug Resistant Organisms: None Reported Past Surgical History: Prostate Surgery Additional Past Surgical History / Comment(s): prostatectomy 2009, sigrid cataracts, colonoscopy 1999, hemorrhoidectomy, wipple, L shoulder Past Anesthesia/Blood Transfusion Reactions: Motion Sickness Additional Past Anesthesia/Blood Transfusion Reaction / Comm: clausterphobia. to pt's knowledge never recieved any blood Past Psychological History: No Psychological Hx Reported Additional Psychological History / Comment(s): . Smoking Status: Former smoker Past Alcohol Use History: Rare Additional Past Alcohol Use History / Comment(s): started smoking at age 23(1969) and quit july 2017. a pack would last 3 days. rare use of alcohol. Past Drug Use History: None Reported - Past Family History Mother Family Medical History: CVA/TIA, Hypertension Father Family Medical History: Congestive Heart Failure (CHF), Coronary Artery Disease (CAD), Myocardial Infarction ([place]) Medications and Allergies Home Medications Medication Instructions Recorded Confirmed Type Aspirin EC [Ecotrin Low Dose] 81 mg PO HS 08/14/17 12/26/22 History Lipase/Protease/Amylase [Vladimir Dr 2 cap PO AC-TID 08/14/17 12/26/22 History 36,000 Unit Capsule] Cholecalciferol [Vitamin D3 (125 125 mcg PO HS 05/18/21 12/26/22 History Mcg = 5000 Iu)] Metoprolol Tartrate [Lopressor] 25 mg PO DAILY 12/26/22 12/26/22 History Allergies Allergy/AdvReac Type Severity Reaction Status Date / Time hornet venom Allergy Swelling Verified 12/26/22 14:50 niacin Allergy Unknown Verified 12/26/22 14:50 Physical Exam Vitals: Vital Signs Temp Pulse Resp BP Pulse Ox 01/02/23 07:33 97.9 F 87 18 159/85 96 01/02/23 02:42 98.3 F 87 18 148/88 95 01/01/23 19:23 98.2 F 81 16 128/76 92 L 01/01/23 12:06 97.5 F L 75 18 148/81 97 Intake and Output 01/01/23 01/02/23 01/02/23 22:59 06:59 14:59 Intake Total 540 Balance 540 Intake: Oral 540 Other: Voiding Method Toilet Toilet Urinal Urinal # Voids 3 - Constitutional General appearance: no acute distress - EENT Eyes: EOMI, PERRLA ENT: hearing grossly normal - Neck Neck: no lymphadenopathy - Respiratory Respiratory: bilateral: CTA - Cardiovascular Rhythm: regular - Gastrointestinal General gastrointestinal: no distended, no tenderness - Integumentary Integumentary: pale - Neurologic Neurologic: CNII-XII intact - Musculoskeletal Musculoskeletal: strength equal bilaterally - Psychiatric Psychiatric: A&O x's 3, appropriate affect Results CBC & Chem 7: 01/02/23 06:05 01/01/23 06:23 Labs: Abnormal Lab Results - Last 24 Hours (Table) 01/01/23 01/01/23 01/02/23 Range/Units 06:23 06:23 06:05 WBC 12.42 H (4.50-10.00) X 10*3/uL RBC 2.87 L 3.04 L (4.40-5.60) X 10*6/uL Hgb 7.4 L 8.1 L (13.0-17.0) d/dL Hct 24.0 L 25.9 L (39.6-50.0) % MCH 25.8 L (27.0-32.0) pg MCHC 30.8 L (32.0-37.0) d/dL RDW 19.1 H 18.5 H (11.5-14.5) % Monocytes # 1.2 H (0-1.0) k/uL NRBC/100 WBC Diff 0.03 H (0.00-0.01) X 10*3/uL Sodium 129 L (135-145) mmol/L Carbon Dioxide 20.3 L (21.6-31.8) mmol/L BUN 7.3 L (9.0-27.0) mg/dL BUN/Creatinine Ratio 9.12 L (12.00-20.00) Ratio Glucose 113 H (70-110) mg/dL Calcium 8.6 L (8.7-10.3) mg/dL AST 62 H (14-35) U/L Alkaline Phosphatase 189 H (41-126) U/L Total Protein 5.3 L (6.2-8.2) d/dL Albumin 2.8 L (3.8-4.9) d/dL Albumin/Globulin Ratio 1.12 L (1.60-3.17) Ratio CT scan - abdomen: report reviewed, image reviewed CT scan - pelvis: report reviewed, image reviewed Assessment and Plan Assessment: Rodney Kingsley is a 77 year old Male with a history of a locally advanced, 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 Attempted resection was not possbile due to the mass being adherent to adjacent organs. The patient subsequently underwent concurrent chemoradiation with Xeloda on 10/17/17. He had progression and has ultimately had a couple additional lines of chemotherapy. He has not had any systemic therapy since 06/2020. He presents to the hospital due to being found to be anemic with an upper-GI bleed. Plan: 1. Anemia: Likely 2/2 upper GI bleed. As detailed above, the patient's most recent imaging is highly concerning for progressive disease with new development of liver metastasis. Additionally, the patient's abdominal disease now appears to invade the stomach, resulting in ulceration of the mucosa. 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 I explained that he may benefit from a palliative course of radiotherapy directed to this location. I discussed that this may help to stop the bleeding, but may have some collateral side effects such as fatigue, nausea, dyspepsia and relatively low risk of late effects despite prior radiation to this location. I explained that the patient does not appear to be in need of urgent radiotherapy as his hemoglobin has since stabilized. I will continue to follow with the patient during this hospital stay. 2. Pancreatic cancer: As detailed above, the patient has had additional progression of his disease compared to prior imaging. He has not had any systemic therapy for over 2 years. Considering he is unwilling to undergo any additional chemotherapy, it certainly would be reasonable to have the patient enrolled in palliative care or hospice in the near future. Time with Patient: Greater than 30
--- NOTE | 2023-01-02 11:38 | P.PN ---
Subjective Progress Note Date: 01/02/23 Principal diagnosis: Gastric ulcer This pleasant 77-year-old male with a history of pancreatic cancer status post Whipple approximately 6 years ago, prostate cancer, hyperlipidemia and hypertension who went to the NH for regular blood work for his upcoming annual and was called and told to come to the emergency department for low blood count. Patient came to the emergency department on 12/26/2022 with the initial hemoglobin is 7.5 with a drop to 6.7. He had reported that he had dark stools for about 2 weeks prior to coming to the hospital. He denies any history of ulcers, no NSAID use or anticoagulation. He does take 81 mg aspirin daily. Last colonoscopy greater than 10 years ago. He was denying any abdominal pain, nausea or vomiting. He had undergone a CT of the abdomen and pelvis which reports free demonstration of pancreatic tail mass invading into the greater curvature of the stomach. New innumerable hepatic lesions identified consistent with metastasis. Small volume ascites. Probable portal vein thrombosis. Overall findings are consistent with progression of disease. He underwent EGD on 12/28/[address] Navarro with finding of a large bleeding gastric ulcer. Patient received 1 unit of blood during this hospitalization. Hemoglobin has been stable. He did have a slight drop from 8.8-7.5 today. He denies any abdominal pain, no nausea or vomiting. Last bowel movement was yesterday he states his last 2 bowel movements have been a light brown. Patient has been following with Dr. Thayer for his pancreatic cancer. 01/01/2023 Patient was seen and examined today as a follow-up. He is sitting up eating his breakfast. He remains on a full liquid diet. He denies any abdominal pain, nausea or vomiting. He states he had bowel movement this morning which was light brown. Repeat hemoglobin 7.4 down from 8.6 yesterday. [id number] Patient seen and examined as a follow-up. He is lying in bed. States overall he is feeling well. He has tolerated a regular diet although states he cannot eat that much. Denies any further bleeding. Hemoglobin stable at 8.1. Plan is for discharge today. Objective - Vital Signs Vital signs: Vital Signs Temp 97.9 F 01/02/23 07:33 Pulse 87 01/02/23 07:33 Resp 18 01/02/23 07:33 BP 159/85 01/02/23 07:33 Pulse Ox 96 01/02/23 07:33 FiO2 Intake & Output 01/01/23 01/02/23 01/02/23 18:59 06:59 18:59 Intake Total 540 Balance 540 Intake: Oral 540 Other: Voiding Method Toilet Toilet Urinal Urinal # Voids 1 3 # Bowel Movements 1 - Exam General appearance: The patient is alert, oriented, appears in no acute distress. HET: Head is normocephalic and atraumatic. Conjunctiva pink. Sclera anicteric. Neck: Supple without lymphadenopathy. Abdomen: Soft, nontender, nondistended with bowel sounds. No guarding or rig idity. Extremities: Normal skin color and turgor. No pedal edema Skin: No rashes, no jaundice Neurological: No focal deficits. Alert and oriented. - Labs CBC & Chem 7: 01/02/23 06:05 01/01/23 06:23 Labs: Abnormal Lab Results - Last 24 Hours (Table) 01/01/23 01/01/23 01/02/23 Range/Units 06:23 06:23 06:05 WBC 12.42 H (4.50-10.00) X 10*3/uL RBC 2.87 L 3.04 L (4.40-5.60) X 10*6/uL Hgb 7.4 L 8.1 L (13.0-17.0) d/dL Hct 24.0 L 25.9 L (39.6-50.0) % MCH 25.8 L (27.0-32.0) pg MCHC 30.8 L (32.0-37.0) d/dL RDW 19.1 H 18.5 H (11.5-14.5) % Monocytes # 1.2 H (0-1.0) k/uL NRBC/100 WBC Diff 0.03 H (0.00-0.01) X 10*3/uL Sodium 129 L (135-145) mmol/L Carbon Dioxide 20.3 L (21.6-31.8) mmol/L BUN 7.3 L (9.0-27.0) mg/dL BUN/Creatinine Ratio 9.12 L (12.00-20.00) Ratio Glucose 113 H (70-110) mg/dL Calcium 8.6 L (8.7-10.3) mg/dL AST 62 H (14-35) U/L Alkaline Phosphatase 189 H (41-126) U/L Total Protein 5.3 L (6.2-8.2) d/dL Albumin 2.8 L (3.8-4.9) d/dL Albumin/Globulin Ratio 1.12 L (1.60-3.17) Ratio Assessment and Plan (1) Gastric ulcer Narrative/Plan: 77-year-old male with the diagnosis of pancreatic cancer status post Whipple 5-6 years ago who has followed with Dr. Thayer in the past and was told that the cancer had returned however patient did not want any further chemo. Patient came in with reported low hemoglobin from outpatient labs. He is status post 1 unit of blood. He underwent evaluation by general surgery and had an EGD done on 12/28/2022 with reported large bleeding gastric ulcer. No intervention was done or biopsies. Addendum reported by Dr. Navarro that discussion with oncology of review of CT of the abdomen and pelvis consistent with fistula from erosion of pancreatic malignancy along posterior/superior gastric cardia of the stomach. Possible radiation therapy per recommendation of oncologist in addition to medical treatment with Protonix and Carafate. Patient currently on Protonix and Carafate. He has not had any reported further black stool. Last 2 bowel movements have been light brown. He did have a slight drop in his hemoglobin from 8.8-7.5 today. However at this time unless he has further drop in hemoglobin or evidence of active bleeding would not recommend any further endoscopic evaluation as this can cause further bleeding. Of course the patient should have active bleeding noted further drop in hemoglobin then we can discuss possible endoscopic evaluation with clipping. Again discussed with patient he has no active bleeding would recommend no further endoscopy at this time as likely would cause bleeding. Agreed that palliative radiation would be beneficial for patient. Patient verbalized understanding. Will advance diet today and plan for discharge within the next 24 hours. Current Visit: Yes Status: Acute Code(s): K25.9 - GASTRIC ULCER, UNSP ACUTE OR CHRONIC, W/O HEMOR OR PERF SNOMED Code(s): 988769838 (2) Anemia Current Visit: Yes Status: Acute Priority: High Code(s): D64.9 - ANEMIA, UNSPECIFIED SNOMED Code(s): 599060904 (3) Pancreatic cancer Current Visit: Yes Status: Chronic Priority: High Code(s): C25.9 - MALIGNANT NEOPLASM OF PANCREAS, UNSPECIFIED SNOMED Code(s): 068942109 Plan: 1. Continue symptomatic and supportive care 2. Advance to regular diet 3. Continue Protonix and Carafate as ordered 4. No plans an endoscopic evaluation at this time 5. Continue with recommendations from oncology Thank you for this consultation, patient is cleared for discharge. Dr. Selin Martinez I agree with the dictator's note, documented as a scribe by Mica Bose.
--- NOTE | 2023-01-02 12:34 | P.PN ---
Subjective Progress Note Date: 01/02/23 Principal diagnosis: anemia No acute events overnight. Patient reports that he is feeling well. Reports abdominal discomfort has improved. Denies N/V/D. Tolerating oral intake well. Objective - Vital Signs Vital signs: Vital Signs Temp 97.9 F 01/02/23 07:33 Pulse 87 01/02/23 07:33 Resp 18 01/02/23 07:33 BP 159/85 01/02/23 07:33 Pulse Ox 96 01/02/23 07:33 FiO2 Intake & Output 01/01/23 01/02/23 01/02/23 18:59 06:59 18:59 Intake Total 540 Balance 540 Intake: Oral 540 Other: Voiding Method Toilet Toilet Urinal Urinal # Voids 1 3 # Bowel Movements 1 - Constitutional General appearance: Present: no acute distress - EENT Eyes: Present: EOMI ENT: Present: hearing grossly normal - Respiratory Details: breathing is even and unlabored - Cardiovascular Details: skin warm and dry - Gastrointestinal General gastrointestinal: Present: distended. Absent: tenderness - Integumentary Integumentary: Absent: cyanotic - Musculoskeletal Musculoskeletal: Present: strength equal bilaterally - Psychiatric Psychiatric: Present: A&O x's 3, appropriate affect, intact judgment & insight - Labs CBC & Chem 7: 01/02/23 06:05 01/01/23 06:23 Labs: Abnormal Lab Results - Last 24 Hours (Table) 01/02/23 Range/Units 06:05 RBC 3.04 L (4.30-5.90) m/uL Hgb 8.1 L (13.0-17.5) gm/dL Hct 25.9 L (39.0-53.0) % RDW 18.5 H (11.5-15.5) % Monocytes # 1.2 H (0-1.0) k/uL Assessment and Plan (1) Anemia Current Visit: Yes Status: Acute Priority: High Code(s): D64.9 - ANEMIA, UNSPECIFIED SNOMED Code(s): 515314628 (2) Pancreatic cancer Current Visit: Yes Status: Chronic Priority: High Code(s): C25.9 - MALIGNANT NEOPLASM OF PANCREAS, UNSPECIFIED SNOMED Code(s): 696718510 Plan: Anemia, likely acute blood loss -Hgb 8.1 today. S/P 1 unit PRBCs. Transfuse for Hgb <7 -Iron deficiency. Parenteral iron ordered. -Based on pt previous CT scans from August, concern that pancreatic malignancy has possibly eroded into stomach causing bleeding. Repeat CT AP revealed redemonstration of pancreatic tail mass invading the greater curvature of the stomach. New innumerable hepatic lesions identified. Small volume ascites. Probable portal vein thrombosis. -S/p EGD, bleeding gastric ulcer noted Pancreatic adenocarcinoma -Pt had made the decision a long time ago that he was not going to do any further chemo treatments and was going to live his life out to the best of his ability. -S/p EGD with Dr. Navarro. Dr Ramires spoke with surgeon, bleeding gastric cardia ulceration was noted. No biopsy was performed. Asked surgery to further review CT scans to see if this findings are thought to be malignant. Per conversation it's believed that a fistula of the stomach was present from erosion from pancreatic mass. -GI consult placed. Recommend continue on GI regimen and advance diet. Pt tolerating oral intake well Spoke with patient regarding EGD findings. He again stated that he is not interested in any systemic treatment. But he is amendable to palliative radiation. Consult was placed to radiation oncology and spoke to Dr. Perez regarding case. Plan to f/u outpt for palliative radiation -Pt states at this time, he will follow with rad onc and doesn't wish to follow up in clinic any longer. Pt has office contact information and instructed to [facility] if we can offer any further assistance or changes his mind in regards to systemic treatment. Pt is cleared for discharge from hem/onc standpoint once cleared by IM and other consulted medical specialities
--- NOTE | 2023-01-02 12:58 | P.DS ---
Providers Date of admission: 12/26/22 14:44 Expected date of discharge: 01/02/23 Attending physician: Mayur Mariee MD Consults: 12/26/22 14:24 Consult Physician Urgent Consulting Provider: Selena Navarro Consult Reason/Comments: Anemia, positive stool occult Do you want consulting provider notified?: Already Contacted 12/26/22 15:05 Consult Physician Urgent Consulting Provider: Leroy Ramires Consult Reason/Comments: hx of pancreatic cancer, symptomatic anemia Do you want consulting provider notified?: Yes 12/30/22 17:48 Consult Physician Urgent Consulting Provider: Luis M Perez Consult Reason/Comments: evaluate for radiation of malignant fistula Do you want consulting provider notified?: Yes 12/31/22 08:00 Consult Physician Routine Consulting Provider: Shannen Martinez Consult Reason/Comments: Gastric Ulcer Do you want consulting provider notified?: Yes Primary care physician: [place] [facility] Course: Symptomatic anemia secondary to bleeding gastric ulcer 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 He presented to the hospital on 12/26/22 with a chief complaint of exertional dyspnea, fatigue and generalized weakness. He claims that his symptoms has been going on for almost 2 months and progressivley worsening. He went to his PCP for routine blood work, and was found to be anemic and was subsequently asked to come to emergency for further evaluation. Vital signs upon arrival blood pressure 111/74, heart rate 80, respiratory rate 18, temp 98.1F, SpO2 of 90% on room air. Labs completed and reviewed. CBC showing leukocytosis with WBC count of 14.0, normocytic anemia with hemoglobin of 7.5, and thrombocytosis with platelet count of 521. BMP revealing hypernatremia with sodium of 129, hypochloremia with chloride of 95, hypocarbia with bicarb of 21, slightly elevated anion gap 13, and prerenal azotemia with BUN of 21. Liver profile showing elevated alkaline phosphatase of 208. LDH 278. Iron profile showing iron of 15, TIBC 235, and percent saturation 6.38, and transferrin 167.0. Reticulocyte count was 7.8 and haptoglobin 325. EKG was completed showing normal sinus rhythm at 70 bpm with no noted T wave or ST abnormality showing no signs of acute ischemia upon personal review and interpretation. CT abdomen and pelvis revealing redemonstration of pancreatic tail mass invading into the greater curvature of the stomach with new innum erable hepatic lesions consistent with metastasis, small volume ascites, and probable portal vein thrombosis. Portal vein thrombosis, Dr. Ramires is aware and holding off anticoagulation at this time per Hem/Onc [employer] due to concerns of active bleeding. 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 Order placed for consult to radiation oncology for evaluation for radiation of malignant fistula. Patient completed a three-day course of IV iron transfusions with Ferrlecit on 12/29/22. Pt was noted to have stable hgb, and referred for outpatient radiation (palliative) with radiation oncology. He was subsequently cleared for home by GI and oncology after tolerating a regular diet. I spent 40 minutes coordinating this discharge on 01/02 Physical exam: Gen: awake, alert HEENT: normocephalic, atraumatic, good hearing acuity, moist mucous membranes Resp: good air exchange, breathing comfortably with no accessory muscle use CVS: good distal perfusion x 4, GI: soft, NTTP, ND : no SPT, no CVAT, ryan catheter not present MSK: no pitting edema, no clubbing Neuro: non-focal, moving all extremities Psych: cooperative, euthymic mood Patient Condition at Discharge: Good Plan - Discharge Summary Discharge Rx Participant: No New Discharge Prescriptions: New Pantoprazole [Protonix] 40 mg PO BID #60 tab Sucralfate [Carafate] 1 gm PO AC-TID #90 tab HYDROcodone/APAP 5-325MG [[place] 5-325] 1 each PO Q4HR PRN #18 tab PRN Reason: Moderate Pain (Scale 4 To 6) Acetaminophen Tab [Tylenol] 650 mg PO Q6HR PRN tab PRN Reason: Mild Pain Or Fever > 100.5 Continue Lipase/Protease/Amylase [Creon Dr 36,000 Unit Capsule] 2 cap PO AC-TID Cholecalciferol [Vitamin D3 (125 Mcg = 5000 Iu)] 125 mcg PO HS Metoprolol Tartrate [Lopressor] 25 mg PO DAILY Discontinued Aspirin EC [Ecotrin Low Dose] 81 mg PO HS Discharge Medication List Lipase/Protease/Amylase [Vladimir Mark 36,000 Unit Capsule] 2 cap PO AC-TID 08/14/17 [History] Cholecalciferol [Vitamin D3 (125 Mcg = 5000 Iu)] 125 mcg PO HS 05/18/21 [History] Metoprolol Tartrate [Lopressor] 25 mg PO DAILY 12/26/22 [History] Acetaminophen Tab [Tylenol] 650 mg PO Q6HR PRN tab 01/02/23 [Rx] HYDROcodone/APAP 5-325MG [[place] 5-325] 1 each PO Q4HR PRN #18 tab 01/02/23 [Rx] Pantoprazole [Protonix] 40 mg PO BID #60 tab 01/02/23 [Rx] Sucralfate [Carafate] 1 gm PO AC-TID #90 tab 01/02/23 [Rx] Follow up Appointment(s)/Referral(s): Rodolfo Rivera MD [Primary Care Provider] - 1-2 days (The office will call you with an appointment time and date.) Selena Navarro MD [STAFF PHYSICIAN] - As Needed Patient Instructions/Handouts: Peptic Ulcer (DC), Hiatal Hernia (DC), GERD (Gastroesophageal Reflux Disease) (DC), Cota Esophagus (DC) Discharge/Stand Alone Forms: Who Do I Call?, Community Resources, Help In The Home
[2023-01-02 13:56] VITALS: BMI 29.9
--- NOTE | 2023-01-02 14:47 | P.PN ---
Subjective Progress Note Date: 01/02/23 CHIEF COMPLAINT: Anemia HISTORY OF PRESENT ILLNESS: Patient denies any abdominal pain. Denies any nausea or vomiting. He is tolerating diet. But he does report that his intake is decreased. Denies any blood in his stools. WBC is normal at 10.6 Hgb is stable at 8.1. Patient seen by rad onc service and they did discuss the option of palliative radiation treatment. He is status post EGD on 12/28/2022 had shown a large gastric bleeding ulcer, Jejunal diverticulum, Cota's esophagus and diaphragmatic hiatal hernia. Active bleeding gastric ulcer and gastric cardia easily friable tissue with possible fistulous tract. PHYSICAL EXAM: VITAL SIGNS: Reviewed GENERAL: Well-developed in no acute distress. HEENT: No sclera icterus. Extraocular movements grossly intact. Moist buccal mucosa. Head is atraumatic, normocephalic. Hears conversational speech. No nasal drainage. NECK: Supple without lymphadenopathy. CHEST: Non-labored respirations and equal bilateral excursions. CARDIOVASCULAR: Palpable 2+ radial pulses. ABDOMEN: Soft. Nondistended. Nontender. MUSCULOSKELETAL: No clubbing or cyanosis. NEUROLOGIC: No focal or lateralizing signs. Cranial nerves II through XII grossly intact. PSYCH: awake and alert SKIN: Well perfused. Good skin turgor. 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 Signing provider agrees with the documented findings, assessment, and plan of care. Objective - Vital Signs Vital signs: Vital Signs Temp 97.9 F 01/02/23 07:33 Pulse 87 01/02/23 07:33 Resp 18 01/02/23 07:33 BP 159/85 01/02/23 07:33 Pulse Ox 96 01/02/23 07:33 FiO2 Intake & Output 01/01/23 01/02/23 01/02/23 18:59 06:59 18:59 Intake Total 540 Balance 540 Intake: Oral 540 Other: Voiding Method Toilet Toilet Urinal Urinal # Voids 1 3 # Bowel Movements 1 - Labs CBC & Chem 7: 01/02/23 06:05 01/01/23 06:23 Labs: Abnormal Lab Results - Last 24 Hours (Table) 01/01/23 01/01/23 01/02/23 Range/Units 06:23 06:23 06:05 WBC 12.42 H (4.50-10.00) X 10*3/uL RBC 2.87 L 3.04 L (4.40-5.60) X 10*6/uL Hgb 7.4 L 8.1 L (13.0-17.0) d/dL Hct 24.0 L 25.9 L (39.6-50.0) % MCH 25.8 L (27.0-32.0) pg MCHC 30.8 L (32.0-37.0) d/dL RDW 19.1 H 18.5 H (11.5-14.5) % Monocytes # 1.2 H (0-1.0) k/uL NRBC/100 WBC Diff 0.03 H (0.00-0.01) X 10*3/uL Sodium 129 L (135-145) mmol/L Carbon Dioxide 20.3 L (21.6-31.8) mmol/L BUN 7.3 L (9.0-27.0) mg/dL BUN/Creatinine Ratio 9.12 L (12.00-20.00) Ratio Glucose 113 H (70-110) mg/dL Calcium 8.6 L (8.7-10.3) mg/dL AST 62 H (14-35) U/L Alkaline Phosphatase 189 H (41-126) U/L Total Protein 5.3 L (6.2-8.2) d/dL Albumin 2.8 L (3.8-4.9) d/dL Albumin/Globulin Ratio 1.12 L (1.60-3.17) Ratio
== END 2023-01-02 15:23 | disposition home health service (06) | DRG 377 ==
LOC: EC 11:25 → 5NMEDONC 14:43 → OBSVTOIN 14:44 → 5NMEDONC 15:47
PROVIDERS: ADMIT Student in an Organized Health Care Education/Training Program; ATTEND Student in an Organized Health Care Education/Training Program
PROC: 30233N1 Transfusion of Nonautologous Red Blood Cells into Peripheral Vein, Percutaneous Approach (ICD-10-PCS; 2022-12-27)
PROC: 0DJ08ZZ Inspection of Upper Intestinal Tract, Via Natural or Artificial Opening Endoscopic (ICD-10-PCS; principal; 2022-12-28 07:30)
DX: K25.4 Chronic or unspecified gastric ulcer with hemorrhage (principal); I81 Portal vein thrombosis; C25.2 Malignant neoplasm of tail of pancreas; R18.8 Other ascites; E87.1 Hypo-osmolality and hyponatremia; C78.7 Secondary malignant neoplasm of liver and intrahepatic bile duct; D62 Acute posthemorrhagic anemia; K86.89 Other specified diseases of pancreas; E87.8 Other disorders of electrolyte and fluid balance, not elsewhere classified; D75.839 Thrombocytosis, unspecified; E11.9 Type 2 diabetes mellitus without complications; Z66 Do not resuscitate; K22.70 Barrett's esophagus without dysplasia; K44.9 Diaphragmatic hernia without obstruction or gangrene; E78.5 Hyperlipidemia, unspecified; E86.1 Hypovolemia; I10 Essential (primary) hypertension; K57.10 Diverticulosis of small intestine without perforation or abscess without bleeding; R39.2 Extrarenal uremia; Z79.82 Long term (current) use of aspirin; Z79.899 Other long term (current) drug therapy; Z85.46 Personal history of malignant neoplasm of prostate; Z92.3 Personal history of irradiation; Z92.21 Personal history of antineoplastic chemotherapy; Z90.81 Acquired absence of spleen; Z87.891 Personal history of nicotine dependence; Z88.8 Allergy status to other drugs, medicaments and biological substances
CPT/HCPCS: 36415; 43235; 74178; 80048; 80053; 82272; 82607; 82728; 82747; 83010; 83540; 83550; 83615; 83735; 84443; 84466; 85025; 85027; 85045; 85610; 85730; 86850; 86900; 86901; 86920; 93005; 96361; 96374; 99284

== ENCOUNTER 2023-01-30 07:10 | Inpatient (IN) | payer OTHER, MEDICARE, BC ==
[2023-01-30] MEDS ORDERED: ONDANSETRON 4 MG/2 ML VIAL IVP STA (07:26)
[2023-01-30] MEDS ORDERED: PANTOPRAZOLE 40 MG/10 ML VIAL IVP STA (07:27)
[2023-01-30 07:56] LABS: ALT 62 U/L (4-49); AST 142 U/L (17-59); African American GFR (CKD) 86 (>60 ml/min/1.73 sqM); Alkaline Phosphatase 366 U/L (38-126); Anion Gap 9 mmol/L; Blood Urea Nitrogen 18 mg/dL (9-20); Calcium 9.5 mg/dL (8.4-10.2); Carbon Dioxide 23 mmol/L (22-30); Chloride 96 mmol/L (98-107); Glucose 159 mg/dL (74-99); Lipase 17 U/L (23-300); Magnesium 1.8 mg/dL (1.6-2.3); Non-African American GFR(CKD) 74 (>60 ml/min/1.73 sqM); Potassium 3.8 mmol/L (3.5-5.1); Sodium 128 mmol/L (137-145); Total Bilirubin 2.4 mg/dL (0.2-1.3); Total Protein 6.8 g/dL (6.3-8.2)
--- NOTE | 2023-01-30 07:57 | ED ---
General Adult HPI - General Chief complaint: Abdominal Pain Stated complaint: GI Bleed Time Seen by Provider: 01/30/23 07:25 Source: EMS Mode of arrival: EMS Limitations: no limitations - History of Present Illness Initial comments: 77-year-old male with past medical history of pancreatic cancer metastasized to liver, hypertension, diabetes who presents to the emergency department for upper GI bleed. 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 He was anemic at that time however was not having any bleeding. They were going to do radiation on the fistula however when the patient was stronger. States he has not noticed any rectal bleeding. States the first time he noted hematemesis. He has had 4-5 episodes of mucousy, blood-tinged emesis. Denies any pain. No fevers. Does admit to some abdominal distention. Patient does not take any blood thinners. No other alleviating, precipitating or modifying factors - Related Data Home Medications Medication Instructions Recorded Confirmed Lipase/Protease/Amylase [Vladimir Mark 72,000 units PO AC-TID 08/14/17 01/30/23 36,000 Unit Capsule] Cholecalciferol [Vitamin D3 (125 125 mcg PO HS 05/18/21 01/30/23 Mcg = 5000 Iu)] Metoprolol Tartrate [Lopressor] 25 mg PO DAILY 12/26/22 01/30/23 HYDROcodone/APAP 5-325MG [[place] 1 tab PO Q4HR PRN 01/30/23 01/30/23 5-325] Previous Rx's Medication Instructions Recorded Acetaminophen Tab [Tylenol] 650 mg PO Q6HR PRN tab 01/02/23 Pantoprazole [Protonix] 40 mg PO BID #60 tab 01/02/23 Sucralfate [Carafate] 1 gm PO AC-TID #90 tab 01/02/23 Allergies Allergy/AdvReac Type Severity Reaction Status Date / Time hornet venom Allergy Swelling Verified 01/30/23 07:23 niacin Allergy Unknown Verified 01/30/23 07:23 Review of Systems ROS Statement: Those systems with pertinent positive or pertinent negative responses have been documented in the HPI. ROS Other: All systems not noted in ROS Statement are negative. Past Medical History Past Medical History: Cancer, Diabetes Mellitus, Hyperlipidemia, Hypertension Additional Past Medical History / Comment(s): past prostate CA(sx only ),pancreatic CA radiation tx 09/2017, last chemo tx last 06/2020, sinus problems, tremors, diet controlled DM History of Any Multi-Drug Resistant Organisms: None Reported Past Surgical History: Prostate Surgery Additional Past Surgical History / Comment(s): prostatectomy 2009, sigrid cataracts, colonoscopy 1999, hemorrhoidectomy, wipple, L shoulder Past Anesthesia/Blood Transfusion Reactions: Motion Sickness Additional Past Anesthesia/Blood Transfusion Reaction / Comment(s): clausterphobia. to pt's knowledge never recieved any blood Past Psychological History: No Psychological Hx Reported Smoking Status: Former smoker Past Alcohol Use History: Rare Past Drug Use History: None Reported - Past Family History Mother Family Medical History: CVA/TIA, Hypertension Father Family Medical History: Congestive Heart Failure (CHF), Coronary Artery Disease (CAD), Myocardial Infarction ([place]) General Exam Limitations: no limitations General appearance: alert, in no apparent distress Head exam: Present: atraumatic, normocephalic, normal inspection Eye exam: Present: normal appearance, PERRL, EOMI. Absent: scleral icterus, conjunctival injection, periorbital swelling ENT exam: Present: normal exam, mucous membranes moist Neck exam: Present: normal inspection. Absent: tenderness, meningismus, lymphadenopathy Respiratory exam: Present: normal lung sounds bilaterally. Absent: respiratory distress, wheezes, rales, rhonchi, stridor Cardiovascular Exam: Present: regular rate, normal rhythm, normal heart sounds. Absent: systolic murmur, diastolic murmur, rubs, gallop, clicks GI/Abdominal exam: Present: soft, distended, normal bowel sounds. Absent: tenderness, guarding, rebound, rigid Extremities exam: Present: normal inspection, full ROM, normal capillary refill. Absent: tenderness, pedal edema, joint swelling, calf tenderness Back exam: Present: normal inspection Neurological exam: Present: alert, oriented X3, CN II-XII intact Psychiatric exam: Present: normal affect, normal mood Skin exam: Present: warm, dry, intact, normal color. Absent: rash Course Vital Signs 01/30/23 01/30/23 01/30/23 07:19 09:50 11:25 Temperature 97.9 F Pulse Rate 107 H 92 87 Respiratory 18 18 16 Rate Blood Pressure 134/101 134/87 128/93 O2 Sat by Pulse 98 94 L 94 L Oximetry Medical Decision Making - Medical Decision Making Was pt. sent in by a medical professional or institution ([facility]ano, [employer], urgent care, hospital, or correction...) When possible be specific @ -No Did you speak to anyone other than the patient for history (EMS, parent, family, police, friend...)? What history was obtained from this source @ -Spoke with family and EMS Did you review nursing and triage notes (agree or disagree)? Why? @ -I reviewed and agree with nursing and triage notes Were old charts reviewed (outside hosp., previous admission, EMS record, old EKG, old radiological studies, urgent care reports/EKG's, correction records)? Report findings @ -I reviewed patient's recent discharge summary as well as his scope by Dr. Navarro and additional consult notes from oncology Differential Diagnosis (chest pain, altered mental status, abdominal pain women, abdominal pain men, vaginal bleeding, weakness, fever, dyspnea, syncope, headache, dizziness, GI bleed, back pain, seizure, CVA, palpatations, mental health, musculoskeletal)? @ -Differential GI Bleed: Esophageal varices, aortoenteric fistula, Isabella-Salomon, gastritis, peptic ulcer disease, diverticulosis, inflammatory bowel disease, hemorrhoids, fissure, coli tis, malignancy, Meckels diverticulum, this is not meant to be an all-inclusive list. EKG interpreted by me (3pts min.). @ -Not done X-rays interpreted by me (1pt min.). @ -None done CT interpreted by me (1pt min.). @ -None done U/S interpreted by me (1pt. min.). @ -None done What testing was considered but not performed or refused? (CT, X-rays, U/S, labs)? Why? @ -None What meds were considered but not given or refused? Why? @ -None Did you discuss the management of the patient with other professionals (professionals i.e. GUR[employer]ET Samano, [employer], lab, RT, psych nurse, social service director, cylinder press operator helper, teacher, chief resource officer, case management social worker)? Give summary @ -Spoke with Dr. Garcia for admission Was smoking cessation discussed for >3mins.? @ -No Was critical care preformed (if so, how long)? @ -No Were there social determinants of health that impacted care today? How? (Homelessness, low income, unemployed, alcoholism, drug addiction, transportation, low edu. Level, literacy, decrease access to med. care, intermediate, rehab)? @ -No Was there de-escalation of care discussed even if they declined (Discuss DNR or withdrawal of care, Hospice)? DNR status @ -yes, patient aware that vomiting blood can be a life-threatening condition. He does not want to be intubated. Patient does not want chemo. Agreeable to palliative care What co-morbidities impacted this encounter? (DM, HTN, Smoking, COPD, CAD, Cancer, CVA, ARF, Chemo, Hep., AIDS, mental health diagnosis, sleep apnea, morbid obesity)? @ -Pancreatic cancer Was patient admitted / discharged? Hospital course, mention meds given and route, prescriptions, significant lab abnormalities, going to OR and other pertinent info. @ -Admitted. Upon arrival patient is placed into room 13. Thorough history and physical exam was performed. Patient is given 4 mg of Zofran and his hematemesis stops. Laboratory studies are conducted. Patient is hemodynamically stable. There is discussion in the patient's chart that should he have continued bleeding, he will require radiation. Because of this I did call and speak with Dr. Garcia who was agreeable to admit the patient. I will place Dr. Navarro on consult as she previously scoped the patient as well as radiation oncology. Patient had no further episodes of emesis and was awaiting transport to the floor Undiagnosed new problem with uncertain prognosis? @ -Yes Drug Therapy requiring intensive monitoring for toxicity (Heparin, Nitro, Insulin, Cardizem)? @ -No Were any procedures done? @ -No Diagnosis/symptom? @ -Acute hematemesis, history of pancreatic cancer, history of gastric ulcer Acute, or Chronic, or Acute on Chronic? @ -Acute on chronic Uncomplicated (without systemic symptoms) or Complicated (systemic symptoms)? @ -Complicated Side effects of treatment? @ -No Exacerbation, Progression, or Severe Exacerbation? @ -No Poses a threat to life or bodily function? How? (Chest pain, [place], [place], pneumonia, PE, COPD, DKA, ARF, appy, cholecystitis, CVA, Diverticulitis, Homicidal, Suicidal, threat to staff... and all critical care pts) @ -Yes patient presents with upper GI bleed - Lab Data Result diagrams: 01/30/23 12:47 01/30/23 07:30 Lab Results 01/30/23 01/30/23 01/30/23 Range/Units 07:30 07:30 07:30 WBC 13.7 H (3.8-10.6) k/uL RBC 3.10 L (4.30-5.90) m/uL Hgb 8.3 L (13.0-17.5) gm/dL Hct 26.3 L (39.0-53.0) % MCV 84.9 (80.0-100.0) fL MCH 26.8 (25.0-35.0) pg MCHC 31.6 (31.0-37.0) g/dL RDW 18.7 H (11.5-15.5) % Plt Count 456 H (150-450) k/uL MPV 10.5 Neutrophils % 76 % Lymphocytes % 9 % Monocytes % 8 % Eosinophils % 3 % Basophils % 1 % Neutrophils # 10.5 H (1.3-7.7) k/uL Lymphocytes # 1.2 (1.0-4.8) k/uL Monocytes # 1.1 H (0-1.0) k/uL Eosinophils # 0.4 (0-0.7) k/uL Basophils # 0.1 (0-0.2) k/uL Hypochromasia Slight Anisocytosis Slight PT 12.2 (10.0-12.5) sec INR 1.1 (<1.2) APTT 20.2 L (22.0-30.0) sec Sodium 128 L (137-145) mmol/L Potassium 3.8 (3.5-5.1) mmol/L Chloride 96 L (98-107) mmol/L Carbon Dioxide 23 (22-30) mmol/L Anion Gap 9 mmol/L BUN 18 (9-20) mg/dL Creatinine 0.99 (0.66-1.25) mg/dL Est GFR (CKD-EPI)AfAm 86 (>60 ml/min/1.73 sqM) Est GFR (CKD-EPI)NonAf 74 (>60 ml/min/1.73 sqM) Glucose 159 H (74-99) mg/dL Lactic Ac Sepsis Rflx Plasma Lactic Acid Valente (0.7-2.0) mmol/L Calcium 9.5 (8.4-10.2) mg/dL Magnesium 1.8 (1.6-2.3) mg/dL Total Bilirubin 2.4 H (0.2-1.3) mg/dL AST 142 H (17-59) U/L ALT 62 H (4-49) U/L Alkaline Phosphatase 366 H (38-126) U/L Total Protein 6.8 (6.3-8.2) g/dL Albumin 3.0 L (3.5-5.0) g/dL Lipase 17 L (23-300) U/L Blood Type Blood Type Recheck Bld Type Recheck Status Antibody Screen Spec Expiration Date 01/30/23 01/30/23 01/30/23 Range/Units 07:30 07:30 08:00 WBC (3.8-10.6) k/uL RBC (4.30-5.90) m/uL Hgb (13.0-17.5) gm/dL Hct (39.0-53.0) % MCV (80.0-100.0) fL MCH (25.0-35.0) pg MCHC (31.0-37.0) g/dL RDW (11.5-15.5) % Plt Count (150-450) k/uL MPV Neutrophils % % Lymphocytes % % Monocytes % % Eosinophils % % Basophils % % Neutrophils # (1.3-7.7) k/uL Lymphocytes # (1.0-4.8) k/uL Monocytes # (0-1.0) k/uL Eosinophils # (0-0.7) k/uL Basophils # (0-0.2) k/uL Hypochromasia Anisocytosis PT (10.0-12.5) sec INR (<1.2) APTT (22.0-30.0) sec Sodium (137-145) mmol/L Potassium (3.5-5.1) mmol/L Chloride (98-107) mmol/L Carbon Dioxide (22-30) mmol/L Anion Gap mmol/L BUN (9-20) mg/dL Creatinine (0.66-1.25) mg/dL Est GFR (CKD-EPI)AfAm (>60 ml/min/1.73 sqM) Est GFR (CKD-EPI)NonAf (>60 ml/min/1.73 sqM) Glucose (74-99) mg/dL Lactic Ac Sepsis Rflx Y Plasma Lactic Acid Valente 3.0 H* (0.7-2.0) mmol/L Calcium (8.4-10.2) mg/dL Magnesium (1.6-2.3) mg/dL Total Bilirubin (0.2-1.3) mg/dL AST (17-59) U/L ALT (4-49) U/L Alkaline Phosphatase (38-126) U/L Total Protein (6.3-8.2) g/dL Albumin (3.5-5.0) g/dL Lipase (23-300) U/L Blood Type A Positive Blood Type Recheck A Pos Bld Type Recheck Status No Antibody Screen NEGATIVE Spec Expiration Date 02/02/20232329 Disposition Clinical Impression: Anemia, Pancreatic cancer, Hematemesis Disposition: ADMITTED IP TO THIS HOSP Condition: Stable Is patient prescribed a controlled substance at d/c from ED?: No Time of Disposition: 09:30
[2023-01-30 08:01] LABS: INR 1.1 (<1.2); Prothrombin Time 12.2 sec (10.0-12.5)
[2023-01-30 08:22] LABS: Anisocytosis Slight; Basophils # (A) 0.1 k/uL (0-0.2); Basophils % (A) 1 %; Eosinophils # (A) 0.4 k/uL (0-0.7); Eosinophils % (A) 3 %; HCT 26.3 % (39.0-53.0); HGB 8.3 gm/dL (13.0-17.5); Hypochromasia Slight; Lymphocytes # (A) 1.2 k/uL (1.0-4.8); Lymphocytes % (A) 9 %; MCH 26.8 pg (25.0-35.0); MCHC 31.6 g/dL (31.0-37.0); MCV 84.9 fL (80.0-100.0); Mean Platelet Volume 10.5; Monocytes # (A) 1.1 k/uL (0-1.0); Monocytes % (A) 8 %; Neutrophils # (A) 10.5 k/uL (1.3-7.7); Neutrophils % (A) 76 %; Platelet Count 456 k/uL (150-450); RDW 18.7 % (11.5-15.5); WBC 13.7 k/uL (3.8-10.6)
[2023-01-30 08:26] LABS: Partial Thromboplastin Time 20.2 sec (22.0-30.0)
[2023-01-30] MEDS ORDERED: NALOXONE 0.4 MG/ML 1 ML VIAL IV PRN (09:25)
[2023-01-30] MEDS ORDERED: ONDANSETRON 4 MG/2 ML VIAL IVP PRN (09:25)
--- NOTE | 2023-01-30 12:19 | P.GSCN ---
History of Present Illness Consult date: 01/30/23 History of present illness: CHIEF COMPLAINT: Vomiting blood HISTORY OF PRESENT ILLNESS: This is a 77-year-old male with a known history of pancreatic cancer metastasized to the liver. Patient had recent hospitalization in the end of December of this year for GI bleed and on EGD was found have evidence of a large gastric bleeding ulcer. 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 Patient was being evaluated for radiation treatments to the area. He had refused chemotherapy. However, patient reports that Dr. Perez recommended to wait for radiation treatment until the patient was stronger. Patient has not started radiation treatment yet. This morning at 6 AM patient started having hematemesis. He reports are pending 2 times with a large amount of blood with blood clots. He did vomit once in the ER with just a small amount of blood. He denies any abdominal pain. Denies any change in his stools. Hemoglobin 8.3. Patient has history of Whipple procedure in 2017 for his pancreatic cancer with chemo and radiation ending in 2020. Also history of prostate cancer with prostatectomy in 2009. Patient denies being on any blood thinners. Patient had been taking the Carafate and Protonix at home. PAST MEDICAL HISTORY: See below PAST SURGICAL HISTORY: See below MEDICATIONS: See below ALLERGIES: See below SOCIAL HISTORY: No illicit drug use. REVIEW OF SYSTEMS: CONSTITUTIONAL: Denies fever or chills. HEENT: Denies blurred vision, vision changes, or eye pain. Denies hemoptysis CARDIOVASCULAR: Denies chest pain or pressure. RESPIRATORY: No shortness of breath. GASTROINTESTINAL: See HPI for pertinent findings HEMATOLOGIC: Denies bleeding disorders. GENITOURINARY: Denies any blood in urine or increased urinary frequency. SKIN: Denies pruitis. Denies rash. PHYSICAL EXAM: VITAL SIGNS: Reviewed GENERAL: Well-developed in no acute distress. ABDOMEN: Soft. Nondistended. Nontender NEUROLOGIC: Alert and oriented. Cranial nerves II through XII grossly intact. LABORATORY DATA: WBC 13.7 Hgb 8.3 platelets 456 INR 1.1 Sodium 128 potassium 3.8 creatinine 0.99 Lactic acid 3.0 Total bili 2.4 AST 142 ALT 62 alk phos 366 Lipase 17 IMAGING: ASSESSMENT: 1. Hematemesis 2. Chronic anemia 3. 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 History of pancreatic cancer status post Whipple in 2017 with chemo and radiation ending in 2020 5. Elevated lactic acid level 6. Hyponatremia PLAN: -Consult GI service regarding the hematemesis and history of large gastric bleeding ulcer and fistula. Patient may benefit from EGD with clipping. -Continue to monitor hemoglobin -Continue IV Protonix -Continue monitor for any signs or symptoms of bleeding Thank you for this consultation Physician Drier Belt Conveyor note has been reviewed by physician. Signing provider agrees with the documented findings, assessment, and plan of care. Past Medical History Past Medical History: Cancer, Diabetes Mellitus, Hyperlipidemia, Hypertension Additional Past Medical History / Comment(s): past prostate CA(sx only),pancreatic CA radiation tx 09/2017, last chemo tx last 06/2020, sinus problems, tremors, diet controlled DM History of Any Multi-Drug Resistant Organisms: None Reported Past Surgical History: Prostate Surgery Additional Past Surgical History / Comment(s): prostatectomy 2009, sigrid cataracts, colonoscopy 1999, hemorrhoidectomy, wipple, L shoulder Past Anesthesia/Blood Transfusion Reactions: Motion Sickness Additional Past Anesthesia/Blood Transfusion Reaction / Comm: clausterphobia. to pt's knowledge never recieved any blood Past Psychological History: No Psychological Hx Reported Smoking Status: Former smoker Past Alcohol Use History: Rare Past Drug Use History: None Reported - Past Family History Mother Family Medical History: CVA/TIA, Hypertension Father Family Medical History: Congestive Heart Failure (CHF), Coronary Artery Disease (CAD), Myocardial Infarction ([place]) Medications and Allergies Home Medications Medication Instructions Recorded Confirmed Type Lipase/Protease/Amylase [Vladimir Mark 72,000 units PO AC-TID 08/14/17 01/30/23 History 36,000 Unit Capsule] Cholecalciferol [Vitamin D3 (125 125 mcg PO HS 05/18/21 01/30/23 History Mcg = 5000 Iu)] Metoprolol Tartrate [Lopressor] 25 mg PO DAILY 12/26/22 01/30/23 History Acetaminophen Tab [Tylenol] 650 mg PO Q6HR PRN tab 01/02/23 01/30/23 Rx Pantoprazole [Protonix] 40 mg PO BID #60 tab 11/01/23 11/29/23 Rx Sucralfate [Carafate] 1 gm PO AC-TID #90 tab 01/02/23 01/30/23 Rx HYDROcodone/APAP 5-325MG [[place] 1 tab PO Q4HR PRN 01/30/23 01/30/23 History 5-325] Allergies Allergy/AdvReac Type Severity Reaction Status Date / Time hornet venom Allergy Swelling Verified 01/30/23 07:23 niacin Allergy Unknown Verified 01/30/23 07:23 Surgical - Exam Vital Signs Temp Pulse Resp BP Pulse Ox 97.9 F 107 H 18 134/101 98 01/30/23 07:19 01/30/23 07:19 01/30/23 07:19 01/30/23 07:19 01/30/23 07:19 Results - Labs 01/30/23 07:30 01/30/23 07:30 Abnormal Lab Results - Last 24 Hours (Table) 01/30/23 01/30/23 01/30/23 Range/Units 07:30 07:30 07:30 WBC 13.7 H (3.8-10.6) k/uL RBC 3.10 L (4.30-5.90) m/uL Hgb 8.3 L (13.0-17.5) gm/dL Hct 26.3 L (39.0-53.0) % RDW 18.7 H (11.5-15.5) % Plt Count 456 H (150-450) k/uL Neutrophils # 10.5 H (1.3-7.7) k/uL Monocytes # 1.1 H (0-1.0) k/uL APTT 20.2 L (22.0-30.0) sec Sodium 128 L (137-145) mmol/L Chloride 96 L (98-107) mmol/L Glucose 159 H (74-99) mg/dL Plasma Lactic Acid Valente (0.7-2.0) mmol/L Total Bilirubin 2.4 H (0.2-1.3) mg/dL AST 142 H (17-59) U/L ALT 62 H (4-49) U/L Alkaline Phosphatase 366 H (38-126) U/L Albumin 3.0 L (3.5-5.0) g/dL Lipase 17 L (23-300) U/L 01/30/23 Range/Units 07:30 WBC (3.8-10.6) k/uL RBC (4.30-5.90) m/uL Hgb (13.0-17.5) gm/dL Hct (39.0-53.0) % RDW (11.5-15.5) % Plt Count (150-450) k/uL Neutrophils # (1.3-7.7) k/uL Monocytes # (0-1.0) k/uL APTT (22.0-30.0) sec Sodium (137-145) mmol/L Chloride (98-107) mmol/L Glucose (74-99) mg/dL Plasma Lactic Acid Valente 3.0 H* (0.7-2.0) mmol/L Total Bilirubin (0.2-1.3) mg/dL AST (17-59) U/L ALT (4-49) U/L Alkaline Phosphatase (38-126) U/L Albumin (3.5-5.0) g/dL Lipase (23-300) U/L Diabetes panel 01/30/23 Range/Units 07:30 Sodium 128 L (137-145) mmol/L Potassium 3.8 (3.5-5.1) mmol/L Chloride 96 L (98-107) mmol/L Carbon Dioxide 23 (22-30) mmol/L BUN 18 (9-20) mg/dL Creatinine 0.99 (0.66-1.25) mg/dL Glucose 159 H (74-99) mg/dL Calcium 9.5 (8.4-10.2) mg/dL AST 142 H (17-59) U/L ALT 62 H (4-49) U/L Alkaline Phosphatase 366 H (38-126) U/L Total Protein 6.8 (6.3-8.2) g/dL Albumin 3.0 L (3.5-5.0) g/dL Calcium panel 01/30/23 Range/Units 07:30 Calcium 9.5 (8.4-10.2) mg/dL Albumin 3.0 L (3.5-5.0) g/dL Pituitary panel 01/30/23 Range/Units 07:30 Sodium 128 L (137-145) mmol/L Potassium 3.8 (3.5-5.1) mmol/L Chloride 96 L (98-107) mmol/L Carbon Dioxide 23 (22-30) mmol/L BUN 18 (9-20) mg/dL Creatinine 0.99 (0.66-1.25) mg/dL Glucose 159 H (74-99) mg/dL Calcium 9.5 (8.4-10.2) mg/dL Adrenal panel 01/30/23 Range/Units 07:30 Sodium 128 L (137-145) mmol/L Potassium 3.8 (3.5-5.1) mmol/L Chloride 96 L (98-107) mmol/L Carbon Dioxide 23 (22-30) mmol/L BUN 18 (9-20) mg/dL Creatinine 0.99 (0.66-1.25) mg/dL Glucose 159 H (74-99) mg/dL Calcium 9.5 (8.4-10.2) mg/dL Total Bilirubin 2.4 H (0.2-1.3) mg/dL AST 142 H (17-59) U/L ALT 62 H (4-49) U/L Alkaline Phosphatase 366 H (38-126) U/L Total Protein 6.8 (6.3-8.2) g/dL Albumin 3.0 L (3.5-5.0) g/dL
[2023-01-30 12:56] LABS: Anisocytosis Slight; Basophils # (A) 0.1 k/uL (0-0.2); Basophils % (A) 1 %; Eosinophils # (A) 0.1 k/uL (0-0.7); Eosinophils % (A) 1 %; HCT 25.6 % (39.0-53.0); HGB 7.9 gm/dL (13.0-17.5); Hypochromasia Slight; Lymphocytes # (A) 0.9 k/uL (1.0-4.8); Lymphocytes % (A) 6 %; MCH 26.2 pg (25.0-35.0); MCV 84.5 fL (80.0-100.0); Mean Platelet Volume 8.9; Monocytes # (A) 0.9 k/uL (0-1.0); Monocytes % (A) 6 %; Neutrophils # (A) 12.4 k/uL (1.3-7.7); Neutrophils % (A) 85 %; Platelet Count 419 k/uL (150-450); RBC 3.03 m/uL (4.30-5.90); RDW 18.7 % (11.5-15.5); WBC 14.6 k/uL (3.8-10.6)
--- NOTE | 2023-01-30 13:54 | P.HPIM ---
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 Reported 3 episodes of hematemesis that prompted him to come to the ED. No chest pain, dizziness, SOB, palpitations. In the ED, he underwent extensive evaluation. Vital signs stable, besides HR in the 100s. CBC WBC 13.7, Hg 8.3, Plt 456. INR 1.1. CMP Na 128, Cl 96, glu 159, T. Bili 2.5, AST 142, ALT 62, alk phos 366, alb 3. Lactic acid 3.3. He is admitted for UGIB with Surgery and Oncology on board. Pertinent positives and negatives as discussed in HPI, a complete review of systems was performed and all other systems are negative. General: non toxic, no distress, appears at stated age Derm: warm, dry Head: atraumatic, normocephalic, symmetric Eyes: EOMI, no lid lag, anicteric sclera Mouth: no lip lesion, mucus membranes moist Cardiovascular: S1S2 tachy, no murmur Lungs: CTA bilateral, no rhonchi, no rales , no accessory muscle use Abdominal: soft, nontender to palpation, no guarding, no appreciable organomegaly Ext: no gross muscle atrophy, no edema, no contractures Neuro: no focal neuro deficits Psych: Alert, oriented, appropriate affect Based on my assessment of this patient, this patient meets a high complexity level of care. Patient has an acute diagnosis of UGIB that poses a threat to life or bodily fun ction. Upper GI bleed: Obtain CBC at 6PM. NPO. Telemetry monitoring. Protonix 40 mg IV BID. Possible EGD for known gastric ulcer. GI and Surgery consulted. Leukocytosis: No signs of active infection. Likley reactive. Monitor. Thrombocytosis: Possibly related to iron deficiency anemia. Hyponatremia, hypochloremia: Possible dehydration. Start NS at 75 cc/hr. Lactic acidosis: Chronically elevated due to liver mets. Obstructive transaminitis: Chronically elevated due to liver mets. CODE STATUS: NO CODE. DVT Prophylaxis: SCDs GI Prophylaxis: Protonix IV Designated medical POA if patient is not able to make medical decisions for themselves: I have reviewed the following furniture sales consultant notes: Surgery note. I have reviewed the results of the following tests: As above. I have ordered the following tests: CBC. I have discussed the care of this patient with the following independent historian: I have independently interpreted the following test below: I have discussed the management of this patient with the following physician: Discussed with Dr. Tripp in detail. Past Medical History Past Medical History: Cancer, Diabetes Mellitus, Hyperlipidemia, Hypertension Additional Past Medical History / Comment(s): past prostate CA(sx only),pancreatic CA radiation tx 09/2017, last chemo tx last 06/2020, sinus problems, tremors, diet controlled DM History of Any Multi-Drug Resistant Organisms: None Reported Past Surgical History: Prostate Surgery Additional Past Surgical History / Comment(s): prostatectomy 2009, sigrid cataracts, colonoscopy 1999, hemorrhoidectomy, wipple, L shoulder Past Anesthesia/Blood Transfusion Reactions: Motion Sickness Additional Past Anesthesia/Blood Transfusion Reaction / Comment(s): clausterphobia. to pt's knowledge never recieved any blood Past Psychological History: No Psychological Hx Reported Smoking Status: Former smoker Past Alcohol Use History: Rare Past Drug Use History: None Reported - Past Family History Mother Family Medical History: CVA/TIA, Hypertension Father Family Medical History: Congestive Heart Failure (CHF), Coronary Artery Disease (CAD), Myocardial Infarction (HI) Medications and Allergies Home Medications Medication Instructions Recorded Confirmed Type Lipase/Protease/Amylase [Vladimir Mark 72,000 units PO AC-TID 08/14/17 01/30/23 History 36,000 Unit Capsule] Cholecalciferol [Vitamin D3 (125 125 mcg PO HS 05/18/21 01/30/23 History Mcg = 5000 Iu)] Metoprolol Tartrate [Lopressor] 25 mg PO DAILY 12/26/22 01/30/23 History Acetaminophen Tab [Tylenol] 650 mg PO Q6HR PRN tab 01/02/23 01/30/23 Rx Pantoprazole [Protonix] 40 mg PO BID #60 tab 01/02/23 01/30/23 Rx Sucralfate [Carafate] 1 gm PO AC-TID #90 tab 01/02/23 01/30/23 Rx HYDROcodone/APAP 5-325MG [[place] 1 tab PO Q4HR PRN 01/30/23 01/30/23 History 5-325] Allergies Allergy/AdvReac Type Severity Reaction Status Date / Time hornet venom Allergy Swelling Verified 01/30/23 07:23 niacin Allergy Unknown Verified 01/30/23 07:23 Physical Exam Vitals: Vital Signs Temp Pulse Resp BP Pulse Ox 01/30/23 11:25 87 16 128/93 94 L 01/30/23 09:50 92 18 134/87 94 L 01/30/23 07:19 97.9 F 107 H 18 134/101 98 Intake and Output 01/29/23 01/30/23 01/30/23 22:59 06:59 14:59 Other: Weight 99.79 kg Results CBC & Chem 7: 01/30/23 12:47 01/30/23 07:30 Labs: Abnormal Lab Results - Last 24 Hours (Table) 01/30/23 01/30/23 01/30/23 Range/Units 07:30 07:30 07:30 WBC 13.7 H (3.8-10.6) k/uL RBC 3.10 L (4.30-5.90) m/uL Hgb 8.3 L (13.0-17.5) gm/dL Hct 26.3 L (39.0-53.0) % RDW 18.7 H (11.5-15.5) % Plt Count 456 H (150-450) k/uL Neutrophils # 10.5 H (1.3-7.7) k/uL Lymphocytes # (1.0-4.8) k/uL Monocytes # 1.1 H (0-1.0) k/uL APTT 20.2 L (22.0-30.0) sec Sodium 128 L (137-145) mmol/L Chloride 96 L (98-107) mmol/L Glucose 159 H (74-99) mg/dL Plasma Lactic Acid Valente (0.7-2.0) mmol/L Total Bilirubin 2.4 H (0.2-1.3) mg/dL AST 142 H (17-59) U/L ALT 62 H (4-49) U/L Alkaline Phosphatase 366 H (38-126) U/L Albumin 3.0 L (3.5-5.0) g/dL Lipase 17 L (23-300) U/L 01/30/23 01/30/23 01/30/23 Range/Units 07:30 11:41 12:47 WBC 14.6 H (3.8-10.6) k/uL RBC 3.03 L (4.30-5.90) m/uL Hgb 7.9 L (13.0-17.5) gm/dL Hct 25.6 L (39.0-53.0) % RDW 18.7 H (11.5-15.5) % Plt Count (150-450) k/uL Neutrophils # 12.4 H (1.3-7.7) k/uL Lymphocytes # 0.9 L (1.0-4.8) k/uL Monocytes # (0-1.0) k/uL APTT (22.0-30.0) sec Sodium (137-145) mmol/L Chloride (98-107) mmol/L Glucose (74-99) mg/dL Plasma Lactic Acid Valente 3.0 H* 2.6 H* (0.7-2.0) mmol/L Total Bilirubin (0.2-1.3) mg/dL AST (17-59) U/L ALT (4-49) U/L Alkaline Phosphatase (38-126) U/L Albumin (3.5-5.0) g/dL Lipase (23-300) U/L
[2023-01-30] MEDS: SODIUM CHLORIDE 0.9% 1,000 ML IV SCH (15:00)
--- NOTE | 2023-01-30 15:08 | P.CONS ---
History of Present Illness - Reason for Consult Consult date: 01/30/23 Hematemesis Requesting physician: Selena Navarro - Chief Complaint Vomiting blood - History of Present Illness This pleasant 77-year-old male with a history of pancreatic cancer status post Whipple approximately 6 years ago, prostate cancer, hyperlipidemia and hyperten thiago who was recently admitted to the hospital in late December and discharged on 01/02/2023 for GI bleed and concerns for metastatic pancreatic cancer to the liver. This morning patient woke up and started spitting up a little bit of blood, he then went to the bathroom and had a large bright red emesis. He called EMS at that time and while he was waiting he had spit up some more blood which he stated was more clot-like. He denied any associated abdominal pain and states he has not had any further bleeding since coming to the emergency department. Prior to his last admission he was having dark stools for 2 weeks prior to admission. He was noted to be anemic. He underwent an EGD with Dr. Navarro who found a large bleeding gastric ulcer. He had a CT of the abdomen and pelvis during that admission and Dr. 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 Patient declined chemotherapy and was recommended for radiation therapy however patient has been too weak to undergo radiation therapy. He was seen by gastroenterology during that admission however bleeding had subsided and hemoglobin was stable. Patient was discharged with Protonix and Carafate. He currently denies any abdominal pain, nausea vomiting. He has not had any f urther emesis while here in the hospital. Hemoglobin on admission was 8.3, with of repeat this afternoon of 7.9. Patient is currently a NO CODE. Labs WBC 14.6 hemoglobin 7.9 hematocrit 25 platelet count 419,000 vein are 1.1 sodium 128 potassium 3.8B 118 creatinine 0.9, lactic acid 2.6 total bilirubin 2.4 AST 142 ALT 62 alkaline phosphatase 366 lipase 17 Review of Systems REVIEW OF SYSTEMS: CARDIOPULMONARY: No chest pain or shortness of breath. Gastrointestinal: No abdominal or epigastric pain. Hematemesis. No rectal bleeding, or melena. GENITOURINARY: No dysuria or hematuria. MUSCULOSKELETAL: Reports normal range of motion. SKIN: No rashes. No jaundice. ENDOCRINE: No chills, fevers. No excessive weight gain or loss. No polydipsia or polyuria. PSYCHIATRIC: Unremarkable. NEUROLOGY: No change in mental status. Denies dizziness, headache. ENT: Vision unremarkable. CONSTITUTIONAL: No recent weight loss. No fever, chills, night sweats. Weakness . Past Medical History Past Medical History: Cancer, Diabetes Mellitus, Hyperlipidemia, Hypertension Additional Past Medical History / Comment(s): past prostate CA(sx only),pancreatic CA radiation tx 09/2017, last chemo tx last 06/2020, sinus problems, tremors, diet controlled DM History of Any Multi-Drug Resistant Organisms: None Reported Past Surgical History: Prostate Surgery Additional Past Surgical History / Comment(s): prostatectomy 2009, sigrid cataracts , colonoscopy 1999, hemorrhoidectomy, wipple, L shoulder Past Anesthesia/Blood Transfusion Reactions: Motion Sickness Additional Past Anesthesia/Blood Transfusion Reaction / Comm: clausterphobia. to pt's knowledge never recieved any blood Past Psychological History: No Psychological Hx Reported Smoking Status: Former smoker Past Alcohol Use History: Rare Past Drug Use History: None Reported - Past Family History Mother Family Medical History: CVA/TIA, Hypertension Father Family Medical History: Congestive Heart Failure (CHF), Coronary Artery Disease (CAD), Myocardial Infarction (PR) Medications and Allergies Home Medications Medication Instructions Recorded Confirmed Type Lipase/Protease/Amylase [Vladimir Mark 72,000 units PO AC-TID 08/14/17 01/30/23 History 36,000 Unit Capsule] Cholecalciferol [Vitamin D3 (125 125 mcg PO HS 05/18/21 01/30/23 History Mcg = 5000 Iu)] Metoprolol Tartrate [Lopressor] 25 mg PO DAILY 12/26/22 01/30/23 History Acetaminophen Tab [Tylenol] 650 mg PO Q6HR PRN tab 01/02/23 01/30/23 Rx Pantoprazole [Protonix] 40 mg PO BID #60 tab 01/02/23 01/30/23 Rx Sucralfate [Carafate] 1 gm PO AC-TID #90 tab 01/02/23 01/30/23 Rx HYDROcodone/APAP 5-325MG [[place] 1 tab PO Q4HR PRN 01/30/23 01/30/23 History 5-325] Allergies Allergy/AdvReac Type Severity Reaction Status Date / Time hornet venom Allergy Swelling Verified 01/30/23 07:23 niacin Allergy Unknown Verified 01/30/23 07:23 Physical Exam Vitals: Vital Signs Temp Pulse Resp BP Pulse Ox 01/30/23 11:25 87 16 128/93 94 L 01/30/23 09:50 92 18 134/87 94 L 01/30/23 07:19 97.9 F 107 H 18 134/101 98 Intake and Output 01/29/23 01/30/23 01/30/23 22:59 06:59 14:59 Other: Weight 99.79 kg General appearance: The patient is alert, oriented, appears in no acute distress. HET: Head is normocephalic and atraumatic. Conjunctiva pink. Sclera anicteric. Neck: Supple without lymphadenopathy. Trachea midline. Heart: Regular. Lungs: Equal expansion, normal respiratory effort. Abdomen: Soft, large, nontender, nondistended. No guarding or rigidity. Skin: No rashes. No jaundice. Extremities: Normal skin color and turgor. No pedal edema. Neurological: No focal deficits. Alert and oriented x3. Results CBC & Chem 7: 01/30/23 12:47 01/30/23 07:30 Labs: Abnormal Lab Results - Last 24 Hours (Table) 01/30/23 01/30/23 01/30/23 Range/Units 07:30 07:30 07:30 WBC 13.7 H (3.8-10.6) k/uL RBC 3.10 L (4.30-5.90) m/uL Hgb 8.3 L (13.0-17.5) gm/dL Hct 26.3 L (39.0-53.0) % RDW 18.7 H (11.5-15.5) % Plt Count 456 H (150-450) k/uL Neutrophils # 10.5 H (1.3-7.7) k/uL Lymphocytes # (1.0-4.8) k/uL Monocytes # 1.1 H (0-1.0) k/uL APTT 20.2 L (22.0-30.0) sec Sodium 128 L (137-145) mmol/L Chloride 96 L (98-107) mmol/L Glucose 159 H (74-99) mg/dL Plasma Lactic Acid Valente (0.7-2.0) mmol/L Total Bilirubin 2.4 H (0.2-1.3) mg/dL AST 142 H (17-59) U/L ALT 62 H (4-49) U/L Alkaline Phosphatase 366 H (38-126) U/L Albumin 3.0 L (3.5-5.0) g/dL Lipase 17 L (23-300) U/L 01/30/23 01/30/23 01/30/23 Range/Units 07:30 11:41 12:47 WBC 14.6 H (3.8-10.6) k/uL RBC 3.03 L (4.30-5.90) m/uL Hgb 7.9 L (13.0-17.5) gm/dL Hct 25.6 L (39.0-53.0) % RDW 18.7 H (11.5-15.5) % Plt Count (150-450) k/uL Neutrophils # 12.4 H (1.3-7.7) k/uL Lymphocytes # 0.9 L (1.0-4.8) k/uL Monocytes # (0-1.0) k/uL APTT (22.0-30.0) sec Sodium (137-145) mmol/L Chloride (98-107) mmol/L Glucose (74-99) mg/dL Plasma Lactic Acid Valente 3.0 H* 2.6 H* (0.7-2.0) mmol/L Total Bilirubin (0.2-1.3) mg/dL AST (17-59) U/L ALT (4-49) U/L Alkaline Phosphatase (38-126) U/L Albumin (3.5-5.0) g/dL Lipase (23-300) U/L Assessment and Plan (1) Hematemesis Narrative/Plan: 77-year-old male with recurrent metastatic pancreatic cancer who was recently hospitalized for upper GI bleed and was found to have a large bleeding gastric ulcer during an EGD done on 12/28/[address] Askew. Patient also had a CT abdomen and pelvis during that hospitalization which was concerning for pancreatic tail mass invading into the greater curvature of the stomach and innumerable hepatic lesions. After EGD Dr. 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 At that time discussion of palliative radiation therapy and Protonix and her feet was recommended. He had not had any further bleeding since that time and was supposed to start radiation therapy however has been too weak. Today's presenting with hematemesis 2 episodes likely coming from gastric ulcer/fistula. Unfortunately due to the extent of the ulcer with suspected fistula from erosion of pancreatic malignancy into the gastric cardia of the stomach it is very unlikely that any bleeding could be controlled by endoscopic evaluation and treatment. Recommendation is that patient be evaluated by oncology and decide on whether patient wants to be aggressive with surgical intervention if that is the case would recommend oncology and medical team initiate transfer otherwise consider possible palliative/hospice care. Current Visit: Yes Status: Acute Code(s): K92.0 - HEMATEMESIS SNOMED Code(s): 4610673 (2) History of gastric ulcer Current Visit: Yes Status: Acute Code(s): Z87.11 - PERSONAL HISTORY OF PEPTIC ULCER DISEASE SNOMED Code(s): 224416323 (3) Anemia Current Visit: Yes Status: Acute Priority: High Code(s): D64.9 - ANEMIA, UNSPECIFIED SNOMED Code(s): 525735470 (4) Pancreatic cancer Current Visit: Yes Status: Chronic Priority: High Code(s): C25.9 - BRENDA GNANT NEOPLASM OF PANCREAS, UNSPECIFIED SNOMED Code(s): 974846954 (5) Hyponatremia Current Visit: No Status: Acute Code(s): E87.1 - HYPO-OSMOLALITY AND HYPONATREMIA SNOMED Code(s): 90705306 Plan: 1. Continue symptomatic and supportive care 2. CBC every 6 hours and transfuse for hemoglobin less than 7 3. Protonix 40 mg twice a day 4. Keep nothing by mouth for now, except for medications 5. Carafate 6. The patient underwent recent EGD with finding of large bleeding gastric ulcer by Dr. 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 Patient is likely bleeding from this source and not likely that bleeding can be controlled or stopped with endoscopic evaluation or treatment. Recommendation for surgical evaluation/intervention if patient wishes to be full code and wants more aggressive treatment. Recommend oncology discuss with patient GOALS of CARE. This was discussed with the primary medical team. Thank you for this consultation. Dr. Selin Martinez I agree with the dictator's note, documented as a scribe by Mica Bose.
[2023-01-30 18:07] LABS: Anisocytosis Slight; HCT 25.1 % (39.0-53.0); HGB 7.7 gm/dL (13.0-17.5); Hypochromasia Moderate; MCH 26.4 pg (25.0-35.0); MCHC 30.6 g/dL (31.0-37.0); MCV 86.2 fL (80.0-100.0); Mean Platelet Volume 8.8; Platelet Count 431 k/uL (150-450); RBC 2.91 m/uL (4.30-5.90); RDW 18.7 % (11.5-15.5); WBC 14.4 k/uL (3.8-10.6)
[2023-01-30] MEDS: PANTOPRAZOLE 40 MG/10 ML VIAL IVP SCH (20:15)
[2023-01-31 00:56] LABS: Anisocytosis Slight; HCT 23.5 % (39.0-53.0); HGB 7.3 gm/dL (13.0-17.5); Hypochromasia Moderate; MCH 26.7 pg (25.0-35.0); MCHC 31.2 g/dL (31.0-37.0); MCV 85.7 fL (80.0-100.0); Mean Platelet Volume 9.7; Platelet Count 388 k/uL (150-450); RBC 2.74 m/uL (4.30-5.90); RDW 18.8 % (11.5-15.5); WBC 14.5 k/uL (3.8-10.6)
[2023-01-31] MEDS: SODIUM CHLORIDE 0.9% 1,000 ML IV SCH (02:57)
[2023-01-31 03:34] VITALS: PULSE 91
[2023-01-31 08:04] VITALS: BP 130/75; RESP 20; TEMP 98.4
[2023-01-31] MEDS: PANTOPRAZOLE 40 MG/10 ML VIAL IVP SCH (08:30)
[2023-01-31] MEDS ORDERED: PANTOPRAZOLE 40 MG/10 ML VIAL IVP SCH (09:00)
[2023-01-31] MEDS ORDERED: MORPHINE SULFATE 2 MG/ML SYRINGE IVP STA (10:11)
[2023-01-31 10:24] LABS: Glucose,Whole Blood 155 mg/dL (70-110)
[2023-01-31 11:09] LABS: Basophils # (A) 0.14 X 10*3/uL (0.00-0.10); Basophils % (A) 0.9 %; Eosinophils # (A) 0.36 X 10*3/uL (0.04-0.35); Eosinophils % (A) 2.3 %; HCT 23.1 % (39.6-50.0); HGB 7.2 g/dL (13.0-17.0); Lymphocytes # (A) 1.13 X 10*3/uL (0.90-5.00); Lymphocytes % (A) 7.2 %; MCH 26.3 pg (27.0-32.0); MCHC 31.2 g/dL (32.0-37.0); MCV 84.3 FL (80.0-97.0); Mean Platelet Volume 11.4 FL (9.5-12.2); Monocytes # (A) 2.15 X 10*3/uL (0.20-1.00); Monocytes % (A) 13.6 %; NRBC Per 100 WBC 0 X 10*3/uL (0.00-0.01); Neutrophils # (A) 11.93 X 10*3/uL (1.80-7.70); Neutrophils % (A) 75.4 %; Platelet Count 401 X 10*3/uL (140-440); RBC 2.74 X 10*6/uL (4.40-5.60); RDW 20.6 % (11.5-14.5)
[2023-01-31 11:35] LABS: Blood Urea Nitrogen 21.4 mg/dL (9.0-27.0); Calcium 8.9 mg/dL (8.7-10.3); Carbon Dioxide 22.9 mmol/L (21.6-31.8); Chloride 99 mmol/L (96-109); Glucose 116 mg/dL (70-110); Sodium 133 mmol/L (135-145)
--- NOTE | 2023-01-31 17:34 | P.DS ---
Providers Date of admission: 01/30/23 09:25 Expected date of discharge: 01/31/23 Attending physician: Gwendolyn Dunn MD Consults: 01/30/23 09:25 Consult Physician Urgent Consulting Provider: Luis M Perez Consult Reason/Comments: acute hematemesis, palliative radiation Do you want consulting provider notified?: Yes 01/30/23 09:27 Consult Physician Urgent Consulting Provider: Selena Navarro Consult Reason/Comments: hematemesis, recent egd/colonoscopy Do you want consulting provider notified?: Yes 01/30/23 12:04 Consult Physician Routine Consulting Provider: Shannen Martinez Consult Reason/Comments: Hematemesis Do you want consulting provider notified?: Yes 01/30/23 13:45 Consult Physician Routine Consulting Provider: Leroy Ramires Consult Reason/Comments: Pancreatic cancer Do you want consulting provider notified?: Yes Primary care physician: [facility] Course: note: 77-year-old male with PMH of pancreatic cancer with metastatic disease to the liver, recent history of GI bleed in December with EKG showing large gastric bleeding ulcer and 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 Reported 3 episodes of hematemesis that prompted him to come to the ED. No chest pain, dizziness, SOB, palpitations. In the ED, he underwent extensive evaluation. Vital signs stable, besides HR in the 100s. CBC WBC 13.7, Hg 8.3, Plt 456. INR 1.1. CMP Na 128, Cl 96, glu 159, T. Bili 2.5, AST 142, ALT 62, alk phos 366, alb 3. Lactic acid 3.3. He is admitted for UGIB with Surgery and Oncology on board. Surgery recommended GI evaluation. GI recommended possible transfer as hematemesis could be related to invasion of the pancreatic mass into the stomach. Plan was for oncology consult to discuss goals of care with regard to invasive surgery. 01/31 A-team was called his morning for hematemesis. I came up to evaluate the patient. Patient was noted to be agonal breathing and unresponsive with bleeding around his mouth. General: Agonal breathing Derm: warm, dry, jaundiced Head: atraumatic, normocephalic, symmetric Mouth: no lip lesion, bloody sputum noted Cardiovascular: S1S2 rolando, no murmur Lungs: Agonal breathing Ext: no gross muscle atrophy, no edema, no contractures He was suctioned. He was noted to be bradycardic with a thready pulse. The gurdeep was called who confirmed his DNR and DNI status as discussed yesterday. Gurdeep was agreeable for comfort measures. He soon after at 10:13AM. Discharge Diagnosis: Upper GI bleed Leukocytosis Thrombocytosis Hyponatremia, hypochloremia Lactic acidosis Obstructive transaminitis Plan - Discharge Summary Discharge Rx Participant: No New Discharge Prescriptions: No Action Lipase/Protease/Amylase [Vladimir Mark 36,000 Unit Capsule] 72,000 units PO AC-TID Pantoprazole [Protonix] 40 mg PO BID #60 tab HYDROcodone/APAP 5-325MG [[place] 5-325] 1 tab PO Q4HR PRN PRN Reason: Moderate Pain (Scale 4 To 6) Cholecalciferol [Vitamin D3 (125 Mcg = 5000 Iu)] 125 mcg PO HS Metoprolol Tartrate [Lopressor] 25 mg PO DAILY Sucralfate [Carafate] 1 gm PO AC-TID #90 tab Acetaminophen Tab [Tylenol] 650 mg PO Q6HR PRN tab PRN Reason: Mild Pain Or Fever > 100.5 Discharge Medication List Lipase/Protease/Amylase [Vladimir Mark 36,000 Unit Capsule] 72,000 units PO AC-TID 08/14/17 [History] Cholecalciferol [Vitamin D3 (125 Mcg = 5000 Iu)] 125 mcg PO HS 05/18/21 [History] Metoprolol Tartrate [Lopressor] 25 mg PO DAILY 12/26/22 [History] Acetaminophen Tab [Tylenol] 650 mg PO Q6HR PRN tab 01/02/23 [Rx] Pantoprazole [Protonix] 40 mg PO BID #60 tab 01/02/23 [Rx] Sucralfate [Carafate] 1 gm PO AC-TID #90 tab 01/02/23 [Rx] HYDROcodone/APAP 5-325MG [[place] 5-325] 1 tab PO Q4HR PRN 01/30/23 [History] Follow up Appointment(s)/Referral(s): Rodolfo Rivera MD [Primary Care Provider] - 1-2 days Discharge Disposition: - Preliminary Cause of Preliminary Cause of : Upper GI bleed
--- NOTE | 2023-01-31 21:25 | P.CONS ---
History of Present Illness - Reason for Consult Consult date: 01/31/23 pancreatic cancer Requesting physician: Jessica Dsouza - Chief Complaint hematemesis - History of Present Illness Mr. Kingsley is a 77-year-old male patient of Dr. Alfie Thayer, PCP Dr. Rivera. He was referred to Oncology for pancreatic abnormality, CTAP showed multiple cystic foci in the body/tail of the pancreas, 11 x 9.4 cm. 05/2017 MRCP revealed the cystic lesion seen on CT, no definite malignancy. 07/16/2017 taken to the OR at [facility] for a low Dr. Rajan for attempted resection but, was unresectable due to invasion of the stomach and left kidney. 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 Patient received adjuvant chemotherapy through 05/20 and was then placed on observation. He has had follow-up scans, with each one showing some slight progression in the original tumor, no mets. Most recent CT scans in August 07, 2022 that was positive for slight progression of primary tumor, near invasion of stomach. Pt long ago opted to not have further chemo treatment. He was seen earlier this month for anemia. At this visit he again reitreated that he did not want any further systemic treatment but was amendable to RT. He was seen by rad/onc and palliative RT was planned but pt has not been able to f/u due to weakness. Patient had presented to the emergency room with complaints of hematemesis, reporting 3 episodes prior to arrival. Patient was complaining about increasing weakness and decreased appetite. Upon visiting patient this morning patient was actively experiencing hematemesis and was not responding to questions at which time rapid response was called. Unfortunately shortly thereafter patient began to have agonal breathing and had a thready pulse and shortly thereafter. We tried to contact next of kin which is his niece but could not reach her. However did speak to internal medicine and they spoke to the niece who was agreeable with comfort measures and confirmed his DNR/DNI status. Past Medical History Past Medical History: Cancer, Diabetes Mellitus, Hyperlipidemia, Hypertension Additional Past Medical History / Comment(s): past prostate CA(sx only),pancreatic CA radiation tx 09/2017, last chemo tx last 06/2020, sinus problems, tremors, diet controlled DM History of Any Multi-Drug Resistant Organisms: None Reported Past Surgical History: Prostate Surgery Additional Past Surgical History / Comment(s): prostatectomy 2009, sigrid cataracts, colonoscopy 1999, hemorrhoidectomy, wipple, L shoulder Past Anesthesia/Blood Transfusion Reactions: Motion Sickness Additional Past Anesthesia/Blood Transfusion Reaction / Comm: clausterphobia. to pt's knowledge never recieved any blood Past Psychological History: No Psychological Hx Reported Additional Psychological History / Comment(s): . Smoking Status: Former smoker Past Alcohol Use History: Rare Additional Past Alcohol Use History / Comment(s): started smoking at age 23(1968) and quit july 2017. a pack would last 3 days. rare use of alcohol. Past Drug Use History: None Reported - Past Family History Mother Family Medical History: CVA/TIA, Hypertension Father Family Medical History: Congestive Heart Failure (CHF), Coronary Artery Disease (CAD), Myocardial Infarction (PA) Medications and Allergies Home Medications Medication Instructions Recorded Confirmed Type Lipase/Protease/Amylase [Vladimir Mark 72,000 units PO AC-TID 08/14/17 01/30/23 History 36,000 Unit Capsule] Cholecalciferol [Vitamin D3 (125 125 mcg PO HS 05/18/21 01/30/23 History Mcg = 5000 Iu)] Metoprolol Tartrate [Lopressor] 25 mg PO DAILY 12/26/22 01/30/23 History Acetaminophen Tab [Tylenol] 650 mg PO Q6HR PRN tab 01/02/23 01/30/23 Rx Pantoprazole [Protonix] 40 mg PO BID #60 tab 01/02/23 01/30/23 Rx Sucralfate [Carafate] 1 gm PO AC-TID #90 tab 01/02/23 01/30/23 Rx HYDROcodone/APAP 5-325MG [[place] 1 tab PO Q4HR PRN 01/30/23 01/30/23 History 5-325] Allergies Allergy/AdvReac Type Severity Reaction Status Date / Time hornet venom Allergy Swelling Verified 01/30/23 07:23 niacin Allergy Unknown Verified 01/30/23 07:23 Physical Exam Vitals: Vital Signs Temp Pulse Pulse Resp BP BP Pulse Ox 01/31/23 07:17 98.4 F 20 130/75 92 L 01/31/23 02:15 98.7 F 91 16 120/76 92 L 01/30/23 20:50 98.1 F 87 18 143/78 94 L 01/30/23 20:45 87 18 01/30/23 20:26 82 18 124/68 91 L 01/30/23 20:00 82 21 144/89 83 L 01/30/23 19:00 86 20 146/92 88 L 01/30/23 18:00 87 12 126/78 90 L 01/30/23 17:00 80 23 142/87 90 L 01/30/23 16:00 85 18 144/94 90 L 01/30/23 15:00 86 21 138/90 90 L 01/30/23 14:00 86 22 134/88 91 L 01/30/23 13:00 86 21 125/82 89 L 01/30/23 12:00 87 128/93 94 L 01/30/23 11:25 87 16 128/93 94 L 01/30/23 11:00 87 15 137/88 01/30/23 10:00 92 20 134/87 93 L 01/30/23 09:50 92 18 134/87 94 L Intake and Output 01/30/23 01/31/23 01/31/23 22:59 06:59 14:59 Intake Total 750 Output Total 200 Balance 550 Intake: Intake, IV Titration 750 Amount Sodium Chloride 0.9% 1, 750 000 ml @ 75 mls/hr IV . [id number] [facility] Rx#:[id number] Oral 0 Output: Urine 200 Other: Voiding Method Toilet Urinal # Voids 1 Weight 99.79 kg Pt actively having hematemesis, not answering questions, breathing became agonal Results CBC & Chem 7: 01/31/23 07:01 01/31/23 07:01 Labs: Abnormal Lab Results - Last 24 Hours (Table) 01/30/23 01/30/23 01/30/23 Range/Units 11:41 12:47 17:32 WBC 14.6 H 14.4 H (3.8-10.6) k/uL RBC 3.03 L 2.91 L (4.30-5.90) m/uL Hgb 7.9 L 7.7 L (13.0-17.5) gm/dL Hct 25.6 L 25.1 L (39.0-53.0) % MCHC 30.6 L (31.0-37.0) g/dL RDW 18.7 H 18.7 H (11.5-15.5) % Neutrophils # 12.4 H (1.3-7.7) k/uL Lymphocytes # 0.9 L (1.0-4.8) k/uL Plasma Lactic Acid Valente 2.6 H* (0.7-2.0) mmol/L 01/31/23 Range/Units 00:44 WBC 14.5 H (3.8-10.6) k/uL RBC 2.74 L (4.30-5.90) m/uL Hgb 7.3 L (13.0-17.5) gm/dL Hct 23.5 L (39.0-53.0) % MCHC (31.0-37.0) g/dL RDW 18.8 H (11.5-15.5) % Neutrophils # (1.3-7.7) k/uL Lymphocytes # (1.0-4.8) k/uL Plasma Lactic Acid Valente (0.7-2.0) mmol/L Assessment and Plan (1) Hematemesis Status: Acute Code(s): K92.0 - HEMATEMESIS SNOMED Code(s): 3969182 (2) Pancreatic cancer Status: Chronic Priority: High Code(s): C25.9 - MALIGNANT NEOPLASM OF PANCREAS, UNSPECIFIED SNOMED Code(s): 980573890 Plan: Hematemesis: -Patient presented to the emergency room with complaints of hematemesis. 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 Unfortunately shortly thereafter patient began to have agonal breathing and had a thready pulse and shortly thereafter. We tried to contact next of kin which is his niece but could not reach her. However did speak to internal medicine and they spoke to the niece who was agreeable with comfort measures and confirmed his DNR/DNI status. Pancreatic adenocarcinoma -Pt had made the decision a long time ago that he was not going to do any fu rther chemo treatments and was going to live his life out to the best of his ability. -Patient underwent EGD with Dr. Navarro during last admission. 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 During his last admission, he again stated that he is not interested in any systemic treatment. But he was amendable to palliative radiation. Consult was placed to radiation oncology and it was planned to f/u outpt for palliative radiation, however was unable to make f/u appt due to worsening condition Dr attests: I have seen and examined pt, performed H&P, developed impression and plan of care. Discussed with dictator. Agree with documentation, dictated as a scribe
--- NOTE | 2023-02-04 13:07 | CDI ---
Documentation Clarification Form Date: 02/04/2023 12:56:22 PM From: Polina Ceja RN, CCDS Email: [email or web address] Admit Date: 01/30/2023 09:25:00 AM Patient Name: Rodney Kingsley Visit Number: [id number] Discharge Date: 01/31/2023 01:09:00 PM ATTENTION: The Clinical Documentation Specialists (CDI) and [facility] Coding Staff appreciate your assistance in clarifying documentation. Please respond to the clarification below the line at the bottom and electronically sign. The CDI & [facility] Coding staff will review the response and follow-up if needed. Please note: Queries are made part of the Legal Health Record. If you have any questions, please contact the author of this message via ITS. Dr. Gwendolyn Dunn Your patient was vomiting bright red blood with clots, found to have a pulse ox of 73% and became unresponsive. Based on this information and the findings below, is there an additional diagnosis that is clinically appropriate for this patient? History/Risk Factors: pancreatic cancer with metastatic disease to the liver, recent history of GI bleed in December with EGD showing large gastric bleeding ulcer and CT showing fistula from her erosion of pancreatic malignancy. Presents to ED for hematemesis. Clinical Indicators: 01/31 A-Team: "MANAGER FLOOR went into room to find pt vomiting bright red blood with clots. Pt was axox3 at this time and was speaking to staff stating he did not feel good. Pt sounded very congested. A-team was called at 1001. Vital signs were taken but BP would not register, pulse was in the low 30's, O2 was 73%, oxygen was applied. Discharge summary: "Agonal breathing. He was suctioned. He was noted to be bradycardic with a thready pulse." 01/31 @10:01 Vital signs: HR low 30's, BP would not register Pulse oximetry: 73% Treatment: O2 applied; Morphine 2mg IVP x1 on 01/31; Suctioned Is there an additional diagnosis that is clinically appropriate for this patient? [ x ] Acute Hypoxic Respiratory Failure (pO2 <60 mm Hg or SpO2 <91% on room air) [ ] Acute Respiratory Insufficiency [ ] Other Diagnosis, please specify [ ] Unable to determine MTDD
== END 2023-01-31 13:09 | disposition expired | DRG 377 ==
LOC: EC 07:10 → 5NMEDONC 09:25
PROVIDERS: ADMIT Family Medicine; ATTEND Family Medicine
DX: K25.4 Chronic or unspecified gastric ulcer with hemorrhage (principal); J96.01 Acute respiratory failure with hypoxia; C25.9 Malignant neoplasm of pancreas, unspecified; E87.22 Chronic metabolic acidosis; E87.1 Hypo-osmolality and hyponatremia; C78.7 Secondary malignant neoplasm of liver and intrahepatic bile duct; K31.6 Fistula of stomach and duodenum; E87.8 Other disorders of electrolyte and fluid balance, not elsewhere classified; I10 Essential (primary) hypertension; E11.9 Type 2 diabetes mellitus without complications; D50.0 Iron deficiency anemia secondary to blood loss (chronic); Z51.5 Encounter for palliative care; Z66 Do not resuscitate; D75.838 Other thrombocytosis; E86.0 Dehydration; D72.828 Other elevated white blood cell count; E78.5 Hyperlipidemia, unspecified; R25.1 Tremor, unspecified; R74.01 Elevation of levels of liver transaminase levels; Z87.891 Personal history of nicotine dependence; Z85.46 Personal history of malignant neoplasm of prostate; Z90.411 Acquired partial absence of pancreas; Z90.79 Acquired absence of other genital organ(s); Z90.81 Acquired absence of spleen; Z79.899 Other long term (current) drug therapy; Z91.030 Bee allergy status; Z88.8 Allergy status to other drugs, medicaments and biological substances
CPT/HCPCS: 36415; 80048; 80053; 83605; 83690; 83735; 85025; 85027; 85610; 85730; 86850; 86900; 86901; 96374; 96375; 96376; 99291